=== PATIENT | female | born 1960 | race African-American/Black ===

== ENCOUNTER 2016-09-12 14:33 | Inpatient (IN) | payer MEDICAID ==
[~2016-09-12] VITALS: Ht 157.5 cm; Wt 127.5 kg
[~2016-09-12 14:33] MED LIST: ABILIFY30 MG ORAL; ASPIR 8181 MG ORAL; ATORVASTATIN CA20 MG ORAL; BP MEDS; CARVEDILOL12.5 MG ORAL; CARVEDILOL3.125 MG ORAL; COLCRYS0.6 M1 PO; COUMADIN1 MG ORAL; FERROUS SULFAT325 M2 ORAL; FUROSEMIDE40 MG ORAL; FUROSEMIDE40 MG PO; GABAPENTIN600 MG ORAL; HYDRALAZINE HCL25 M1 ORAL; IRON325 M2 PO; LANTUS SOL100 UNIT/1 SUBQ; LASIX40 MG ORAL; LEVETIRACETAM500 MG ORAL; LEVOTHYROXINE100 MCG ORAL; LISINOPRIL10 MG ORAL; LOSARTAN POTASS25 MG ORAL; NORCO 10-325 T1 EACH ORAL; NOVOLOG100 UNIT/3 SUBQ; NOVOLOG100 UNITS1 SUBQ; POTASSIUM CHLO10 ME3 ORAL; POTASSIUM CHLO20 ME3 PO; POTASSIUM CHLOR8 ME3 PO; RANEXA500 MG ORAL; SOMA350 MG PO; SPIRONOLACTONE100 MG ORAL; TEMAZEPAM7.5 MG ORAL; ULTRAM50 MG ORAL; VICODIN 5-5001 EACH PO; ZANTAC150 MG ORAL; ZAROXOLYN5 MG ORAL
[2016-09-12 14:51] VITALS: BP 119/83
--- NOTE | 2016-09-12 14:53 | Emergency Room Report ---
History of Present Illness General Chief Complaint: Chest Pain Source: Patient, Medical Record Present Illness HPI Patient presents with complaints of chest pain midsternal Complains of a sharp heaviness The pain came on about 2 hours ago Patient was given nitroglycerin in the field has not helped the pain very much Describes the pain as 6/10 at this time patient appeared diaphoretic however was given nitroglycerin by paramedics Denies any fevers or chills denies any cough She states that she has a very low EF denies any recent travel or pleurisy Allergies: Coded Allergies: CODEINE (Verified Allergy, Unknown, Itching, 08/21/14) SULFA (SULFONAMIDE ANTIBIOTICS) (Unverified Allergy, Unknown, 12/29/15) Uncoded Allergies: CODEIN (Allergy, Unknown, 09/12/16) Patient History Past Medical History: see triage record Pertinent Family History: none Reviewed Nursing Documentation: PMH: Agreed, PSxH: Agreed Nursing Documentation-PMH Hx Cardiac Problems: Yes - stroke Hx Hypertension: Yes Hx Pacemaker: Yes Hx Asthma: Yes Hx COPD: Yes Hx Diabetes: Yes Hx Cancer: No Hx Gastrointestinal Problems: No Hx Neurological Problems: No Hx Cerebrovascular Accident: Yes - In 2011, 2013 Hx Seizures: Yes Hx Headaches: Yes Review of Systems All Other Systems: negative except mentioned in HPI Physical Exam Vital Signs Date Time Temp Pulse Resp B/P Pulse Ox O2 Delivery O2 Flow Rate FiO2 09/12/16 14:27 77 16 145/85 100 Nasal Cannula 3.0 Sp02 EP Interpretation: reviewed, normal General Appearance: mild distress - Appears in acute pain and mildly diaphoretic Head: normocephalic, atraumatic Eyes: bilateral eye EOMI, bilateral eye PERRL ENT: hearing grossly normal, normal pharynx, TMs + canals normal, uvula midline Neck: full range of motion, supple, no meningismus, no bony tend Respiratory: lungs clear, normal breath sounds, no rhonchi, no respiratory distress, no retraction, no accessory muscle use Cardiovascular #1: normal peripheral pulses, regular rate, rhythm, no edema, no gallop, no JVD, no murmur Gastrointestinal: normal bowel sounds, non tender, soft, no mass, no organomegaly, non-distended, no guarding, no hernia, no pulsatile mass, no rebound Genitourinary: no CVA tenderness Musculoskeletal: normal inspection Neurologic: oriented x3, responsive, 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 as tested, motor strength/ tone normal, sensory intact Psychiatric: mood/affect normal Skin: normal color, no rash, warm/dry, palpation normal Lymphatic: normal inspection, no adenopathy Medical Decision Making Diagnostic Impression: Primary Impression: ACS (acute coronary syndrome) ER Course Patient is a fairly complex patient with multiple differential to consideration including but not limited to cardiac cardiopulmonary and vascular emergencies Patient does have a pacemaker in place At this time blood work and EKG did not show any obvious acute disease Patient remained symptomatic and require stronger pain medication On review patient has had several ablations for similar complaint However given the risk factors and the patient's discomfort patient was admitted for further inpatient care Labs Test 09/12/16 14:47 White Blood Count 7.7 K/UL (4.8-10.8) Red Blood Count 4.23 M/UL (4.20-5.40) Hemoglobin 12.3 G/DL (12.0-16.0) Hematocrit 37.9 % (37.0-47.0) Mean Corpuscular Volume 90 FL (80-99) Mean Corpuscular Hemoglobin 29.0 PG (27.0-31.0) Mean Corpuscular Hemoglobin Concent 32.4 G/DL (32.0-36.0) Red Cell Distribution Width 12.5 % (11.6-14.8) Platelet Count 179 K/UL (150-450) Mean Platelet Volume 8.5 FL (6.5-10.1) Neutrophils (%) (Auto) 67.8 % (45.0-75.0) Lymphocytes (%) (Auto) 24.6 % (20.0-45.0) Monocytes (%) (Auto) 4.9 % (1.0-10.0) Eosinophils (%) (Auto) 1.9 % (0.0-3.0) Basophils (%) (Auto) 0.8 % (0.0-2.0) Prothrombin Time 10.4 SEC (9.30-11.50) Prothromb Time International Ratio 1.0 (0.9-1.1) Activated Partial Thromboplast Time 25 SEC (23-33) Sodium Level 141 mEQ/L (135-145) Potassium Level 4.0 mEQ/L (3.4-4.9) Chloride Level 98 mEQ/L (98-107) Carbon Dioxide Level 27 mEQ/L (20-30) Anion Gap 16 (5-15) Blood Urea Nitrogen 8 mg/dL (7-23) Creatinine 0.8 mg/dL (0.5-0.9) Estimat Glomerular Filtration Rate > 60 mL/min (>60) Glucose Level 129 mg/dL (74-106) Calcium Level 9.1 mg/dL (8.6-10.2) Total Bilirubin 0.8 mg/dL (0.0-1.2) Aspartate Amino Transf (AST/SGOT) 24 U/L (5-40) Alanine Aminotransferase (ALT/SGPT) 18 U/L (3-33) Alkaline Phosphatase 49 U/L (35-104) Total Creatine Kinase 137 U/L (26-140) Creatine Kinase MB < 1.5 ng/mL (< 3.8) Creatine Kinase MB Relative Index Troponin I < 0.30 ng/mL (<=0.30) Pro-B-Type Natriuretic Peptide 218 pg/mL (0-125) Total Protein 6.7 g/dL (6.6-8.7) Albumin 4.1 g/dL (3.5-5.2) Globulin 2.6 g/dL Albumin/Globulin Ratio 1.5 (1.0-2.7) Lipase 16 U/L (< 60) EKG Diagnostic Results Rate: normal Rhythm: NSR ST Segments: other - Nonspecific ST and T-wave changes Rhythm Strip Diag. Results EP Interpretation: yes Rate: 67 Rhythm: NSR, no PVC's, no ectopy Chest X-Ray Diagnostic Results EP Interpretation: Yes Findings: no consolidation, no effusion, no pneumothorax, other - Cardiomegaly Number of Views: 1 Last Vital Signs Date Time Temp Pulse Resp B/P Pulse Ox O2 Delivery O2 Flow Rate FiO2 09/12/16 14:27 77 16 145/85 100 Nasal Cannula 3.0 Status: improved Disposition: ADMITTED INPATIENT Condition: Serious LEANA YAO D.O. Sep 12, 2016 14:53
[2016-09-12] MEDS ORDERED: Morphine Sulfate 4mg/ml Inj IVP ONE ×2 (15:00→15:45)
[2016-09-12 15:01] LABS: BASOPHILS % (AUTO) 0.8 % (0.0-2.0); EOSINOPHILS % (AUTO) 1.9 % (0.0-3.0); LYMPHOCYTES % (AUTO) 24.6 % (20.0-45.0); MEAN CORPUSCULAR HGB CONC 32.4 G/DL (32.0-36.0); MEAN CORPUSCULAR VOLUME 90 FL (80-99); MEAN PLATELET VOLUME 8.5 FL (6.5-10.1); MONOCYTES % (AUTO) 4.9 % (1.0-10.0); NEUTROPHILS % (AUTO) 67.8 % (45.0-75.0); PLATELET COUNT 179 K/UL (150-450); RED BLOOD COUNT 4.23 M/UL (4.20-5.40); RED CELL DISTRIBUTION WIDTH 12.5 % (11.6-14.8); WHITE BLOOD COUNT 7.7 K/UL (4.8-10.8)
[2016-09-12 15:14] LABS: PROTHROMBIN TIME 10.4 SEC (9.30-11.50)
[2016-09-12 15:18] LABS: ALANINE AMINOTRANSFERASE 18 U/L (3-33); ALBUMIN/GLOBULIN RATIO 1.5 (1.0-2.7); ANION GAP 16 (5-15); ASPARTATE AMINO TRANSFERASE 24 U/L (5-40); CALCIUM 9.1 mg/dL (8.6-10.2); CARBON DIOXIDE 27 mEQ/L (20-30); CHLORIDE 98 mEQ/L (98-107); CREATININE 0.8 mg/dL (0.5-0.9); GLOMERULAR FILTRATION RATE > 60 mL/min (>60); HEMOLYSIS 40; LIPASE 16 U/L (< 60); SODIUM 141 mEQ/L (135-145); TOTAL PROTEIN 6.7 g/dL (6.6-8.7); TROPONIN I < 0.30 ng/mL (<=0.30)
[2016-09-12 15:29] LABS: CKMB < 1.5 ng/mL (< 3.8)
[2016-09-12] MEDS ORDERED: DIPHENHYDRAMINE IVPB ONE (16:30)
[2016-09-12] MEDS ORDERED: HYDROMORPHONE IVPB ONE (16:30)
[2016-09-12] MEDS ORDERED: NS IVPB ONE (16:30)
[2016-09-12] MEDS ORDERED: DiphenhydrAMINE 50mg/ml Inj ONE (16:37)
[2016-09-12 17:11] VITALS: BP 129/65
--- NOTE | 2016-09-12 17:53 | History and Physical ---
History of Present Illness General Date patient seen: Sep 12, 2016 Reason for Hospitalization: Chest Pain Present Illness HPI 56 year old female with hx of cardiomyopathy and ICD presented to ER with complaints of chest pain midsternal The pain came on about 2 hours prior to admission Patient was given nitroglycerin in the field has not helped the pain. Because of her extensive cardiac history she was admitted to [facility] Allergies: Coded Allergies: CODEINE (Verified Allergy, Unknown, Itching, 08/21/14) SULFA (SULFONAMIDE ANTIBIOTICS) (Unverified Allergy, Unknown, 12/29/15) Uncoded Allergies: CODEIN (Allergy, Unknown, 09/12/16) Medication History Scheduled Aripiprazole* (Abilify*), 30 MG ORAL BEDTIME, (Reported) Aspirin* (Aspir 81*), 81 MG ORAL DAILY, (Reported) Atorvastatin Calcium* (Atorvastatin Calcium*), 20 MG ORAL BEDTIME, (Reported) Carvedilol* (Carvedilol*), 12.5 MG ORAL EVERY 12 HOURS, (Reported) Colchicine (Colcrys), 0.6 MG PO DAILY Furosemide* (Lasix*), 40 MG ORAL DAILY Gabapentin* (Gabapentin*), 600 MG ORAL THREE TIMES A DAY, (Reported) Insulin Aspart (Novolog Flexpen), 0 UNITS SUBQ BEFORE MEALS AND HS Insulin Aspart* (Novolog*), 25 UNITS SUBQ TID, (Reported) Insulin Glargine (Lantus), 25 SUBQ TID, (Reported) Levetiracetam* (Levetiracetam*), 500 MG ORAL TWICE A DAY, (Reported) Levothyroxine Sodium* (Levothyroxine Sodium*), 100 MCG ORAL DAILY, (Reported) Losartan Potassium* (Losartan Potassium*), 25 MG ORAL DAILY, (Reported) Potassium Chloride (Potassium Chloride), 40 MEQ PO BID, (Reported) Potassium Chloride (Potassium Chloride), 10 MEQ ORAL DAILY Spironolactone* (Spironolactone*), 25 MG ORAL DAILY, (Reported) Scheduled PRN Carisoprodol* (Soma*), 350 MG PO BID PRN Hydrocodone Bit/Acetaminophen 10-325* ([place] 10-325*), 1 TAB ORAL BID PRN for For Pain, (Reported) Patient History Healthcare decision maker Resuscitation status Advanced Directive on File Past Medical/Surgical History Past Medical/Surgical History: (1) Morbid obesity (2) GERD (gastroesophageal reflux disease) (3) HTN (hypertension) (4) Diabetes mellitus (5) Hypothyroidism Review of Systems Cardiovascular: Reports: chest pain All Other Systems: negative except mentioned in HPI Physical Exam General Appearance: overweight, obese Lines, tubes and drains: peripheral, central line HEENT: normocephalic Neck: non-tender, normal alignment Respiratory/Chest: chest wall non-tender, lungs clear Breasts: no masses Cardiovascular/Chest: normal peripheral pulses Abdomen: normal bowel sounds, non tender Genitourinary/Rectal: normal genital exam Extremities: normal range of motion 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 normal Lymphatic: anterior cervical Last 24 Hour Vital Signs Date Time Temp Pulse Resp B/P Pulse Ox O2 Delivery O2 Flow Rate FiO2 09/12/16 17:13 98.7 09/12/16 17:12 98.7 87 16 119/83 100 Nasal Cannula 3.0 09/12/16 17:11 98.8 87 15 129/65 100 Nasal Cannula 3.0 09/12/16 17:08 98.7 09/12/16 15:22 98.7 09/12/16 14:52 77 16 Nasal Cannula 3.0 09/12/16 14:51 98.7 87 18 119/83 100 Nasal Cannula 3.0 09/12/16 14:27 77 16 145/85 100 Nasal Cannula 3.0 Laboratory Tests Test 09/12/16 14:47 White Blood Count 7.7 K/UL (4.8-10.8) Red Blood Count 4.23 M/UL (4.20-5.40) Hemoglobin 12.3 G/DL (12.0-16.0) Hematocrit 37.9 % (37.0-47.0) Mean Corpuscular Volume 90 FL (80-99) Mean Corpuscular Hemoglobin 29.0 PG (27.0-31.0) Mean Corpuscular Hemoglobin Concent 32.4 G/DL (32.0-36.0) Red Cell Distribution Width 12.5 % (11.6-14.8) Platelet Count 179 K/UL (150-450) Mean Platelet Volume 8.5 FL (6.5-10.1) Neutrophils (%) (Auto) 67.8 % (45.0-75.0) Lymphocytes (%) (Auto) 24.6 % (20.0-45.0) Monocytes (%) (Auto) 4.9 % (1.0-10.0) Eosinophils (%) (Auto) 1.9 % (0.0-3.0) Basophils (%) (Auto) 0.8 % (0.0-2.0) Prothrombin Time 10.4 SEC (9.30-11.50) Prothromb Time International Ratio 1.0 (0.9-1.1) Activated Partial Thromboplast Time 25 SEC (23-33) Sodium Level 141 mEQ/L (135-145) Potassium Level 4.0 mEQ/L (3.4-4.9) Chloride Level 98 mEQ/L (98-107) Carbon Dioxide Level 27 mEQ/L (20-30) Anion Gap 16 (5-15) H Blood Urea Nitrogen 8 mg/dL (7-23) Creatinine 0.8 mg/dL (0.5-0.9) Estimat Glomerular Filtration Rate > 60 mL/min (>60) Glucose Level 129 mg/dL (74-106) H Calcium Level 9.1 mg/dL (8.6-10.2) Total Bilirubin 0.8 mg/dL (0.0-1.2) Aspartate Amino Transf (AST/SGOT) 24 U/L (5-40) Alanine Aminotransferase (ALT/SGPT) 18 U/L (3-33) Alkaline Phosphatase 49 U/L (35-104) Total Creatine Kinase 137 U/L (26-140) Creatine Kinase MB < 1.5 ng/mL (< 3.8) Creatine Kinase MB Relative Index Troponin I < 0.30 ng/mL (<=0.30) Pro-B-Type Natriuretic Peptide 218 pg/mL (0-125) H Total Protein 6.7 g/dL (6.6-8.7) Albumin 4.1 g/dL (3.5-5.2) Globulin 2.6 g/dL Albumin/Globulin Ratio 1.5 (1.0-2.7) Lipase 16 U/L (< 60) Height (Feet): 5 Height (Inches): 2.00 Weight (Pounds): 268 Assessment/Plan Problem List: (1) ACS (acute coronary syndrome) ICD Codes: I24.9 - Acute coronary syndrome SNOMED: 723309830 (2) AICD (automatic cardioverter/defibrillator) present ICD Codes: Z95.810 - Presence of automatic (implantable) cardiac defibrillator SNOMED: 14805127, 610592780 (3) HTN (hypertension) ICD Codes: I10 - Essential (primary) hypertension SNOMED: 36099315 Qualifiers: Qualified Codes: I10 - Essential (primary) hypertension (4) GERD (gastroesophageal reflux disease) ICD Codes: K21.9 - Gastro-esophageal reflux disease without esophagitis SNOMED: 592132289 Qualifiers: Qualified Codes: K21.9 - Gastro-esophageal reflux disease without esophagitis (5) Diabetes mellitus ICD Codes: E11.9 - Type 2 diabetes mellitus without complications SNOMED: 29532230 Qualifiers: (6) Cardiomyopathy ICD Codes: I42.9 - Cardiomyopathy, unspecified SNOMED: 68287921 (7) Seizure disorder ICD Codes: G40.909 - Epilepsy, unspecified, not intractable, without status epilepticus SNOMED: 972094742 (8) Morbid obesity ICD Codes: E66.01 - Morbid (severe) obesity due to excess calories SNOMED: 736975546 Qualifiers: Qualified Codes: E66.01 - Morbid (severe) obesity due to excess calories Assessment/Plan serial ekg, troponin, echo symptomatic treatment sliding scale diabetic diet cardiology evaluation keep in teli for now BEKA MASON Sep 12, 2016 17:53
[2016-09-12] MEDS ORDERED: DuoNeb 0.5-3(2.5)mg/3ml neb HHN PRN (18:00)
[2016-09-12] MEDS ORDERED: Diltiazem 25mg/5ml IV PRN (18:00)
[2016-09-12] MEDS ORDERED: Enalaprilat 2.5mg/2ml Inj IV PRN (18:00)
[2016-09-12] MEDS ORDERED: Miralax 17gm pkt ORAL PRN (18:00)
[2016-09-12] MEDS ORDERED: Nitroglycerin Subl 0.4mg tab (Bottle Of 25) SL PRN (18:00)
[2016-09-12] MEDS ORDERED: Ketorolac 30mg Inj IV PRN (18:00)
[2016-09-12] MEDS: Morphine Sulfate 2mg/ml Inj IVP PRN ×2 (18:27→22:23)
[2016-09-12 20:00] VITALS: BP 106/68
[2016-09-12] MEDS: Carvedilol 12.5mg tab ORAL SCH (21:00)
[2016-09-12] MEDS: Atorvastatin 20mg tab ORAL SCH (22:17)
[2016-09-12] MEDS: NovoLOG Insulin Flexpen SUBQ SCH (22:20)
[2016-09-12] MEDS: Heparin 5000 units/ml inj SUBQ SCH (22:21)
[2016-09-13] VITALS (7 sets, daily range): BP systolic 108–123; BP diastolic 64–85
[2016-09-13] MEDS: Morphine Sulfate 2mg/ml Inj IVP PRN ×3 (02:29→18:50)
[2016-09-13] MEDS: Heparin 5000 units/ml inj SUBQ SCH ×3 (06:38→21:23)
[2016-09-13] MEDS: NovoLOG Insulin Flexpen SUBQ SCH ×4 (06:39→21:24)
[2016-09-13] MEDS ORDERED: Aspirin EC 81mg tab ORAL SCH (09:00)
[2016-09-13 09:20] LABS: CHOLESTEROL 128 mg/dL (< 200); CHOLESTEROL/HDL RATIO 2.8 (3.3-4.4); CRP QUANT < 0.3 mg/dL (< 0.5); HEMOLYSIS 15; LDL CHOLESTEROL (CALC.) 17 mg/dL (60-99)
[2016-09-13 09:21] LABS: TROPONIN I < 0.30 ng/mL (<=0.30)
[2016-09-13 09:30] LABS: THYROID STIMULATING HORMONE 0.838 uIU/mL (0.300-4.500)
[2016-09-13] MEDS: Carvedilol 12.5mg tab ORAL SCH ×2 (10:00→21:00)
[2016-09-13] MEDS: Losartan 25mg tab ORAL SCH (10:00)
[2016-09-13] MEDS: Aspirin Baby 81mg ORAL SCH (10:00)
[2016-09-13] MEDS: Furosemide 40mg tab ORAL SCH (10:45)
--- NOTE | 2016-09-13 13:36 | Pulmonology Progress Note ---
Assessment/Plan Problems: (1) ACS (acute coronary syndrome) (2) AICD (automatic cardioverter/defibrillator) present (3) HTN (hypertension) (4) GERD (gastroesophageal reflux disease) (5) Diabetes mellitus (6) Cardiomyopathy (7) Seizure disorder (8) Morbid obesity Assessment/Plan serial ekg, troponin, echo pending symptomatic treatment sliding scale diabetic diet cardiology evaluation, Dr. Ortega evaluating the pt right now keep in teli for now Subjective ROS Limited/Unobtainable: No Interval Events: still complaining of chest pain Constitutional: Reports: no symptoms HEENT: Repors: no symptoms Allergies: Coded Allergies: CODEINE (Verified Allergy, Unknown, Itching, 08/21/14) SULFA (SULFONAMIDE ANTIBIOTICS) (Unverified Allergy, Unknown, 12/29/15) Uncoded Allergies: CODEIN (Allergy, Unknown, 09/12/16) Objective Last 24 Hour Vital Signs Date Time Temp Pulse Resp B/P Pulse Ox O2 Delivery O2 Flow Rate FiO2 09/13/16 12:06 98.4 82 18 112/64 93 Room Air 09/13/16 08:00 98.1 82 18 112/69 93 Room Air 09/13/16 04:54 97.7 77 22 115/64 100 Room Air 09/13/16 04:00 73 09/13/16 00:49 97.2 69 20 120/70 94 Room Air 09/12/16 21:00 91 106/68 09/12/16 20:00 91 09/12/16 20:00 97.0 66 19 106/68 100 Room Air 09/12/16 17:13 98.7 09/12/16 17:12 98.7 87 16 119/83 100 Nasal Cannula 3.0 09/12/16 17:11 98.8 87 15 129/65 100 Nasal Cannula 3.0 09/12/16 17:08 98.7 09/12/16 15:22 98.7 09/12/16 14:52 77 16 Nasal Cannula 3.0 09/12/16 14:51 98.7 87 18 119/83 100 Nasal Cannula 3.0 09/12/16 14:27 77 16 145/85 100 Nasal Cannula 3.0 Intake and Output 09/12/16 09/13/16 19:00 07:00 Intake Total 51.5 ml 480 ml Balance 51.5 ml 480 ml Intake Oral 480 ml IV Total 51.5 ml # Voids 4 # Bowel Movements 1 General Appearance: WD/WN Respiratory/Chest: chest wall non-tender, lungs clear Cardiovascular: normal peripheral pulses, normal rate Abdomen: normal bowel sounds, soft, non tender Genitourinary: normal external genitalia Extremities: no clubbing 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, no motor/sensory deficits Laboratory Tests 09/12/16 14:47: White Blood Count 7.7, Red Blood Count 4.23, Hemoglobin 12.3, Hematocrit 37.9, Mean Corpuscular Volume 90, Mean Corpuscular Hemoglobin 29.0, Mean Corpuscular Hemoglobin Concent 32.4, Red Cell Distribution Width 12.5, Platelet Count 179, Mean Platelet Volume 8.5, Neutrophils (%) (Auto) 67.8, Lymphocytes (%) (Auto) 24.6, Monocytes (%) (Auto) 4.9, Eosinophils (%) (Auto) 1.9, Basophils (%) (Auto ) 0.8, Prothrombin Time 10.4, Prothromb Time International Ratio 1.0, Activated Partial Thromboplast Time 25, Sodium Level 141, Potassium Level 4.0, Chloride Level 98, Carbon Dioxide Level 27, Anion Gap 16H, Blood Urea Nitrogen 8, Creatinine 0.8, Estimat Glomerular Filtration Rate > 60, Glucose Level 129H, Calcium Level 9.1, Total Bilirubin 0.8, Aspartate Amino Transf (AST/SGOT) 24, Alanine Aminotransferase (ALT/SGPT) 18, Alkaline Phosphatase 49, Total Creatine Kinase 137, Creatine Kinase MB < 1.5, Creatine Kinase MB Relative Index , Troponin I < 0.30, Pro-B-Type Natriuretic Peptide 218H, Total Protein 6.7, Albumin 4.1, Globulin 2.6, Albumin/Globulin Ratio 1.5, Lipase 16 09/13/16 08:40: Prothrombin Time 10.0, Prothromb Time International Ratio 1.0, Activated Partial Thromboplast Time 21L, Troponin I < 0.30, C-Reactive Protein, Quantitative < 0.3, Triglycerides Level 323H, Cholesterol Level 128, LDL Cholesterol 17L, HDL Cholesterol 46, Cholesterol/HDL Ratio 2.8L, Thyroid Stimulating Hormone (TSH) 0.838 Current Medications Medications (Trade) Dose Ordered Sig/Demarcus Route PRN Reason Start Time Stop Time Status Last Admin Dose Admin Acetaminophen (Tylenol) 650 mg Q4H PRN ORAL T>100.5 09/12/16 18:00 10/12/16 17:59 Acetaminophen/ Hydrocodone Bitart ([place] 10/325) 1 ea BID PRN ORAL Moderate Pain (Pain Scale 4-6) 09/12/16 18:00 09/19/16 17:59 Albuterol/ Ipratropium (DuoNeb 0.5-3(2.5)mg/3ml) 3 ml Q4H PRN HHN Shortness of Breath 09/12/16 18:00 09/17/16 17:59 Aripiprazole (Abilify) 30 mg BEDTIME ORAL 09/12/16 21:00 10/12/16 20:59 09/12/16 22:36 Aspirin (ASA) 162 mg DAILY ORAL 09/13/16 09:00 10/13/16 08:59 Atorvastatin Calcium (Lipitor) 20 mg BEDTIME ORAL 09/12/16 21:00 10/12/16 20:59 09/12/16 22:17 Carisoprodol (Soma) 350 mg BIDPRN PRN ORAL Muscle Spasms 09/12/16 18:00 10/12/16 17:59 09/13/16 02:29 Carvedilol (Coreg) 12.5 mg EVERY 12 HOURS ORAL 09/12/16 21:00 10/12/16 20:59 Dextrose (Dextrose 50%) STAT PRN IV Hypoglycemia 09/12/16 18:00 10/12/16 17:59 Diltiazem HCl (Cardizem) 10 mg Q1H PRN IV heart rate more than 120 BPM 09/12/16 18:00 10/12/16 17:59 Enalaprilat (Vasotec) 2.5 mg Q6H PRN IV sbp more than 160 09/12/16 18:00 10/12/16 17:59 Furosemide (Lasix) 40 mg DAILY ORAL 09/13/16 09:00 10/13/16 08:59 Gabapentin (Neurontin) 600 mg THREE TIMES A DAY ORAL 09/12/16 18:00 10/12/16 17:59 09/12/16 18:27 Heparin Sodium (Porcine) (Heparin 5000 units/ml) 5,000 units EVERY 8 HOURS SUBQ 12/28/16 22:00 10/12/16 21:59 09/13/16 06:38 Insulin Aspart (NovoLOG) BEFORE MEALS AND HS SUBQ 09/12/16 21:00 10/12/16 20:59 09/13/16 06:39 Levothyroxine Sodium (Synthroid) 100 mcg ACBREAKFAST ORAL 09/13/16 06:30 10/13/16 06:29 09/13/16 06:36 Losartan Potassium (Cozaar) 25 mg DAILY ORAL 09/13/16 09:00 10/13/16 08:59 Morphine Sulfate (Morphine Sulfate) 2 mg Q4H PRN IVP Severe Pain (Pain Scale 7-10) 09/12/16 18:00 09/19/16 17:59 09/13/16 06:36 Nitroglycerin (Ntg) 0.4 mg Q5MIN X 3 DOSES PRN SL Prn Chest Pain 09/12/16 18:00 10/12/16 17:59 Ondansetron HCl (Zofran) 4 mg Q6H PRN IVP Nausea & Vomiting 09/12/16 18:00 10/12/16 17:59 Pantoprazole (Protonix) 40 mg DAILY ORAL 09/13/16 09:00 10/13/16 08:59 Polyethylene Glycol (Miralax) 17 gm DAILYPRN PRN ORAL Constipation 09/12/16 18:00 10/12/16 17:59 Potassium Chloride (K-Dur) 10 meq DAILY ORAL 09/13/16 09:00 10/13/16 08:59 Temazepam (Restoril) 15 mg HSPRN PRN ORAL Insomnia 09/12/16 21:00 09/19/16 20:59 BEKA MASON Sep 13, 2016 13:36
--- NOTE | 2016-09-13 14:46 | Consultation ---
Consult Note Consult Note Cardiology for Dr. Levine full consult dictated #[id number] LONA HENSON Sep 13, 2016 14:46
[2016-09-13] MEDS ORDERED: NS 55ml IV ONE (17:45)
--- NOTE | 2016-09-13 19:48 | Consultation ---
DATE OF CONSULTATION: 09/13/2016 CARDIOLOGY CONSULTATION REQUESTING PHYSICIAN: Fernando Aquino M.D. REASON FOR CONSULT: Chest pain. HISTORY OF PRESENT ILLNESS: The patient is a 56-year-old, woman with a history of hypertension, morbid obesity, and congestive heart failure status post dual-chamber ICD placement in 2011, who was admitted with chest pain. She reports that on the evening of admission, she was lying down and developed severe left-sided sharp chest pain radiating to her left arm. She became dyspneic. She was brought to the emergency room where she reported chest pain over the preceding 2 hours. Her blood pressure was 145/85 and pulse 77 beats per minute. She had received nitroglycerin by the paramedics, which did not improve her symptoms. She was admitted for further treatment. She reports that she has had continued left chest discomfort. PAST MEDICAL HISTORY: As noted above. MEDICATIONS: Lasix 40 mg daily, Cozaar 25 mg daily, potassium 10 mEq daily, Protonix 40 mg daily, subcutaneous heparin 5000 units twice daily, atorvastatin 20 mg daily, Restoril 15 mg q.h.s. p.r.n., insulin sliding scale, Soma 350 mg b.i.d. p.r.n., gabapentin 600 mg t.i.d., [place] p.r.n., and nitroglycerin sublingual p.r.n. ALLERGIES: Codeine and sulfa caused a rash. SOCIAL HISTORY: The patient denies tobacco, alcohol, or drug use. PHYSICAL EXAMINATION: VITAL SIGNS: Blood pressure is 112/64, pulse 82 regular, respirations 18, and afebrile. GENERAL: The patient is a morbidly obese, woman, in no acute distress. HEENT: Normocephalic and atraumatic. Pupils are equal, round, and reactive to light. Sclerae anicteric. Oral mucosa are moist. NECK: Supple. There is no jugular venous distention. No thyromegaly. LUNGS: There are few right basilar crackles. Left is clear. HEART: Regular. S1 and S2 with no murmurs, rubs, S3, or S4. ABDOMEN: Obese, soft, and nontender. Exam is limited by obesity. EXTREMITIES: There is no peripheral edema, 2+ dorsalis pedis and posterior tibial pulses bilaterally. NEUROLOGIC: No focal motor deficits. LABORATORY AND DIAGNOSTIC DATA: EKG shows sinus rhythm at a rate of 81 beats per minute, axis -30 degrees, poor R-wave progression V1 to V4, no ST-segment changes, left ventricular hypertrophy by voltage. Hemoglobin 12.3, white blood count 7700, and platelets 179,000. Sodium 141, potassium 4.0, chloride 98, bicarbonate 27, BUN 8, and creatinine 0.8. Troponin is less than 0.3 x3. Natriuretic peptide is 218. Chest x-ray is pending. Venous duplex of the legs show no DVT. ASSESSMENT AND RECOMMENDATIONS: The patient is a 56-year-old woman with morbid obesity, hypertension, and cardiomyopathy likely nonischemic and status post dual-chamber implantable cardioverter defibrillator placement in 2011 at an outside hospital. She was admitted with chest pain radiating to her left arm, which appeared consistent with angina, however, did not resolve with nitroglycerin and has subsequently ruled out with negative troponin levels. Her chest pain may have been of noncardiac origin or could have been due to small vessel disease. We will obtain an echo to evaluate left ventricular function. The elevated troponin may also have been a demand ischemia in the setting of congestive heart failure. I would favor continued medical therapy with diuretics, angiotensin converting enzyme inhibitors, beta-blockers, as well as statins. We will attempt to obtain old records to determine her previous cardiac evaluation to help guide further therapy. Kelly Holly M.D. DR: ELVIRA JOB#: [id number] CC: Fernando Aquino M.D.; Fax#: [phone]
[2016-09-13] MEDS: Atorvastatin 20mg tab ORAL SCH (21:20)
[2016-09-14] MEDS: Morphine Sulfate 2mg/ml Inj IVP PRN ×5 (00:15→20:46)
[2016-09-14 04:20] VITALS: BP 110/73
[2016-09-14] MEDS: NovoLOG Insulin Flexpen SUBQ SCH ×4 (06:09→21:05)
[2016-09-14] MEDS: Heparin 5000 units/ml inj SUBQ SCH ×3 (06:10→22:02)
[2016-09-14 08:00] VITALS: BP 108/65
[2016-09-14] MEDS: Aspirin Baby 81mg ORAL SCH (09:00)
[2016-09-14 09:23] VITALS: BP 133/72
[2016-09-14] MEDS: Losartan 25mg tab ORAL SCH (09:26)
[2016-09-14] MEDS: Carvedilol 12.5mg tab ORAL SCH ×2 (09:26→20:47)
[2016-09-14] MEDS: Furosemide 40mg tab ORAL SCH (09:27)
[2016-09-14] MEDS ORDERED: Heparin 2000 units/Ns 1000ml INJ ONE (10:00)
[2016-09-14] MEDS ORDERED: Lidocaine 1% Plain 30 ml INJ ONE (10:00)
[2016-09-14] MEDS ORDERED: Sodium Bicarbonate 8.4% 50ml Inj IV ONE (10:00)
[2016-09-14 10:24] LABS: TROPONIN I < 0.30 ng/mL (<=0.30)
[2016-09-14 12:00] VITALS: BP 109/68
--- NOTE | 2016-09-14 14:02 | Cardiology Report ---
APPROVED REPORT EKG Measurement Heart [id number] ID [id number] Normal sinus rhythm Possible Left atrial enlargement Left axis deviation Left ventricular hypertrophy Abnormal ECG
--- NOTE | 2016-09-14 14:23 | Cardiology Report ---
APPROVED REPORT EXAM: Two-dimensional and M-mode echocardiogram with Doppler and color Doppler. M-Mode DIMENSIONS IVSd1.0 (0.7-1.1cm)Left Atrium (MM)4.2 (1.6-4.0cm) LVDd5.8 (3.5-5.6cm)Aortic Root3.0 (2.0-3.7cm) PWd1.2 (0.7-1.1cm)Aortic Cusp Exc.2.0 (1.5-2.0cm) LVDs3.7 (2.5-4.0cm) PWs1.6 cm Technically difficult study due to poor acoustic windows and weight. THERE IS AKINESIS AND THINNING OF THE ANTERIOR SEPTAL WALL. THERE IS SEVERE HYPOKINESIS TO AKINESIS OF THE ANTERIOR WALL. THERE IS HYPOKINESIS OF THE ISAIAS-LATERAL WALL. APICAL VIEWS DO NOT ALLOW FOR ADEQUATE ENDOCARDIAL DEFINITION TO DESCRIBE THE EXTENT OF THESE WALL MOTION ABNORMALITIES. PATTERN CONSISTENT WITH ISCHEMIC CARDIOMYOPATHY. Left ventricular ejection fraction estimated to be 30%. No left ventricular hypertrophy. Mild left atrial enlargment. Mild left ventricular enlargment. Focal aortic valve sclerosis with adequate cusp excursion Thickened mitral valve leaflets with normal excursion. Mitral annulus and aortic root calcification. Pulmonic valve not well visualized. Normal tricuspid valve structure. IVC dilated at 2.3cm with physiologic collapse. A color flow and spectral Doppler study was performed and revealed: No aortic regurgitation. Trace mitral regurgitation. Mitral inflow velocities indicates reduced left ventricular relaxation diastolic dysfunction. Grade one. Mild tricuspid regurgitation. Tricuspid systolic velocities suggests peak right ventricular systolic pressure of 33 mmHg. Trace pulmonic regurgitation present.
--- NOTE | 2016-09-14 15:46 | Pulmonology Progress Note ---
Assessment/Plan Problems: (1) ACS (acute coronary syndrome) (2) AICD (automatic cardioverter/defibrillator) present (3) HTN (hypertension) (4) GERD (gastroesophageal reflux disease) (5) Diabetes mellitus (6) Cardiomyopathy (7) Seizure disorder (8) Morbid obesity Assessment/Plan serial ekg, troponin, echo pending symptomatic treatment sliding scale diabetic diet cardiology evaluation, Dr. Ortega evaluating the pt right now keep in teli for now will wait for cardio recommendation Subjective ROS Limited/Unobtainable: No Interval Events: patient eating chips from the vending machine Allergies: Coded Allergies: CODEINE (Verified Allergy, Unknown, Itching, 08/21/14) SULFA (SULFONAMIDE ANTIBIOTICS) (Unverified Allergy, Unknown, 12/29/15) Uncoded Allergies: CODEIN (Allergy, Unknown, 09/12/16) Objective Last 24 Hour Vital Signs Date Time Temp Pulse Resp B/P Pulse Ox O2 Delivery O2 Flow Rate FiO2 09/14/16 12:42 98.1 09/14/16 12:42 98.1 09/14/16 12:00 97.9 87 20 109/68 98 Room Air 09/14/16 10:26 98.1 09/14/16 09:26 133/72 09/14/16 09:26 94 133/72 09/14/16 09:23 94 133/72 09/14/16 08:00 97.9 85 20 108/65 100 Room Air 96 09/14/16 07:46 99 09/14/16 04:20 98.1 85 19 110/73 97 Room Air 09/14/16 04:00 84 09/14/16 00:00 79 09/13/16 23:55 97.9 89 20 123/85 94 Room Air 09/13/16 21:00 81 108/72 09/13/16 20:00 98.1 81 20 108/72 Nasal Cannula 2.0 100 09/13/16 20:00 79 09/13/16 18:57 82 20 Nasal Cannula 3.0 32 09/13/16 16:00 79 09/13/16 16:00 99.3 77 19 118/67 Nasal Cannula 2.0 97 Intake and Output 09/13/16 09/14/16 19:00 07:00 Intake Total 600 ml 400 ml Balance 600 ml 400 ml Intake Oral 600 ml 400 ml # Voids 1 1 # Bowel Movements 1 General Appearance: WD/WN HEENT: normocephalic, atraumatic Respiratory/Chest: chest wall non-tender, lungs clear Cardiovascular: normal peripheral pulses, normal rate Abdomen: normal bowel sounds, soft, non tender Extremities: no cyanosis Skin: no ulcers Neurologic/Psychiatric: no motor/sensory deficits Lymphatic: no neck adenopathy Laboratory Tests 09/14/16 09:40: Troponin I < 0.30 Current Medications Medications (Trade) Dose Ordered Sig/Demarcus Route PRN Reason Start Time Stop Time Status Last Admin Dose Admin Acetaminophen (Tylenol) 650 mg Q4H PRN ORAL T>100.5 09/12/16 18:00 10/12/16 17:59 Acetaminophen/ Hydrocodone Bitart ([place] 10/325) 1 ea BID PRN ORAL Moderate Pain (Pain Scale 4-6) 09/12/16 18:00 09/19/16 17:59 Albuterol/ Ipratropium (DuoNeb 0.5-3(2.5)mg/3ml) 3 ml Q4H PRN HHN Shortness of Breath 09/12/16 18:00 09/17/16 17:59 Aripiprazole (Abilify) 30 mg BEDTIME ORAL 09/12/16 21:00 10/12/16 20:59 09/13/16 21:20 Aspirin (ASA) 162 mg DAILY ORAL 09/13/16 09:00 10/13/16 08:59 09/13/16 10:00 Atorvastatin Calcium (Lipitor) 20 mg BEDTIME ORAL 09/12/16 21:00 10/12/16 20:59 09/13/16 21:20 Carisoprodol (Soma) 350 mg BIDPRN PRN ORAL Muscle Spasms 09/12/16 18:00 10/12/16 17:59 09/14/16 09:38 Carvedilol (Coreg) 12.5 mg EVERY 12 HOURS ORAL 09/12/16 21:00 10/12/16 20:59 09/14/16 09:26 Dextrose (Dextrose 50%) STAT PRN IV Hypoglycemia 09/12/16 18:00 10/12/16 17:59 Diltiazem HCl (Cardizem) 10 mg Q1H PRN IV heart rate more than 120 BPM 09/12/16 18:00 1/27/17 17:59 Enalaprilat (Vasotec) 2.5 mg Q6H PRN IV sbp more than 160 09/12/16 18:00 10/12/16 17:59 Furosemide (Lasix) 40 mg DAILY ORAL 09/13/16 09:00 10/13/16 08:59 09/14/16 09:27 Gabapentin (Neurontin) 600 mg THREE TIMES A DAY ORAL 09/12/16 18:00 10/12/16 17:59 09/14/16 12:11 Heparin Sodium (Porcine) (Heparin 5000 units/ml) 5,000 units EVERY 8 HOURS SUBQ 09/12/16 22:00 10/12/16 21:59 09/14/16 13:31 Insulin Aspart (NovoLOG) BEFORE MEALS AND HS SUBQ 09/12/16 21:00 10/12/16 20:59 09/14/16 11:25 Levothyroxine Sodium (Synthroid) 100 mcg ACBREAKFAST ORAL 09/13/16 06:30 10/13/16 06:29 09/14/16 06:06 Losartan Potassium (Cozaar) 25 mg DAILY ORAL 09/13/16 09:00 10/13/16 08:59 09/14/16 09:26 Morphine Sulfate (Morphine Sulfate) 2 mg Q4H PRN IVP Severe Pain (Pain Scale 7-10) 09/12/16 18:00 09/19/16 17:59 09/14/16 12:12 Nitroglycerin (Ntg) 0.4 mg Q5MIN X 3 DOSES PRN SL Prn Chest Pain 09/12/16 18:00 10/12/16 17:59 Ondansetron HCl (Zofran) 4 mg Q6H PRN IVP Nausea & Vomiting 09/12/16 18:00 10/12/16 17:59 Pantoprazole (Protonix) 40 mg DAILY ORAL 09/13/16 09:00 10/13/16 08:59 09/14/16 09:26 Polyethylene Glycol (Miralax) 17 gm DAILYPRN PRN ORAL Constipation 09/12/16 18:00 10/12/16 17:59 Potassium Chloride (K-Dur) 10 meq DAILY ORAL 09/13/16 09:00 10/13/16 08:59 09/14/16 09:27 Temazepam (Restoril) 15 mg HSPRN PRN ORAL Insomnia 09/12/16 21:00 09/19/16 20:59 BEKA MASON Sep 14, 2016 15:46
[2016-09-14 16:00] VITALS: BP 109/59
--- NOTE | 2016-09-14 17:14 | Cardiology Progress Note ---
Assessment/Plan Status Narrative Mrs. Chavarria has ruled out for myocardial infarction w/ negative troponin levels. She has chronic systolic chf. EF currently 30% by ECHO, though technically difficult study. Hemodynamically stable. Does not appear w/ severe vol overload. Assessment/Plan Would continue cozaar, lasix, and carvedilol. BP is controlled. She reports previous cor angiogram (uncertain result) at [facility] - will review records. CP appears unlikely due to epicardial CAD, given negative troponin levels and duration of sx. Subjective ROS Limited/Unobtainable: No Subjective Pt c/o chest pain, fairly constant , and exertional dyspnea. Objective Last 24 Hour Vital Signs Date Time Temp Pulse Resp B/P Pulse Ox O2 Delivery O2 Flow Rate FiO2 09/14/16 16:25 98.1 09/14/16 16:00 99.0 86 18 109/59 95 Room Air 09/14/16 12:42 98.1 09/14/16 12:00 97.9 87 20 109/68 98 Room Air 09/14/16 10:26 98.1 09/14/16 09:26 133/72 09/14/16 09:26 94 133/72 09/14/16 09:23 94 133/72 09/14/16 08:00 97.9 85 20 108/65 100 Room Air 96 09/14/16 07:46 99 09/14/16 07:30 91 20 Nasal Cannula 2.0 28 09/14/16 04:20 98.1 85 19 110/73 97 Room Air 09/14/16 04:00 84 09/14/16 00:00 79 09/13/16 23:55 97.9 89 20 123/85 94 Room Air 09/13/16 21:00 81 108/72 09/13/16 20:00 98.1 81 20 108/72 Nasal Cannula 2.0 100 09/13/16 20:00 79 09/13/16 18:57 82 20 Nasal Cannula 3.0 32 General Appearance: no apparent distress, alert, obese EENT: PERRL/EOMI Neck: non-tender, no JVD Rhythm: NSR Cardiovascular: normal rate, regular rhythm Respiratory/Chest: lungs clear, other - dec BS bilat Abdomen: non tender, soft Extremities: non-tender, trace edema Intake and Output 09/13/16 09/14/16 19:00 07:00 Intake Total 600 ml 400 ml Balance 600 ml 400 ml Intake Oral 600 ml 400 ml # Voids 1 1 # Bowel Movements 1 Laboratory Tests Test 09/14/16 09:40 Troponin I < 0.30 ng/mL (<=0.30) LONA HENSON Sep 14, 2016 17:14
[2016-09-14 20:00] VITALS: BP 109/42
[2016-09-14] MEDS: Atorvastatin 20mg tab ORAL SCH (20:47)
--- NOTE | 2016-09-14 21:07 | Consultation ---
DATE OF CONSULTATION: 09/14/2016 CONSULTING PHYSICIAN: Fernando Aquino M.D. REASON FOR CONSULTATION: The patient complains of rash and sweating underneath the breast and also in the groin creases. HISTORY OF PRESENT ILLNESS: This is a 56-year-old woman. She has a significant medical history of cardiomyopathy and she was admitted on 09/12/2016 for chest pain and numbness of her left hand. The patient stated that she normally is ambulatory and active at home and prior to this illness, she was able to move around, however, she stated that she does have chronic back pain because of the heaviness of her bilateral breasts and she has sweatiness and has recurrent rashes in this area. She would like to know what her options are for treatment. MEDICATIONS: Lasix, Cozaar, K-Dur, aspirin, Protonix, Synthroid, Abilify, Lipitor, Coreg, Restoril, NovoLog, Soma, Neurontin, Stanton, nitroglycerin p.r.n., albuterol p.r.n., Tylenol p.r.n., morphine p.r.n., MiraLax p.r.n., Zofran p.r.n., Vasotec, and Cardizem. ALLERGIES: Codeine and Sulfa. REVIEW OF SYSTEMS: All negative except for what is listed above. PHYSICAL EXAMINATION: GENERAL: The patient is alert and oriented. She is overweight. HEENT: Normocephalic. No oral lesion. NECK: No lymphadenopathy. EXTREMITIES: Bilateral upper and lower extremities, no C/C/E. The patient has no open wounds or sores. I checked the area of her skin and the inframammary fold, she did have sweating. She does have large breasts with significant ptosis that does overlap. There are no active rashes as far as I could see. From her groin crease, she did have sweating. I do not see any active rashes in this area as either. ASSESSMENT: The patient with bilateral macromastia and also . The patient is overweight. The patient complains of history of rashes and sweating in the inframammary fold and also in the groin creases. RECOMMENDATIONS: the patient that she could put zinc oxide in the inframammary fold and also in the creases as well as antifungal powders in these area to protect against any rashes. The patient does have significant underlying cardiac issues, if she ever is a candidate for an elective surgery. She could have bilateral breast reduction, which reduced the volume of her breast tissue and would improve her back pain and also her rashes. Mis Quiroz M.D. DR: NATHAN JOB#: [id number] CC:
[2016-09-14] MEDS: Norco 10mg/325mg tab ORAL PRN (21:55)
[2016-09-15] VITALS: BP 124/75
[2016-09-15] MEDS: Morphine Sulfate 2mg/ml Inj IVP PRN ×5 (01:23→21:33)
[2016-09-15 04:00] VITALS: BP 102/54
[2016-09-15] MEDS: Heparin 5000 units/ml inj SUBQ SCH ×3 (06:20→21:28)
[2016-09-15] MEDS: NovoLOG Insulin Flexpen SUBQ SCH ×4 (06:21→21:28)
[2016-09-15 08:00] VITALS: BP 114/76
[2016-09-15] MEDS: Carvedilol 12.5mg tab ORAL SCH ×2 (08:40→21:25)
[2016-09-15] MEDS: Furosemide 40mg tab ORAL SCH (08:40)
[2016-09-15] MEDS: Aspirin Baby 81mg ORAL SCH (08:40)
[2016-09-15] MEDS: Losartan 25mg tab ORAL SCH (08:41)
[2016-09-15] MEDS: Norco 10mg/325mg tab ORAL PRN (09:23)
--- NOTE | 2016-09-15 11:10 | Cardiology Progress Note ---
Assessment/Plan Status: stable, unchanged Status Narrative Mrs. Chavarria has ruled out for myocardial infarction w/ negative troponin levels. She has chronic systolic chf. EF currently 30% by ECHO, though technically difficult study. she is s/p icd placement (Biotronik) and has not had any recent therapies from her device Assessment/Plan Would continue cozaar, lasix, and carvedilol. BP is controlled. Follow i/os, wts, renal function Obtain records from previous cardiac evaluation at [facility] If not recently done, further w/u for ischemia w/ stress nuclear study can be done as outpt can dc telemetry , as rhythm has been stable since adm Subjective ROS Limited/Unobtainable: No Subjective Pt c/o intermittent CP, dyspnea. Also c/o back pain w/ movement Objective Last 24 Hour Vital Signs Date Time Temp Pulse Resp B/P Pulse Ox O2 Delivery O2 Flow Rate FiO2 09/15/16 09:40 97.2 09/15/16 09:40 97.2 09/15/16 08:41 114/76 09/15/16 08:40 86 114/76 09/15/16 08:15 99 09/15/16 08:00 97.2 86 20 114/76 95 Nasal Cannula 2.0 09/15/16 07:53 97.7 09/15/16 07:47 87 18 Room Air 09/15/16 06:50 97.7 09/15/16 04:00 85 09/15/16 04:00 97.7 87 18 102/54 97 Nasal Cannula 2.0 09/15/16 00:00 97 09/15/16 00:00 99.7 97 20 124/75 100 Room Air 09/14/16 20:47 96 109/42 09/14/16 20:00 98.1 96 18 109/42 Nasal Cannula 2.0 09/14/16 20:00 91 09/14/16 19:44 88 20 Room Air 09/14/16 16:00 99.0 86 18 109/59 95 Room Air 09/14/16 16:00 88 09/14/16 12:00 97.9 87 20 109/68 98 Room Air General Appearance: WD/WN, no apparent distress, alert, obese Neck: no JVD Rhythm: NSR Cardiovascular: normal peripheral pulses, normal rate, regular rhythm, no gallop/murmur - distant heart sounds Respiratory/Chest: lungs clear Abdomen: non tender, soft, other - obese Intake and Output 09/14/16 09/15/16 19:00 07:00 Intake Total 400 ml 240 ml Balance 400 ml 240 ml Intake Oral 400 ml 240 ml # Voids 2 3 LONA HENSON Sep 15, 2016 11:10
[2016-09-15 11:49] VITALS: BP 124/65
--- NOTE | 2016-09-15 13:20 | Pulmonology Progress Note ---
Assessment/Plan Problems: (1) ACS (acute coronary syndrome) (2) AICD (automatic cardioverter/defibrillator) present (3) HTN (hypertension) (4) GERD (gastroesophageal reflux disease) (5) Diabetes mellitus (6) Cardiomyopathy (7) Seizure disorder (8) Morbid obesity Assessment/Plan serial ekg, troponin, echo done, result reviewed symptomatic treatment sliding scale diabetic diet cardiology evaluation, Dr. Ortega cleared for med/surg pain consult Subjective ROS Limited/Unobtainable: No Interval Events: still c/o back pain and epigastric pain Allergies: Coded Allergies: CODEINE (Verified Allergy, Unknown, Itching, 08/21/14) SULFA (SULFONAMIDE ANTIBIOTICS) (Unverified Allergy, Unknown, 12/29/15) Uncoded Allergies: CODEIN (Allergy, Unknown, 09/12/16) Objective Last 24 Hour Vital Signs Date Time Temp Pulse Resp B/P Pulse Ox O2 Delivery O2 Flow Rate FiO2 09/15/16 11:49 97.0 88 18 124/65 97 Nasal Cannula 2.0 09/15/16 09:40 97.2 09/15/16 09:40 97.2 09/15/16 08:41 114/76 09/15/16 08:40 86 114/76 09/15/16 08:15 99 09/15/16 08:00 97.2 86 20 114/76 95 Nasal Cannula 2.0 09/15/16 07:53 97.7 09/15/16 07:47 87 18 Room Air 09/15/16 06:50 97.7 09/15/16 04:00 85 09/15/16 04:00 97.7 87 18 102/54 97 Nasal Cannula 2.0 09/15/16 00:00 97 09/15/16 00:00 99.7 97 20 124/75 100 Room Air 09/14/16 20:47 96 109/42 09/14/16 20:00 98.1 96 18 109/42 Nasal Cannula 2.0 09/14/16 20:00 91 09/14/16 19:44 88 20 Room Air 09/14/16 16:00 99.0 86 18 109/59 95 Room Air 09/14/16 16:00 88 Intake and Output 09/14/16 09/15/16 19:00 07:00 Intake Total 400 ml 240 ml Balance 400 ml 240 ml Intake Oral 400 ml 240 ml # Voids 2 3 General Appearance: WD/WN HEENT: normocephalic, atraumatic Respiratory/Chest: chest wall non-tender, lungs clear Cardiovascular: normal peripheral pulses, normal rate Abdomen: normal bowel sounds, soft, non tender Extremities: no cyanosis 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 Current Medications Medications (Trade) Dose Ordered Sig/Demarcus Route PRN Reason Start Time Stop Time Status Last Admin Dose Admin Acetaminophen (Tylenol) 650 mg Q4H PRN ORAL T>100.5 09/12/16 18:00 10/12/16 17:59 Acetaminophen/ Hydrocodone Bitart ([place] 10/325) 1 ea BID PRN ORAL Moderate Pain (Pain Scale 4-6) 09/12/16 18:00 09/19/16 17:59 09/15/16 09:23 Albuterol/ Ipratropium (DuoNeb 0.5-3(2.5)mg/3ml) 3 ml Q4H PRN HHN Shortness of Breath 09/12/16 18:00 09/17/16 17:59 Aripiprazole (Abilify) 30 mg BEDTIME ORAL 09/12/16 21:00 10/12/16 20:59 09/14/16 20:47 Aspirin (ASA) 162 mg DAILY ORAL 09/13/16 09:00 10/13/16 08:59 09/15/16 08:40 Atorvastatin Calcium (Lipitor) 20 mg BEDTIME ORAL 09/12/16 21:00 10/12/16 20:59 09/14/16 20:47 Carisoprodol (Soma) 350 mg BIDPRN PRN ORAL Muscle Spasms 09/12/16 18:00 10/12/16 17:59 09/15/16 06:54 Carvedilol (Coreg) 12.5 mg EVERY 12 HOURS ORAL 09/12/16 21:00 10/12/16 20:59 09/15/16 08:40 Dextrose (Dextrose 50%) STAT PRN IV Hypoglycemia 09/12/16 18:00 10/12/16 17:59 Diltiazem HCl (Cardizem) 10 mg Q1H PRN IV heart rate more than 120 BPM 09/12/16 18:00 10/12/16 17:59 Enalaprilat (Vasotec) 2.5 mg Q6H PRN IV sbp more than 160 09/12/16 18:00 10/12/16 17:59 Furosemide (Lasix) 40 mg DAILY ORAL 09/13/16 09:00 10/13/16 08:59 09/15/16 08:40 Gabapentin (Neurontin) 600 mg THREE TIMES A DAY ORAL 09/12/16 18:00 10/12/16 17:59 09/15/16 12:14 Heparin Sodium (Porcine) (Heparin 5000 units/ml) 5,000 units EVERY 8 HOURS SUBQ 09/12/16 22:00 10/12/16 21:59 09/15/16 06:20 Insulin Aspart (NovoLOG) BEFORE MEALS AND HS SUBQ 09/12/16 21:00 10/12/16 20:59 09/15/16 11:17 Levothyroxine Sodium (Synthroid) 100 mcg ACBREAKFAST ORAL 09/13/16 06:30 10/13/16 06:29 09/15/16 06:20 Losartan Potassium (Cozaar) 25 mg DAILY ORAL 09/13/16 09:00 10/13/16 08:59 09/15/16 08:41 Morphine Sulfate (Morphine Sulfate) 2 mg Q4H PRN IVP Severe Pain (Pain Scale 7-10) 09/12/16 18:00 09/19/16 17:59 09/15/16 06:20 Nitroglycerin (Ntg) 0.4 mg Q5MIN X 3 DOSES PRN SL Prn Chest Pain 09/12/16 18:00 10/12/16 17:59 Ondansetron HCl (Zofran) 4 mg Q6H PRN IVP Nausea & Vomiting 09/12/16 18:00 10/12/16 17:59 Pantoprazole (Protonix) 40 mg DAILY ORAL 09/13/16 09:00 10/13/16 08:59 09/15/16 08:40 Polyethylene Glycol (Miralax) 17 gm DAILYPRN PRN ORAL Constipation 09/12/16 18:00 10/12/16 17:59 Potassium Chloride (K-Dur) 10 meq DAILY ORAL 09/13/16 09:00 10/13/16 08:59 09/15/16 08:40 Temazepam (Restoril) 15 mg HSPRN PRN ORAL Insomnia 09/12/16 21:00 09/19/16 20:59 09/14/16 21:55 BEKA MASON Sep 15, 2016 13:20
[2016-09-15] MEDS: Cyclobenzaprine 10mg Tab ORAL SCH ×2 (13:41→17:14)
[2016-09-15] MEDS: Sucralfate 1gm tab ORAL SCH ×3 (13:41→21:24)
--- NOTE | 2016-09-15 14:36 | Diagnostic Imaging Report ---
Indications: Chest pain Technique: Portable AP chest Findings: Comparison: 05/28/2016 [place] silhouette remains enlarged. Pulmonary vascular redistribution, bilateral interstitial prominence have resolved. Lungs and pleura currently clear. PICC removed. Left chest wall pacemaker remains in place. IMPRESSION: No current evidence of acute cardiopulmonary disease Cardiomegaly, pacemaker PICC removal
--- NOTE | 2016-09-15 14:37 | Diagnostic Imaging Report ---
Indications: Needs long-term IV access Technique: Ultrasound confirms patent compressible right basilic vein. Total sterile technique, including sterile probe cover and sterile gel, hat, mask,, sterile gown, large sterile drape, and preparation with 2% chlorhexidine utilized. Local anesthesia with 1% lidocaine. Under real-time ultrasound guidance, puncture basilic vein using 21-gauge needle, documented and archived, passage 0.018 guidewire under direct fluoroscopy, which was used to determine appropriate catheter length, exchange for 5 [place] peel-away sheath. 5 [place] Bard dual-lumen power PICC cut to 45 cm. It was inserted through the peel-away sheath. Peel-away sheath and guidewire removed. Catheter fixed to the skin. Both catheter ports aspirated and flushed. Patient tolerated procedure well, without immediate complication. Digital radiograph documents satisfactory catheter tip position, at the cavoatrial junction. Total fluoroscopy time 0.4 minutes. Total dose area product 12 dGycm2 Impression: Successful placement of right arm PICC under sonographic and fluoroscopic guidance, as described above.
[2016-09-15 16:00] VITALS: BP 116/76
[2016-09-15 20:00] VITALS: BP 122/78
[2016-09-15] MEDS: Atorvastatin 20mg tab ORAL SCH (21:32)
[2016-09-15] MEDS ORDERED: Nitroglycerin Subl 0.4mg tab (Bottle Of 25) SL PRN (23:45)
[2016-09-16] VITALS: BP 114/69
[2016-09-16] MEDS ORDERED: Enalaprilat 2.5mg/2ml Inj IV PRN
[2016-09-16] MEDS ORDERED: Diltiazem 25mg/5ml IV PRN
[2016-09-16] MEDS: Morphine Sulfate 2mg/ml Inj IVP PRN ×4 (01:49→20:04)
[2016-09-16] MEDS ORDERED: DuoNeb 0.5-3(2.5)mg/3ml neb HHN PRN (03:30)
[2016-09-16 04:00] VITALS: BP 154/63
[2016-09-16] MEDS: Heparin 5000 units/ml inj SUBQ SCH ×3 (06:01→22:17)
[2016-09-16] MEDS: NovoLOG Insulin Flexpen SUBQ SCH ×4 (06:24→22:16)
[2016-09-16 08:00] VITALS: BP 114/74
[2016-09-16] MEDS: Carvedilol 12.5mg tab ORAL SCH ×2 (08:13→22:12)
[2016-09-16] MEDS: Aspirin Baby 81mg ORAL SCH (08:14)
[2016-09-16] MEDS: Cyclobenzaprine 10mg Tab ORAL SCH ×3 (08:16→17:07)
[2016-09-16] MEDS: Furosemide 40mg tab ORAL SCH (08:17)
[2016-09-16] MEDS: Losartan 25mg tab ORAL SCH (08:21)
[2016-09-16] MEDS: Sucralfate 1gm tab ORAL SCH ×4 (08:34→22:13)
--- NOTE | 2016-09-16 10:19 | Consultation ---
History of Present Illness General Date patient seen: Sep 16, 2016 Chief Complaint: Chest Pain Present Illness Allergies: Coded Allergies: CODEINE (Verified Allergy, Unknown, Itching, 08/21/14) SULFA (SULFONAMIDE ANTIBIOTICS) (Unverified Allergy, Unknown, 12/29/15) Uncoded Allergies: CODEIN (Allergy, Unknown, 09/12/16) Medication History Scheduled Aripiprazole* (Abilify*), 30 MG ORAL BEDTIME, (Reported) Aspirin* (Aspir 81*), 81 MG ORAL DAILY, (Reported) Atorvastatin Calcium* (Atorvastatin Calcium*), 20 MG ORAL BEDTIME, (Reported) Carvedilol* (Carvedilol*), 12.5 MG ORAL EVERY 12 HOURS, (Reported) Colchicine (Colcrys), 0.6 MG PO DAILY Furosemide* (Lasix*), 40 MG ORAL DAILY Gabapentin* (Gabapentin*), 600 MG ORAL THREE TIMES A DAY, (Reported) Insulin Aspart (Novolog Flexpen), 0 UNITS SUBQ BEFORE MEALS AND HS Insulin Aspart* (Novolog*), 25 UNITS SUBQ TID, (Reported) Insulin Glargine (Lantus), 25 SUBQ TID, (Reported) Levetiracetam* (Levetiracetam*), 500 MG ORAL TWICE A DAY, (Reported) Levothyroxine Sodium* (Levothyroxine Sodium*), 100 MCG ORAL DAILY, (Reported) Losartan Potassium* (Losartan Potassium*), 25 MG ORAL DAILY, (Reported) Potassium Chloride (Potassium Chloride), 40 MEQ PO BID, (Reported) Potassium Chloride (Potassium Chloride), 10 MEQ ORAL DAILY Spironolactone* (Spironolactone*), 25 MG ORAL DAILY, (Reported) Scheduled PRN Carisoprodol* (Soma*), 350 MG PO BID PRN Hydrocodone Bit/Acetaminophen 10-325* ([place] 10-325*), 1 TAB ORAL BID PRN for For Pain, (Reported) Patient History Healthcare decision maker Resuscitation status Advanced Directive on File Physical Exam Last 24 Hour Vital Signs Date Time Temp Pulse Resp B/P Pulse Ox O2 Delivery O2 Flow Rate FiO2 09/16/16 09:14 98.1 09/16/16 09:14 98.1 09/16/16 09:14 98.1 09/16/16 08:21 114/74 1/1/17 08:13 91 114/74 09/16/16 08:00 98.1 91 20 114/74 100 Nasal Cannula 2.0 91 09/16/16 07:29 90 18 Room Air 09/16/16 04:00 98.2 99 20 154/63 99 Nasal Cannula 9.0 09/16/16 00:00 98.2 99 19 114/69 95 Nasal Cannula 2.0 09/15/16 23:51 87 22 98 Nasal Cannula 2.0 09/15/16 23:40 85 22 95 Nasal Cannula 2.0 28 09/15/16 21:25 91 122/78 09/15/16 20:00 92 09/15/16 20:00 98.0 91 20 122/78 94 Nasal Cannula 2.0 09/15/16 19:07 90 18 Room Air 09/15/16 16:00 81 09/15/16 16:00 97.5 80 18 116/76 100 Nasal Cannula 2.0 09/15/16 13:49 97.0 09/15/16 13:49 97.0 09/15/16 13:13 97.0 09/15/16 11:49 97.0 88 18 124/65 97 Nasal Cannula 2.0 Intake and Output 09/15/16 09/16/16 19:00 07:00 Intake Total 240 ml 240 ml Balance 240 ml 240 ml Intake Oral 240 ml 240 ml # Voids 1 Height (Feet): 5 Height (Inches): 2.00 Weight (Pounds): 283 Medications Current Medications Medications (Trade) Dose Ordered Sig/Demarcus Route PRN Reason Start Time Stop Time Status Last Admin Dose Admin Acetaminophen (Tylenol) 650 mg Q4H PRN ORAL T>100.5 09/16/16 00:21 10/16/16 00:20 Acetaminophen/ Hydrocodone Bitart ([place] 10/325) 1 ea BID PRN ORAL Moderate Pain (Pain Scale 4-6) 09/16/16 00:26 09/23/16 00:25 Albuterol/ Ipratropium (DuoNeb 0.5-3(2.5)mg/3ml) 3 ml Q4H PRN HHN Shortness of Breath 09/16/16 03:30 09/21/16 03:29 Aripiprazole (Abilify) 30 mg BEDTIME ORAL 09/16/16 21:00 10/16/16 20:59 Aspirin (ASA) 162 mg DAILY ORAL 09/16/16 09:00 10/16/16 08:59 09/16/16 08:14 Atorvastatin Calcium (Lipitor) 20 mg BEDTIME ORAL 09/16/16 21:00 10/16/16 20:59 Carisoprodol (Soma) 350 mg BIDPRN PRN ORAL Muscle Spasms 09/16/16 06:00 10/16/16 05:59 09/16/16 08:15 Carvedilol (Coreg) 12.5 mg EVERY 12 HOURS ORAL 09/16/16 09:00 10/16/16 08:59 Cyclobenzaprine HCl (Flexeril) 10 mg THREE TIMES A DAY ORAL 09/16/16 09:00 10/16/16 08:59 09/16/16 08:16 Dextrose (Dextrose 50%) STAT PRN IV Hypoglycemia 09/16/16 00:25 10/16/16 00:24 Enalaprilat (Vasotec) 2.5 mg Q6H PRN IV sbp more than 160 09/16/16 00:00 10/16/16 00:00 Furosemide (Lasix) 40 mg DAILY ORAL 09/16/16 09:00 10/16/16 08:59 09/16/16 08:17 Gabapentin (Neurontin) 600 mg THREE TIMES A DAY ORAL 09/16/16 09:00 10/16/16 08:59 09/16/16 08:18 Heparin Sodium (Porcine) (Heparin 5000 units/ml) 5,000 units EVERY 8 HOURS SUBQ 09/16/16 06:00 10/16/16 05:59 09/16/16 06:01 Insulin Aspart (NovoLOG) BEFORE MEALS AND HS SUBQ 09/16/16 06:30 10/16/16 06:29 09/16/16 06:24 Levothyroxine Sodium (Synthroid) 100 mcg ACBREAKFAST ORAL 09/16/16 06:30 10/16/16 06:29 09/16/16 05:58 Losartan Potassium (Cozaar) 25 mg DAILY ORAL 09/16/16 09:00 10/16/16 08:59 Morphine Sulfate (Morphine Sulfate) 2 mg Q4H PRN IVP Severe Pain (Pain Scale 7-10) 09/16/16 01:30 09/23/16 01:29 09/16/16 06:02 Nitroglycerin (Ntg) 0.4 mg Q5MIN X 3 DOSES PRN SL Prn Chest Pain 09/15/16 23:45 10/15/16 23:44 Ondansetron HCl (Zofran) 4 mg Q6H PRN IVP Nausea & Vomiting 09/16/16 00:00 10/16/16 00:00 Pantoprazole (Protonix) 40 mg EVERY 12 HOURS ORAL 09/16/16 09:00 10/16/16 08:59 09/16/16 08:17 Polyethylene Glycol (Miralax) 17 gm DAILYPRN PRN ORAL Constipation 09/16/16 00:30 10/16/16 00:29 Potassium Chloride (K-Dur) 10 meq DAILY ORAL 09/16/16 09:00 10/16/16 08:59 09/16/16 08:14 Sucralfate (Carafate) 1 gm FOUR TIMES A DAY ORAL 09/16/16 09:00 10/16/16 08:59 09/16/16 08:34 Temazepam (Restoril) 15 mg HSPRN PRN ORAL Insomnia 09/16/16 00:20 09/23/16 00:19 09/16/16 02:02 Assessment/Plan Assessment/Plan (1) Morbid obesity (2) Lumbar DDD (3) Lumbar Spondylosis (4) Lumbar Radiculopathy Seen Dictated CARLOS STOLL Sep 16, 2016 10:19
--- NOTE | 2016-09-16 11:45 | Diagnostic Imaging Report ---
Indications: PAIN Technique: Spiral acquisitions obtained through the lumbar spine. Multiplanar reconstructions were generated. No IV contrast utilized. Total dose length product 942 mGycm. CTDIvol(s) 33 mGy Comparison: None Findings: No evidence of acute fracture. No dislocations. Vertebral body heights are preserved. There is degenerative disc narrowing at L5-S1. The remaining disc spaces are preserved. There is mild degenerative narrowing of the bilateral sacroiliac joints. There is mild bilateral neural foraminal stenosis at L5-S1. No significant disc bulge or protrusion or spinal stenosis. At the remaining levels, no significant disc bulge or protrusion, spinal stenosis, or neural foraminal stenosis. The included extraspinal soft tissues are unremarkable. 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
[2016-09-16 12:00] VITALS: BP 125/78
[2016-09-16] MEDS: Miralax 17gm pkt ORAL PRN (13:50)
--- NOTE | 2016-09-16 15:55 | Cardiology Progress Note ---
Assessment/Plan Status: stable, unchanged Status Narrative Mrs. Chavarria has ruled out for myocardial infarction w/ negative troponin levels. She has chronic systolic chf - ? ischemic vs dilated cm. EF currently 30% by ECHO, though technically difficult study. she is s/p icd placement (Biotronik) . Assessment/Plan continue coreg, lasix, losartan for CHF./ systolic dysfunction. Records pending from [facility] re: previous cardiac w/u. ICD interrogation to be arranged. Spine CT noted - mild foraminal stenosis at L5-S1 - management per primary MD Subjective ROS Limited/Unobtainable: No Subjective Pt c/o severe back pain, R leg weakness. no current c/o dyspnea Objective Last 24 Hour Vital Signs Date Time Temp Pulse Resp B/P Pulse Ox O2 Delivery O2 Flow Rate FiO2 09/16/16 13:33 98.1 09/16/16 13:33 98.1 09/16/16 12:00 98.8 92 20 125/78 100 Nasal Cannula 2.0 92 09/16/16 10:51 98.1 09/16/16 09:14 98.1 09/16/16 08:21 114/74 09/16/16 08:13 91 114/74 09/16/16 08:00 98.1 91 20 114/74 100 Nasal Cannula 2.0 91 09/16/16 07:29 90 18 Room Air 09/16/16 04:00 98.2 99 20 154/63 99 Nasal Cannula 9.0 09/16/16 00:00 98.2 99 19 114/69 95 Nasal Cannula 2.0 09/15/16 23:51 87 22 98 Nasal Cannula 2.0 09/15/16 23:40 85 22 95 Nasal Cannula 2.0 28 09/15/16 21:25 91 122/78 09/15/16 20:00 92 09/15/16 20:00 98.0 91 20 122/78 94 Nasal Cannula 2.0 09/15/16 19:07 90 18 Room Air 09/15/16 16:00 81 09/15/16 16:00 97.5 80 18 116/76 100 Nasal Cannula 2.0 General Appearance: WD/WN, mild distress, obese EENT: PERRL/EOMI Neck: supple, no JVD Rhythm: NSR Cardiovascular: normal rate, regular rhythm, other - distant ht sounds Respiratory/Chest: lungs clear - clear anteriorly Abdomen: non tender, soft, other - obese Extremities: no swelling Intake and Output 09/15/16 09/16/16 19:00 07:00 Intake Total 240 ml 240 ml Balance 240 ml 240 ml Intake Oral 240 ml 240 ml # Voids 1 LONA HENSON Sep 16, 2016 15:55
[2016-09-16 16:00] VITALS: BP 142/82
--- NOTE | 2016-09-16 17:36 | Internal Med Progress Note ---
Subjective Date of Service: Sep 16, 2016 Physician Name LeeJus juan Attending Physician Fernando Aquino Current Medications Medications (Trade) Dose Ordered Sig/Demarcus Route PRN Reason Start Time Stop Time Status Last Admin Dose Admin Acetaminophen (Tylenol) 650 mg Q4H PRN ORAL T>100.5 09/16/16 00:21 10/16/16 00:20 Acetaminophen/ Hydrocodone Bitart ([place] 10/325) 1 ea BID PRN ORAL Moderate Pain (Pain Scale 4-6) 09/16/16 00:26 09/23/16 00:25 Albuterol/ Ipratropium (DuoNeb 0.5-3(2.5)mg/3ml) 3 ml Q4H PRN HHN Shortness of Breath 09/16/16 03:30 09/21/16 03:29 Aripiprazole (Abilify) 30 mg BEDTIME ORAL 09/16/16 21:00 10/16/16 20:59 Aspirin (ASA) 162 mg DAILY ORAL 09/16/16 09:00 10/16/16 08:59 09/16/16 08:14 Atorvastatin Calcium (Lipitor) 20 mg BEDTIME ORAL 09/16/16 21:00 10/16/16 20:59 Carisoprodol (Soma) 350 mg BIDPRN PRN ORAL Muscle Spasms 09/16/16 06:00 10/16/16 05:59 09/16/16 08:15 Carvedilol (Coreg) 12.5 mg EVERY 12 HOURS ORAL 09/16/16 09:00 10/16/16 08:59 Cyclobenzaprine HCl (Flexeril) 10 mg THREE TIMES A DAY ORAL 09/16/16 09:00 10/16/16 08:59 09/16/16 17:07 Dextrose (Dextrose 50%) STAT PRN IV Hypoglycemia 09/16/16 00:25 10/16/16 00:24 Enalaprilat (Vasotec) 2.5 mg Q6H PRN IV sbp more than 160 09/16/16 00:00 10/16/16 00:00 Furosemide (Lasix) 40 mg DAILY ORAL 09/16/16 09:00 10/16/16 08:59 09/16/16 08:17 Gabapentin (Neurontin) 600 mg THREE TIMES A DAY ORAL 09/16/16 09:00 10/16/16 08:59 09/16/16 17:07 Heparin Sodium (Porcine) (Heparin 5000 units/ml) 5,000 units EVERY 8 HOURS SUBQ 09/16/16 06:00 10/16/16 05:59 09/16/16 13:15 Insulin Aspart (NovoLOG) BEFORE MEALS AND HS SUBQ 09/16/16 06:30 10/16/16 06:29 09/16/16 13:06 Levothyroxine Sodium (Synthroid) 100 mcg ACBREAKFAST ORAL 09/16/16 06:30 10/16/16 06:29 09/16/16 05:58 Losartan Potassium (Cozaar) 25 mg DAILY ORAL 09/16/16 09:00 10/16/16 08:59 Morphine Sulfate (Morphine Sulfate) 2 mg Q4H PRN IVP Severe Pain (Pain Scale 7-10) 09/16/16 01:30 09/23/16 01:29 09/16/16 10:21 Nitroglycerin (Ntg) 0.4 mg Q5MIN X 3 DOSES PRN SL Prn Chest Pain 09/15/16 23:45 10/15/16 23:44 Ondansetron HCl (Zofran) 4 mg Q6H PRN IVP Nausea & Vomiting 09/16/16 00:00 10/16/16 00:00 Pantoprazole (Protonix) 40 mg EVERY 12 HOURS ORAL 09/16/16 09:00 10/16/16 08:59 09/16/16 08:17 Polyethylene Glycol (Miralax) 17 gm DAILYPRN PRN ORAL Constipation 09/16/16 00:30 10/16/16 00:29 09/16/16 13:50 Potassium Chloride (K-Dur) 10 meq DAILY ORAL 09/16/16 09:00 10/16/16 08:59 09/16/16 08:14 Sucralfate (Carafate) 1 gm FOUR TIMES A DAY ORAL 09/16/16 09:00 10/16/16 08:59 09/16/16 17:07 Temazepam (Restoril) 15 mg HSPRN PRN ORAL Insomnia 09/16/16 00:20 09/23/16 00:19 09/16/16 02:02 Allergies: Coded Allergies: CODEINE (Verified Allergy, Unknown, Itching, 08/21/14) SULFA (SULFONAMIDE ANTIBIOTICS) (Unverified Allergy, Unknown, 12/29/15) Uncoded Allergies: CODEIN (Allergy, Unknown, 09/12/16) ROS Limited/Unobtainable: No Constitutional: Reports: no symptoms HEENT: Reports: no symptoms Cardiovascular: Reports: chest pain Respiratory: Reports: no symptoms Gastrointestinal/Abdominal: Reports: no symptoms Genitourinary: Reports: no symptoms Neurologic/Psychiatric: Reports: no symptoms Subjective Cover for Int Med-Dr Aquino Objective Last Vital Signs Date Time Temp Pulse Resp B/P Pulse Ox O2 Delivery O2 Flow Rate FiO2 09/16/16 13:33 98.1 09/16/16 12:00 92 20 125/78 100 Nasal Cannula 2.0 92 09/15/16 23:40 28 General Appearance: WD/WN, no apparent distress, alert, moderate distress EENT: normal ENT inspection Neck: non-tender, normal alignment, supple Cardiovascular: normal peripheral pulses, normal rate, regular rhythm, no gallop/murmur, no JVD Respiratory/Chest: chest wall non-tender, lungs clear, normal breath sounds, no respiratory distress, no accessory muscle use Abdomen: normal bowel sounds, non tender, soft, no organomegaly, no mass Extremities: normal range of motion 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 (3) HTN (hypertension) Assessment & Plan: Cont cozaar (4) Diabetes mellitus Assessment & Plan: cont novolog (5) GERD (gastroesophageal reflux disease) (6) Seizure disorder (7) Hypothyroidism Assessment & Plan: Cont synthroid Status: JUS Murray Sep 16, 2016 17:36
[2016-09-16 20:00] VITALS: BP 127/70
[2016-09-16] MEDS: Atorvastatin 20mg tab ORAL SCH (22:13)
[2016-09-16] MEDS: Norco 10mg/325mg tab ORAL PRN (22:14)
[2016-09-17] VITALS: BP 120/61
[2016-09-17] MEDS: Morphine Sulfate 2mg/ml Inj IVP PRN ×5 (03:59→20:32)
[2016-09-17 04:00] VITALS: BP 119/42
[2016-09-17] MEDS: Heparin 5000 units/ml inj SUBQ SCH ×3 (06:26→21:23)
[2016-09-17] MEDS: NovoLOG Insulin Flexpen SUBQ SCH ×4 (06:48→21:22)
[2016-09-17 07:18] LABS: ANION GAP 12 (5-15); CARBON DIOXIDE 30 mEQ/L (20-30); CHLORIDE 94 mEQ/L (98-107); GLOMERULAR FILTRATION RATE > 60 mL/min (>60); HEMOLYSIS 0; POTASSIUM 3.9 mEQ/L (3.4-4.9); SODIUM 136 mEQ/L (135-145)
[2016-09-17 07:29] LABS: BASOPHILS % (AUTO) 0.6 % (0.0-2.0); EOSINOPHILS % (AUTO) 1.5 % (0.0-3.0); LYMPHOCYTES % (AUTO) 16.8 % (20.0-45.0); MEAN CORPUSCULAR HEMOGLOBIN 28.2 PG (27.0-31.0); MEAN CORPUSCULAR VOLUME 91 FL (80-99); MEAN PLATELET VOLUME 8.1 FL (6.5-10.1); MONOCYTES % (AUTO) 8.8 % (1.0-10.0); NEUTROPHILS % (AUTO) 72.3 % (45.0-75.0); PLATELET COUNT 120 K/UL (150-450); RED BLOOD COUNT 3.54 M/UL (4.20-5.40); RED CELL DISTRIBUTION WIDTH 12.6 % (11.6-14.8); WHITE BLOOD COUNT 8.3 K/UL (4.8-10.8)
[2016-09-17 08:00] VITALS: BP 120/65
[2016-09-17] MEDS: Sucralfate 1gm tab ORAL SCH ×4 (08:15→21:26)
[2016-09-17] MEDS: Aspirin Baby 81mg ORAL SCH (08:15)
[2016-09-17] MEDS: Furosemide 40mg tab ORAL SCH (08:16)
[2016-09-17] MEDS: Cyclobenzaprine 10mg Tab ORAL SCH ×3 (08:17→17:00)
[2016-09-17] MEDS: Losartan 25mg tab ORAL SCH (09:21)
[2016-09-17] MEDS: Carvedilol 12.5mg tab ORAL SCH ×2 (09:21→21:24)
[2016-09-17] MEDS: Miralax 17gm pkt ORAL PRN (09:30)
--- NOTE | 2016-09-17 09:58 | General Progress Note ---
Assessment/Plan Assessment/Plan (1) Morbid obesity (2) Lumbar DDD (3) Lumbar Spondylosis (4) Lumbar Radiculopathy Pt will be continued on Morphine and [place] as needed. Pt was d/w Dr. Parada and he concurred. Subjective Date patient seen: Sep 17, 2016 Time patient seen: 07:00 - am Constitutional: Reports: weakness, Denies: chills, diaphoresis, fever, malaise , no symptoms, other HEENT: Denies: blurred vision, double vision, ear discharge, ear pain, eye pain , mouth pain, mouth swelling, no symptoms, nose congestion, nose pain, other, tearing, throat pain, throat swelling Cardiovascular: Denies: chest pain, edema, irregular heart rate, lightheadedness, no symptoms, other, palpitations, syncope Respiratory: Reports: shortness of breath, Denies: SOB at rest, SOB with excertion, cough, no symptoms, orthopnea, other, sputum, stridor, wheezing Gastrointestinal/Abdominal: Denies: abdomen distended, abdominal pain, black stools, blood in stool, constipated, diarrhea, difficulty swallowing, nausea, no symptoms, other, poor appetite, poor fluid intake, rectal bleeding, tarry stools, vomiting Genitourinary: Denies: burning, discharge, flank pain, frequency, hematuria, incontinence, no symptoms, other, pain, urgency Neurologic/Psychiatric: Reports: weakness, Denies: anxiety, depressed, emotional problems, headache, no symptoms, numbness, other, paresthesia, pre- existing deficit, seizure, tingling, tremors Endocrine: Denies: excessive sweating, flushing, increased hunger, increased thirst, increased urine, intolerance to cold, intolerance to heat, no symptoms, other, unexplained weight gain, unexplained weight loss Hematologic/Lymphatic: Denies: anemia, easy bleeding, easy bruising, no symptoms, other Allergies: Coded Allergies: CODEINE (Verified Allergy, Unknown, Itching, 08/21/14) SULFA (SULFONAMIDE ANTIBIOTICS) (Unverified Allergy, Unknown, 12/29/15) Uncoded Allergies: CODEIN (Allergy, Unknown, 09/12/16) Subjective Pt is in bed in no acute distress continues to c/o back pain and weakness. CT scan was reviewed with the patient. She is tolerating the pain well on the morphine and [place]. Objective Last 24 Hour Vital Signs Date Time Temp Pulse Resp B/P Pulse Ox O2 Delivery O2 Flow Rate FiO2 09/17/16 09:21 120/65 09/17/16 09:21 91 120/65 09/17/16 08:48 97.7 09/17/16 08:48 97.7 09/17/16 08:48 97.7 09/17/16 08:16 96 20 Nasal Cannula 2.0 28 09/17/16 08:00 99.0 91 20 120/65 97 Room Air 09/17/16 04:00 97.7 74 16 119/42 96 Room Air 09/17/16 00:00 97.0 96 16 120/61 94 Room Air 09/16/16 23:18 99.5 09/16/16 22:12 98 127/70 09/16/16 20:00 101.7 98 19 127/70 96 Room Air 09/16/16 19:30 98 22 Nasal Cannula 2.0 28 09/16/16 18:32 95 20 99 Nasal Cannula 2.0 09/16/16 18:22 98 22 99 Nasal Cannula 2.0 28 09/16/16 16:00 99.9 100 20 142/82 99 Nasal Cannula 2.0 09/16/16 12:00 98.8 92 20 125/78 100 Nasal Cannula 2.0 92 Intake and Output 09/16/16 09/17/16 19:00 07:00 Intake Total 240 ml Balance 240 ml Intake Oral 240 ml # Voids 1 4 Laboratory Tests 09/17/16 06:30: White Blood Count 8.3, Red Blood Count 3.54L, Hemoglobin 10.0L, Hematocrit 32.2L , Mean Corpuscular Volume 91, Mean Corpuscular Hemoglobin 28.2, Mean Corpuscular Hemoglobin Concent 31.0L, Red Cell Distribution Width 12.6, Platelet Count 120L, Mean Platelet Volume 8.1, Neutrophils (%) (Auto) 72.3, Lymphocytes (%) (Auto) 16.8L, Monocytes (%) (Auto) 8.8, Eosinophils (%) (Auto) 1.5, Basophils (%) (Auto) 0.6, Sodium Level 136, Potassium Level 3.9, Chloride Level 94L, Carbon Dioxide Level 30, Anion Gap 12, Blood Urea Nitrogen 13, Creatinine 1.0H, Estimat Glomerular Filtration Rate > 60, Glucose Level 178H, Calcium Level 9.0 Height (Feet): 5 Height (Inches): 2.00 Weight (Pounds): 282 General Appearance: no apparent distress, alert EENT: PERRL/EOMI, normal ENT inspection Neck: non-tender, normal alignment Cardiovascular: pacemaker/AICD Respiratory/Chest: decreased breath sounds Abdomen: non tender, soft Extremities: non-tender Edema: moderate edema Neurologic: alert, oriented x 3 Skin: warm/dry Objective Procedure: CT L Spine no Contrast Indications: PAIN Technique: Spiral acquisitions obtained through the lumbar spine. Multiplanar reconstructions were generated. No IV contrast utilized. Total dose length product 942 mGycm. CTDIvol(s) 33 mGy Comparison: None Findings: No evidence of acute fracture. No dislocations. Vertebral body heights are preserved. There is degenerative disc narrowing at L5-S1. The remaining disc spaces are preserved. There is mild degenerative narrowing of the bilateral sacroiliac joints. There is mild bilateral neural foraminal stenosis at L5-S1. No significant disc bulge or protrusion or spinal stenosis. At the remaining levels, no significant disc bulge or protrusion, spinal stenosis, or neural foraminal stenosis. The included extraspinal soft tissues are unremarkable. Impression: Degenerative changes, as described, including mild neural foraminal stenosis at L5-S1 bilaterally CARLOS STOLL Sep 17, 2016 09:58
[2016-09-17 12:00] VITALS: BP_SYST 120; BP_SYST 89; BP_DIAS 39; BP_DIAS 65
[2016-09-17 15:38] VITALS: BP 120/78
--- NOTE | 2016-09-17 17:00 | Pulmonology Progress Note ---
Assessment/Plan Problems: (1) ACS (acute coronary syndrome) (2) AICD (automatic cardioverter/defibrillator) present (3) HTN (hypertension) (4) GERD (gastroesophageal reflux disease) (5) Diabetes mellitus (6) Cardiomyopathy (7) Seizure disorder (8) Morbid obesity Assessment/Plan pt /ot evaluation dc planning for placement symptomatic treatment sliding scale diabetic diet pain consult recommendation appreciated Subjective ROS Limited/Unobtainable: No Interval Events: feeling week, stating can't go home, wants to be placed. Constitutional: Reports: no symptoms HEENT: Repors: no symptoms Allergies: Coded Allergies: CODEINE (Verified Allergy, Unknown, Itching, 08/21/14) SULFA (SULFONAMIDE ANTIBIOTICS) (Unverified Allergy, Unknown, 12/29/15) Uncoded Allergies: CODEIN (Allergy, Unknown, 09/12/16) Objective Last 24 Hour Vital Signs Date Time Temp Pulse Resp B/P Pulse Ox O2 Delivery O2 Flow Rate FiO2 09/17/16 15:38 96.8 97 17 120/78 98 Room Air 09/17/16 12:37 97.7 09/17/16 12:37 97.7 09/17/16 12:37 97.7 09/17/16 12:00 98.4 88 20 120/65 97 Room Air 09/17/16 12:00 98.4 88 20 89/39 97 Room Air 09/17/16 09:21 120/65 09/17/16 09:21 91 120/65 09/17/16 08:16 96 20 Nasal Cannula 2.0 28 09/17/16 08:00 99.0 91 20 120/65 97 Room Air 09/17/16 08:00 99.0 91 20 120/65 97 Room Air 09/17/16 04:00 97.7 74 16 119/42 96 Room Air 09/17/16 00:00 97.0 96 16 120/61 94 Room Air 09/16/16 23:18 99.5 09/16/16 22:12 98 127/70 09/16/16 20:00 101.7 98 19 127/70 96 Room Air 09/16/16 19:30 98 22 Nasal Cannula 2.0 28 09/16/16 18:32 95 20 99 Nasal Cannula 2.0 09/16/16 18:22 98 22 99 Nasal Cannula 2.0 28 Intake and Output 09/16/16 09/17/16 18:59 06:59 Intake Total 240 ml Balance 240 ml Intake Oral 240 ml # Voids 1 4 General Appearance: WD/WN HEENT: normocephalic Respiratory/Chest: chest wall non-tender, lungs clear Cardiovascular: normal peripheral pulses, normal rate Abdomen: normal bowel sounds, soft, non tender Extremities: no cyanosis 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 Laboratory Tests 09/17/16 06:30: White Blood Count 8.3, Red Blood Count 3.54L, Hemoglobin 10.0L, Hematocrit 32.2L , Mean Corpuscular Volume 91, Mean Corpuscular Hemoglobin 28.2, Mean Corpuscular Hemoglobin Concent 31.0L, Red Cell Distribution Width 12.6, Platelet Count 120L, Mean Platelet Volume 8.1, Neutrophils (%) (Auto) 72.3, Lymphocytes (%) (Auto) 16.8L, Monocytes (%) (Auto) 8.8, Eosinophils (%) (Auto) 1.5, Basophils (%) (Auto) 0.6, Sodium Level 136, Potassium Level 3.9, Chloride Level 94L, Carbon Dioxide Level 30, Anion Gap 12, Blood Urea Nitrogen 13, Creatinine 1.0H, Estimat Glomerular Filtration Rate > 60, Glucose Level 178H, Calcium Level 9.0 Current Medications Medications (Trade) Dose Ordered Sig/Demarcus Route PRN Reason Start Time Stop Time Status Last Admin Dose Admin Acetaminophen (Tylenol) 650 mg Q4H PRN ORAL T>100.5 09/16/16 00:21 10/16/16 00:20 09/16/16 22:14 Acetaminophen/ Hydrocodone Bitart ([place] 10/325) 1 ea BID PRN ORAL Moderate Pain (Pain Scale 4-6) 09/16/16 00:26 09/23/16 00:25 09/16/16 22:14 Albuterol/ Ipratropium (DuoNeb 0.5-3(2.5)mg/3ml) 3 ml Q4H PRN HHN Shortness of Breath 09/16/16 03:30 09/21/16 03:29 09/16/16 18:22 Aripiprazole (Abilify) 30 mg BEDTIME ORAL 09/16/16 21:00 10/16/16 20:59 09/16/16 22:12 Aspirin (ASA) 162 mg DAILY ORAL 09/16/16 09:00 10/16/16 08:59 09/17/16 08:15 Atorvastatin Calcium (Lipitor) 20 mg BEDTIME ORAL 09/16/16 21:00 10/16/16 20:59 09/16/16 22:13 Carisoprodol (Soma) 350 mg BIDPRN PRN ORAL Muscle Spasms 09/16/16 06:00 10/16/16 05:59 09/16/16 08:15 Carvedilol (Coreg) 12.5 mg EVERY 12 HOURS ORAL 09/16/16 09:00 10/16/16 08:59 09/17/16 09:21 Cyclobenzaprine HCl (Flexeril) 10 mg THREE TIMES A DAY ORAL 09/16/16 09:00 10/16/16 08:59 09/17/16 12:08 Dextrose (Dextrose 50%) STAT PRN IV Hypoglycemia 09/16/16 00:25 10/16/16 00:24 Enalaprilat (Vasotec) 2.5 mg Q6H PRN IV sbp more than 160 09/16/16 00:00 10/16/16 00:00 Furosemide (Lasix) 40 mg DAILY ORAL 09/16/16 09:00 10/16/16 08:59 09/17/16 08:16 Gabapentin (Neurontin) 600 mg THREE TIMES A DAY ORAL 09/16/16 09:00 10/16/16 08:59 09/17/16 12:07 Heparin Sodium (Porcine) (Heparin 5000 units/ml) 5,000 units EVERY 8 HOURS SUBQ 09/16/16 06:00 10/16/16 05:59 09/17/16 06:26 Insulin Aspart (NovoLOG) BEFORE MEALS AND HS SUBQ 09/16/16 06:30 10/16/16 06:29 09/17/16 16:31 Levothyroxine Sodium (Synthroid) 100 mcg ACBREAKFAST ORAL 09/16/16 06:30 10/16/16 06:29 09/17/16 06:25 Losartan Potassium (Cozaar) 25 mg DAILY ORAL 09/16/16 09:00 10/16/16 08:59 09/17/16 09:21 Morphine Sulfate (Morphine Sulfate) 2 mg Q4H PRN IVP Severe Pain (Pain Scale 7-10) 09/16/16 01:30 09/23/16 01:29 09/17/16 16:32 Nitroglycerin (Ntg) 0.4 mg Q5MIN X 3 DOSES PRN SL Prn Chest Pain 09/15/16 23:45 10/15/16 23:44 Ondansetron HCl (Zofran) 4 mg Q6H PRN IVP Nausea & Vomiting 09/16/16 00:00 10/16/16 00:00 Pantoprazole (Protonix) 40 mg EVERY 12 HOURS ORAL 09/16/16 09:00 10/16/16 08:59 09/17/16 08:15 Polyethylene Glycol (Miralax) 17 gm DAILYPRN PRN ORAL Constipation 09/16/16 00:30 10/16/16 00:29 09/17/16 09:30 Potassium Chloride (K-Dur) 10 meq DAILY ORAL 09/16/16 09:00 10/16/16 08:59 09/17/16 08:16 Sucralfate (Carafate) 1 gm FOUR TIMES A DAY ORAL 09/16/16 09:00 10/16/16 08:59 09/17/16 12:07 Temazepam (Restoril) 15 mg HSPRN PRN ORAL Insomnia 09/16/16 00:20 09/23/16 00:19 09/16/16 22:32 BEKA MASON Sep 17, 2016 17:00
--- NOTE | 2016-09-17 17:02 | Cardiology Progress Note ---
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 district manager whose name she does nto know who is aware and has been evaluating her chest pains fuw with retail district manager as out pt Subjective Cardiovascular: Reports: chest pain, Denies: lightheadedness Respiratory: Denies: orthopnea, shortness of breath Gastrointestinal/Abdominal: Denies: abdominal pain Genitourinary: Denies: burning Objective Last 24 Hour Vital Signs Date Time Temp Pulse Resp B/P Pulse Ox O2 Delivery O2 Flow Rate FiO2 09/17/16 15:38 96.8 97 17 120/78 98 Room Air 09/17/16 12:37 97.7 09/17/16 12:37 97.7 09/17/16 12:37 97.7 09/17/16 12:00 98.4 88 20 120/65 97 Room Air 09/17/16 12:00 98.4 88 20 89/39 97 Room Air 09/17/16 09:21 120/65 09/17/16 09:21 91 120/65 09/17/16 08:16 96 20 Nasal Cannula 2.0 28 09/17/16 08:00 99.0 91 20 120/65 97 Room Air 09/17/16 08:00 99.0 91 20 120/65 97 Room Air 09/17/16 04:00 97.7 74 16 119/42 96 Room Air 09/17/16 00:00 97.0 96 16 120/61 94 Room Air 09/16/16 23:18 99.5 09/16/16 22:12 98 127/70 09/16/16 20:00 101.7 98 19 127/70 96 Room Air 09/16/16 19:30 98 22 Nasal Cannula 2.0 28 09/16/16 18:32 95 20 99 Nasal Cannula 2.0 09/16/16 18:22 98 22 99 Nasal Cannula 2.0 28 General Appearance: no apparent distress, alert, obese, patient on isolation Neck: supple Cardiovascular: normal rate, regular rhythm Respiratory/Chest: lungs clear, normal breath sounds Abdomen: normal bowel sounds, non tender, soft Extremities: trace edema Intake and Output 09/16/16 09/17/16 19:00 07:00 Intake Total 240 ml Balance 240 ml Intake Oral 240 ml # Voids 1 4 Laboratory Tests Test 09/17/16 06:30 White Blood Count 8.3 K/UL (4.8-10.8) Red Blood Count 3.54 M/UL (4.20-5.40) L Hemoglobin 10.0 G/DL (12.0-16.0) L Hematocrit 32.2 % (37.0-47.0) L Mean Corpuscular Volume 91 FL (80-99) Mean Corpuscular Hemoglobin 28.2 PG (27.0-31.0) Mean Corpuscular Hemoglobin Concent 31.0 G/DL (32.0-36.0) L Red Cell Distribution Width 12.6 % (11.6-14.8) Platelet Count 120 K/UL (150-450) L Mean Platelet Volume 8.1 FL (6.5-10.1) Neutrophils (%) (Auto) 72.3 % (45.0-75.0) Lymphocytes (%) (Auto) 16.8 % (20.0-45.0) L Monocytes (%) (Auto) 8.8 % (1.0-10.0) Eosinophils (%) (Auto) 1.5 % (0.0-3.0) Basophils (%) (Auto) 0.6 % (0.0-2.0) Sodium Level 136 mEQ/L (135-145) Potassium Level 3.9 mEQ/L (3.4-4.9) Chloride Level 94 mEQ/L (98-107) L Carbon Dioxide Level 30 mEQ/L (20-30) Anion Gap 12 (5-15) Blood Urea Nitrogen 13 mg/dL (7-23) Creatinine 1.0 mg/dL (0.5-0.9) H Estimat Glomerular Filtration Rate > 60 mL/min (>60) Glucose Level 178 mg/dL (74-106) H Calcium Level 9.0 mg/dL (8.6-10.2) JOSE ANGEL HICKMAN Sep 17, 2016 17:02
[2016-09-17 20:00] VITALS: BP 116/74
[2016-09-17] MEDS: Atorvastatin 20mg tab ORAL SCH (21:24)
[2016-09-18] VITALS: BP 120/76
[2016-09-18] MEDS: Morphine Sulfate 2mg/ml Inj IVP PRN ×5 (00:47→21:13)
[2016-09-18 04:00] VITALS: BP 141/84
[2016-09-18] MEDS: Heparin 5000 units/ml inj SUBQ SCH ×3 (06:00→21:05)
[2016-09-18 06:21] LABS: BASOPHILS % (AUTO) 0.4 % (0.0-2.0); LYMPHOCYTES % (AUTO) 17.3 % (20.0-45.0); MEAN CORPUSCULAR HEMOGLOBIN 29.3 PG (27.0-31.0); MEAN CORPUSCULAR VOLUME 91 FL (80-99); MEAN PLATELET VOLUME 8.2 FL (6.5-10.1); MONOCYTES % (AUTO) 8.3 % (1.0-10.0); PLATELET COUNT 114 K/UL (150-450); RED BLOOD COUNT 3.24 M/UL (4.20-5.40); RED CELL DISTRIBUTION WIDTH 12.5 % (11.6-14.8); WHITE BLOOD COUNT 8.7 K/UL (4.8-10.8)
[2016-09-18 06:57] LABS: ALANINE AMINOTRANSFERASE 7 U/L (3-33); ANION GAP 15 (5-15); ASPARTATE AMINO TRANSFERASE 10 U/L (5-40); CALCIUM 9.3 mg/dL (8.6-10.2); CARBON DIOXIDE 31 mEQ/L (20-30); CHLORIDE 93 mEQ/L (98-107); CRP QUANT 16.7 mg/dL (< 0.5); GLOMERULAR FILTRATION RATE > 60 mL/min (>60); HEMOLYSIS 0; MAGNESIUM 1.6 mg/dL (1.7-2.5); PHOSPHORUS 3.6 mg/dL (2.5-4.8); POTASSIUM 3.9 mEQ/L (3.4-4.9); SODIUM 139 mEQ/L (135-145); TOTAL PROTEIN 6.9 g/dL (6.6-8.7)
[2016-09-18] MEDS: NovoLOG Insulin Flexpen SUBQ SCH ×4 (07:04→20:40)
[2016-09-18 08:03] LABS: ERYTHROCYTE SEDIMENTATION RATE 117 MM/HR (0-30)
--- NOTE | 2016-09-18 08:14 | General Progress Note ---
Assessment/Plan Assessment/Plan (1) Morbid obesity (2) Lumbar DDD (3) Lumbar Spondylosis (4) Lumbar Radiculopathy Pt will be continued on Morphine and [place] as needed. Pt was d/w Dr. Parada and he concurred. Subjective Date patient seen: Sep 18, 2016 Time patient seen: 07:00 - am Allergies: Coded Allergies: CODEINE (Verified Allergy, Unknown, Itching, 08/21/14) SULFA (SULFONAMIDE ANTIBIOTICS) (Unverified Allergy, Unknown, 12/29/15) Uncoded Allergies: CODEIN (Allergy, Unknown, 09/12/16) Subjective Constitutional: Reports: weakness, Denies: chills, diaphoresis, fever, malaise , no symptoms, other HEENT: Denies: blurred vision, double vision, ear discharge, ear pain, eye pain , mouth pain, mouth swelling, no symptoms, nose congestion, nose pain, other, tearing, throat pain, throat swelling Cardiovascular: Denies: chest pain, edema, irregular heart rate, lightheadedness, no symptoms, other, palpitations, syncope Respiratory: Reports: shortness of breath, Denies: SOB at rest, SOB with excertion, cough, no symptoms, orthopnea, other, sputum, stridor, wheezing Gastrointestinal/Abdominal: Denies: abdomen distended, abdominal pain, black stools, blood in stool, constipated, diarrhea, difficulty swallowing, nausea, no symptoms, other, poor appetite, poor fluid intake, rectal bleeding, tarry stools, vomiting Genitourinary: Denies: burning, discharge, flank pain, frequency, hematuria, incontinence, no symptoms, other, pain, urgency Neurologic/Psychiatric: Reports: weakness, Denies: anxiety, depressed, emotional problems, headache, no symptoms, numbness, other, paresthesia, pre- existing deficit, seizure, tingling, tremors Endocrine: Denies: excessive sweating, flushing, increased hunger, increased thirst, increased urine, intolerance to cold, intolerance to heat, no symptoms, other, unexplained weight gain, unexplained weight loss Hematologic/Lymphatic: Denies: anemia, easy bleeding, easy bruising, no symptoms, other Subjective: She reports that the pain has been unchanged and reduced on the Morphine and [place]. Pt continues to c/o weakness and decreased ROM in her LE due to swelling caused by CHF. She has requested 6 morphine and 1 norco in the last 24hrs. Objective Last 24 Hour Vital Signs Date Time Temp Pulse Resp B/P Pulse Ox O2 Delivery O2 Flow Rate FiO2 09/18/16 05:42 98.2 09/18/16 04:00 98.2 87 22 141/84 97 Nasal Cannula 09/18/16 00:00 98.2 88 20 120/76 96 Nasal Cannula 09/17/16 22:45 99.0 09/17/16 21:24 80 116/74 09/17/16 20:00 100.9 80 18 116/74 96 Room Air 09/17/16 19:03 82 20 Room Air 09/17/16 15:38 96.8 97 17 120/78 98 Room Air 09/17/16 12:37 97.7 09/17/16 12:37 97.7 09/17/16 12:00 98.4 88 20 120/65 97 Room Air 09/17/16 12:00 98.4 88 20 89/39 97 Room Air 09/17/16 09:21 120/65 09/17/16 09:21 91 120/65 09/17/16 08:16 96 20 Nasal Cannula 2.0 28 Intake and Output 09/17/16 09/18/16 18:59 06:59 Intake Total 1000 ml 560 ml Balance 1000 ml 560 ml Intake Oral 1000 ml 560 ml # Voids 2 4 Laboratory Tests 09/18/16 02:00: White Blood Count 8.7, Red Blood Count 3.24L, Hemoglobin 9.5L, Hematocrit 29.6L , Mean Corpuscular Volume 91, Mean Corpuscular Hemoglobin 29.3, Mean Corpuscular Hemoglobin Concent 32.0, Red Cell Distribution Width 12.5, Platelet Count 114L, Mean Platelet Volume 8.2, Neutrophils (%) (Auto) 73.0, Lymphocytes ( %) (Auto) 17.3L, Monocytes (%) (Auto) 8.3, Eosinophils (%) (Auto) 1.0, Basophils (%) (Auto) 0.4, Erythrocyte Sedimentation Rate 117H, Sodium Level 139 , Potassium Level 3.9, Chloride Level 93L, Carbon Dioxide Level 31H, Anion Gap 15, Blood Urea Nitrogen 14, Creatinine 1.0H, Estimat Glomerular Filtration Rate > 60, Glucose Level 130H, Calcium Level 9.3, Phosphorus Level 3.6, Magnesium Level 1.6L, Total Bilirubin 1.0, Aspartate Amino Transf (AST/SGOT) 10, Alanine Aminotransferase (ALT/SGPT) 7, Alkaline Phosphatase 56, C-Reactive Protein, Quantitative 16.7H, Total Protein 6.9, Albumin 3.6, Globulin 3.3, Albumin/ Globulin Ratio 1.0 Height (Feet): 5 Height (Inches): 2.00 Weight (Pounds): 285 Objective General Appearance: no apparent distress, alert EENT: PERRL/EOMI, normal ENT inspection Neck: non-tender, normal alignment Cardiovascular: pacemaker/AICD Respiratory/Chest: decreased breath sounds Abdomen: non tender, soft Extremities: non-tender Edema: severe edema Neurologic: alert, oriented x 3 Skin: warm/dry CARLOS STOLL PBryanna Sep 18, 2016 08:14
[2016-09-18 08:17] VITALS: BP 140/80
[2016-09-18] MEDS: Furosemide 40mg tab ORAL SCH (09:25)
[2016-09-18] MEDS: Sucralfate 1gm tab ORAL SCH ×4 (09:25→20:40)
[2016-09-18] MEDS: Losartan 25mg tab ORAL SCH (09:25)
[2016-09-18] MEDS: Cyclobenzaprine 10mg Tab ORAL SCH ×3 (09:25→17:19)
[2016-09-18] MEDS: Aspirin Baby 81mg ORAL SCH (09:26)
[2016-09-18] MEDS: Carvedilol 12.5mg tab ORAL SCH ×2 (09:26→20:41)
[2016-09-18 11:40] VITALS: BP 141/81
--- NOTE | 2016-09-18 11:54 | Consultation ---
Consult Note Consult Note ID Dic # [id number] EDNA ALTAMIRANO M.D. Sep 18, 2016 11:54
[2016-09-18] MEDS: cefTRIAXone 1 GM in D5W 50 ML IVPB SCH (12:47)
[2016-09-18] MEDS: Miralax 17gm pkt ORAL PRN (12:58)
--- NOTE | 2016-09-18 13:36 | Diagnostic Imaging Report ---
APPROVED REPORT CPT Code: 63472 Present Symptoms Comments: R/O DVT BILATERAL: Imaging reveals a patent deep venous system bilaterally. There is no evidence of thrombus within the femoral, popliteal or tibial segments. The greater saphenous veins are also within normal limits. Doppler indicates normal spontaneous flow within these segments.
--- NOTE | 2016-09-18 15:18 | Consultation ---
DATE OF CONSULTATION: INFECTIOUS DISEASE CONSULTATION REFERRING PHYSICIAN: Fernando Aquino M.D. REASON FOR CONSULTATION: Evaluation of the patient for fever. HISTORY OF PRESENT ILLNESS: The patient is a 56-year-old female, who has multiple medical problems, came to the hospital with chest pain and also low back pain. The patient was found to have low-grade fever and Infectious Disease consultation has been requested for further evaluation of the patient and antibiotic management. PAST MEDICAL HISTORY: 1. History of cardiomyopathy. 2. History of CVA. 3. History of seizure disorder. 4. CHF. 5. History of post pacemaker placement. 6. Hypertension. 7. COPD. 8. Back pain. 9. Diabetes. 10. Hyperthyroidism. 11. Schizophrenia. 12. Anxiety. ALLERGIES: Codeine and sulfa. FAMILY HISTORY: Noncontributory. REVIEW OF SYSTEMS: HEENT: No recent change in vision or hearing. No sore throat. Pulmonary: No cough or shortness of breath. Cardiovascular: As mentioned. Gastrointestinal/Abdomen: No nausea or vomiting. Musculoskeletal: The patient has pain in the mid upper and mid lower back. Neurologic: The patient is awake and alert. PHYSICAL EXAMINATION: VITAL SIGNS: Temperature 98.2 degrees, blood pressure 141/80, pulse 86, respiratory rate 18, and T-max a 100.9 degrees. The patient had a fever of 101.7 degrees on 09/16/2016. LABORATORY AND DIAGNOSTIC DATA: WBC was 8.7, hemoglobin 9.5, and platelet 114,000. BUN 14 and creatinine 1. ALT, AST and alkaline phosphatase within normal range. Troponin I less than 0.3. CRP 16.7. CT of the C-spine showed DJD changes. No acute bony trauma. Echo, no vegetation. Chest x-ray on 09/12/2016, no evidence of acute cardiopulmonary disease. ASSESSMENT: The patient is a 56-year-old female, who has been admitted to this medical center for chest pain. The patient has history of cocaine, tobacco and alcohol abuse. The patient has been followed by Cardiology. During hospitalization, the patient has developed fever. Based on the exam and history, there is no obvious source for that however the patient would benefit from ratliff culture and empiric antibiotics. We will get further information from workup. PLAN: 1. We will start the patient on IV Rocephin. 2. Blood culture. 3. Urine culture. 4. Chest x-ray. 5. Monitor CBC and BMP and liver function tests. 6. Based on patient's clinical course and labs, we will do further recommendation. Thank you, Dr. Aquino, for allowing me to participate in the care of this patient. I will follow the patient with you during this hospitalization. Danilo Bolaños M.D. DR: LACEY JOB#: [id number] CC:
[2016-09-18 15:58] VITALS: BP 118/67
--- NOTE | 2016-09-18 17:50 | Pulmonology Progress Note ---
Assessment/Plan Problems: (1) ACS (acute coronary syndrome) (2) AICD (automatic cardioverter/defibrillator) present (3) HTN (hypertension) (4) GERD (gastroesophageal reflux disease) (5) Diabetes mellitus (6) Cardiomyopathy (7) Seizure disorder (8) Morbid obesity Assessment/Plan pt /ot evaluation ID consult for fever appreciated, started on symptomatic treatment sliding scale diabetic diet Subjective ROS Limited/Unobtainable: No Constitutional: Reports: no symptoms Allergies: Coded Allergies: CODEINE (Verified Allergy, Unknown, Itching, 08/21/14) SULFA (SULFONAMIDE ANTIBIOTICS) (Unverified Allergy, Unknown, 12/29/15) Uncoded Allergies: CODEIN (Allergy, Unknown, 09/12/16) Objective Last 24 Hour Vital Signs Date Time Temp Pulse Resp B/P Pulse Ox O2 Delivery O2 Flow Rate FiO2 09/18/16 17:26 97 Nasal Cannula 2.0 28 09/18/16 17:26 Nasal Cannula 2.0 28 09/18/16 17:24 101.8 09/18/16 15:58 101.8 91 16 118/67 98 Room Air 09/18/16 13:07 98.2 09/18/16 13:07 98.2 09/18/16 11:40 98.2 109 20 141/81 Nasal Cannula 2.0 09/18/16 11:22 99.3 09/18/16 09:54 99.3 09/18/16 09:26 98 140/80 09/18/16 09:25 140/80 09/18/16 08:17 99.3 98 20 140/80 98 Nasal Cannula 2.0 09/18/16 08:15 98 20 Room Air 09/18/16 04:00 98.2 87 22 141/84 97 Nasal Cannula 09/18/16 00:00 98.2 88 20 120/76 96 Nasal Cannula 09/17/16 21:24 80 116/74 09/17/16 20:00 100.9 80 18 116/74 96 Room Air 09/17/16 19:03 82 20 Room Air Intake and Output 09/17/16 09/18/16 19:00 07:00 Intake Total 1000 ml 560 ml Balance 1000 ml 560 ml Intake Oral 1000 ml 560 ml # Voids 2 4 General Appearance: WD/WN HEENT: normocephalic, atraumatic Respiratory/Chest: chest wall non-tender, lungs clear Cardiovascular: normal peripheral pulses, normal rate Abdomen: normal bowel sounds, soft, non tender Extremities: no cyanosis, no clubbing Skin: no lesions Laboratory Tests 09/18/16 02:00: White Blood Count 8.7, Red Blood Count 3.24L, Hemoglobin 9.5L, Hematocrit 29.6L , Mean Corpuscular Volume 91, Mean Corpuscular Hemoglobin 29.3, Mean Corpuscular Hemoglobin Concent 32.0, Red Cell Distribution Width 12.5, Platelet Count 114L, Mean Platelet Volume 8.2, Neutrophils (%) (Auto) 73.0, Lymphocytes ( %) (Auto) 17.3L, Monocytes (%) (Auto) 8.3, Eosinophils (%) (Auto) 1.0, Basophils (%) (Auto) 0.4, Erythrocyte Sedimentation Rate 117H, Sodium Level 139 , Potassium Level 3.9, Chloride Level 93L, Carbon Dioxide Level 31H, Anion Gap 15, Blood Urea Nitrogen 14, Creatinine 1.0H, Estimat Glomerular Filtration Rate > 60, Glucose Level 130H, Calcium Level 9.3, Phosphorus Level 3.6, Magnesium Level 1.6L, Total Bilirubin 1.0, Aspartate Amino Transf (AST/SGOT) 10, Alanine Aminotransferase (ALT/SGPT) 7, Alkaline Phosphatase 56, C-Reactive Protein, Quantitative 16.7H, Total Protein 6.9, Albumin 3.6, Globulin 3.3, Albumin/ Globulin Ratio 1.0 Current Medications Medications (Trade) Dose Ordered Sig/Demarcus Route PRN Reason Start Time Stop Time Status Last Admin Dose Admin Acetaminophen (Tylenol) 650 mg Q4H PRN ORAL T>100.5 09/16/16 00:21 10/16/16 00:20 09/18/16 16:02 Acetaminophen/ Hydrocodone Bitart ([place] 10/325) 1 ea BID PRN ORAL Moderate Pain (Pain Scale 4-6) 09/16/16 00:26 09/23/16 00:25 09/16/16 22:14 Albuterol/ Ipratropium (DuoNeb 0.5-3(2.5)mg/3ml) 3 ml Q4H PRN HHN Shortness of Breath 09/16/16 03:30 09/21/16 03:29 09/16/16 18:22 Aripiprazole (Abilify) 30 mg BEDTIME ORAL 09/16/16 21:00 10/16/16 20:59 09/17/16 21:24 Aspirin (ASA) 162 mg DAILY ORAL 09/16/16 09:00 10/16/16 08:59 09/18/16 09:26 Atorvastatin Calcium (Lipitor) 20 mg BEDTIME ORAL 09/16/16 21:00 10/16/16 20:59 09/17/16 21:24 Carisoprodol (Soma) 350 mg BIDPRN PRN ORAL Muscle Spasms 09/16/16 06:00 10/16/16 05:59 09/18/16 10:23 Carvedilol (Coreg) 12.5 mg EVERY 12 HOURS ORAL 09/16/16 09:00 10/16/16 08:59 09/18/16 09:26 Ceftriaxone Sodium/Dextrose (Rocephin/D5W 50ml) 50 ml @ 100 mls/hr Q24H IVPB 09/18/16 13:00 09/25/16 12:59 09/18/16 12:47 Cyclobenzaprine HCl (Flexeril) 10 mg THREE TIMES A DAY ORAL 09/16/16 09:00 10/16/16 08:59 09/18/16 17:19 Dextrose (Dextrose 50%) STAT PRN IV Hypoglycemia 09/16/16 00:25 10/16/16 00:24 Enalaprilat (Vasotec) 2.5 mg Q6H PRN IV sbp more than 160 09/16/16 00:00 10/16/16 00:00 Furosemide (Lasix) 40 mg DAILY ORAL 09/16/16 09:00 10/16/16 08:59 09/18/16 09:25 Gabapentin (Neurontin) 600 mg THREE TIMES A DAY ORAL 09/16/16 09:00 10/16/16 08:59 09/18/16 17:20 Heparin Sodium (Porcine) (Heparin 5000 units/ml) 5,000 units EVERY 8 HOURS SUBQ 09/16/16 06:00 10/16/16 05:59 09/17/16 06:26 Insulin Aspart (NovoLOG) BEFORE MEALS AND HS SUBQ 09/16/16 06:30 10/16/16 06:29 09/18/16 17:21 Levothyroxine Sodium (Synthroid) 100 mcg ACBREAKFAST ORAL 09/16/16 06:30 10/16/16 06:29 09/18/16 06:44 Losartan Potassium (Cozaar) 25 mg DAILY ORAL 09/16/16 09:00 10/16/16 08:59 09/18/16 09:25 Morphine Sulfate (Morphine Sulfate) 2 mg Q4H PRN IVP Severe Pain (Pain Scale 7-10) 09/16/16 01:30 09/23/16 01:29 09/18/16 16:01 Nitroglycerin (Ntg) 0.4 mg Q5MIN X 3 DOSES PRN SL Prn Chest Pain 09/15/16 23:45 10/15/16 23:44 Ondansetron HCl (Zofran) 4 mg Q6H PRN IVP Nausea & Vomiting 09/16/16 00:00 10/16/16 00:00 Pantoprazole (Protonix) 40 mg EVERY 12 HOURS ORAL 09/16/16 09:00 10/16/16 08:59 09/18/16 09:26 Polyethylene Glycol (Miralax) 17 gm DAILYPRN PRN ORAL Constipation 09/16/16 00:30 10/16/16 00:29 09/18/16 12:58 Potassium Chloride (K-Dur) 10 meq DAILY ORAL 09/16/16 09:00 10/16/16 08:59 09/18/16 09:26 Sucralfate (Carafate) 1 gm FOUR TIMES A DAY ORAL 09/16/16 09:00 10/16/16 08:59 09/18/16 17:19 Temazepam 15 mg 15 mg HSPRN PRN ORAL Insomnia 09/16/16 00:20 09/23/16 00:19 09/17/16 21:58 BEKA MASON Sep 18, 2016 17:50
[2016-09-18 19:46] VITALS: BP 151/61
[2016-09-18] MEDS: Atorvastatin 20mg tab ORAL SCH (20:41)
[2016-09-19] VITALS: BP 140/79
[2016-09-19] MEDS: Morphine Sulfate 2mg/ml Inj IVP PRN ×4 (03:07→21:00)
[2016-09-19 04:00] VITALS: BP 124/76
[2016-09-19] MEDS: Heparin 5000 units/ml inj SUBQ SCH ×3 (05:52→22:00)
[2016-09-19] MEDS: NovoLOG Insulin Flexpen SUBQ SCH ×4 (06:00→21:06)
[2016-09-19 07:53] VITALS: BP 123/71
--- NOTE | 2016-09-19 08:05 | General Progress Note ---
Assessment/Plan Assessment/Plan (1) Morbid obesity (2) Lumbar DDD (3) Lumbar Spondylosis (4) Lumbar Radiculopathy Pt will be continued on Morphine and [place] as needed. Pt was d/w Dr. Parada and he concurred. Subjective Date patient seen: Sep 19, 2016 Time patient seen: 07:00 - am Allergies: Coded Allergies: CODEINE (Verified Allergy, Unknown, Itching, 08/21/14) SULFA (SULFONAMIDE ANTIBIOTICS) (Unverified Allergy, Unknown, 12/29/15) Uncoded Allergies: CODEIN (Allergy, Unknown, 09/12/16) Subjective Constitutional: Reports: weakness, Denies: chills, diaphoresis, fever, malaise , no symptoms, other HEENT: Denies: blurred vision, double vision, ear discharge, ear pain, eye pain , mouth pain, mouth swelling, no symptoms, nose congestion, nose pain, other, tearing, throat pain, throat swelling Cardiovascular: Denies: chest pain, edema, irregular heart rate, lightheadedness, no symptoms, other, palpitations, syncope Respiratory: Reports: shortness of breath, Denies: SOB at rest, SOB with excertion, cough, no symptoms, orthopnea, other, sputum, stridor, wheezing Gastrointestinal/Abdominal: Denies: abdomen distended, abdominal pain, black stools, blood in stool, constipated, diarrhea, difficulty swallowing, nausea, no symptoms, other, poor appetite, poor fluid intake, rectal bleeding, tarry stools, vomiting Genitourinary: Denies: burning, discharge, flank pain, frequency, hematuria, incontinence, no symptoms, other, pain, urgency Neurologic/Psychiatric: Reports: weakness, Denies: anxiety, depressed, emotional problems, headache, no symptoms, numbness, other, paresthesia, pre- existing deficit, seizure, tingling, tremors Endocrine: Denies: excessive sweating, flushing, increased hunger, increased thirst, increased urine, intolerance to cold, intolerance to heat, no symptoms, other, unexplained weight gain, unexplained weight loss Hematologic/Lymphatic: Denies: anemia, easy bleeding, easy bruising, no symptoms, other Subjective: Pt continues to c/o SOB and swelling in her legs. The pain has been stable and tolerated on the Morphine and [place] rating at this time a 5/10. Objective Last 24 Hour Vital Signs Date Time Temp Pulse Resp B/P Pulse Ox O2 Delivery O2 Flow Rate FiO2 09/19/16 07:53 99.0 94 18 123/71 98 Room Air 09/19/16 04:00 98.6 98 20 124/76 94 Nasal Cannula 2.0 09/19/16 00:00 99.0 92 20 140/79 92 Nasal Cannula 2.0 09/18/16 20:41 75 151/61 09/18/16 19:46 99.5 75 19 151/61 99 Room Air 09/18/16 19:32 98 18 Nasal Cannula 2.0 09/18/16 17:26 97 Nasal Cannula 2.0 28 09/18/16 17:26 Nasal Cannula 2.0 28 09/18/16 17:24 101.8 09/18/16 15:58 101.8 91 16 118/67 98 Room Air 09/18/16 13:07 98.2 09/18/16 13:07 98.2 09/18/16 11:40 98.2 109 20 141/81 Nasal Cannula 2.0 09/18/16 11:22 99.3 09/18/16 09:54 99.3 09/18/16 09:26 98 140/80 09/18/16 09:25 140/80 09/18/16 08:17 99.3 98 20 140/80 98 Nasal Cannula 2.0 09/18/16 08:15 98 20 Room Air Intake and Output 09/18/16 09/19/16 19:00 07:00 Intake Total 550 ml 860 ml Output Total 400 ml Balance 150 ml 860 ml Intake Oral 500 ml 860 ml IV Total 50 ml Output Urine Total 400 ml # Voids 1 3 Laboratory Tests 09/19/16 06:05: Sodium Level [Pending], Potassium Level [Pending], Chloride Level [Pending], Carbon Dioxide Level [Pending], Blood Urea Nitrogen [Pending], Creatinine [ Pending], Estimat Glomerular Filtration Rate [Pending], Glucose Level [Pending] , Calcium Level [Pending], Total Bilirubin [Pending], Aspartate Amino Transf ( AST/SGOT) [Pending], Alanine Aminotransferase (ALT/SGPT) [Pending], Alkaline Phosphatase [Pending], Total Protein [Pending], Albumin [Pending], Globulin [ Pending] Height (Feet): 5 Height (Inches): 2.00 Weight (Pounds): 282 Objective General Appearance: no apparent distress, alert EENT: PERRL/EOMI, normal ENT inspection Neck: non-tender, normal alignment Cardiovascular: pacemaker/AICD Respiratory/Chest: decreased breath sounds Abdomen: non tender, soft Extremities: non-tender Edema: severe edema Neurologic: alert, oriented x 3 Skin: warm/dry CARLOS STOLL N. P.Jonathan Sep 19, 2016 08:05
[2016-09-19] MEDS: Carvedilol 12.5mg tab ORAL SCH ×2 (09:08→20:59)
[2016-09-19] MEDS: Aspirin Baby 81mg ORAL SCH (09:08)
[2016-09-19] MEDS: Sucralfate 1gm tab ORAL SCH ×4 (09:09→20:59)
[2016-09-19] MEDS: Furosemide 40mg tab ORAL SCH (09:09)
[2016-09-19] MEDS: Losartan 25mg tab ORAL SCH (09:09)
[2016-09-19] MEDS: Cyclobenzaprine 10mg Tab ORAL SCH ×3 (09:10→18:02)
[2016-09-19] MEDS: Norco 10mg/325mg tab ORAL PRN (09:20)
--- NOTE | 2016-09-19 09:25 | Infectious Diseases Prog Note ---
Assessment/Plan Assessment/Plan A: The patient is a 56-year-old female Fever History of cardiomyopathy History of CVA History of seizure disorder CHF SP pacemaker placement HTN COPD Back pain . L Spine DJD DM Schizophrenia. Anxiety History of cocaine, tobacco and alcohol abuse PLAN: Cont pt on IV Rocephin d# 2 Blood culture Urine culture. Chest x-ray. Monitor CBC and BMP and liver function tests ( Pending today ) Subjective Constitutional: Reports: fever Allergies: Coded Allergies: CODEINE (Verified Allergy, Unknown, Itching, 08/21/14) SULFA (SULFONAMIDE ANTIBIOTICS) (Unverified Allergy, Unknown, 12/29/15) Uncoded Allergies: CODEIN (Allergy, Unknown, 09/12/16) Objective Vital Signs Last 24 Hour Vital Signs Date Time Temp Pulse Resp B/P Pulse Ox O2 Delivery O2 Flow Rate FiO2 09/19/16 07:53 99.0 94 18 123/71 98 Room Air 09/19/16 04:00 98.6 98 20 124/76 94 Nasal Cannula 2.0 09/19/16 00:00 99.0 92 20 140/79 92 Nasal Cannula 2.0 09/18/16 20:41 75 151/61 09/18/16 19:46 99.5 75 19 151/61 99 Room Air 09/18/16 19:32 98 18 Nasal Cannula 2.0 09/18/16 17:26 97 Nasal Cannula 2.0 28 09/18/16 17:26 Nasal Cannula 2.0 28 09/18/16 17:24 101.8 09/18/16 15:58 101.8 91 16 118/67 98 Room Air 09/18/16 13:07 98.2 09/18/16 13:07 98.2 09/18/16 11:40 98.2 109 20 141/81 Nasal Cannula 2.0 09/18/16 11:22 99.3 09/18/16 09:54 99.3 09/18/16 09:26 98 140/80 09/18/16 09:25 140/80 Height (Feet): 5 Height (Inches): 2.00 Weight (Pounds): 282 HEENT: anicteric Respiratory/Chest: no respiratory distress Cardiovascular: regular rhythm Abdomen: soft, non tender Laboratory Tests Test 09/19/16 06:05 Sodium Level Pending Potassium Level Pending Chloride Level Pending Carbon Dioxide Level Pending Blood Urea Nitrogen Pending Creatinine Pending Estimat Glomerular Filtration Rate Pending Glucose Level Pending Calcium Level Pending Total Bilirubin Pending Aspartate Amino Transf (AST/SGOT) Pending Alanine Aminotransferase (ALT/SGPT) Pending Alkaline Phosphatase Pending Total Protein Pending Albumin Pending Globulin Pending Current Medications Medications (Trade) Dose Ordered Sig/Demarcus Route PRN Reason Start Time Stop Time Status Last Admin Dose Admin Acetaminophen (Tylenol) 650 mg Q4H PRN ORAL T>100.5 09/16/16 00:21 10/16/16 00:20 09/18/16 16:02 Acetaminophen/ Hydrocodone Bitart ([place] 10/325) 1 ea BID PRN ORAL Moderate Pain (Pain Scale 4-6) 09/16/16 00:26 09/23/16 00:25 09/16/16 22:14 Albuterol/ Ipratropium (DuoNeb 0.5-3(2.5)mg/3ml) 3 ml Q4H PRN HHN Shortness of Breath 09/16/16 03:30 09/21/16 03:29 09/16/16 18:22 Aripiprazole (Abilify) 30 mg BEDTIME ORAL 09/16/16 21:00 10/16/16 20:59 09/18/16 20:41 Aspirin (ASA) 162 mg DAILY ORAL 09/16/16 09:00 10/16/16 08:59 09/18/16 09:26 Atorvastatin Calcium (Lipitor) 20 mg BEDTIME ORAL 09/16/16 21:00 10/16/16 20:59 09/18/16 20:41 Carisoprodol (Soma) 350 mg BIDPRN PRN ORAL Muscle Spasms 09/16/16 06:00 10/16/16 05:59 09/19/16 00:38 Carvedilol (Coreg) 12.5 mg EVERY 12 HOURS ORAL 09/16/16 09:00 10/16/16 08:59 09/18/16 20:41 Ceftriaxone Sodium/Dextrose (Rocephin/D5W 50ml) 50 ml @ 100 mls/hr Q24H IVPB 09/18/16 13:00 09/25/16 12:59 09/18/16 12:47 Cyclobenzaprine HCl (Flexeril) 10 mg THREE TIMES A DAY ORAL 09/16/16 09:00 10/16/16 08:59 09/18/16 17:19 Dextrose (Dextrose 50%) STAT PRN IV Hypoglycemia 09/16/16 00:25 10/16/16 00:24 Enalaprilat (Vasotec) 2.5 mg Q6H PRN IV sbp more than 160 09/16/16 00:00 10/16/16 00:00 Furosemide (Lasix) 40 mg DAILY ORAL 09/16/16 09:00 10/16/16 08:59 09/18/16 09:25 Gabapentin (Neurontin) 600 mg THREE TIMES A DAY ORAL 09/16/16 09:00 10/16/16 08:59 09/18/16 17:20 Heparin Sodium (Porcine) (Heparin 5000 units/ml) 5,000 units EVERY 8 HOURS SUBQ 09/16/16 06:00 10/16/16 05:59 09/17/16 06:26 Insulin Aspart (NovoLOG) BEFORE MEALS AND HS SUBQ 09/16/16 06:30 10/16/16 06:29 09/19/16 06:00 Levothyroxine Sodium (Synthroid) 100 mcg ACBREAKFAST ORAL 09/16/16 06:30 10/16/16 06:29 09/19/16 05:37 Losartan Potassium (Cozaar) 25 mg DAILY ORAL 09/16/16 09:00 10/16/16 08:59 09/18/16 09:25 Morphine Sulfate (Morphine Sulfate) 2 mg Q4H PRN IVP Severe Pain (Pain Scale 7-10) 09/16/16 01:30 09/23/16 01:29 09/19/16 03:07 Nitroglycerin (Ntg) 0.4 mg Q5MIN X 3 DOSES PRN SL Prn Chest Pain 09/15/16 23:45 10/15/16 23:44 Ondansetron HCl (Zofran) 4 mg Q6H PRN IVP Nausea & Vomiting 09/16/16 00:00 10/16/16 00:00 Pantoprazole (Protonix) 40 mg EVERY 12 HOURS ORAL 09/16/16 09:00 10/16/16 08:59 09/18/16 20:41 Polyethylene Glycol (Miralax) 17 gm DAILYPRN PRN ORAL Constipation 09/16/16 00:30 10/16/16 00:29 09/18/16 12:58 Potassium Chloride (K-Dur) 10 meq DAILY ORAL 09/16/16 09:00 10/16/16 08:59 09/18/16 09:26 Sucralfate (Carafate) 1 gm FOUR TIMES A DAY ORAL 09/16/16 09:00 10/16/16 08:59 09/18/16 20:40 Temazepam 15 mg 15 mg HSPRN PRN ORAL Insomnia 09/16/16 00:20 09/23/16 00:19 09/17/16 21:58 EDNA ALTAMIRANO M.D. Sep 19, 2016 09:25
[2016-09-19] MEDS ORDERED: Lidocaine 1% Plain 30 ml INJ ONE (09:30)
[2016-09-19] MEDS ORDERED: Sodium Bicarbonate 8.4% 50ml Inj IV ONE (09:30)
[2016-09-19] MEDS ORDERED: Heparin 2000 units/Ns 1000ml INJ ONE (09:30)
[2016-09-19 11:49] VITALS: BP 129/85
[2016-09-19] MEDS: cefTRIAXone 1 GM in D5W 50 ML IVPB SCH (12:57)
[2016-09-19 16:00] VITALS: BP 114/58
[2016-09-19 16:35] LABS: BASOPHILS % (AUTO) 0.9 % (0.0-2.0); EOSINOPHILS % (AUTO) 1.1 % (0.0-3.0); LYMPHOCYTES % (AUTO) 16.4 % (20.0-45.0); MEAN CORPUSCULAR HEMOGLOBIN 28.9 PG (27.0-31.0); MEAN CORPUSCULAR HGB CONC 31.8 G/DL (32.0-36.0); MEAN CORPUSCULAR VOLUME 91 FL (80-99); MONOCYTES % (AUTO) 10.7 % (1.0-10.0); NEUTROPHILS % (AUTO) 70.9 % (45.0-75.0); PLATELET COUNT 138 K/UL (150-450); RED BLOOD COUNT 3.12 M/UL (4.20-5.40); RED CELL DISTRIBUTION WIDTH 12.8 % (11.6-14.8); WHITE BLOOD COUNT 7.4 K/UL (4.8-10.8)
--- NOTE | 2016-09-19 16:51 | Diagnostic Imaging Report ---
Indications: Malfunctioning PICC Technique: Total sterile technique, including sterile probe cover and sterile gel, hat, mask,, sterile gown, large sterile drape, and preparation with 2% chlorhexidine utilized. Local anesthesia with 1% lidocaine. 0.018 guidewire was passed into the pre-existing PICC, and the old PICC was removed; exchange for 5 Bengali peel-away sheath. 5 Bengali Bard dual-lumen power PICC cut to 45 cm. It was inserted through the peel-away sheath. Peel-away sheath and guidewire removed. Catheter fixed to the skin. Both catheter ports aspirated and flushed. Patient tolerated procedure well, without immediate complication. Digital radiograph documents satisfactory catheter tip position, at the cavoatrial junction. Total fluoroscopy time 0.3 minutes. Total dose area product 45 dGycm2 Impression: Successful exchange of right arm PICC under fluoroscopic guidance, as described above.
[2016-09-19 17:00] LABS: ALANINE AMINOTRANSFERASE 24 U/L (3-33); ANION GAP 13 (5-15); ASPARTATE AMINO TRANSFERASE 42 U/L (5-40); CARBON DIOXIDE 32 mEQ/L (20-30); CHLORIDE 94 mEQ/L (98-107); CREATININE 0.9 mg/dL (0.5-0.9); GLOMERULAR FILTRATION RATE > 60 mL/min (>60); HEMOLYSIS 2; POTASSIUM 3.8 mEQ/L (3.4-4.9); SODIUM 139 mEQ/L (135-145); TOTAL PROTEIN 6.8 g/dL (6.6-8.7)
[2016-09-19] MEDS ORDERED: Tubing IV Secondary IV ONE (17:25)
[2016-09-19] MEDS ORDERED: NS 275ml ONE (17:25)
--- NOTE | 2016-09-19 17:49 | Pulmonology Progress Note ---
Assessment/Plan Problems: (1) ACS (acute coronary syndrome) (2) AICD (automatic cardioverter/defibrillator) present (3) HTN (hypertension) (4) GERD (gastroesophageal reflux disease) (5) Diabetes mellitus (6) Cardiomyopathy (7) Seizure disorder (8) Morbid obesity Assessment/Plan pt /ot evaluation ID consult for fever appreciated, started on symptomatic treatment sliding scale diabetic diet Subjective Respiratory: Reports: dry cough, shortness of breath Allergies: Coded Allergies: CODEINE (Verified Allergy, Unknown, Itching, 08/21/14) SULFA (SULFONAMIDE ANTIBIOTICS) (Unverified Allergy, Unknown, 12/29/15) Objective Last 24 Hour Vital Signs Date Time Temp Pulse Resp B/P Pulse Ox O2 Delivery O2 Flow Rate FiO2 09/19/16 16:00 96.5 81 20 114/58 100 Nasal Cannula 2.0 09/19/16 13:26 97.7 09/19/16 13:26 97.7 09/19/16 13:26 97.7 09/19/16 11:49 97.7 92 20 129/85 99 Room Air 09/19/16 10:08 97.7 09/19/16 10:00 Nasal Cannula 2.0 28 09/19/16 10:00 85 18 Nasal Cannula 2.0 09/19/16 10:00 98 Nasal Cannula 2.0 28 09/19/16 09:09 123/71 09/19/16 09:08 94 123/71 09/19/16 07:53 99.0 94 18 123/71 98 Room Air 09/19/16 04:00 98.6 98 20 124/76 94 Nasal Cannula 2.0 09/19/16 00:00 99.0 92 20 140/79 92 Nasal Cannula 2.0 09/18/16 20:41 75 151/61 09/18/16 19:46 99.5 75 19 151/61 99 Room Air 09/18/16 19:32 98 18 Nasal Cannula 2.0 Intake and Output 09/18/16 09/19/16 19:00 07:00 Intake Total 550 ml 860 ml Output Total 400 ml Balance 150 ml 860 ml Intake Oral 500 ml 860 ml IV Total 50 ml Output Urine Total 400 ml # Voids 1 3 General Appearance: no acute distress HEENT: normocephalic, atraumatic, PERRL Respiratory/Chest: chest wall non-tender, lungs clear, normal breath sounds Breasts: no masses Cardiovascular: normal peripheral pulses, normal rate, regular rhythm, no JVD Abdomen: normal bowel sounds, soft, non tender, no organomegaly Genitourinary: normal external genitalia Extremities: no cyanosis, no clubbing Skin: no rash, no lesions 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, no motor/sensory deficits Laboratory Tests 09/19/16 16:00: White Blood Count 7.4, Red Blood Count 3.12L, Hemoglobin 9.0L, Hematocrit 28.3L , Mean Corpuscular Volume 91, Mean Corpuscular Hemoglobin 28.9, Mean Corpuscular Hemoglobin Concent 31.8L, Red Cell Distribution Width 12.8, Platelet Count 138L, Mean Platelet Volume 8.0, Neutrophils (%) (Auto) 70.9, Lymphocytes (%) (Auto) 16.4L, Monocytes (%) (Auto) 10.7H, Eosinophils (%) (Auto ) 1.1, Basophils (%) (Auto) 0.9, Sodium Level 139, Potassium Level 3.8, Chloride Level 94L, Carbon Dioxide Level 32H, Anion Gap 13, Blood Urea Nitrogen 15, Creatinine 0.9, Estimat Glomerular Filtration Rate > 60, Glucose Level 154H , Calcium Level 9.0, Total Bilirubin 0.7, Aspartate Amino Transf (AST/SGOT) 42H , Alanine Aminotransferase (ALT/SGPT) 24, Alkaline Phosphatase 115H, Total Protein 6.8, Albumin 3.4L, Globulin 3.4, Albumin/Globulin Ratio 1.0 Current Medications Medications (Trade) Dose Ordered Sig/Demarcus Route PRN Reason Start Time Stop Time Status Last Admin Dose Admin Acetaminophen (Tylenol) 650 mg Q4H PRN ORAL T>100.5 09/16/16 00:21 10/16/16 00:20 09/18/16 16:02 Acetaminophen/ Hydrocodone Bitart ([place] 10/325) 1 ea BID PRN ORAL Moderate Pain (Pain Scale 4-6) 09/16/16 00:26 09/23/16 00:25 09/19/16 09:20 Albuterol/ Ipratropium (DuoNeb 0.5-3(2.5)mg/3ml) 3 ml Q4H PRN HHN Shortness of Breath 1/1/17 03:30 09/21/16 03:29 09/16/16 18:22 Aripiprazole (Abilify) 30 mg BEDTIME ORAL 09/16/16 21:00 10/16/16 20:59 09/18/16 20:41 Aspirin (ASA) 162 mg DAILY ORAL 09/16/16 09:00 10/16/16 08:59 09/19/16 09:08 Atorvastatin Calcium (Lipitor) 20 mg BEDTIME ORAL 09/16/16 21:00 10/16/16 20:59 09/18/16 20:41 Carisoprodol (Soma) 350 mg BIDPRN PRN ORAL Muscle Spasms 09/16/16 06:00 10/16/16 05:59 09/19/16 00:38 Carvedilol (Coreg) 12.5 mg EVERY 12 HOURS ORAL 09/16/16 09:00 10/16/16 08:59 09/19/16 09:08 Ceftriaxone Sodium/Dextrose (Rocephin/D5W 50ml) 50 ml @ 100 mls/hr Q24H IVPB 09/18/16 13:00 09/25/16 12:59 09/19/16 12:57 Cyclobenzaprine HCl (Flexeril) 10 mg THREE TIMES A DAY ORAL 09/16/16 09:00 10/16/16 08:59 09/19/16 13:08 Dextrose (Dextrose 50%) STAT PRN IV Hypoglycemia 09/16/16 00:25 10/16/16 00:24 Furosemide (Lasix) 40 mg DAILY ORAL 09/16/16 09:00 10/16/16 08:59 09/19/16 09:09 Gabapentin (Neurontin) 600 mg THREE TIMES A DAY ORAL 09/16/16 09:00 10/16/16 08:59 09/19/16 13:09 Heparin Sodium (Porcine) (Heparin 5000 units/ml) 5,000 units EVERY 8 HOURS SUBQ 09/16/16 06:00 10/16/16 05:59 09/17/16 06:26 Insulin Aspart (NovoLOG) BEFORE MEALS AND HS SUBQ 09/16/16 06:30 10/16/16 06:29 09/19/16 16:30 Levothyroxine Sodium (Synthroid) 100 mcg ACBREAKFAST ORAL 09/16/16 06:30 10/16/16 06:29 09/19/16 05:37 Losartan Potassium (Cozaar) 25 mg DAILY ORAL 09/16/16 09:00 10/16/16 08:59 09/19/16 09:09 Morphine Sulfate (Morphine Sulfate) 2 mg Q4H PRN IVP Severe Pain (Pain Scale 7-10) 09/16/16 01:30 09/23/16 01:29 09/19/16 17:02 Nitroglycerin (Ntg) 0.4 mg Q5MIN X 3 DOSES PRN SL Prn Chest Pain 09/15/16 23:45 10/15/16 23:44 Ondansetron HCl (Zofran) 4 mg Q6H PRN IVP Nausea & Vomiting 09/16/16 00:00 10/16/16 00:00 Pantoprazole (Protonix) 40 mg EVERY 12 HOURS ORAL 09/16/16 09:00 10/16/16 08:59 09/19/16 09:08 Polyethylene Glycol (Miralax) 17 gm DAILYPRN PRN ORAL Constipation 09/16/16 00:30 10/16/16 00:29 09/18/16 12:58 Potassium Chloride (K-Dur) 10 meq DAILY ORAL 09/16/16 09:00 10/16/16 08:59 09/19/16 09:21 Sucralfate (Carafate) 1 gm FOUR TIMES A DAY ORAL 09/16/16 09:00 10/16/16 08:59 09/19/16 13:08 Temazepam 15 mg 15 mg HSPRN PRN ORAL Insomnia 09/16/16 00:20 09/23/16 00:19 09/17/16 21:58 BEKA MASON Sep 19, 2016 17:49
[2016-09-19 20:00] VITALS: BP 115/72
[2016-09-19] MEDS: Atorvastatin 20mg tab ORAL SCH (20:59)
[2016-09-20] VITALS: BP 101/76
[2016-09-20] MEDS: Morphine Sulfate 2mg/ml Inj IVP PRN ×6 (02:45→21:27)
[2016-09-20 04:00] VITALS: BP 109/65
[2016-09-20] MEDS: Heparin 5000 units/ml inj SUBQ SCH ×3 (06:14→21:37)
[2016-09-20] MEDS: NovoLOG Insulin Flexpen SUBQ SCH ×4 (06:18→21:35)
[2016-09-20 08:01] VITALS: BP 124/75
--- NOTE | 2016-09-20 08:10 | General Progress Note ---
Assessment/Plan Assessment/Plan (1) Morbid obesity (2) Lumbar DDD (3) Lumbar Spondylosis (4) Lumbar Radiculopathy Pt will be continued on Morphine and [place] will be changed to Q6h as needed. we will order venous and arterial duplex of LLE. Pt was d/w Dr. Parada and he concurred. Subjective Date patient seen: Sep 20, 2016 Time patient seen: 07:00 - am Allergies: Coded Allergies: CODEINE (Verified Allergy, Unknown, Itching, 08/21/14) SULFA (SULFONAMIDE ANTIBIOTICS) (Unverified Allergy, Unknown, 12/29/15) Uncoded Allergies: CODEIN (Allergy, Unknown, 09/12/16) Subjective Constitutional: Reports: weakness, Denies: chills, diaphoresis, malaise, no symptoms, other HEENT: Denies: blurred vision, double vision, ear discharge, ear pain, eye pain , mouth pain, mouth swelling, no symptoms, nose congestion, nose pain, other, tearing, throat pain, throat swelling Cardiovascular: Denies: chest pain, edema, irregular heart rate, lightheadedness, no symptoms, other, palpitations, syncope Respiratory: Reports: shortness of breath, Denies: SOB at rest, SOB with excertion, cough, no symptoms, orthopnea, other, sputum, stridor, wheezing Gastrointestinal/Abdominal: Denies: abdomen distended, abdominal pain, black stools, blood in stool, constipated, diarrhea, difficulty swallowing, nausea, no symptoms, other, poor appetite, poor fluid intake, rectal bleeding, tarry stools, vomiting Genitourinary: Denies: burning, discharge, flank pain, frequency, hematuria, incontinence, no symptoms, other, pain, urgency Neurologic/Psychiatric: Reports: weakness, Denies: anxiety, depressed, emotional problems, headache, no symptoms, numbness, other, paresthesia, pre- existing deficit, seizure, tingling, tremors Endocrine: Denies: excessive sweating, flushing, increased hunger, increased thirst, increased urine, intolerance to cold, intolerance to heat, no symptoms, other, unexplained weight gain, unexplained weight loss Hematologic/Lymphatic: Denies: anemia, easy bleeding, easy bruising, no symptoms, other Subjective: Her pain has been unchanged and continues to have swelling and edema in the left leg. However continues to be tolerated on the medications. She uses the Morphine and [place] as needed. She continues to c/o SOB and weakness. Objective Last 24 Hour Vital Signs Date Time Temp Pulse Resp B/P Pulse Ox O2 Delivery O2 Flow Rate FiO2 09/20/16 08:01 98.2 91 20 124/75 100 Room Air 09/20/16 06:31 99.8 09/20/16 04:00 98.1 87 20 109/65 96 Room Air 09/20/16 03:15 99.8 09/20/16 00:00 98.2 92 18 101/76 94 Room Air 09/19/16 22:03 99.3 09/19/16 20:59 92 115/65 09/19/16 20:34 Nasal Cannula 2.0 28 09/19/16 20:34 78 18 Nasal Cannula 2.0 28 09/19/16 20:34 97 Nasal Cannula 2.0 28 09/19/16 20:00 100.0 92 20 115/72 95 Room Air 09/19/16 18:56 96.5 09/19/16 18:56 96.5 09/19/16 16:00 96.5 81 20 114/58 100 Nasal Cannula 2.0 09/19/16 11:49 97.7 92 20 129/85 99 Room Air 09/19/16 10:08 97.7 09/19/16 10:00 Nasal Cannula 2.0 28 09/19/16 10:00 85 18 Nasal Cannula 2.0 09/19/16 10:00 98 Nasal Cannula 2.0 28 09/19/16 09:09 123/71 09/19/16 09:08 94 123/71 Intake and Output 09/19/16 09/20/16 19:00 07:00 Intake Total 480 ml 480 ml Output Total 500 ml Balance -20 ml 480 ml Intake Oral 480 ml 480 ml Output Urine Total 500 ml # Voids 1 2 # Bowel Movements 2 1 Laboratory Tests 09/19/16 16:00: White Blood Count 7.4, Red Blood Count 3.12L, Hemoglobin 9.0L, Hematocrit 28.3L , Mean Corpuscular Volume 91, Mean Corpuscular Hemoglobin 28.9, Mean Corpuscular Hemoglobin Concent 31.8L, Red Cell Distribution Width 12.8, Platelet Count 138L, Mean Platelet Volume 8.0, Neutrophils (%) (Auto) 70.9, Lymphocytes (%) (Auto) 16.4L, Monocytes (%) (Auto) 10.7H, Eosinophils (%) (Auto ) 1.1, Basophils (%) (Auto) 0.9, Sodium Level 139, Potassium Level 3.8, Chloride Level 94L, Carbon Dioxide Level 32H, Anion Gap 13, Blood Urea Nitrogen 15, Creatinine 0.9, Estimat Glomerular Filtration Rate > 60, Glucose Level 154H , Calcium Level 9.0, Total Bilirubin 0.7, Aspartate Amino Transf (AST/SGOT) 42H , Alanine Aminotransferase (ALT/SGPT) 24, Alkaline Phosphatase 115H, Total Protein 6.8, Albumin 3.4L, Globulin 3.4, Albumin/Globulin Ratio 1.0 Height (Feet): 5 Height (Inches): 2.00 Weight (Pounds): 276 Objective General Appearance: no apparent distress, alert EENT: PERRL/EOMI, normal ENT inspection Neck: non-tender, normal alignment Cardiovascular: pacemaker/AICD Respiratory/Chest: decreased breath sounds Abdomen: non tender, soft, obese Extremities: tenderness to palpation of left LE Edema: severe edema Neurologic: alert, oriented x 3 Skin: warm/dry CARLOS STOLL Sep 20, 2016 08:10
[2016-09-20] MEDS: Sucralfate 1gm tab ORAL SCH ×4 (08:30→21:26)
[2016-09-20] MEDS: Cyclobenzaprine 10mg Tab ORAL SCH ×3 (08:31→17:07)
[2016-09-20] MEDS: Aspirin Baby 81mg ORAL SCH (08:31)
[2016-09-20] MEDS: Furosemide 40mg tab ORAL SCH (08:31)
[2016-09-20] MEDS: Carvedilol 12.5mg tab ORAL SCH ×2 (08:31→21:36)
[2016-09-20] MEDS: Losartan 25mg tab ORAL SCH (08:32)
[2016-09-20 11:33] VITALS: BP 123/76
[2016-09-20] MEDS: Norco 10mg/325mg tab ORAL PRN (12:07)
[2016-09-20] MEDS ORDERED: Lidocaine 1% Plain 30 ml INJ ONE (14:45)
[2016-09-20] MEDS ORDERED: Sodium Bicarbonate 8.4% 50ml Inj IV ONE (14:45)
[2016-09-20] MEDS ORDERED: Heparin 2000 units/Ns 1000ml IV ONE (14:45)
[2016-09-20 16:00] VITALS: BP 117/66
[2016-09-20] MEDS: cefTRIAXone 1 GM in D5W 50 ML IVPB SCH (17:07)
--- NOTE | 2016-09-20 17:16 | Infectious Diseases Prog Note ---
Assessment/Plan Assessment/Plan A: The patient is a 56-year-old female Fever improving History of cardiomyopathy History of CVA History of seizure disorder CHF SP pacemaker placement HTN COPD Back pain . L Spine DJD DM Schizophrenia. Anxiety History of cocaine, tobacco and alcohol abuse PLAN: Cont pt on IV Rocephin d# 3 / 7 , upon DC Change to PO Levaquin Blood culture Urine culture. Chest x-ray. Monitor CBC and BMP and liver function tests ( Pending today ) Subjective Constitutional: Denies: anorexia, chills, drenching sweats, fatigue, fever, no symptoms, other Allergies: Coded Allergies: CODEINE (Verified Allergy, Unknown, Itching, 08/21/14) SULFA (SULFONAMIDE ANTIBIOTICS) (Unverified Allergy, Unknown, 12/29/15) Objective Vital Signs Last 24 Hour Vital Signs Date Time Temp Pulse Resp B/P Pulse Ox O2 Delivery O2 Flow Rate FiO2 09/20/16 13:06 99.0 09/20/16 11:33 99.0 83 21 123/76 100 Nasal Cannula 2.0 09/20/16 10:15 89 18 Nasal Cannula 2.0 28 09/20/16 10:15 97 Nasal Cannula 2.0 28 09/20/16 10:15 Nasal Cannula 2.0 28 09/20/16 09:29 98.2 09/20/16 09:29 98.2 09/20/16 08:32 124/75 09/20/16 08:31 91 124/75 09/20/16 08:01 98.2 91 20 124/75 100 Room Air 09/20/16 06:31 99.8 09/20/16 04:00 98.1 87 20 109/65 96 Room Air 09/20/16 03:15 99.8 09/20/16 00:00 98.2 92 18 101/76 94 Room Air 09/19/16 22:03 99.3 09/19/16 20:59 92 115/65 09/19/16 20:34 Nasal Cannula 2.0 28 09/19/16 20:34 78 18 Nasal Cannula 2.0 28 09/19/16 20:34 97 Nasal Cannula 2.0 28 09/19/16 20:00 100.0 92 20 115/72 95 Room Air Height (Feet): 5 Height (Inches): 2.00 Weight (Pounds): 276 HEENT: anicteric Respiratory/Chest: normal breath sounds Cardiovascular: normal rate Abdomen: no organomegaly Microbiology Date/Time Source Procedure Growth Status 09/19/16 04:00 Urine,Clean Catch Urine Culture - Preliminary Resulted Current Medications Medications (Trade) Dose Ordered Sig/Demarcus Route PRN Reason Start Time Stop Time Status Last Admin Dose Admin Acetaminophen (Tylenol) 650 mg Q4H PRN ORAL T>100.5 09/16/16 00:21 10/16/16 00:20 09/19/16 20:59 Acetaminophen/ Hydrocodone Bitart ([place] 10/325) 1 ea Q6H PRN ORAL Moderate Pain (Pain Scale 4-6) 09/20/16 12:00 09/27/16 11:59 09/20/16 12:07 Albuterol/ Ipratropium (DuoNeb 0.5-3(2.5)mg/3ml) 3 ml Q4H PRN HHN Shortness of Breath 09/16/16 03:30 09/21/16 03:29 09/16/16 18:22 Aripiprazole (Abilify) 30 mg BEDTIME ORAL 09/16/16 21:00 10/16/16 20:59 09/19/16 21:07 Aspirin (ASA) 162 mg DAILY ORAL 09/16/16 09:00 10/16/16 08:59 09/20/16 08:31 Atorvastatin Calcium (Lipitor) 20 mg BEDTIME ORAL 09/16/16 21:00 10/16/16 20:59 09/19/16 20:59 Carisoprodol (Soma) 350 mg BIDPRN PRN ORAL Muscle Spasms 09/16/16 06:00 10/16/16 05:59 09/20/16 02:48 Carvedilol (Coreg) 12.5 mg EVERY 12 HOURS ORAL 09/16/16 09:00 10/16/16 08:59 09/20/16 08:31 Ceftriaxone Sodium/Dextrose (Rocephin/D5W 50ml) 50 ml @ 100 mls/hr Q24H IVPB 09/18/16 13:00 09/25/16 12:59 09/20/16 17:07 Cyclobenzaprine HCl (Flexeril) 10 mg THREE TIMES A DAY ORAL 09/16/16 09:00 10/16/16 08:59 09/20/16 17:07 Dextrose (Dextrose 50%) STAT PRN IV Hypoglycemia 09/16/16 00:25 10/16/16 00:24 Furosemide (Lasix) 40 mg DAILY ORAL 09/16/16 09:00 10/16/16 08:59 09/20/16 08:31 Gabapentin (Neurontin) 600 mg THREE TIMES A DAY ORAL 09/16/16 09:00 10/16/16 08:59 09/20/16 17:08 Heparin Sodium (Porcine) (Heparin 5000 units/ml) 5,000 units EVERY 8 HOURS SUBQ 09/16/16 06:00 10/16/16 05:59 09/20/16 06:14 Insulin Aspart (NovoLOG) BEFORE MEALS AND HS SUBQ 09/16/16 06:30 10/16/16 06:29 09/20/16 12:08 Levothyroxine Sodium (Synthroid) 100 mcg ACBREAKFAST ORAL 09/16/16 06:30 10/16/16 06:29 09/20/16 06:19 Losartan Potassium (Cozaar) 25 mg DAILY ORAL 09/16/16 09:00 10/16/16 08:59 09/20/16 08:32 Morphine Sulfate (Morphine Sulfate) 2 mg Q4H PRN IVP Severe Pain (Pain Scale 7-10) 09/16/16 01:30 09/23/16 01:29 09/20/16 17:07 Nitroglycerin (Ntg) 0.4 mg Q5MIN X 3 DOSES PRN SL Prn Chest Pain 09/15/16 23:45 10/15/16 23:44 Ondansetron HCl (Zofran) 4 mg Q6H PRN IVP Nausea & Vomiting 09/16/16 00:00 10/16/16 00:00 Pantoprazole (Protonix) 40 mg EVERY 12 HOURS ORAL 09/16/16 09:00 10/16/16 08:59 09/20/16 08:31 Polyethylene Glycol (Miralax) 17 gm DAILYPRN PRN ORAL Constipation 09/16/16 00:30 10/16/16 00:29 09/18/16 12:58 Potassium Chloride (K-Dur) 10 meq DAILY ORAL 09/16/16 09:00 10/16/16 08:59 09/20/16 08:32 Sucralfate (Carafate) 1 gm FOUR TIMES A DAY ORAL 09/16/16 09:00 10/16/16 08:59 09/20/16 17:08 Temazepam 15 mg 15 mg HSPRN PRN ORAL Insomnia 09/16/16 00:20 09/23/16 00:19 09/19/16 20:59 EDNA ALTAMIRANO M.D. Sep 20, 2016 17:16
--- NOTE | 2016-09-20 17:39 | Pulmonology Progress Note ---
Assessment/Plan Problems: (1) ACS (acute coronary syndrome) (2) AICD (automatic cardioverter/defibrillator) present (3) HTN (hypertension) (4) GERD (gastroesophageal reflux disease) (5) Diabetes mellitus (6) Cardiomyopathy (7) Seizure disorder (8) Morbid obesity Assessment/Plan afebrile now dc planning symptomatic treatment sliding scale diabetic diet Subjective ROS Limited/Unobtainable: No Interval Events: afebrile, c/o pain as usuall all over Constitutional: Reports: no symptoms Respiratory: Reports: no symptoms Allergies: Coded Allergies: CODEINE (Verified Allergy, Unknown, Itching, 08/21/14) SULFA (SULFONAMIDE ANTIBIOTICS) (Unverified Allergy, Unknown, 12/29/15) Objective Last 24 Hour Vital Signs Date Time Temp Pulse Resp B/P Pulse Ox O2 Delivery O2 Flow Rate FiO2 09/20/16 13:06 99.0 09/20/16 11:33 99.0 83 21 123/76 100 Nasal Cannula 2.0 09/20/16 10:15 89 18 Nasal Cannula 2.0 28 09/20/16 10:15 97 Nasal Cannula 2.0 28 09/20/16 10:15 Nasal Cannula 2.0 28 09/20/16 09:29 98.2 09/20/16 09:29 98.2 09/20/16 08:32 124/75 09/20/16 08:31 91 124/75 09/20/16 08:01 98.2 91 20 124/75 100 Room Air 09/20/16 06:31 99.8 09/20/16 04:00 98.1 87 20 109/65 96 Room Air 09/20/16 03:15 99.8 09/20/16 00:00 98.2 92 18 101/76 94 Room Air 09/19/16 22:03 99.3 09/19/16 20:59 92 115/65 09/19/16 20:34 Nasal Cannula 2.0 28 09/19/16 20:34 78 18 Nasal Cannula 2.0 28 09/19/16 20:34 97 Nasal Cannula 2.0 28 09/19/16 20:00 100.0 92 20 115/72 95 Room Air Intake and Output 09/19/16 09/20/16 19:00 07:00 Intake Total 480 ml 480 ml Output Total 500 ml Balance -20 ml 480 ml Intake Oral 480 ml 480 ml Output Urine Total 500 ml # Voids 1 2 # Bowel Movements 2 1 General Appearance: WD/WN HEENT: normocephalic Respiratory/Chest: chest wall non-tender, lungs clear Cardiovascular: normal peripheral pulses, normal rate Abdomen: normal bowel sounds 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 Microbiology Date/Time Source Procedure Growth Status 09/19/16 04:00 Urine,Clean Catch Urine Culture - Preliminary Resulted Current Medications Medications (Trade) Dose Ordered Sig/Demarcus Route PRN Reason Start Time Stop Time Status Last Admin Dose Admin Acetaminophen (Tylenol) 650 mg Q4H PRN ORAL T>100.5 09/16/16 00:21 10/16/16 00:20 09/19/16 20:59 Acetaminophen/ Hydrocodone Bitart ([place] 10/325) 1 ea Q6H PRN ORAL Moderate Pain (Pain Scale 4-6) 09/20/16 12:00 09/27/16 11:59 09/20/16 12:07 Albuterol/ Ipratropium (DuoNeb 0.5-3(2.5)mg/3ml) 3 ml Q4H PRN HHN Shortness of Breath 09/16/16 03:30 09/21/16 03:29 09/16/16 18:22 Aripiprazole (Abilify) 30 mg BEDTIME ORAL 09/16/16 21:00 10/16/16 20:59 09/19/16 21:07 Aspirin (ASA) 162 mg DAILY ORAL 09/16/16 09:00 10/16/16 08:59 09/20/16 08:31 Atorvastatin Calcium (Lipitor) 20 mg BEDTIME ORAL 09/16/16 21:00 10/16/16 20:59 09/19/16 20:59 Carisoprodol (Soma) 350 mg BIDPRN PRN ORAL Muscle Spasms 09/16/16 06:00 10/16/16 05:59 09/20/16 02:48 Carvedilol (Coreg) 12.5 mg EVERY 12 HOURS ORAL 09/16/16 09:00 10/16/16 08:59 09/20/16 08:31 Ceftriaxone Sodium/Dextrose (Rocephin/D5W 50ml) 50 ml @ 100 mls/hr Q24H IVPB 09/18/16 13:00 09/25/16 12:59 09/20/16 17:07 Cyclobenzaprine HCl (Flexeril) 10 mg THREE TIMES A DAY ORAL 09/16/16 09:00 10/16/16 08:59 09/20/16 17:07 Dextrose (Dextrose 50%) STAT PRN IV Hypoglycemia 09/16/16 00:25 10/16/16 00:24 Furosemide (Lasix) 40 mg DAILY ORAL 09/16/16 09:00 10/16/16 08:59 09/20/16 08:31 Gabapentin (Neurontin) 600 mg THREE TIMES A DAY ORAL 09/16/16 09:00 10/16/16 08:59 09/20/16 17:08 Heparin Sodium (Porcine) (Heparin 5000 units/ml) 5,000 units EVERY 8 HOURS SUBQ 09/16/16 06:00 10/16/16 05:59 09/20/16 06:14 Insulin Aspart (NovoLOG) BEFORE MEALS AND HS SUBQ 09/16/16 06:30 10/16/16 06:29 09/20/16 17:16 Levothyroxine Sodium (Synthroid) 100 mcg ACBREAKFAST ORAL 09/16/16 06:30 10/16/16 06:29 09/20/16 06:19 Losartan Potassium (Cozaar) 25 mg DAILY ORAL 09/16/16 09:00 10/16/16 08:59 09/20/16 08:32 Morphine Sulfate (Morphine Sulfate) 2 mg Q4H PRN IVP Severe Pain (Pain Scale 7-10) 09/16/16 01:30 09/23/16 01:29 09/20/16 17:07 Nitroglycerin (Ntg) 0.4 mg Q5MIN X 3 DOSES PRN SL Prn Chest Pain 09/15/16 23:45 10/15/16 23:44 Ondansetron HCl (Zofran) 4 mg Q6H PRN IVP Nausea & Vomiting 09/16/16 00:00 10/16/16 00:00 Pantoprazole (Protonix) 40 mg EVERY 12 HOURS ORAL 09/16/16 09:00 10/16/16 08:59 09/20/16 08:31 Polyethylene Glycol (Miralax) 17 gm DAILYPRN PRN ORAL Constipation 09/16/16 00:30 10/16/16 00:29 09/18/16 12:58 Potassium Chloride (K-Dur) 10 meq DAILY ORAL 09/16/16 09:00 10/16/16 08:59 09/20/16 08:32 Sucralfate (Carafate) 1 gm FOUR TIMES A DAY ORAL 09/16/16 09:00 10/16/16 08:59 09/20/16 17:08 Temazepam 15 mg 15 mg HSPRN PRN ORAL Insomnia 09/16/16 00:20 09/23/16 00:19 09/19/16 20:59 BEKA MASON Sep 20, 2016 17:39
[2016-09-20 19:00] VITALS: BP 128/76
[2016-09-20] MEDS: Atorvastatin 20mg tab ORAL SCH (21:26)
[2016-09-21] VITALS: BP 142/80
[2016-09-21] MEDS: Morphine Sulfate 2mg/ml Inj IVP PRN ×5 (01:37→18:45)
[2016-09-21 04:00] VITALS: BP 128/84
[2016-09-21] MEDS: Heparin 5000 units/ml inj SUBQ SCH ×4 (05:46→21:05)
[2016-09-21] MEDS: NovoLOG Insulin Flexpen SUBQ SCH ×4 (06:09→20:58)
[2016-09-21 07:46] VITALS: BP 142/81
--- NOTE | 2016-09-21 08:26 | Pulmonology Progress Note ---
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 recommends to fup with cardio as outpt medical management of CHF with BB, ARB, diuretic BP management wit BB and ARB, optimize as needed continue ASA and statin Venous Duplex BLE negative CXR with cardiomegaly , no acute cardiopulmonary dsiease O2 HHN prn abx ID follows, probable UTI, urine cx + mixed gram positive BS management with SS of insulin CT spine + degenerative changes, no acute process pain management, pain specialist follows GI prophylaxis, reinforce abstinence form street drug, ETOH and smoking case discussed and evaluated by supervising physician Subjective Allergies: Coded Allergies: CODEINE (Verified Allergy, Unknown, Itching, 08/21/14) SULFA (SULFONAMIDE ANTIBIOTICS) (Unverified Allergy, Unknown, 12/29/15) Subjective afebrile, no leucocytosis denies chest ratliff, SOB no signs of respiratory distress Objective Last 24 Hour Vital Signs Date Time Temp Pulse Resp B/P Pulse Ox O2 Delivery O2 Flow Rate FiO2 09/21/16 07:46 99.1 87 16 142/81 95 Room Air 09/21/16 04:00 98.1 91 20 128/84 92 Nasal Cannula 2.0 09/21/16 00:00 98.2 96 20 142/80 99 Nasal Cannula 2.0 09/20/16 21:36 89 117/66 09/20/16 19:00 Nasal Cannula 2.0 28 09/20/16 19:00 97.5 85 20 128/76 100 Room Air 09/20/16 19:00 96 Nasal Cannula 2.0 28 09/20/16 19:00 79 16 Nasal Cannula 2.0 28 09/20/16 18:06 99.0 09/20/16 18:06 99.0 09/20/16 18:06 99.0 09/20/16 16:00 97.9 89 20 117/66 100 Room Air 09/20/16 13:06 99.0 09/20/16 11:33 99.0 83 21 123/76 100 Nasal Cannula 2.0 09/20/16 10:15 89 18 Nasal Cannula 2.0 28 09/20/16 10:15 97 Nasal Cannula 2.0 28 09/20/16 10:15 Nasal Cannula 2.0 28 09/20/16 08:32 124/75 09/20/16 08:31 91 124/75 Intake and Output 09/20/16 09/21/16 19:00 07:00 Intake Total 650 ml 360 ml Output Total 920 ml 0 ml Balance -270 ml 360 ml Intake Oral 600 ml 360 ml IV Total 50 ml Output Urine Total 920 ml 0 ml # Voids 3 # Bowel Movements 2 General Appearance: no acute distress, other - morbidly obese, A/A/O x 2 AA female in NAD HEENT: normocephalic, atraumatic, anicteric, mucous membranes moist Respiratory/Chest: chest wall non-tender, lungs clear, no respiratory distress , no accessory muscle use Cardiovascular: normal rate - distant heart sounds , regular rhythm, edema - tarce BLE Abdomen: normal bowel sounds, soft, non tender - obese Neurologic/Psychiatric: second miller II-XII grossly normal, alert, oriented x 3, responsive, normal mood/affect Musculoskeletal: normal muscle bulk Microbiology Date/Time Source Procedure Growth Status 09/19/16 16:00 Blood Blood Culture - Preliminary NO GROWTH AFTER 24 HOURS Resulted 09/19/16 16:00 Blood Blood Culture - Preliminary NO GROWTH AFTER 24 HOURS Resulted 09/19/16 04:00 Urine,Clean Catch Urine Culture - Final Mixed Gram Positive Organism Complete Current Medications Medications (Trade) Dose Ordered Sig/Demarcus Route PRN Reason Start Time Stop Time Status Last Admin Dose Admin Acetaminophen (Tylenol) 650 mg Q4H PRN ORAL T>100.5 09/16/16 00:21 10/16/16 00:20 09/19/16 20:59 Acetaminophen/ Hydrocodone Bitart ([place] 10/325) 1 ea Q6H PRN ORAL Moderate Pain (Pain Scale 4-6) 09/20/16 12:00 09/27/16 11:59 09/20/16 12:07 Aripiprazole (Abilify) 30 mg BEDTIME ORAL 09/16/16 21:00 10/16/16 20:59 09/20/16 21:25 Aspirin (ASA) 162 mg DAILY ORAL 09/16/16 09:00 10/16/16 08:59 09/20/16 08:31 Atorvastatin Calcium (Lipitor) 20 mg BEDTIME ORAL 09/16/16 21:00 10/16/16 20:59 09/20/16 21:26 Carisoprodol (Soma) 350 mg BIDPRN PRN ORAL Muscle Spasms 09/16/16 06:00 10/16/16 05:59 09/20/16 02:48 Carvedilol (Coreg) 12.5 mg EVERY 12 HOURS ORAL 09/16/16 09:00 10/16/16 08:59 09/20/16 21:36 Ceftriaxone Sodium/Dextrose (Rocephin/D5W 50ml) 50 ml @ 100 mls/hr Q24H IVPB 09/18/16 13:00 09/25/16 12:59 09/20/16 17:07 Cyclobenzaprine HCl (Flexeril) 10 mg THREE TIMES A DAY ORAL 09/16/16 09:00 10/16/16 08:59 09/20/16 17:07 Dextrose (Dextrose 50%) STAT PRN IV Hypoglycemia 09/16/16 00:25 10/16/16 00:24 Furosemide (Lasix) 40 mg DAILY ORAL 09/16/16 09:00 10/16/16 08:59 09/20/16 08:31 Gabapentin (Neurontin) 600 mg THREE TIMES A DAY ORAL 09/16/16 09:00 10/16/16 08:59 09/20/16 17:08 Heparin Sodium (Porcine) (Heparin 5000 units/ml) 5,000 units EVERY 8 HOURS SUBQ 09/16/16 06:00 10/16/16 05:59 09/20/16 21:37 Insulin Aspart (NovoLOG) BEFORE MEALS AND HS SUBQ 09/16/16 06:30 10/16/16 06:29 09/21/16 06:09 Levothyroxine Sodium (Synthroid) 100 mcg ACBREAKFAST ORAL 09/16/16 06:30 10/16/16 06:29 09/21/16 05:45 Losartan Potassium (Cozaar) 25 mg DAILY ORAL 09/16/16 09:00 10/16/16 08:59 09/20/16 08:32 Morphine Sulfate (Morphine Sulfate) 2 mg Q4H PRN IVP Severe Pain (Pain Scale 7-10) 09/16/16 01:30 09/23/16 01:29 09/21/16 05:45 Nitroglycerin (Ntg) 0.4 mg Q5MIN X 3 DOSES PRN SL Prn Chest Pain 09/15/16 23:45 10/15/16 23:44 Ondansetron HCl (Zofran) 4 mg Q6H PRN IVP Nausea & Vomiting 09/16/16 00:00 10/16/16 00:00 Pantoprazole (Protonix) 40 mg EVERY 12 HOURS ORAL 09/16/16 09:00 10/16/16 08:59 09/20/16 21:25 Polyethylene Glycol (Miralax) 17 gm DAILYPRN PRN ORAL Constipation 09/16/16 00:30 10/16/16 00:29 09/18/16 12:58 Potassium Chloride (K-Dur) 10 meq DAILY ORAL 09/16/16 09:00 10/16/16 08:59 09/20/16 08:32 Sucralfate (Carafate) 1 gm FOUR TIMES A DAY ORAL 09/16/16 09:00 10/16/16 08:59 09/20/16 21:26 Temazepam 15 mg 15 mg HSPRN PRN ORAL Insomnia 09/16/16 00:20 09/23/16 00:19 09/20/16 21:26 [facility] CenterSobia Gonzalez NP Sep 21, 2016 08:26
[2016-09-21] MEDS: Losartan 25mg tab ORAL SCH (09:26)
[2016-09-21] MEDS: Furosemide 40mg tab ORAL SCH (09:26)
[2016-09-21] MEDS: Aspirin Baby 81mg ORAL SCH (09:26)
[2016-09-21] MEDS: Sucralfate 1gm tab ORAL SCH ×4 (09:27→20:57)
[2016-09-21] MEDS: Cyclobenzaprine 10mg Tab ORAL SCH ×3 (09:28→17:11)
[2016-09-21] MEDS: Carvedilol 12.5mg tab ORAL SCH ×2 (09:29→20:57)
--- NOTE | 2016-09-21 09:56 | General Progress Note ---
Assessment/Plan Assessment/Plan (1) Morbid obesity (2) Lumbar DDD (3) Lumbar Spondylosis (4) Lumbar Radiculopathy Pt will be continued on Morphine and [place]. Pt was d/w Dr. Parada and he concurred. Subjective Date patient seen: Sep 21, 2016 Time patient seen: 08:00 - am Allergies: Coded Allergies: CODEINE (Verified Allergy, Unknown, Itching, 08/21/14) SULFA (SULFONAMIDE ANTIBIOTICS) (Unverified Allergy, Unknown, 12/29/15) Subjective Constitutional: Reports: weakness, Denies: chills, diaphoresis, malaise, no symptoms, other HEENT: Denies: blurred vision, double vision, ear discharge, ear pain, eye pain , mouth pain, mouth swelling, no symptoms, nose congestion, nose pain, other, tearing, throat pain, throat swelling Cardiovascular: Denies: chest pain, edema, irregular heart rate, lightheadedness, no symptoms, other, palpitations, syncope Respiratory: Reports: shortness of breath, Denies: SOB at rest, SOB with excertion, cough, no symptoms, orthopnea, other, sputum, stridor, wheezing Gastrointestinal/Abdominal: Denies: abdomen distended, abdominal pain, black stools, blood in stool, constipated, diarrhea, difficulty swallowing, nausea, no symptoms, other, poor appetite, poor fluid intake, rectal bleeding, tarry stools, vomiting Genitourinary: Denies: burning, discharge, flank pain, frequency, hematuria, incontinence, no symptoms, other, pain, urgency Neurologic/Psychiatric: Reports: weakness, Denies: anxiety, depressed, emotional problems, headache, no symptoms, numbness, other, paresthesia, pre- existing deficit, seizure, tingling, tremors Endocrine: Denies: excessive sweating, flushing, increased hunger, increased thirst, increased urine, intolerance to cold, intolerance to heat, no symptoms, other, unexplained weight gain, unexplained weight loss Hematologic/Lymphatic: Denies: anemia, easy bleeding, easy bruising, no symptoms, other Subjective: Pain has been stable on the [place] and Morphine. At this time she says her pain is a 7/10 reduced to a 0 on the medications. Venous and Arterial duplex of left LE showed no occlusions. Objective Last 24 Hour Vital Signs Date Time Temp Pulse Resp B/P Pulse Ox O2 Delivery O2 Flow Rate FiO2 09/21/16 09:29 87 142/81 09/21/16 09:26 142/81 09/21/16 07:46 99.1 87 16 142/81 95 Room Air 09/21/16 04:00 98.1 91 20 128/84 92 Nasal Cannula 2.0 09/21/16 00:00 98.2 96 20 142/80 99 Nasal Cannula 2.0 09/20/16 21:36 89 117/66 09/20/16 19:00 Nasal Cannula 2.0 28 09/20/16 19:00 97.5 85 20 128/76 100 Room Air 09/20/16 19:00 96 Nasal Cannula 2.0 28 09/20/16 19:00 79 16 Nasal Cannula 2.0 28 09/20/16 18:06 99.0 09/20/16 18:06 99.0 09/20/16 18:06 99.0 09/20/16 16:00 97.9 89 20 117/66 100 Room Air 09/20/16 13:06 99.0 09/20/16 11:33 99.0 83 21 123/76 100 Nasal Cannula 2.0 09/20/16 10:15 89 18 Nasal Cannula 2.0 28 09/20/16 10:15 97 Nasal Cannula 2.0 28 09/20/16 10:15 Nasal Cannula 2.0 28 Intake and Output 09/20/16 09/21/16 19:00 07:00 Intake Total 650 ml 360 ml Output Total 920 ml 0 ml Balance -270 ml 360 ml Intake Oral 600 ml 360 ml IV Total 50 ml Output Urine Total 920 ml 0 ml # Voids 3 # Bowel Movements 2 Height (Feet): 5 Height (Inches): 2.00 Weight (Pounds): 274 Objective General Appearance: no apparent distress, alert EENT: PERRL/EOMI, normal ENT inspection Neck: non-tender, normal alignment Cardiovascular: pacemaker/AICD Respiratory/Chest: decreased breath sounds Abdomen: non tender, soft, obese Extremities: tenderness to palpation of LLE Edema: edema noted at LLE Neurologic: alert, oriented x 3 Skin: warm/dry CARLOS STOLL Sep 21, 2016 09:56
--- NOTE | 2016-09-21 10:55 | Infectious Diseases Prog Note ---
Assessment/Plan Assessment/Plan A: The patient is a 56-year-old female Fever , SP Probable UTI UCX : mixed growth History of cardiomyopathy History of CVA History of seizure disorder CHF SP pacemaker placement HTN COPD Back pain . L Spine DJD DM Schizophrenia. Anxiety History of cocaine, tobacco and alcohol abuse PLAN: Cont pt on IV Rocephin d# 4 / , upon DC Change to PO Levaquin Blood culture Chest x-ray. Monitor CBC and BMP and liver function tests Subjective Constitutional: Denies: anorexia, chills, drenching sweats, fatigue, fever, no symptoms, other Allergies: Coded Allergies: CODEINE (Verified Allergy, Unknown, Itching, 08/21/14) SULFA (SULFONAMIDE ANTIBIOTICS) (Unverified Allergy, Unknown, 12/29/15) Objective Vital Signs Last 24 Hour Vital Signs Date Time Temp Pulse Resp B/P Pulse Ox O2 Delivery O2 Flow Rate FiO2 09/21/16 09:29 87 142/81 09/21/16 09:26 142/81 09/21/16 07:46 99.1 87 16 142/81 95 Room Air 09/21/16 04:00 98.1 91 20 128/84 92 Nasal Cannula 2.0 09/21/16 00:00 98.2 96 20 142/80 99 Nasal Cannula 2.0 09/20/16 21:36 89 117/66 09/20/16 19:00 Nasal Cannula 2.0 28 09/20/16 19:00 97.5 85 20 128/76 100 Room Air 09/20/16 19:00 96 Nasal Cannula 2.0 28 09/20/16 19:00 79 16 Nasal Cannula 2.0 28 09/20/16 18:06 99.0 09/20/16 18:06 99.0 09/20/16 18:06 99.0 09/20/16 16:00 97.9 89 20 117/66 100 Room Air 09/20/16 13:06 99.0 09/20/16 11:33 99.0 83 21 123/76 100 Nasal Cannula 2.0 Height (Feet): 5 Height (Inches): 2.00 Weight (Pounds): 274 HEENT: atraumatic Respiratory/Chest: lungs clear Cardiovascular: regular rhythm Abdomen: soft, non tender, no mass Microbiology Date/Time Source Procedure Growth Status 09/19/16 16:00 Blood Blood Culture - Preliminary NO GROWTH AFTER 24 HOURS Resulted 09/19/16 16:00 Blood Blood Culture - Preliminary NO GROWTH AFTER 24 HOURS Resulted 09/19/16 04:00 Urine,Clean Catch Urine Culture - Final Mixed Gram Positive Organism Complete Current Medications Medications (Trade) Dose Ordered Sig/Demarcus Route PRN Reason Start Time Stop Time Status Last Admin Dose Admin Acetaminophen (Tylenol) 650 mg Q4H PRN ORAL T>100.5 09/16/16 00:21 10/16/16 00:20 09/19/16 20:59 Acetaminophen/ Hydrocodone Bitart ([place] 10/325) 1 ea Q6H PRN ORAL Moderate Pain (Pain Scale 4-6) 09/20/16 12:00 09/27/16 11:59 09/20/16 12:07 Aripiprazole (Abilify) 30 mg BEDTIME ORAL 09/16/16 21:00 10/16/16 20:59 09/20/16 21:25 Aspirin (ASA) 162 mg DAILY ORAL 09/16/16 09:00 10/16/16 08:59 09/21/16 09:26 Atorvastatin Calcium (Lipitor) 20 mg BEDTIME ORAL 09/16/16 21:00 10/16/16 20:59 09/20/16 21:26 Carisoprodol (Soma) 350 mg BIDPRN PRN ORAL Muscle Spasms 09/16/16 06:00 10/16/16 05:59 09/20/16 02:48 Carvedilol (Coreg) 12.5 mg EVERY 12 HOURS ORAL 09/16/16 09:00 10/16/16 08:59 09/21/16 09:29 Ceftriaxone Sodium/Dextrose (Rocephin/D5W 50ml) 50 ml @ 100 mls/hr Q24H IVPB 09/18/16 13:00 09/25/16 12:59 09/20/16 17:07 Cyclobenzaprine HCl (Flexeril) 10 mg THREE TIMES A DAY ORAL 09/16/16 09:00 10/16/16 08:59 09/21/16 09:28 Dextrose (Dextrose 50%) STAT PRN IV Hypoglycemia 09/16/16 00:25 10/16/16 00:24 Furosemide (Lasix) 40 mg DAILY ORAL 09/16/16 09:00 10/16/16 08:59 09/21/16 09:26 Gabapentin (Neurontin) 600 mg THREE TIMES A DAY ORAL 09/16/16 09:00 10/16/16 08:59 09/21/16 09:28 Heparin Sodium (Porcine) (Heparin 5000 units/ml) 5,000 units EVERY 8 HOURS SUBQ 09/16/16 06:00 10/16/16 05:59 09/20/16 21:37 Insulin Aspart (NovoLOG) BEFORE MEALS AND HS SUBQ 09/16/16 06:30 10/16/16 06:29 09/21/16 06:09 Levothyroxine Sodium (Synthroid) 100 mcg ACBREAKFAST ORAL 09/16/16 06:30 10/16/16 06:29 09/21/16 05:45 Losartan Potassium (Cozaar) 25 mg DAILY ORAL 09/16/16 09:00 10/16/16 08:59 09/21/16 09:26 Morphine Sulfate (Morphine Sulfate) 2 mg Q4H PRN IVP Severe Pain (Pain Scale 7-10) 09/16/16 01:30 09/23/16 01:29 09/21/16 09:30 Nitroglycerin (Ntg) 0.4 mg Q5MIN X 3 DOSES PRN SL Prn Chest Pain 09/15/16 23:45 10/15/16 23:44 Ondansetron HCl (Zofran) 4 mg Q6H PRN IVP Nausea & Vomiting 09/16/16 00:00 10/16/16 00:00 Pantoprazole (Protonix) 40 mg EVERY 12 HOURS ORAL 09/16/16 09:00 10/16/16 08:59 09/21/16 09:26 Polyethylene Glycol (Miralax) 17 gm DAILYPRN PRN ORAL Constipation 09/16/16 00:30 10/16/16 00:29 09/18/16 12:58 Potassium Chloride (K-Dur) 10 meq DAILY ORAL 09/16/16 09:00 10/16/16 08:59 09/21/16 09:27 Sucralfate (Carafate) 1 gm FOUR TIMES A DAY ORAL 09/16/16 09:00 10/16/16 08:59 09/21/16 09:27 Temazepam 15 mg 15 mg HSPRN PRN ORAL Insomnia 09/16/16 00:20 09/23/16 00:19 09/20/16 21:26 EDNA ALTAMIRANO M.D. Sep 21, 2016 10:54
[2016-09-21 11:29] VITALS: BP 128/84
[2016-09-21] MEDS: cefTRIAXone 1 GM in D5W 50 ML IVPB SCH (12:18)
[2016-09-21 16:00] VITALS: BP 141/78
[2016-09-21 19:00] VITALS: BP 132/74
[2016-09-21] MEDS: Norco 10mg/325mg tab ORAL PRN (20:57)
[2016-09-21] MEDS: Atorvastatin 20mg tab ORAL SCH (20:57)
[2016-09-22] VITALS: BP 130/72
[2016-09-22] MEDS: Morphine Sulfate 2mg/ml Inj IVP PRN ×5 (03:03→21:03)
[2016-09-22 04:00] VITALS: BP 134/74
[2016-09-22] MEDS: Heparin 5000 units/ml inj SUBQ SCH ×3 (06:00→21:41)
[2016-09-22] MEDS: NovoLOG Insulin Flexpen SUBQ SCH ×4 (06:30→21:44)
[2016-09-22 08:00] VITALS: BP 123/79
[2016-09-22] MEDS: Sucralfate 1gm tab ORAL SCH ×4 (09:00→21:43)
[2016-09-22] MEDS: Losartan 25mg tab ORAL SCH (09:00)
[2016-09-22] MEDS: Carvedilol 12.5mg tab ORAL SCH ×2 (09:00→20:33)
[2016-09-22] MEDS: Furosemide 40mg tab ORAL SCH (09:01)
[2016-09-22] MEDS: Cyclobenzaprine 10mg Tab ORAL SCH ×3 (09:02→17:52)
[2016-09-22] MEDS: Aspirin Baby 81mg ORAL SCH (09:02)
[2016-09-22 12:00] VITALS: BP 132/76
[2016-09-22] MEDS: cefTRIAXone 1 GM in D5W 50 ML IVPB SCH (13:25)
[2016-09-22] MEDS: Norco 10mg/325mg tab ORAL PRN (14:28)
--- NOTE | 2016-09-22 15:44 | Pulmonology Progress Note ---
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 recommends to fup with cardio as outpt medical management of CHF with BB, ARB, diuretic BP management wit BB and ARB, optimize as needed continue ASA and statin Venous Duplex BLE negative CXR with cardiomegaly , no acute cardiopulmonary dsiease O2 HHN prn abx ID follows, probable UTI, urine cx + mixed gram positive BS management with SS of insulin CT spine + degenerative changes, no acute process pain management, pain specialist follows GI prophylaxis, reinforce abstinence form street drug, ETOH and smoking X ray L foot start low dose Neurontin case discussed and evaluated by supervising physician Subjective Allergies: Coded Allergies: CODEINE (Verified Allergy, Unknown, Itching, 08/21/14) SULFA (SULFONAMIDE ANTIBIOTICS) (Unverified Allergy, Unknown, 12/29/15) Subjective afebrile, no leucocytosis denies chest ratliff, SOB no signs of respiratory distress reports pain left foot, discomfit, difficulties with ambulating, denies any trauma, injury Objective Last 24 Hour Vital Signs Date Time Temp Pulse Resp B/P Pulse Ox O2 Delivery O2 Flow Rate FiO2 09/22/16 12:00 97.1 86 20 132/76 94 Room Air 09/22/16 09:00 123/79 09/22/16 09:00 89 123/79 09/22/16 08:00 98.1 89 20 123/79 96 Room Air 09/22/16 07:00 Room Air 21 09/22/16 07:00 96 Room Air 21 09/22/16 07:00 90 18 Room Air 21 09/22/16 04:00 96.6 80 20 134/74 93 Nasal Cannula 2.0 09/22/16 00:00 97.5 85 20 130/72 92 Nasal Cannula 2.0 09/21/16 21:56 98.4 09/21/16 20:59 96 Nasal Cannula 2.0 28 09/21/16 20:59 Nasal Cannula 2.0 28 09/21/16 20:58 96 18 Nasal Cannula 2.0 28 09/21/16 20:57 87 132/74 09/21/16 19:15 98.4 09/21/16 19:00 97.9 87 18 132/74 98 Room Air 09/21/16 18:11 98.4 09/21/16 18:11 98.4 09/21/16 16:00 98.4 86 18 141/78 98 Nasal Cannula 2.0 Intake and Output 09/21/16 09/22/16 19:00 07:00 Intake Total 900 ml 790 ml Output Total 800 ml 0 ml Balance 100 ml 790 ml Intake Oral 900 ml 790 ml Output Urine Total 800 ml 0 ml # Voids 5 # Bowel Movements 2 Objective General Appearance: no acute distress, other - morbidly obese, A/A/O x 2 AA female in NAD HEENT: normocephalic, atraumatic, anicteric, mucous membranes moist Respiratory/Chest: chest wall non-tender, lungs clear, no respiratory distress , no accessory muscle use Cardiovascular: normal rate - distant heart sounds , regular rhythm, edema - trace BLE Abdomen: normal bowel sounds, soft, non tender - obese Neurologic/Psychiatric: powerbuilder II-XII grossly normal, alert, oriented x 3, responsive, normal mood/affect Musculoskeletal: normal muscle bulk Microbiology Date/Time Source Procedure Growth Status 09/19/16 16:00 Blood Blood Culture - Preliminary NO GROWTH AFTER 48 HOURS Resulted 09/19/16 16:00 Blood Blood Culture - Preliminary NO GROWTH AFTER 48 HOURS Resulted Current Medications Medications (Trade) Dose Ordered Sig/Demarcus Route PRN Reason Start Time Stop Time Status Last Admin Dose Admin Acetaminophen (Tylenol) 650 mg Q4H PRN ORAL T>100.5 09/16/16 00:21 10/16/16 00:20 09/19/16 20:59 Acetaminophen/ Hydrocodone Bitart ([place] 10/325) 1 ea Q6H PRN ORAL Moderate Pain (Pain Scale 4-6) 09/20/16 12:00 09/27/16 11:59 09/22/16 14:28 Aripiprazole (Abilify) 30 mg BEDTIME ORAL 09/16/16 21:00 10/16/16 20:59 09/21/16 20:57 Aspirin (ASA) 162 mg DAILY ORAL 09/16/16 09:00 10/16/16 08:59 09/22/16 09:02 Atorvastatin Calcium (Lipitor) 20 mg BEDTIME ORAL 09/16/16 21:00 10/16/16 20:59 09/21/16 20:57 Carisoprodol (Soma) 350 mg BIDPRN PRN ORAL Muscle Spasms 09/16/16 06:00 10/16/16 05:59 09/21/16 12:16 Carvedilol (Coreg) 12.5 mg EVERY 12 HOURS ORAL 09/16/16 09:00 10/16/16 08:59 09/22/16 09:00 Ceftriaxone Sodium/Dextrose (Rocephin/D5W 50ml) 50 ml @ 100 mls/hr Q24H IVPB 09/18/16 13:00 09/25/16 12:59 09/22/16 13:25 Cyclobenzaprine HCl (Flexeril) 10 mg THREE TIMES A DAY ORAL 09/16/16 09:00 10/16/16 08:59 09/22/16 13:27 Dextrose (Dextrose 50%) STAT PRN IV Hypoglycemia 09/16/16 00:25 10/16/16 00:24 Furosemide (Lasix) 40 mg DAILY ORAL 09/16/16 09:00 10/16/16 08:59 09/22/16 09:01 Gabapentin (Neurontin) 600 mg THREE TIMES A DAY ORAL 09/16/16 09:00 10/16/16 08:59 09/22/16 13:26 Heparin Sodium (Porcine) (Heparin 5000 units/ml) 5,000 units EVERY 8 HOURS SUBQ 09/16/16 06:00 10/16/16 05:59 09/21/16 21:05 Insulin Aspart (NovoLOG) BEFORE MEALS AND HS SUBQ 09/16/16 06:30 10/16/16 06:29 09/22/16 12:08 Levothyroxine Sodium (Synthroid) 100 mcg ACBREAKFAST ORAL 09/16/16 06:30 10/16/16 06:29 09/22/16 06:28 Losartan Potassium (Cozaar) 25 mg DAILY ORAL 09/16/16 09:00 10/16/16 08:59 09/22/16 09:00 Morphine Sulfate (Morphine Sulfate) 2 mg Q4H PRN IVP Severe Pain (Pain Scale 7-10) 09/16/16 01:30 09/23/16 01:29 09/22/16 11:17 Nitroglycerin (Ntg) 0.4 mg Q5MIN X 3 DOSES PRN SL Prn Chest Pain 09/15/16 23:45 10/15/16 23:44 Ondansetron HCl (Zofran) 4 mg Q6H PRN IVP Nausea & Vomiting 09/16/16 00:00 10/16/16 00:00 Pantoprazole (Protonix) 40 mg EVERY 12 HOURS ORAL 09/16/16 09:00 10/16/16 08:59 09/22/16 09:00 Polyethylene Glycol (Miralax) 17 gm DAILYPRN PRN ORAL Constipation 09/16/16 00:30 10/16/16 00:29 09/18/16 12:58 Potassium Chloride (K-Dur) 10 meq DAILY ORAL 09/16/16 09:00 10/16/16 08:59 09/22/16 09:01 Ranitidine HCl (Zantac) 150 mg BEDTIME ORAL 09/21/16 21:00 10/21/16 20:59 09/21/16 20:57 Sucralfate (Carafate) 1 gm FOUR TIMES A DAY ORAL 09/16/16 09:00 10/16/16 08:59 09/22/16 13:26 Temazepam 15 mg 15 mg HSPRN PRN ORAL Insomnia 09/16/16 00:20 09/23/16 00:19 09/21/16 20:57 [facility]Moh[facility] CenterSobia Gonzalez NP Sep 22, 2016 15:44
[2016-09-22] MEDS ORDERED: DuoNeb 0.5-3(2.5)mg/3ml neb HHN PRN (15:45)
[2016-09-22 16:00] VITALS: BP 124/77
[2016-09-22 20:00] VITALS: BP 108/57
[2016-09-22] MEDS: Atorvastatin 20mg tab ORAL SCH (20:33)
[2016-09-23] VITALS: BP 134/86
[2016-09-23] MEDS: Morphine Sulfate 2mg/ml Inj IVP PRN ×6 (01:04→22:02)
[2016-09-23 04:00] VITALS: BP 125/87
[2016-09-23] MEDS: NovoLOG Insulin Flexpen SUBQ SCH ×4 (05:35→22:07)
[2016-09-23] MEDS: Heparin 5000 units/ml inj SUBQ SCH ×3 (05:47→20:54)
[2016-09-23 07:52] VITALS: BP 135/76
[2016-09-23] MEDS: Carvedilol 12.5mg tab ORAL SCH ×2 (09:40→20:51)
[2016-09-23] MEDS: Losartan 25mg tab ORAL SCH (09:41)
[2016-09-23] MEDS: Sucralfate 1gm tab ORAL SCH ×4 (09:41→20:54)
[2016-09-23] MEDS: Furosemide 40mg tab ORAL SCH (09:42)
[2016-09-23] MEDS: Cyclobenzaprine 10mg Tab ORAL SCH ×3 (09:43→17:08)
[2016-09-23] MEDS: Aspirin Baby 81mg ORAL SCH (09:45)
--- NOTE | 2016-09-23 10:15 | General Progress Note ---
Assessment/Plan Assessment/Plan (1) Morbid obesity (2) Lumbar DDD (3) Lumbar Spondylosis (4) Lumbar Radiculopathy Pt will be continued on Morphine and [place]. Pt was d/w Dr. Parada and he concurred. Subjective Date patient seen: Sep 23, 2016 Time patient seen: 08:15 - am Allergies: Coded Allergies: CODEINE (Verified Allergy, Unknown, Itching, 08/21/14) SULFA (SULFONAMIDE ANTIBIOTICS) (Unverified Allergy, Unknown, 12/29/15) Subjective Constitutional: Reports: weakness, Denies: chills, diaphoresis, malaise, no symptoms, other HEENT: Denies: blurred vision, double vision, ear discharge, ear pain, eye pain , mouth pain, mouth swelling, no symptoms, nose congestion, nose pain, other, tearing, throat pain, throat swelling Cardiovascular: Denies: chest pain, edema, irregular heart rate, lightheadedness, no symptoms, other, palpitations, syncope Respiratory: Reports: shortness of breath, Denies: SOB at rest, SOB with excertion, cough, no symptoms, orthopnea, other, sputum, stridor, wheezing Gastrointestinal/Abdominal: Denies: abdomen distended, abdominal pain, black stools, blood in stool, constipated, diarrhea, difficulty swallowing, nausea, no symptoms, other, poor appetite, poor fluid intake, rectal bleeding, tarry stools, vomiting Genitourinary: Denies: burning, discharge, flank pain, frequency, hematuria, incontinence, no symptoms, other, pain, urgency Neurologic/Psychiatric: Reports: weakness, Denies: anxiety, depressed, emotional problems, headache, no symptoms, numbness, other, paresthesia, pre- existing deficit, seizure, tingling, tremors Endocrine: Denies: excessive sweating, flushing, increased hunger, increased thirst, increased urine, intolerance to cold, intolerance to heat, no symptoms, other, unexplained weight gain, unexplained weight loss Hematologic/Lymphatic: Denies: anemia, easy bleeding, easy bruising, no symptoms, other Subjective: She says that the pain has been stable on the medications. Her pain is reduced from a 8 to a 5/10. Objective Last 24 Hour Vital Signs Date Time Temp Pulse Resp B/P Pulse Ox O2 Delivery O2 Flow Rate FiO2 09/23/16 09:41 135/76 09/23/16 09:40 91 135/76 09/23/16 08:01 88 18 Nasal Cannula 2.0 28 09/23/16 08:01 97 Room Air 21 09/23/16 08:01 Room Air 21 09/23/16 07:52 97.7 91 15 135/76 96 Room Air 09/23/16 04:00 95.9 82 20 125/87 97 Room Air 09/23/16 00:00 97.9 87 20 134/86 94 Room Air 09/22/16 22:13 95 18 Nasal Cannula 2.0 28 09/22/16 22:12 95 Nasal Cannula 2.0 28 09/22/16 22:12 Nasal Cannula 2.0 28 09/22/16 20:33 85 124/77 09/22/16 20:00 97.9 89 20 108/57 93 Nasal Cannula 2.0 09/22/16 16:00 97.7 85 20 124/77 95 Room Air 09/22/16 12:00 97.1 86 20 132/76 94 Room Air Intake and Output 09/22/16 09/23/16 19:00 07:00 Intake Total 550 ml 730 ml Balance 550 ml 730 ml Intake Oral 550 ml 730 ml # Voids 3 2 # Bowel Movements 2 Height (Feet): 5 Height (Inches): 2.00 Weight (Pounds): 274 Objective General Appearance: no apparent distress, alert EENT: PERRL/EOMI, normal ENT inspection Neck: non-tender, normal alignment Cardiovascular: pacemaker/AICD Respiratory/Chest: decreased breath sounds Abdomen: non tender, soft, obese Extremities: tenderness to palpation of LLE Edema: edema noted at LLE Neurologic: alert, oriented x 3 Skin: warm/dry CARLOS STOLL Sep 23, 2016 10:15
--- NOTE | 2016-09-23 10:32 | Diagnostic Imaging Report ---
Indication: ASTHMA, shortness of breath Technique: One view of the chest Comparison: 09/12/2016 Findings: Body habitus limits evaluation. The heart is enlarged. The lungs are probably clear, but due to the enlarged heart and abundant overlying soft tissue, parenchymal disease at the left lung base cannot be confidently excluded. In addition, there is mild generalized interstitial prominence, probably a function of body habitus but mild interstitial congestion cannot be completely ruled out. There is a left chest unifocal AICD. Interim placement right arm PICC Impression: Limited exam, as described No definite acute process, mild interstitial congestion and retrocardiac parenchymal disease cannot be excluded Cardiomegaly Other findings as noted
--- NOTE | 2016-09-23 11:26 | Infectious Diseases Prog Note ---
Assessment/Plan Assessment/Plan A: The patient is a 56-year-old female Fever , SP Probable UTI UCX : mixed growth History of cardiomyopathy History of CVA History of seizure disorder CHF SP pacemaker placement HTN COPD Back pain . L Spine DJD DM Schizophrenia. Anxiety History of cocaine, tobacco and alcohol abuse PLAN: Cont pt on IV Rocephin d# 6 / 7 , Blood culture Chest x-ray. Monitor CBC and BMP and liver function tests Subjective Constitutional: Denies: anorexia, chills, drenching sweats, fatigue, fever, no symptoms, other Skin: Reports: rash Allergies: Coded Allergies: CODEINE (Verified Allergy, Unknown, Itching, 08/21/14) SULFA (SULFONAMIDE ANTIBIOTICS) (Unverified Allergy, Unknown, 12/29/15) Objective Vital Signs Last 24 Hour Vital Signs Date Time Temp Pulse Resp B/P Pulse Ox O2 Delivery O2 Flow Rate FiO2 09/23/16 09:41 135/76 09/23/16 09:40 91 135/76 09/23/16 08:01 88 18 Nasal Cannula 2.0 28 09/23/16 08:01 97 Room Air 21 09/23/16 08:01 Room Air 21 09/23/16 07:52 97.7 91 15 135/76 96 Room Air 09/23/16 04:00 95.9 82 20 125/87 97 Room Air 09/23/16 00:00 97.9 87 20 134/86 94 Room Air 09/22/16 22:13 95 18 Nasal Cannula 2.0 28 09/22/16 22:12 95 Nasal Cannula 2.0 28 09/22/16 22:12 Nasal Cannula 2.0 28 09/22/16 20:33 85 124/77 09/22/16 20:00 97.9 89 20 108/57 93 Nasal Cannula 2.0 09/22/16 16:00 97.7 85 20 124/77 95 Room Air 09/22/16 12:00 97.1 86 20 132/76 94 Room Air Height (Feet): 5 Height (Inches): 2.00 Weight (Pounds): 274 HEENT: atraumatic Respiratory/Chest: lungs clear Cardiovascular: regular rhythm Abdomen: non distended Current Medications Medications (Trade) Dose Ordered Sig/Demarcus Route PRN Reason Start Time Stop Time Status Last Admin Dose Admin Acetaminophen (Tylenol) 650 mg Q4H PRN ORAL T>100.5 09/16/16 00:21 10/16/16 00:20 09/19/16 20:59 Acetaminophen/ Hydrocodone Bitart ([place] 10/325) 1 ea Q6H PRN ORAL Moderate Pain (Pain Scale 4-6) 09/20/16 12:00 09/27/16 11:59 09/22/16 14:28 Albuterol/ Ipratropium (DuoNeb 0.5-3(2.5)mg/3ml) 3 ml Q4H PRN HHN Shortness of Breath 09/22/16 15:45 09/27/16 15:44 Aripiprazole (Abilify) 30 mg BEDTIME ORAL 09/16/16 21:00 10/16/16 20:59 09/22/16 20:33 Aspirin (ASA) 162 mg DAILY ORAL 09/16/16 09:00 10/16/16 08:59 09/23/16 09:45 Atorvastatin Calcium (Lipitor) 20 mg BEDTIME ORAL 09/16/16 21:00 10/16/16 20:59 09/22/16 20:33 Carisoprodol (Soma) 350 mg BIDPRN PRN ORAL Muscle Spasms 09/16/16 06:00 10/16/16 05:59 09/22/16 17:57 Carvedilol (Coreg) 12.5 mg EVERY 12 HOURS ORAL 09/16/16 09:00 10/16/16 08:59 09/23/16 09:40 Ceftriaxone Sodium/Dextrose (Rocephin/D5W 50ml) 50 ml @ 100 mls/hr Q24H IVPB 09/18/16 13:00 09/25/16 12:59 09/22/16 13:25 Cyclobenzaprine HCl (Flexeril) 10 mg THREE TIMES A DAY ORAL 09/16/16 09:00 10/16/16 08:59 09/23/16 09:43 Dextrose (Dextrose 50%) STAT PRN IV Hypoglycemia 09/16/16 00:25 10/16/16 00:24 Furosemide (Lasix) 40 mg DAILY ORAL 09/16/16 09:00 10/16/16 08:59 09/23/16 09:42 Gabapentin (Neurontin) 600 mg THREE TIMES A DAY ORAL 09/16/16 09:00 10/16/16 08:59 09/23/16 09:44 Heparin Sodium (Porcine) (Heparin 5000 units/ml) 5,000 units EVERY 8 HOURS SUBQ 09/16/16 06:00 10/16/16 05:59 09/21/16 21:05 Insulin Aspart (NovoLOG) BEFORE MEALS AND HS SUBQ 09/16/16 06:30 10/16/16 06:29 09/23/16 05:35 Levothyroxine Sodium (Synthroid) 100 mcg ACBREAKFAST ORAL 09/16/16 06:30 10/16/16 06:29 09/23/16 05:34 Losartan Potassium (Cozaar) 25 mg DAILY ORAL 09/16/16 09:00 10/16/16 08:59 09/23/16 09:41 Morphine Sulfate (Morphine Sulfate) 2 mg Q4H PRN IVP Severe Pain (Pain Scale 7-10) 09/22/16 17:30 09/29/16 23:59 09/23/16 09:45 Nitroglycerin (Ntg) 0.4 mg Q5MIN X 3 DOSES PRN SL Prn Chest Pain 09/15/16 23:45 10/15/16 23:44 Ondansetron HCl (Zofran) 4 mg Q6H PRN IVP Nausea & Vomiting 09/16/16 00:00 10/16/16 00:00 Pantoprazole (Protonix) 40 mg EVERY 12 HOURS ORAL 09/16/16 09:00 10/16/16 08:59 09/23/16 09:45 Polyethylene Glycol (Miralax) 17 gm DAILYPRN PRN ORAL Constipation 09/16/16 00:30 10/16/16 00:29 09/18/16 12:58 Potassium Chloride (K-Dur) 10 meq DAILY ORAL 09/16/16 09:00 10/16/16 08:59 09/23/16 09:43 Ranitidine HCl (Zantac) 150 mg BEDTIME ORAL 09/21/16 21:00 10/21/16 20:59 09/22/16 20:33 Sucralfate 1 gm 1 gm FOUR TIMES A DAY ORAL 09/16/16 09:00 10/16/16 08:59 09/23/16 09:41 Temazepam (Restoril) 15 mg HSPRN PRN ORAL Insomnia 09/22/16 15:45 09/29/16 23:59 09/22/16 20:33 EDNA ALTAMIRANO M.D. Sep 23, 2016 11:26
--- NOTE | 2016-09-23 11:48 | Diagnostic Imaging Report ---
Indication: Pain Comparison: None Findings: 3 views of the left foot were obtained. No acute fractures, malalignment, erosions or periostitis are identified. Bone mineralization is within normal limits. Soft tissues are unremarkable. Impression: No acute findings
[2016-09-23 11:52] VITALS: BP 107/65
--- NOTE | 2016-09-23 13:24 | Pulmonology Progress Note ---
Assessment/Plan Assessment/Plan ASSESSMENT atypical chest pain r/o ACS AICD ischemic CM systolic CHF ( no evidence of exacerbation) HTN DM morbid obesity GERD Hx of cocaine, ETOH and tobacco abuse lumbar DDD L foot pain possible diabetic neuropathy vs plantar fasciitis PLAN OF CARE [facility] floor serial troponin negative ECG no ST changes, thus r/o for ACS cardio follows ECHO with EF 30% and RVSP of 33 had stress test at another facility, has hospital housekeeper she follows as outpt cardio recommends to fup with cardio as outpt medical management of CHF with BB, ARB, diuretic BP management wit BB and ARB, optimize as needed continue ASA and statin Venous Duplex BLE negative CXR with cardiomegaly , no acute cardiopulmonary dsiease O2 HHN prn abx ID follows, probable UTI, urine cx + mixed gram positive BS management with SS of insulin CT spine + degenerative changes, no acute process pain management, pain specialist follows GI prophylaxis, reinforce abstinence form street drug, ETOH and smoking X ray L foot negative PT continue continue Neurontin case discussed and evaluated by supervising physician Subjective Allergies: Coded Allergies: CODEINE (Verified Allergy, Unknown, Itching, 08/21/14) SULFA (SULFONAMIDE ANTIBIOTICS) (Unverified Allergy, Unknown, 12/29/15) Subjective afebrile, no leucocytosis denies chest ratliff, SOB no signs of respiratory distress reports pain left foot, discomfort, difficulties with ambulating, denies any trauma, injury Objective Last 24 Hour Vital Signs Date Time Temp Pulse Resp B/P Pulse Ox O2 Delivery O2 Flow Rate FiO2 09/23/16 11:52 99.0 74 15 107/65 97 Room Air 09/23/16 09:41 135/76 09/23/16 09:40 91 135/76 09/23/16 08:01 88 18 Nasal Cannula 2.0 28 09/23/16 08:01 97 Room Air 21 09/23/16 08:01 Room Air 21 09/23/16 07:52 97.7 91 15 135/76 96 Room Air 09/23/16 04:00 95.9 82 20 125/87 97 Room Air 09/23/16 00:00 97.9 87 20 134/86 94 Room Air 09/22/16 22:13 95 18 Nasal Cannula 2.0 28 09/22/16 22:12 95 Nasal Cannula 2.0 28 09/22/16 22:12 Nasal Cannula 2.0 28 09/22/16 20:33 85 124/77 09/22/16 20:00 97.9 89 20 108/57 93 Nasal Cannula 2.0 09/22/16 16:00 97.7 85 20 124/77 95 Room Air Intake and Output 09/22/16 09/23/16 19:00 07:00 Intake Total 550 ml 730 ml Balance 550 ml 730 ml Intake Oral 550 ml 730 ml # Voids 3 2 # Bowel Movements 2 Objective General Appearance: no acute distress, other - morbidly obese, A/A/O x 2 AA female in NAD HEENT: normocephalic, atraumatic, anicteric, mucous membranes moist Respiratory/Chest: chest wall non-tender, lungs clear, no respiratory distress , no accessory muscle use Cardiovascular: normal rate - distant heart sounds , regular rhythm, edema - trace BLE Abdomen: normal bowel sounds, soft, non tender - obese 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, alert, oriented x 3, responsive, normal mood/affect Musculoskeletal: normal muscle bulk Current Medications Medications (Trade) Dose Ordered Sig/Demarcus Route PRN Reason Start Time Stop Time Status Last Admin Dose Admin Acetaminophen (Tylenol) 650 mg Q4H PRN ORAL T>100.5 09/16/16 00:21 10/16/16 00:20 09/19/16 20:59 Acetaminophen/ Hydrocodone Bitart ([place] 10/325) 1 ea Q6H PRN ORAL Moderate Pain (Pain Scale 4-6) 09/20/16 12:00 09/27/16 11:59 09/22/16 14:28 Albuterol/ Ipratropium (DuoNeb 0.5-3(2.5)mg/3ml) 3 ml Q4H PRN HHN Shortness of Breath 09/22/16 15:45 09/27/16 15:44 Aripiprazole (Abilify) 30 mg BEDTIME ORAL 09/16/16 21:00 10/16/16 20:59 09/22/16 20:33 Aspirin (ASA) 162 mg DAILY ORAL 09/16/16 09:00 10/16/16 08:59 09/23/16 09:45 Atorvastatin Calcium (Lipitor) 20 mg BEDTIME ORAL 09/16/16 21:00 10/16/16 20:59 09/22/16 20:33 Carisoprodol (Soma) 350 mg BIDPRN PRN ORAL Muscle Spasms 09/16/16 06:00 10/16/16 05:59 09/22/16 17:57 Carvedilol (Coreg) 12.5 mg EVERY 12 HOURS ORAL 09/16/16 09:00 10/16/16 08:59 09/23/16 09:40 Ceftriaxone Sodium/Dextrose (Rocephin/D5W 50ml) 50 ml @ 100 mls/hr Q24H IVPB 09/18/16 13:00 09/25/16 12:59 09/22/16 13:25 Cyclobenzaprine HCl (Flexeril) 10 mg THREE TIMES A DAY ORAL 09/16/16 09:00 10/16/16 08:59 09/23/16 09:43 Dextrose (Dextrose 50%) STAT PRN IV Hypoglycemia 09/16/16 00:25 10/16/16 00:24 Furosemide (Lasix) 40 mg DAILY ORAL 09/16/16 09:00 10/16/16 08:59 09/23/16 09:42 Gabapentin (Neurontin) 600 mg THREE TIMES A DAY ORAL 09/16/16 09:00 10/16/16 08:59 09/23/16 09:44 Heparin Sodium (Porcine) (Heparin 5000 units/ml) 5,000 units EVERY 8 HOURS SUBQ 09/16/16 06:00 10/16/16 05:59 09/21/16 21:05 Insulin Aspart (NovoLOG) BEFORE MEALS AND HS SUBQ 09/16/16 06:30 10/16/16 06:29 09/23/16 05:35 Levothyroxine Sodium (Synthroid) 100 mcg ACBREAKFAST ORAL 09/16/16 06:30 10/16/16 06:29 09/23/16 05:34 Losartan Potassium (Cozaar) 25 mg DAILY ORAL 09/16/16 09:00 10/16/16 08:59 09/23/16 09:41 Morphine Sulfate (Morphine Sulfate) 2 mg Q4H PRN IVP Severe Pain (Pain Scale 7-10) 09/22/16 17:30 09/29/16 23:59 09/23/16 09:45 Nitroglycerin (Ntg) 0.4 mg Q5MIN X 3 DOSES PRN SL Prn Chest Pain 09/15/16 23:45 10/15/16 23:44 Ondansetron HCl (Zofran) 4 mg Q6H PRN IVP Nausea & Vomiting 09/16/16 00:00 10/16/16 00:00 Pantoprazole (Protonix) 40 mg EVERY 12 HOURS ORAL 09/16/16 09:00 10/16/16 08:59 09/23/16 09:45 Polyethylene Glycol (Miralax) 17 gm DAILYPRN PRN ORAL Constipation 09/16/16 00:30 10/16/16 00:29 09/18/16 12:58 Potassium Chloride (K-Dur) 10 meq DAILY ORAL 09/16/16 09:00 10/16/16 08:59 09/23/16 09:43 Ranitidine HCl (Zantac) 150 mg BEDTIME ORAL 09/21/16 21:00 10/21/16 20:59 09/22/16 20:33 Sucralfate 1 gm 1 gm FOUR TIMES A DAY ORAL 09/16/16 09:00 10/16/16 08:59 09/23/16 09:41 Temazepam (Restoril) 15 mg HSPRN PRN ORAL Insomnia 09/22/16 15:45 09/29/16 23:59 09/22/16 20:33 [facility] NP Sep 23, 2016 13:24
[2016-09-23] MEDS: cefTRIAXone 1 GM in D5W 50 ML IVPB SCH (13:56)
[2016-09-23 16:00] VITALS: BP 145/99
[2016-09-23 20:00] VITALS: BP 137/87
[2016-09-23] MEDS: Atorvastatin 20mg tab ORAL SCH (20:51)
[2016-09-24 00:58] VITALS: BP 121/78
[2016-09-24 04:00] VITALS: BP 136/71
[2016-09-24] MEDS: Morphine Sulfate 2mg/ml Inj IVP PRN ×5 (05:26→21:34)
[2016-09-24] MEDS: Heparin 5000 units/ml inj SUBQ SCH ×3 (06:00→21:55)
[2016-09-24] MEDS: NovoLOG Insulin Flexpen SUBQ SCH ×4 (06:19→21:54)
[2016-09-24 08:10] LABS: BASOPHILS % (AUTO) 0.6 % (0.0-2.0); EOSINOPHILS % (AUTO) 2.9 % (0.0-3.0); LYMPHOCYTES % (AUTO) 14.4 % (20.0-45.0); MEAN CORPUSCULAR HGB CONC 30.3 G/DL (32.0-36.0); MEAN CORPUSCULAR VOLUME 92 FL (80-99); MEAN PLATELET VOLUME 7.4 FL (6.5-10.1); MONOCYTES % (AUTO) 5.6 % (1.0-10.0); NEUTROPHILS % (AUTO) 76.5 % (45.0-75.0); PLATELET COUNT 225 K/UL (150-450); RED BLOOD COUNT 3.39 M/UL (4.20-5.40); RED CELL DISTRIBUTION WIDTH 13.2 % (11.6-14.8); WHITE BLOOD COUNT 9.5 K/UL (4.8-10.8)
--- NOTE | 2016-09-24 08:32 | General Progress Note ---
Assessment/Plan Assessment/Plan (1) Morbid obesity (2) Lumbar DDD (3) Lumbar Spondylosis (4) Lumbar Radiculopathy Pt will be continued on Morphine and Roby. Pt was d/w Dr. Parada and he concurred. Subjective Date patient seen: Sep 24, 2016 Time patient seen: 07:15 - am Allergies: Coded Allergies: CODEINE (Verified Allergy, Unknown, Itching, 08/21/14) SULFA (SULFONAMIDE ANTIBIOTICS) (Unverified Allergy, Unknown, 12/29/15) Subjective Constitutional: Reports: weakness, Denies: chills, diaphoresis, malaise, no symptoms, other HEENT: Denies: blurred vision, double vision, ear discharge, ear pain, eye pain , mouth pain, mouth swelling, no symptoms, nose congestion, nose pain, other, tearing, throat pain, throat swelling Cardiovascular: Denies: chest pain, edema, irregular heart rate, lightheadedness, no symptoms, other, palpitations, syncope Respiratory: Reports: shortness of breath, Denies: SOB at rest, SOB with excertion, cough, no symptoms, orthopnea, other, sputum, stridor, wheezing Gastrointestinal/Abdominal: Denies: abdomen distended, abdominal pain, black stools, blood in stool, constipated, diarrhea, difficulty swallowing, nausea, no symptoms, other, poor appetite, poor fluid intake, rectal bleeding, tarry stools, vomiting Genitourinary: Denies: burning, discharge, flank pain, frequency, hematuria, incontinence, no symptoms, other, pain, urgency Neurologic/Psychiatric: Reports: weakness, Denies: anxiety, depressed, emotional problems, headache, no symptoms, numbness, other, paresthesia, pre- existing deficit, seizure, tingling, tremors Endocrine: Denies: excessive sweating, flushing, increased hunger, increased thirst, increased urine, intolerance to cold, intolerance to heat, no symptoms, other, unexplained weight gain, unexplained weight loss Hematologic/Lymphatic: Denies: anemia, easy bleeding, easy bruising, no symptoms, other Subjective: The pain has been tolerated on the medications, she has no new complaints. 01/23 at this time. Objective Last 24 Hour Vital Signs Date Time Temp Pulse Resp B/P Pulse Ox O2 Delivery O2 Flow Rate FiO2 09/24/16 04:00 98.6 91 19 136/71 96 Nasal Cannula 3.0 09/24/16 00:58 97.9 93 18 121/78 95 Nasal Cannula 3.0 09/23/16 20:51 79 137/87 09/23/16 20:00 98.9 79 20 137/87 98 Nasal Cannula 2.0 09/23/16 19:18 Nasal Cannula 2.0 28 09/23/16 19:15 97 Nasal Cannula 2.0 28 09/23/16 19:15 87 18 Nasal Cannula 2.0 28 09/23/16 16:00 98.7 82 20 145/99 97 Room Air 09/23/16 11:52 99.0 74 15 107/65 97 Room Air 09/23/16 09:41 135/76 09/23/16 09:40 91 135/76 Intake and Output 09/23/16 09/24/16 19:00 07:00 Intake Total 1000 ml 480 ml Output Total 500 ml 0 ml Balance 500 ml 480 ml Intake Oral 1000 ml 480 ml Output Urine Total 500 ml 0 ml # Voids 2 # Bowel Movements 1 Laboratory Tests 09/24/16 06:15: White Blood Count 9.5, Red Blood Count 3.39L, Hemoglobin 9.5L, Hematocrit 31.2L , Mean Corpuscular Volume 92, Mean Corpuscular Hemoglobin 28.0, Mean Corpuscular Hemoglobin Concent 30.3L, Red Cell Distribution Width 13.2, Platelet Count 225, Mean Platelet Volume 7.4, Neutrophils (%) (Auto) 76.5H, Lymphocytes (%) (Auto) 14.4L, Monocytes (%) (Auto) 5.6, Eosinophils (%) (Auto) 2.9, Basophils (%) (Auto) 0.6, Sodium Level [Pending], Potassium Level [Pending] , Chloride Level [Pending], Carbon Dioxide Level [Pending], Blood Urea Nitrogen [Pending], Creatinine [Pending], Estimat Glomerular Filtration Rate [Pending], Glucose Level [Pending], Calcium Level [Pending], Magnesium Level [Pending] Height (Feet): 5 Height (Inches): 2.00 Weight (Pounds): 267 Objective General Appearance: no apparent distress, alert EENT: PERRL/EOMI, normal ENT inspection Neck: non-tender, normal alignment Cardiovascular: pacemaker/AICD Respiratory/Chest: decreased breath sounds Abdomen: non tender, soft, obese Extremities: tenderness to palpation of LLE Edema: edema noted at LLE Neurologic: alert, oriented x 3 Skin: warm/dry CARLOS STOLL Sep 24, 2016 08:32
[2016-09-24 08:37] VITALS: BP 141/82
[2016-09-24 08:38] LABS: ANION GAP 12 (5-15); CALCIUM 9.4 mg/dL (8.6-10.2); CARBON DIOXIDE 32 mEQ/L (20-30); CHLORIDE 94 mEQ/L (98-107); CREATININE 0.4 mg/dL (0.5-0.9); GLOMERULAR FILTRATION RATE > 60 mL/min (>60); HEMOLYSIS 3; MAGNESIUM 1.7 mg/dL (1.7-2.5); POTASSIUM 3.5 mEQ/L (3.4-4.9); SODIUM 138 mEQ/L (135-145)
[2016-09-24] MEDS: Sucralfate 1gm tab ORAL SCH ×4 (09:59→21:34)
[2016-09-24] MEDS: Furosemide 40mg tab ORAL SCH (09:59)
[2016-09-24] MEDS: Losartan 25mg tab ORAL SCH (10:00)
[2016-09-24] MEDS: Carvedilol 12.5mg tab ORAL SCH ×2 (10:00→21:33)
[2016-09-24] MEDS: Aspirin Baby 81mg ORAL SCH (10:01)
[2016-09-24] MEDS: Cyclobenzaprine 10mg Tab ORAL SCH ×3 (10:03→17:26)
[2016-09-24 11:38] VITALS: BP 124/80
[2016-09-24] MEDS: cefTRIAXone 1 GM in D5W 50 ML IVPB SCH (13:38)
--- NOTE | 2016-09-24 14:40 | Pulmonology Progress Note ---
Assessment/Plan Problems: (1) ACS (acute coronary syndrome) (2) AICD (automatic cardioverter/defibrillator) present (3) HTN (hypertension) (4) GERD (gastroesophageal reflux disease) (5) Diabetes mellitus (6) Cardiomyopathy (7) Seizure disorder (8) Morbid obesity Assessment/Plan afebrile now dc planning symptomatic treatment sliding scale diabetic diet awaiting for IPA to find a half-way Pt might qualify for ALW and go to an assisted living Subjective ROS Limited/Unobtainable: No Interval Events: c/o not being able to walk, too much tingling of the feet Allergies: Coded Allergies: CODEINE (Verified Allergy, Unknown, Itching, 08/21/14) SULFA (SULFONAMIDE ANTIBIOTICS) (Unverified Allergy, Unknown, 12/29/15) Objective Last 24 Hour Vital Signs Date Time Temp Pulse Resp B/P Pulse Ox O2 Delivery O2 Flow Rate FiO2 09/24/16 11:38 97.9 88 19 124/80 97 Room Air 09/24/16 10:00 141/82 09/24/16 10:00 98 141/82 09/24/16 08:37 98.1 98 18 141/82 97 Room Air 09/24/16 07:57 Nasal Cannula 3.0 32 09/24/16 07:56 96 Nasal Cannula 3.0 32 09/24/16 07:55 91 18 Nasal Cannula 3.0 32 09/24/16 04:00 98.6 91 19 136/71 96 Nasal Cannula 3.0 09/24/16 00:58 97.9 93 18 121/78 95 Nasal Cannula 3.0 09/23/16 20:51 79 137/87 09/23/16 20:00 98.9 79 20 137/87 98 Nasal Cannula 2.0 09/23/16 19:18 Nasal Cannula 2.0 28 09/23/16 19:15 97 Nasal Cannula 2.0 28 09/23/16 19:15 87 18 Nasal Cannula 2.0 28 09/23/16 16:00 98.7 82 20 145/99 97 Room Air Intake and Output 09/23/16 09/24/16 18:59 06:59 Intake Total 1000 ml 480 ml Output Total 500 ml 0 ml Balance 500 ml 480 ml Intake Oral 1000 ml 480 ml Output Urine Total 500 ml 0 ml # Voids 2 # Bowel Movements 1 General Appearance: WD/WN, no acute distress HEENT: normocephalic, atraumatic Respiratory/Chest: chest wall non-tender, lungs clear Breasts: no masses Cardiovascular: normal peripheral pulses Abdomen: normal bowel sounds Genitourinary: normal external genitalia 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 Lymphatic: no neck adenopathy Laboratory Tests 09/24/16 06:15: White Blood Count 9.5, Red Blood Count 3.39L, Hemoglobin 9.5L, Hematocrit 31.2L , Mean Corpuscular Volume 92, Mean Corpuscular Hemoglobin 28.0, Mean Corpuscular Hemoglobin Concent 30.3L, Red Cell Distribution Width 13.2, Platelet Count 225, Mean Platelet Volume 7.4, Neutrophils (%) (Auto) 76.5H, Lymphocytes (%) (Auto) 14.4L, Monocytes (%) (Auto) 5.6, Eosinophils (%) (Auto) 2.9, Basophils (%) (Auto) 0.6, Sodium Level 138, Potassium Level 3.5, Chloride Level 94L, Carbon Dioxide Level 32H, Anion Gap 12, Blood Urea Nitrogen 11, Creatinine 0.4L, Estimat Glomerular Filtration Rate > 60, Glucose Level 215H, Calcium Level 9.4, Magnesium Level 1.7 Current Medications Medications (Trade) Dose Ordered Sig/Demarcus Route PRN Reason Start Time Stop Time Status Last Admin Dose Admin Acetaminophen (Tylenol) 650 mg Q4H PRN ORAL T>100.5 09/16/16 00:21 10/16/16 00:20 09/19/16 20:59 Acetaminophen/ Hydrocodone Bitart ([place] 10/325) 1 ea Q6H PRN ORAL Moderate Pain (Pain Scale 4-6) 09/20/16 12:00 09/27/16 11:59 09/22/16 14:28 Albuterol/ Ipratropium (DuoNeb 0.5-3(2.5)mg/3ml) 3 ml Q4H PRN HHN Shortness of Breath 09/22/16 15:45 09/27/16 15:44 Aripiprazole (Abilify) 30 mg BEDTIME ORAL 09/16/16 21:00 10/16/16 20:59 09/23/16 20:51 Aspirin (ASA) 162 mg DAILY ORAL 09/16/16 09:00 10/16/16 08:59 09/24/16 10:01 Atorvastatin Calcium (Lipitor) 20 mg BEDTIME ORAL 09/16/16 21:00 10/16/16 20:59 09/23/16 20:51 Carisoprodol (Soma) 350 mg BIDPRN PRN ORAL Muscle Spasms 09/16/16 06:00 10/16/16 05:59 09/23/16 15:47 Carvedilol (Coreg) 12.5 mg EVERY 12 HOURS ORAL 09/16/16 09:00 10/16/16 08:59 09/24/16 10:00 Ceftriaxone Sodium/Dextrose (Rocephin/D5W 50ml) 50 ml @ 100 mls/hr Q24H IVPB 09/18/16 13:00 09/25/16 12:59 09/24/16 13:38 Cyclobenzaprine HCl (Flexeril) 10 mg THREE TIMES A DAY ORAL 09/16/16 09:00 10/16/16 08:59 09/24/16 13:32 Dextrose (Dextrose 50%) STAT PRN IV Hypoglycemia 09/16/16 00:25 10/16/16 00:24 Furosemide (Lasix) 40 mg DAILY ORAL 09/16/16 09:00 10/16/16 08:59 09/24/16 09:59 Gabapentin (Neurontin) 600 mg THREE TIMES A DAY ORAL 09/16/16 09:00 10/16/16 08:59 09/24/16 13:33 Heparin Sodium (Porcine) (Heparin 5000 units/ml) 5,000 units EVERY 8 HOURS SUBQ 09/16/16 06:00 10/16/16 05:59 09/24/16 13:38 Insulin Aspart (NovoLOG) BEFORE MEALS AND HS SUBQ 09/16/16 06:30 10/16/16 06:29 09/24/16 06:19 Levothyroxine Sodium (Synthroid) 100 mcg ACBREAKFAST ORAL 09/16/16 06:30 10/16/16 06:29 09/24/16 06:21 Losartan Potassium (Cozaar) 25 mg DAILY ORAL 09/16/16 09:00 10/16/16 08:59 09/24/16 10:00 Morphine Sulfate (Morphine Sulfate) 2 mg Q4H PRN IVP Severe Pain (Pain Scale 7-10) 09/22/16 17:30 09/29/16 23:59 09/24/16 13:33 Nitroglycerin (Ntg) 0.4 mg Q5MIN X 3 DOSES PRN SL Prn Chest Pain 09/15/16 23:45 10/15/16 23:44 Ondansetron HCl (Zofran) 4 mg Q6H PRN IVP Nausea & Vomiting 09/16/16 00:00 10/16/16 00:00 Pantoprazole (Protonix) 40 mg EVERY 12 HOURS ORAL 09/16/16 09:00 10/16/16 08:59 09/24/16 09:59 Polyethylene Glycol (Miralax) 17 gm DAILYPRN PRN ORAL Constipation 09/16/16 00:30 10/16/16 00:29 09/18/16 12:58 Potassium Chloride (K-Dur) 10 meq DAILY ORAL 09/16/16 09:00 10/16/16 08:59 09/24/16 09:59 Ranitidine HCl (Zantac) 150 mg BEDTIME ORAL 09/21/16 21:00 10/21/16 20:59 09/23/16 20:51 Sucralfate 1 gm 1 gm FOUR TIMES A DAY ORAL 09/16/16 09:00 10/16/16 08:59 09/24/16 13:33 Temazepam (Restoril) 15 mg HSPRN PRN ORAL Insomnia 09/22/16 15:45 09/29/16 23:59 09/23/16 20:51 BEKA MASON Sep 24, 2016 14:40
--- NOTE | 2016-09-24 15:46 | Diagnostic Imaging Report ---
Indication: Dyspnea Comparison: 09/19/16 A single view chest radiograph was obtained. Findings: No definite infiltrate or pulmonary vascular congestion identified. The heart is enlarged. The aorta is mildly enlarged consistent with atherosclerotic vascular disease. The bones are osteopenic. Pacemaker noted. Impression: No acute disease
[2016-09-24 16:20] VITALS: BP 137/28
--- NOTE | 2016-09-24 16:40 | Infectious Diseases Prog Note ---
Assessment/Plan Assessment/Plan ASSESSMENT: 56-year-old female with: Probable UTI UCX : mixed growth Fever - resolved, no leukocytosis Elevated ESR, CRP History of cardiomyopathy SP PPM History of CVA History of seizure disorder COPD Back pain . L Spine DJD DM Schizophrenia. Anxiety History of cocaine, tobacco and alcohol abuse Sulfa allergy Full Code PLAN: finishes IV Rocephin d# 7 / today. Monitor pt off of ABX f/u final cultures Monitor CBC, temperatures Monitor BMP Monitor CXR Subjective Allergies: Coded Allergies: CODEINE (Verified Allergy, Unknown, Itching, 08/21/14) SULFA (SULFONAMIDE ANTIBIOTICS) (Unverified Allergy, Unknown, 12/29/15) Subjective remains afebrile. Objective Vital Signs Last 24 Hour Vital Signs Date Time Temp Pulse Resp B/P Pulse Ox O2 Delivery O2 Flow Rate FiO2 09/24/16 11:38 97.9 88 19 124/80 97 Room Air 09/24/16 10:00 141/82 09/24/16 10:00 98 141/82 09/24/16 08:37 98.1 98 18 141/82 97 Room Air 09/24/16 07:57 Nasal Cannula 3.0 32 09/24/16 07:56 96 Nasal Cannula 3.0 32 09/24/16 07:55 91 18 Nasal Cannula 3.0 32 09/24/16 04:00 98.6 91 19 136/71 96 Nasal Cannula 3.0 09/24/16 00:58 97.9 93 18 121/78 95 Nasal Cannula 3.0 09/23/16 20:51 79 137/87 09/23/16 20:00 98.9 79 20 137/87 98 Nasal Cannula 2.0 09/23/16 19:18 Nasal Cannula 2.0 28 09/23/16 19:15 97 Nasal Cannula 2.0 28 09/23/16 19:15 87 18 Nasal Cannula 2.0 28 Height (Feet): 5 Height (Inches): 2.00 Weight (Pounds): 267 General Appearance: no acute distress Respiratory/Chest: no respiratory distress Cardiovascular: normal rate, regular rhythm Abdomen: normal bowel sounds, soft, non tender, non distended Laboratory Tests Test 09/24/16 06:15 White Blood Count 9.5 K/UL (4.8-10.8) Red Blood Count 3.39 M/UL (4.20-5.40) L Hemoglobin 9.5 G/DL (12.0-16.0) L Hematocrit 31.2 % (37.0-47.0) L Mean Corpuscular Volume 92 FL (80-99) Mean Corpuscular Hemoglobin 28.0 PG (27.0-31.0) Mean Corpuscular Hemoglobin Concent 30.3 G/DL (32.0-36.0) L Red Cell Distribution Width 13.2 % (11.6-14.8) Platelet Count 225 K/UL (150-450) Mean Platelet Volume 7.4 FL (6.5-10.1) Neutrophils (%) (Auto) 76.5 % (45.0-75.0) H Lymphocytes (%) (Auto) 14.4 % (20.0-45.0) L Monocytes (%) (Auto) 5.6 % (1.0-10.0) Eosinophils (%) (Auto) 2.9 % (0.0-3.0) Basophils (%) (Auto) 0.6 % (0.0-2.0) Sodium Level 138 mEQ/L (135-145) Potassium Level 3.5 mEQ/L (3.4-4.9) Chloride Level 94 mEQ/L (98-107) L Carbon Dioxide Level 32 mEQ/L (20-30) H Anion Gap 12 (5-15) Blood Urea Nitrogen 11 mg/dL (7-23) Creatinine 0.4 mg/dL (0.5-0.9) L Estimat Glomerular Filtration Rate > 60 mL/min (>60) Glucose Level 215 mg/dL (74-106) H Calcium Level 9.4 mg/dL (8.6-10.2) Magnesium Level 1.7 mg/dL (1.7-2.5) Current Medications Medications (Trade) Dose Ordered Sig/Demarcus Route PRN Reason Start Time Stop Time Status Last Admin Dose Admin Acetaminophen (Tylenol) 650 mg Q4H PRN ORAL T>100.5 09/16/16 00:21 10/16/16 00:20 09/19/16 20:59 Acetaminophen/ Hydrocodone Bitart ([place] 10/325) 1 ea Q6H PRN ORAL Moderate Pain (Pain Scale 4-6) 09/20/16 12:00 09/27/16 11:59 09/22/16 14:28 Albuterol/ Ipratropium (DuoNeb 0.5-3(2.5)mg/3ml) 3 ml Q4H PRN HHN Shortness of Breath 09/22/16 15:45 09/27/16 15:44 Aripiprazole (Abilify) 30 mg BEDTIME ORAL 09/16/16 21:00 10/16/16 20:59 09/23/16 20:51 Aspirin (ASA) 162 mg DAILY ORAL 09/16/16 09:00 10/16/16 08:59 09/24/16 10:01 Atorvastatin Calcium (Lipitor) 20 mg BEDTIME ORAL 09/16/16 21:00 10/16/16 20:59 09/23/16 20:51 Carisoprodol (Soma) 350 mg BIDPRN PRN ORAL Muscle Spasms 09/16/16 06:00 10/16/16 05:59 09/23/16 15:47 Carvedilol (Coreg) 12.5 mg EVERY 12 HOURS ORAL 09/16/16 09:00 10/16/16 08:59 09/24/16 10:00 Ceftriaxone Sodium/Dextrose (Rocephin/D5W 50ml) 50 ml @ 100 mls/hr Q24H IVPB 09/18/16 13:00 09/25/16 12:59 09/24/16 13:38 Cyclobenzaprine HCl (Flexeril) 10 mg THREE TIMES A DAY ORAL 09/16/16 09:00 10/16/16 08:59 09/24/16 13:32 Dextrose (Dextrose 50%) STAT PRN IV Hypoglycemia 09/16/16 00:25 10/16/16 00:24 Furosemide (Lasix) 40 mg DAILY ORAL 09/16/16 09:00 10/16/16 08:59 09/24/16 09:59 Gabapentin (Neurontin) 600 mg THREE TIMES A DAY ORAL 09/16/16 09:00 10/16/16 08:59 09/24/16 13:33 Heparin Sodium (Porcine) (Heparin 5000 units/ml) 5,000 units EVERY 8 HOURS SUBQ 09/16/16 06:00 10/16/16 05:59 09/24/16 13:38 Insulin Aspart (NovoLOG) BEFORE MEALS AND HS SUBQ 09/16/16 06:30 10/16/16 06:29 09/24/16 06:19 Levothyroxine Sodium (Synthroid) 100 mcg ACBREAKFAST ORAL 09/16/16 06:30 10/16/16 06:29 09/24/16 06:21 Losartan Potassium (Cozaar) 25 mg DAILY ORAL 09/16/16 09:00 10/16/16 08:59 09/24/16 10:00 Morphine Sulfate (Morphine Sulfate) 2 mg Q4H PRN IVP Severe Pain (Pain Scale 7-10) 09/22/16 17:30 09/29/16 23:59 09/24/16 13:33 Nitroglycerin (Ntg) 0.4 mg Q5MIN X 3 DOSES PRN SL Prn Chest Pain 09/15/16 23:45 10/15/16 23:44 Ondansetron HCl (Zofran) 4 mg Q6H PRN IVP Nausea & Vomiting 09/16/16 00:00 10/16/16 00:00 Pantoprazole (Protonix) 40 mg EVERY 12 HOURS ORAL 09/16/16 09:00 10/16/16 08:59 09/24/16 09:59 Polyethylene Glycol (Miralax) 17 gm DAILYPRN PRN ORAL Constipation 09/16/16 00:30 10/16/16 00:29 09/18/16 12:58 Potassium Chloride (K-Dur) 10 meq DAILY ORAL 09/16/16 09:00 10/16/16 08:59 09/24/16 09:59 Ranitidine HCl (Zantac) 150 mg BEDTIME ORAL 09/21/16 21:00 10/21/16 20:59 09/23/16 20:51 Sucralfate 1 gm 1 gm FOUR TIMES A DAY ORAL 09/16/16 09:00 10/16/16 08:59 09/24/16 13:33 Temazepam (Restoril) 15 mg HSPRN PRN ORAL Insomnia 09/22/16 15:45 09/29/16 23:59 09/23/16 20:51 JASPER JARVIS Sep 24, 2016 16:40
[2016-09-24 20:15] VITALS: BP 119/74
[2016-09-24] MEDS: Atorvastatin 20mg tab ORAL SCH (21:33)
[2016-09-25] VITALS (7 sets, daily range): BP systolic 93–153; BP diastolic 75–90
[2016-09-25] MEDS: Morphine Sulfate 2mg/ml Inj IVP PRN ×6 (01:47→22:45)
[2016-09-25] MEDS: Heparin 5000 units/ml inj SUBQ SCH ×3 (06:43→21:10)
[2016-09-25] MEDS: NovoLOG Insulin Flexpen SUBQ SCH ×4 (07:11→22:46)
--- NOTE | 2016-09-25 08:25 | General Progress Note ---
Assessment/Plan Assessment/Plan (1) Morbid obesity (2) Lumbar DDD (3) Lumbar Spondylosis (4) Lumbar Radiculopathy Pt will be continued on Morphine and [place]. Pt was d/w Dr. Parada and he concurred. Subjective Date patient seen: Sep 25, 2016 Time patient seen: 07:45 - am Allergies: Coded Allergies: CODEINE (Verified Allergy, Unknown, Itching, 08/21/14) SULFA (SULFONAMIDE ANTIBIOTICS) (Unverified Allergy, Unknown, 12/29/15) Subjective Constitutional: Reports: weakness, Denies: chills, diaphoresis, malaise, no symptoms, other HEENT: Denies: blurred vision, double vision, ear discharge, ear pain, eye pain , mouth pain, mouth swelling, no symptoms, nose congestion, nose pain, other, tearing, throat pain, throat swelling Cardiovascular: Denies: chest pain, edema, irregular heart rate, lightheadedness, no symptoms, other, palpitations, syncope Respiratory: Reports: shortness of breath, Denies: SOB at rest, SOB with excertion, cough, no symptoms, orthopnea, other, sputum, stridor, wheezing Gastrointestinal/Abdominal: Denies: abdomen distended, abdominal pain, black stools, blood in stool, constipated, diarrhea, difficulty swallowing, nausea, no symptoms, other, poor appetite, poor fluid intake, rectal bleeding, tarry stools, vomiting Genitourinary: Denies: burning, discharge, flank pain, frequency, hematuria, incontinence, no symptoms, other, pain, urgency Neurologic/Psychiatric: Reports: weakness, Denies: anxiety, depressed, emotional problems, headache, no symptoms, numbness, other, paresthesia, pre- existing deficit, seizure, tingling, tremors Endocrine: Denies: excessive sweating, flushing, increased hunger, increased thirst, increased urine, intolerance to cold, intolerance to heat, no symptoms, other, unexplained weight gain, unexplained weight loss Hematologic/Lymphatic: Denies: anemia, easy bleeding, easy bruising, no symptoms, other Subjective: She continues to c/o pain on the Left LE and lower back with movement reduced on the medications. Objective Last 24 Hour Vital Signs Date Time Temp Pulse Resp B/P Pulse Ox O2 Delivery O2 Flow Rate FiO2 09/25/16 07:47 Room Air 09/25/16 07:46 96 Room Air 21 09/25/16 07:45 92 18 Nasal Cannula 2.0 28 09/25/16 04:00 98.2 90 19 144/85 95 Nasal Cannula 3.0 09/25/16 00:00 98.6 103 18 137/75 92 Nasal Cannula 2.0 09/24/16 21:33 90 137/28 09/24/16 20:15 98.1 87 19 119/74 97 Room Air 09/24/16 19:30 90 20 Nasal Cannula 2.0 28 09/24/16 19:30 95 Nasal Cannula 2.0 28 09/24/16 19:30 Nasal Cannula 2.0 28 09/24/16 16:20 98.4 90 20 137/28 100 Room Air 09/24/16 11:38 97.9 88 19 124/80 97 Room Air 09/24/16 10:00 141/82 09/24/16 10:00 98 141/82 09/24/16 08:37 98.1 98 18 141/82 97 Room Air Intake and Output 09/24/16 09/25/16 19:00 07:00 Intake Total 520 ml 480 ml Output Total 650 ml Balance -130 ml 480 ml Intake Oral 520 ml 480 ml Output Urine Total 650 ml # Voids 3 Height (Feet): 5 Height (Inches): 2.00 Weight (Pounds): 268 Objective General Appearance: no apparent distress, alert EENT: PERRL/EOMI, normal ENT inspection Neck: non-tender, normal alignment Cardiovascular: pacemaker/AICD Respiratory/Chest: decreased breath sounds Abdomen: non tender, soft, obese Extremities: tenderness to palpation of LLE Edema: edema noted at LLE Neurologic: alert, oriented x 3 Skin: warm/dry CARLOS STOLL Sep 25, 2016 08:25
[2016-09-25] MEDS: Losartan 25mg tab ORAL SCH (10:20)
[2016-09-25] MEDS: Carvedilol 12.5mg tab ORAL SCH ×2 (10:20→21:06)
[2016-09-25] MEDS: Sucralfate 1gm tab ORAL SCH ×4 (10:21→21:07)
[2016-09-25] MEDS: Cyclobenzaprine 10mg Tab ORAL SCH ×3 (10:21→21:07)
[2016-09-25] MEDS: Aspirin Baby 81mg ORAL SCH (10:21)
[2016-09-25] MEDS: Furosemide 40mg tab ORAL SCH (10:21)
[2016-09-25] MEDS: Norco 10mg/325mg tab ORAL PRN (12:13)
--- NOTE | 2016-09-25 16:26 | Pulmonology Progress Note ---
Assessment/Plan Problems: (1) ACS (acute coronary syndrome) (2) AICD (automatic cardioverter/defibrillator) present (3) HTN (hypertension) (4) GERD (gastroesophageal reflux disease) (5) Diabetes mellitus (6) Cardiomyopathy (7) Seizure disorder (8) Morbid obesity Assessment/Plan [place] planning symptomatic treatment sliding scale diabetic diet awaiting for [facility] to find a senior living Subjective ROS Limited/Unobtainable: No Interval Events: c/o pain in various parts of her body Allergies: Coded Allergies: CODEINE (Verified Allergy, Unknown, Itching, 08/21/14) SULFA (SULFONAMIDE ANTIBIOTICS) (Unverified Allergy, Unknown, 12/29/15) Objective Last 24 Hour Vital Signs Date Time Temp Pulse Resp B/P Pulse Ox O2 Delivery O2 Flow Rate FiO2 09/25/16 15:15 98.6 09/25/16 13:08 98.6 09/25/16 13:08 98.6 09/25/16 13:08 98.6 09/25/16 12:00 98.2 88 20 138/90 96 Room Air 09/25/16 10:20 153/82 09/25/16 10:20 95 153/82 09/25/16 10:19 95 153/82 09/25/16 08:00 98.6 92 22 93/ 99 Nasal Cannula 2.0 09/25/16 07:47 Room Air 09/25/16 07:46 96 Room Air 21 09/25/16 07:45 92 18 Nasal Cannula 2.0 28 09/25/16 04:00 98.2 90 19 144/85 95 Nasal Cannula 3.0 09/25/16 00:00 98.6 103 18 137/75 92 Nasal Cannula 2.0 09/24/16 21:33 90 137/28 09/24/16 20:15 98.1 87 19 119/74 97 Room Air 09/24/16 19:30 90 20 Nasal Cannula 2.0 28 09/24/16 19:30 95 Nasal Cannula 2.0 28 09/24/16 19:30 Nasal Cannula 2.0 28 Intake and Output 09/24/16 09/25/16 19:00 07:00 Intake Total 520 ml 480 ml Output Total 650 ml Balance -130 ml 480 ml Intake Oral 520 ml 480 ml Output Urine Total 650 ml # Voids 3 General Appearance: WD/WN HEENT: normocephalic, atraumatic Respiratory/Chest: chest wall non-tender, lungs clear Cardiovascular: normal peripheral pulses, normal rate Abdomen: normal bowel sounds, soft, non tender Extremities: no cyanosis Skin: no rash Neurologic/Psychiatric: [employer] II-XII grossly normal, no motor/sensory deficits Current Medications Medications (Trade) Dose Ordered Sig/Demarcus Route PRN Reason Start Time Stop Time Status Last Admin Dose Admin Acetaminophen (Tylenol) 650 mg Q4H PRN ORAL T>100.5 09/16/16 00:21 10/16/16 00:20 09/19/16 20:59 Acetaminophen/ Hydrocodone Bitart ([place] 10/325) 1 ea Q6H PRN ORAL Moderate Pain (Pain Scale 4-6) 09/20/16 12:00 09/27/16 11:59 09/25/16 12:13 Albuterol/ Ipratropium (DuoNeb 0.5-3(2.5)mg/3ml) 3 ml Q4H PRN HHN Shortness of Breath 09/22/16 15:45 09/27/16 15:44 Aripiprazole (Abilify) 30 mg BEDTIME ORAL 09/16/16 21:00 10/16/16 20:59 09/24/16 21:34 Aspirin (ASA) 162 mg DAILY ORAL 09/16/16 09:00 10/16/16 08:59 09/25/16 10:21 Atorvastatin Calcium (Lipitor) 20 mg BEDTIME ORAL 09/16/16 21:00 10/16/16 20:59 09/24/16 21:33 Carisoprodol (Soma) 350 mg BIDPRN PRN ORAL Muscle Spasms 09/16/16 06:00 10/16/16 05:59 09/23/16 15:47 Carvedilol (Coreg) 12.5 mg EVERY 12 HOURS ORAL 09/16/16 09:00 10/16/16 08:59 09/25/16 10:20 Cyclobenzaprine HCl (Flexeril) 10 mg THREE TIMES A DAY ORAL 09/16/16 09:00 10/16/16 08:59 09/25/16 12:10 Dextrose (Dextrose 50%) STAT PRN IV Hypoglycemia 09/16/16 00:25 10/16/16 00:24 Furosemide (Lasix) 40 mg DAILY ORAL 09/16/16 09:00 10/16/16 08:59 09/25/16 10:21 Gabapentin (Neurontin) 600 mg THREE TIMES A DAY ORAL 09/16/16 09:00 10/16/16 08:59 09/25/16 12:09 Heparin Sodium (Porcine) (Heparin 5000 units/ml) 5,000 units EVERY 8 HOURS SUBQ 09/16/16 06:00 10/16/16 05:59 09/25/16 14:50 Insulin Aspart (NovoLOG) BEFORE MEALS AND HS SUBQ 09/16/16 06:30 10/16/16 06:29 09/25/16 12:13 Levothyroxine Sodium (Synthroid) 100 mcg ACBREAKFAST ORAL 09/16/16 06:30 10/16/16 06:29 09/25/16 06:45 Losartan Potassium (Cozaar) 25 mg DAILY ORAL 09/16/16 09:00 10/16/16 08:59 09/25/16 10:20 Morphine Sulfate (Morphine Sulfate) 2 mg Q4H PRN IVP Severe Pain (Pain Scale 7-10) 09/22/16 17:30 09/29/16 23:59 09/25/16 14:45 Nitroglycerin (Ntg) 0.4 mg Q5MIN X 3 DOSES PRN SL Prn Chest Pain 09/15/16 23:45 10/15/16 23:44 Ondansetron HCl (Zofran) 4 mg Q6H PRN IVP Nausea & Vomiting 09/16/16 00:00 10/16/16 00:00 Pantoprazole (Protonix) 40 mg EVERY 12 HOURS ORAL 09/16/16 09:00 10/16/16 08:59 09/25/16 10:21 Polyethylene Glycol (Miralax) 17 gm DAILYPRN PRN ORAL Constipation 09/16/16 00:30 10/16/16 00:29 09/18/16 12:58 Potassium Chloride (K-Dur) 10 meq DAILY ORAL 09/16/16 09:00 10/16/16 08:59 09/25/16 10:21 Ranitidine HCl (Zantac) 150 mg BEDTIME ORAL 09/21/16 21:00 10/21/16 20:59 09/24/16 21:33 Sucralfate (Carafate) 1 gm FOUR TIMES A DAY ORAL 09/16/16 09:00 10/16/16 08:59 09/25/16 12:10 Temazepam (Restoril) 15 mg HSPRN PRN ORAL Insomnia 09/22/16 15:45 09/29/16 23:59 09/24/16 21:53 BEKA MASON Sep 25, 2016 16:26
--- NOTE | 2016-09-25 16:34 | Infectious Diseases Prog Note ---
Assessment/Plan Assessment/Plan ASSESSMENT: 56-year-old female with: Probable UTI SP Rx UCX : mixed growth Fever - resolved, no leukocytosis Elevated ESR, CRP History of cardiomyopathy SP PPM History of CVA History of seizure disorder COPD Back pain . L Spine DJD DM Schizophrenia. Anxiety History of cocaine, tobacco and alcohol abuse Sulfa allergy Full Code PLAN: ok to DC off of ABX from ID standpoint ( 09/24 SP Rocephin d# 7 / ) Monitor CBC, temperatures, re-culture if acute change Monitor BMP Monitor CXR Subjective Allergies: Coded Allergies: CODEINE (Verified Allergy, Unknown, Itching, 08/21/14) SULFA (SULFONAMIDE ANTIBIOTICS) (Unverified Allergy, Unknown, 12/29/15) Subjective remains afebrile. Objective Vital Signs Last 24 Hour Vital Signs Date Time Temp Pulse Resp B/P Pulse Ox O2 Delivery O2 Flow Rate FiO2 09/25/16 15:15 98.6 09/25/16 13:08 98.6 09/25/16 13:08 98.6 09/25/16 13:08 98.6 09/25/16 12:00 98.2 88 20 138/90 96 Room Air 09/25/16 10:20 153/82 09/25/16 10:20 95 153/82 09/25/16 10:19 95 153/82 09/25/16 08:00 98.6 92 22 93/ 99 Nasal Cannula 2.0 09/25/16 07:47 Room Air 09/25/16 07:46 96 Room Air 21 09/25/16 07:45 92 18 Nasal Cannula 2.0 09/25/16 04:00 98.2 90 19 144/85 95 Nasal Cannula 3.0 09/25/16 00:00 98.6 103 18 137/75 92 Nasal Cannula 2.0 09/24/16 21:33 90 137/28 09/24/16 20:15 98.1 87 19 119/74 97 Room Air 09/24/16 19:30 90 20 Nasal Cannula 2.0 28 09/24/16 19:30 95 Nasal Cannula 2.0 28 09/24/16 19:30 Nasal Cannula 2.0 28 Height (Feet): 5 Height (Inches): 2.00 Weight (Pounds): 268 General Appearance: no acute distress Respiratory/Chest: no respiratory distress Cardiovascular: normal rate, regular rhythm Abdomen: normal bowel sounds, soft, non tender, non distended Current Medications Medications (Trade) Dose Ordered Sig/Demarcus Route PRN Reason Start Time Stop Time Status Last Admin Dose Admin Acetaminophen (Tylenol) 650 mg Q4H PRN ORAL T>100.5 09/16/16 00:21 10/16/16 00:20 09/19/16 20:59 Acetaminophen/ Hydrocodone Bitart ([place] 10/325) 1 ea Q6H PRN ORAL Moderate Pain (Pain Scale 4-6) 09/20/16 12:00 09/27/16 11:59 09/25/16 12:13 Albuterol/ Ipratropium (DuoNeb 0.5-3(2.5)mg/3ml) 3 ml Q4H PRN HHN Shortness of Breath 09/22/16 15:45 09/27/16 15:44 Aripiprazole (Abilify) 30 mg BEDTIME ORAL 09/16/16 21:00 10/16/16 20:59 09/24/16 21:34 Aspirin (ASA) 162 mg DAILY ORAL 09/16/16 09:00 10/16/16 08:59 09/25/16 10:21 Atorvastatin Calcium (Lipitor) 20 mg BEDTIME ORAL 09/16/16 21:00 10/16/16 20:59 09/24/16 21:33 Carisoprodol (Soma) 350 mg BIDPRN PRN ORAL Muscle Spasms 09/16/16 06:00 10/16/16 05:59 09/23/16 15:47 Carvedilol (Coreg) 12.5 mg EVERY 12 HOURS ORAL 09/16/16 09:00 10/16/16 08:59 09/25/16 10:20 Cyclobenzaprine HCl (Flexeril) 10 mg THREE TIMES A DAY ORAL 09/16/16 09:00 10/16/16 08:59 09/25/16 12:10 Dextrose (Dextrose 50%) STAT PRN IV Hypoglycemia 09/16/16 00:25 10/16/16 00:24 Furosemide (Lasix) 40 mg DAILY ORAL 09/16/16 09:00 10/16/16 08:59 09/25/16 10:21 Gabapentin (Neurontin) 600 mg THREE TIMES A DAY ORAL 09/16/16 09:00 10/16/16 08:59 09/25/16 12:09 Heparin Sodium (Porcine) (Heparin 5000 units/ml) 5,000 units EVERY 8 HOURS SUBQ 09/16/16 06:00 10/16/16 05:59 09/25/16 14:50 Insulin Aspart (NovoLOG) BEFORE MEALS AND HS SUBQ 09/16/16 06:30 10/16/16 06:29 09/25/16 12:13 Levothyroxine Sodium (Synthroid) 100 mcg ACBREAKFAST ORAL 09/16/16 06:30 10/16/16 06:29 09/25/16 06:45 Losartan Potassium (Cozaar) 25 mg DAILY ORAL 09/16/16 09:00 10/16/16 08:59 09/25/16 10:20 Morphine Sulfate (Morphine Sulfate) 2 mg Q4H PRN IVP Severe Pain (Pain Scale 7-10) 09/22/16 17:30 09/29/16 23:59 09/25/16 14:45 Nitroglycerin (Ntg) 0.4 mg Q5MIN X 3 DOSES PRN SL Prn Chest Pain 09/15/16 23:45 10/15/16 23:44 Ondansetron HCl (Zofran) 4 mg Q6H PRN IVP Nausea & Vomiting 09/16/16 00:00 10/16/16 00:00 Pantoprazole (Protonix) 40 mg EVERY 12 HOURS ORAL 09/16/16 09:00 10/16/16 08:59 09/25/16 10:21 Polyethylene Glycol (Miralax) 17 gm DAILYPRN PRN ORAL Constipation 09/16/16 00:30 10/16/16 00:29 09/18/16 12:58 Potassium Chloride (K-Dur) 10 meq DAILY ORAL 09/16/16 09:00 10/16/16 08:59 09/25/16 10:21 Ranitidine HCl (Zantac) 150 mg BEDTIME ORAL 09/21/16 21:00 10/21/16 20:59 09/24/16 21:33 Sucralfate (Carafate) 1 gm FOUR TIMES A DAY ORAL 09/16/16 09:00 10/16/16 08:59 09/25/16 12:10 Temazepam (Restoril) 15 mg HSPRN PRN ORAL Insomnia 09/22/16 15:45 09/29/16 23:59 09/24/16 21:53 JASPER JARVIS Sep 25, 2016 16:34
[2016-09-25] MEDS: Atorvastatin 20mg tab ORAL SCH (21:06)
--- NOTE | 2016-09-25 23:01 | Diagnostic Imaging Report ---
APPROVED REPORT CPT Code: 90304 Present Symptoms Comments: PICC line not functioning (Right arm) RIGHT UPPER EXTREMITY: Venous imaging reveals patency of the internal jugular, subclavian, axillary and brachial veins. Doppler indicates normal spontaneous flow within these venous segments. SUPERFICIAL VENOUS SYSTEM: Imaging reveals acute non-occlusive thrombosis in the right basilic vein at upper arm level. The mid to distal right basilic vein was patent. Imaging also reveals patency of the right cephalic vein.
--- NOTE | 2016-09-25 23:03 | Diagnostic Imaging Report ---
APPROVED REPORT CPT Code: 69771 Present Symptoms Lower Extremity Pain: Left Risk Factors Obesity LEFT LEG: Venous imaging reveals a patent deep venous system. There is no evidence of thrombus within the femoral, popliteal or tibial segments. The greater saphenous vein is also within normal limits. Doppler indicates normal spontaneous flow within these segments. INCIDENTAL FINDINGS: Imaging of the left popliteal fossa reveals a Bakers cyst measuring approximately 2.2 x 1.0 cm.
[2016-09-26] VITALS: BP 131/87
[2016-09-26] MEDS: Norco 10mg/325mg tab ORAL PRN ×2 (01:58→19:21)
[2016-09-26 04:00] VITALS: BP 131/88
[2016-09-26] MEDS: Morphine Sulfate 2mg/ml Inj IVP PRN ×5 (04:23→20:48)
[2016-09-26] MEDS: Heparin 5000 units/ml inj SUBQ SCH ×3 (06:35→21:41)
[2016-09-26] MEDS: NovoLOG Insulin Flexpen SUBQ SCH ×4 (06:42→21:41)
[2016-09-26 08:00] VITALS: BP 127/62
[2016-09-26] MEDS: Sucralfate 1gm tab ORAL SCH ×4 (08:30→21:39)
[2016-09-26] MEDS: Furosemide 40mg tab ORAL SCH (08:30)
[2016-09-26] MEDS: Losartan 25mg tab ORAL SCH (08:30)
[2016-09-26] MEDS: Aspirin Baby 81mg ORAL SCH (08:30)
[2016-09-26] MEDS: Cyclobenzaprine 10mg Tab ORAL SCH ×3 (08:31→18:15)
[2016-09-26] MEDS: Carvedilol 12.5mg tab ORAL SCH ×2 (08:34→21:38)
--- NOTE | 2016-09-26 09:02 | General Progress Note ---
Assessment/Plan Assessment/Plan (1) Morbid obesity (2) Lumbar DDD (3) Lumbar Spondylosis (4) Lumbar Radiculopathy Pt will be continued on Morphine and [place]. Pt was d/w Dr. Parada and he concurred. Subjective Date patient seen: Sep 26, 2016 Time patient seen: 07:00 - am Allergies: Coded Allergies: CODEINE (Verified Allergy, Unknown, Itching, 08/21/14) SULFA (SULFONAMIDE ANTIBIOTICS) (Unverified Allergy, Unknown, 12/29/15) Subjective Constitutional: Reports: weakness, Denies: chills, diaphoresis, malaise, no symptoms, other HEENT: Denies: blurred vision, double vision, ear discharge, ear pain, eye pain , mouth pain, mouth swelling, no symptoms, nose congestion, nose pain, other, tearing, throat pain, throat swelling Cardiovascular: Denies: chest pain, edema, irregular heart rate, lightheadedness, no symptoms, other, palpitations, syncope Respiratory: Reports: shortness of breath, Denies: SOB at rest, SOB with excertion, cough, no symptoms, orthopnea, other, sputum, stridor, wheezing Gastrointestinal/Abdominal: Denies: abdomen distended, abdominal pain, black stools, blood in stool, constipated, diarrhea, difficulty swallowing, nausea, no symptoms, other, poor appetite, poor fluid intake, rectal bleeding, tarry stools, vomiting Genitourinary: Denies: burning, discharge, flank pain, frequency, hematuria, incontinence, no symptoms, other, pain, urgency Neurologic/Psychiatric: Reports: weakness, Denies: anxiety, depressed, emotional problems, headache, no symptoms, numbness, other, paresthesia, pre- existing deficit, seizure, tingling, tremors Endocrine: Denies: excessive sweating, flushing, increased hunger, increased thirst, increased urine, intolerance to cold, intolerance to heat, no symptoms, other, unexplained weight gain, unexplained weight loss Hematologic/Lymphatic: Denies: anemia, easy bleeding, easy bruising, no symptoms, other Subjective: Her pain has been stable and well controlled on the Morphine and [place] and rates it a 5/10. Objective Last 24 Hour Vital Signs Date Time Temp Pulse Resp B/P Pulse Ox O2 Delivery O2 Flow Rate FiO2 09/26/16 08:34 87 127/62 09/26/16 08:30 127/62 09/26/16 04:00 96.4 83 20 131/88 100 Nasal Cannula 2.0 09/26/16 00:00 98.4 90 20 131/87 100 Nasal Cannula 2.0 09/25/16 22:06 98.2 09/25/16 22:06 98.2 09/25/16 21:06 85 137/88 09/25/16 20:06 Nasal Cannula 2.0 28 09/25/16 20:05 100 Nasal Cannula 2.0 28 09/25/16 20:05 85 18 Nasal Cannula 2.0 28 09/25/16 19:00 98.2 86 20 137/88 98 Room Air 09/25/16 17:46 98.6 09/25/16 17:46 98.6 09/25/16 16:00 96.5 83 18 143/84 97 Room Air 09/25/16 13:08 98.6 09/25/16 12:00 98.2 88 20 138/90 96 Room Air 09/25/16 10:20 153/82 09/25/16 10:20 95 153/82 09/25/16 10:19 95 153/82 Intake and Output 09/25/16 09/26/16 18:59 06:59 Intake Total 960 ml 540 ml Output Total 0 ml Balance 960 ml 540 ml Intake Oral 960 ml 540 ml Output Urine Total 0 ml # Voids 4 Height (Feet): 5 Height (Inches): 2.00 Weight (Pounds): 270 Objective General Appearance: no apparent distress, alert EENT: PERRL/EOMI, normal ENT inspection Neck: non-tender, normal alignment Cardiovascular: pacemaker/AICD Respiratory/Chest: decreased breath sounds Abdomen: non tender, soft, obese Extremities: tenderness to palpation of LLE Edema: edema noted at LLE Neurologic: alert, oriented x 3 Skin: warm/dry CARLOS STOLL PBryanna Sep 26, 2016 09:02
[2016-09-26 12:00] VITALS: BP 119/84
[2016-09-26 15:51] VITALS: BP 129/78
--- NOTE | 2016-09-26 15:53 | Infectious Diseases Prog Note ---
Assessment/Plan Assessment/Plan ASSESSMENT: 56-year-old female with: Probable UTI SP Rx UCX : mixed growth Fever - resolved, no leukocytosis Elevated ESR, CRP History of cardiomyopathy SP PPM History of CVA History of seizure disorder COPD Back pain . L Spine DJD DM Schizophrenia. Anxiety History of cocaine, tobacco and alcohol abuse Sulfa allergy Full Code PLAN: ok to DC off of ABX from ID standpoint ( 09/24 SP Rocephin d# 7 / ) Monitor CBC, temperatures, re-culture if acute change Monitor BMP Monitor CXR Subjective Allergies: Coded Allergies: CODEINE (Verified Allergy, Unknown, Itching, 08/21/14) SULFA (SULFONAMIDE ANTIBIOTICS) (Unverified Allergy, Unknown, 12/29/15) Subjective remains afebrile. Objective Vital Signs Last 24 Hour Vital Signs Date Time Temp Pulse Resp B/P Pulse Ox O2 Delivery O2 Flow Rate FiO2 09/26/16 12:00 98.2 86 16 119/84 100 Room Air 09/26/16 08:34 87 127/62 09/26/16 08:30 127/62 09/26/16 08:00 97.5 87 20 127/62 100 Nasal Cannula 3.0 09/26/16 04:00 96.4 83 20 131/88 100 Nasal Cannula 2.0 09/26/16 00:00 98.4 90 20 131/87 100 Nasal Cannula 2.0 09/25/16 22:06 98.2 09/25/16 22:06 98.2 09/25/16 21:06 85 137/88 09/25/16 20:06 Nasal Cannula 2.0 28 09/25/16 20:05 100 Nasal Cannula 2.0 28 09/25/16 20:05 85 18 Nasal Cannula 2.0 28 09/25/16 19:00 98.2 86 20 137/88 98 Room Air 09/25/16 17:46 98.6 09/25/16 17:46 98.6 09/25/16 16:00 96.5 83 18 143/84 97 Room Air Height (Feet): 5 Height (Inches): 2.00 Weight (Pounds): 270 General Appearance: no acute distress Respiratory/Chest: no respiratory distress Cardiovascular: normal rate, regular rhythm Abdomen: normal bowel sounds, soft, non tender, non distended Current Medications Medications (Trade) Dose Ordered Sig/Demarcus Route PRN Reason Start Time Stop Time Status Last Admin Dose Admin Acetaminophen (Tylenol) 650 mg Q4H PRN ORAL T>100.5 09/16/16 00:21 10/16/16 00:20 09/19/16 20:59 Acetaminophen/ Hydrocodone Bitart ([place] 10/325) 1 ea Q6H PRN ORAL Moderate Pain (Pain Scale 4-6) 09/20/16 12:00 09/27/16 11:59 09/26/16 01:58 Albuterol/ Ipratropium (DuoNeb 0.5-3(2.5)mg/3ml) 3 ml Q4H PRN HHN Shortness of Breath 09/22/16 15:45 09/27/16 15:44 Aripiprazole (Abilify) 30 mg BEDTIME ORAL 09/16/16 21:00 10/16/16 20:59 09/25/16 21:07 Aspirin (ASA) 162 mg DAILY ORAL 09/16/16 09:00 10/16/16 08:59 09/26/16 08:30 Atorvastatin Calcium (Lipitor) 20 mg BEDTIME ORAL 09/16/16 21:00 10/16/16 20:59 09/25/16 21:06 Carisoprodol (Soma) 350 mg BIDPRN PRN ORAL Muscle Spasms 09/16/16 06:00 10/16/16 05:59 09/25/16 16:47 Carvedilol (Coreg) 12.5 mg EVERY 12 HOURS ORAL 09/16/16 09:00 10/16/16 08:59 09/26/16 08:34 Cyclobenzaprine HCl (Flexeril) 10 mg THREE TIMES A DAY ORAL 09/16/16 09:00 10/16/16 08:59 09/26/16 12:41 Dextrose (Dextrose 50%) STAT PRN IV Hypoglycemia 09/16/16 00:25 10/16/16 00:24 Furosemide (Lasix) 40 mg DAILY ORAL 09/16/16 09:00 10/16/16 08:59 09/26/16 08:30 Gabapentin (Neurontin) 600 mg THREE TIMES A DAY ORAL 09/16/16 09:00 10/16/16 08:59 09/26/16 12:41 Heparin Sodium (Porcine) (Heparin 5000 units/ml) 5,000 units EVERY 8 HOURS SUBQ 09/16/16 06:00 10/16/16 05:59 09/26/16 13:53 Insulin Aspart (NovoLOG) BEFORE MEALS AND HS SUBQ 09/16/16 06:30 10/16/16 06:29 09/26/16 11:40 Levothyroxine Sodium (Synthroid) 100 mcg ACBREAKFAST ORAL 09/16/16 06:30 10/16/16 06:29 09/26/16 06:35 Losartan Potassium (Cozaar) 25 mg DAILY ORAL 09/16/16 09:00 10/16/16 08:59 09/26/16 08:30 Morphine Sulfate (Morphine Sulfate) 2 mg Q4H PRN IVP Severe Pain (Pain Scale 7-10) 09/22/16 17:30 09/29/16 23:59 09/26/16 12:41 Nitroglycerin (Ntg) 0.4 mg Q5MIN X 3 DOSES PRN SL Prn Chest Pain 09/15/16 23:45 10/15/16 23:44 Ondansetron HCl (Zofran) 4 mg Q6H PRN IVP Nausea & Vomiting 09/16/16 00:00 10/16/16 00:00 Pantoprazole (Protonix) 40 mg EVERY 12 HOURS ORAL 09/16/16 09:00 10/16/16 08:59 09/26/16 08:31 Polyethylene Glycol (Miralax) 17 gm DAILYPRN PRN ORAL Constipation 09/16/16 00:30 10/16/16 00:29 09/18/16 12:58 Potassium Chloride (K-Dur) 10 meq DAILY ORAL 09/16/16 09:00 10/16/16 08:59 09/26/16 08:31 Ranitidine HCl (Zantac) 150 mg BEDTIME ORAL 09/21/16 21:00 10/21/16 20:59 09/25/16 21:07 Sucralfate (Carafate) 1 gm FOUR TIMES A DAY ORAL 09/16/16 09:00 10/16/16 08:59 09/26/16 12:40 Temazepam (Restoril) 15 mg HSPRN PRN ORAL Insomnia 09/22/16 15:45 09/29/16 23:59 09/25/16 22:44 JASPER JARVIS Sep 26, 2016 15:53
--- NOTE | 2016-09-26 17:27 | Pulmonology Progress Note ---
Assessment/Plan Problems: (1) ACS (acute coronary syndrome) (2) AICD (automatic cardioverter/defibrillator) present (3) HTN (hypertension) (4) GERD (gastroesophageal reflux disease) (5) Diabetes mellitus (6) Cardiomyopathy (7) Seizure disorder (8) Morbid obesity Assessment/Plan [place] planning symptomatic treatment sliding scale diabetic diet awaiting for IPA to find a skilled nursing Subjective ROS Limited/Unobtainable: No Constitutional: Reports: fatigue Cardiovascular: Reports: chest pain, palpitations Allergies: Coded Allergies: CODEINE (Verified Allergy, Unknown, Itching, 08/21/14) SULFA (SULFONAMIDE ANTIBIOTICS) (Unverified Allergy, Unknown, 12/29/15) Objective Last 24 Hour Vital Signs Date Time Temp Pulse Resp B/P Pulse Ox O2 Delivery O2 Flow Rate FiO2 09/26/16 15:51 98.2 91 20 129/78 99 Nasal Cannula 2.0 09/26/16 12:00 98.2 86 16 119/84 100 Room Air 09/26/16 08:34 87 127/62 09/26/16 08:30 127/62 09/26/16 08:00 97.5 87 20 127/62 100 Nasal Cannula 3.0 09/26/16 04:00 96.4 83 20 131/88 100 Nasal Cannula 2.0 09/26/16 00:00 98.4 90 20 131/87 100 Nasal Cannula 2.0 09/25/16 22:06 98.2 09/25/16 22:06 98.2 09/25/16 21:06 85 137/88 09/25/16 20:06 Nasal Cannula 2.0 28 09/25/16 20:05 100 Nasal Cannula 2.0 28 09/25/16 20:05 85 18 Nasal Cannula 2.0 28 09/25/16 19:00 98.2 86 20 137/88 98 Room Air 09/25/16 17:46 98.6 09/25/16 17:46 98.6 Intake and Output 09/25/16 09/26/16 19:00 07:00 Intake Total 960 ml 540 ml Output Total 0 ml Balance 960 ml 540 ml Intake Oral 960 ml 540 ml Output Urine Total 0 ml # Voids 4 General Appearance: no acute distress HEENT: normocephalic, atraumatic, PERRL Respiratory/Chest: chest wall non-tender, decreased breath sounds, accessory muscle use Breasts: no masses Cardiovascular: normal peripheral pulses, normal rate, regular rhythm, no JVD Abdomen: normal bowel sounds, soft, non tender, no organomegaly, non distended Genitourinary: normal external genitalia Extremities: no cyanosis, no clubbing Skin: no rash 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, no motor/sensory deficits Current Medications Medications (Trade) Dose Ordered Sig/Demarcus Route PRN Reason Start Time Stop Time Status Last Admin Dose Admin Acetaminophen (Tylenol) 650 mg Q4H PRN ORAL T>100.5 09/16/16 00:21 10/16/16 00:20 09/19/16 20:59 Acetaminophen/ Hydrocodone Bitart ([place] 10/325) 1 ea Q6H PRN ORAL Moderate Pain (Pain Scale 4-6) 09/20/16 12:00 09/27/16 11:59 09/26/16 01:58 Albuterol/ Ipratropium (DuoNeb 0.5-3(2.5)mg/3ml) 3 ml Q4H PRN HHN Shortness of Breath 09/22/16 15:45 09/27/16 15:44 Aripiprazole (Abilify) 30 mg BEDTIME ORAL 09/16/16 21:00 10/16/16 20:59 09/25/16 21:07 Aspirin (ASA) 162 mg DAILY ORAL 09/16/16 09:00 10/16/16 08:59 09/26/16 08:30 Atorvastatin Calcium (Lipitor) 20 mg BEDTIME ORAL 09/16/16 21:00 10/16/16 20:59 09/25/16 21:06 Carisoprodol (Soma) 350 mg BIDPRN PRN ORAL Muscle Spasms 09/16/16 06:00 10/16/16 05:59 09/25/16 16:47 Carvedilol (Coreg) 12.5 mg EVERY 12 HOURS ORAL 09/16/16 09:00 10/16/16 08:59 09/26/16 08:34 Cyclobenzaprine HCl (Flexeril) 10 mg THREE TIMES A DAY ORAL 09/16/16 09:00 10/16/16 08:59 09/26/16 12:41 Dextrose (Dextrose 50%) STAT PRN IV Hypoglycemia 09/16/16 00:25 10/16/16 00:24 Furosemide (Lasix) 40 mg DAILY ORAL 09/16/16 09:00 10/16/16 08:59 09/26/16 08:30 Gabapentin (Neurontin) 600 mg THREE TIMES A DAY ORAL 09/16/16 09:00 10/16/16 08:59 09/26/16 12:41 Heparin Sodium (Porcine) (Heparin 5000 units/ml) 5,000 units EVERY 8 HOURS SUBQ 09/16/16 06:00 10/16/16 05:59 09/26/16 13:53 Insulin Aspart (NovoLOG) BEFORE MEALS AND HS SUBQ 09/16/16 06:30 10/16/16 06:29 09/26/16 16:31 Levothyroxine Sodium (Synthroid) 100 mcg ACBREAKFAST ORAL 09/16/16 06:30 10/16/16 06:29 09/26/16 06:35 Losartan Potassium (Cozaar) 25 mg DAILY ORAL 09/16/16 09:00 10/16/16 08:59 09/26/16 08:30 Morphine Sulfate (Morphine Sulfate) 2 mg Q4H PRN IVP Severe Pain (Pain Scale 7-10) 09/22/16 17:30 09/29/16 23:59 09/26/16 16:47 Nitroglycerin (Ntg) 0.4 mg Q5MIN X 3 DOSES PRN SL Prn Chest Pain 09/15/16 23:45 10/15/16 23:44 Ondansetron HCl (Zofran) 4 mg Q6H PRN IVP Nausea & Vomiting 09/16/16 00:00 10/16/16 00:00 Pantoprazole (Protonix) 40 mg EVERY 12 HOURS ORAL 09/16/16 09:00 10/16/16 08:59 09/26/16 08:31 Polyethylene Glycol (Miralax) 17 gm DAILYPRN PRN ORAL Constipation 09/16/16 00:30 10/16/16 00:29 09/18/16 12:58 Potassium Chloride (K-Dur) 10 meq DAILY ORAL 09/16/16 09:00 10/16/16 08:59 09/26/16 08:31 Ranitidine HCl (Zantac) 150 mg BEDTIME ORAL 09/21/16 21:00 10/21/16 20:59 09/25/16 21:07 Sucralfate (Carafate) 1 gm FOUR TIMES A DAY ORAL 09/16/16 09:00 10/16/16 08:59 09/26/16 12:40 Temazepam (Restoril) 15 mg HSPRN PRN ORAL Insomnia 09/22/16 15:45 09/29/16 23:59 09/25/16 22:44 BEKA MASON Sep 26, 2016 17:27
[2016-09-26 19:00] VITALS: BP 129/86
[2016-09-26] MEDS: Atorvastatin 20mg tab ORAL SCH (21:39)
[2016-09-27] VITALS: BP 139/85
[2016-09-27 04:00] VITALS: BP 137/87
[2016-09-27] MEDS: Morphine Sulfate 2mg/ml Inj IVP PRN ×4 (05:02→18:57)
[2016-09-27] MEDS: Heparin 5000 units/ml inj SUBQ SCH ×3 (06:33→20:55)
[2016-09-27] MEDS: NovoLOG Insulin Flexpen SUBQ SCH ×4 (06:34→20:54)
[2016-09-27 08:00] VITALS: BP 99/64
--- NOTE | 2016-09-27 08:59 | General Progress Note ---
Assessment/Plan Assessment/Plan (1) Morbid obesity (2) Lumbar DDD (3) Lumbar Spondylosis (4) Lumbar Radiculopathy (5) Left knee pain Pt will be continued on Morphine and [place]. We will order Xray of left knee. Pt was d/w Dr. Parada and he concurred. Subjective Date patient seen: Sep 27, 2016 Time patient seen: 07:30 - am Allergies: Coded Allergies: CODEINE (Verified Allergy, Unknown, Itching, 08/21/14) SULFA (SULFONAMIDE ANTIBIOTICS) (Unverified Allergy, Unknown, 12/29/15) Subjective Constitutional: Reports: weakness, Denies: chills, diaphoresis, malaise, no symptoms, other HEENT: Denies: blurred vision, double vision, ear discharge, ear pain, eye pain , mouth pain, mouth swelling, no symptoms, nose congestion, nose pain, other, tearing, throat pain, throat swelling Cardiovascular: Denies: chest pain, edema, irregular heart rate, lightheadedness, no symptoms, other, palpitations, syncope Respiratory: Reports: shortness of breath, Denies: SOB at rest, SOB with excertion, cough, no symptoms, orthopnea, other, sputum, stridor, wheezing Gastrointestinal/Abdominal: Denies: abdomen distended, abdominal pain, black stools, blood in stool, constipated, diarrhea, difficulty swallowing, nausea, no symptoms, other, poor appetite, poor fluid intake, rectal bleeding, tarry stools, vomiting Genitourinary: Denies: burning, discharge, flank pain, frequency, hematuria, incontinence, no symptoms, other, pain, urgency Neurologic/Psychiatric: Reports: weakness, Denies: anxiety, depressed, emotional problems, headache, no symptoms, numbness, other, paresthesia, pre- existing deficit, seizure, tingling, tremors Endocrine: Denies: excessive sweating, flushing, increased hunger, increased thirst, increased urine, intolerance to cold, intolerance to heat, no symptoms, other, unexplained weight gain, unexplained weight loss Hematologic/Lymphatic: Denies: anemia, easy bleeding, easy bruising, no symptoms, other Subjective: Pt is c/o left knee pain and swelling over the past few days. The pain has been stable on the medications Objective Last 24 Hour Vital Signs Date Time Temp Pulse Resp B/P Pulse Ox O2 Delivery O2 Flow Rate FiO2 09/27/16 08:00 99.3 88 18 99/64 98 Nasal Cannula 2.0 09/27/16 07:15 93 18 Nasal Cannula 2.0 28 09/27/16 07:15 Nasal Cannula 2.0 28 09/27/16 07:15 95 Nasal Cannula 2.0 28 09/27/16 04:00 96.9 83 20 137/87 99 Room Air 09/27/16 00:00 98.1 86 20 139/85 94 Room Air 09/26/16 21:38 91 129/86 09/26/16 19:59 Nasal Cannula 2.0 28 09/26/16 19:59 91 18 Nasal Cannula 2.0 28 09/26/16 19:59 98 Nasal Cannula 2.0 28 09/26/16 19:00 97.3 98 20 129/86 96 Nasal Cannula 2.0 09/26/16 15:51 98.2 91 20 129/78 99 Nasal Cannula 2.0 09/26/16 12:00 98.2 86 16 119/84 100 Room Air Intake and Output 09/26/16 09/27/16 19:00 07:00 Intake Total 450 ml 850 ml Output Total 0 ml Balance 450 ml 850 ml Intake Oral 450 ml 850 ml Output Urine Total 0 ml # Voids 3 4 Height (Feet): 5 Height (Inches): 2.00 Weight (Pounds): 266 Objective General Appearance: no apparent distress, alert EENT: PERRL/EOMI, normal ENT inspection Neck: non-tender, normal alignment Cardiovascular: pacemaker/AICD Respiratory/Chest: decreased breath sounds Abdomen: non tender, soft, obese Extremities: tenderness to palpation of LLE Edema: edema noted at LLE Neurologic: alert, oriented x 3 Skin: warm/dry CARLOS STOLL Sep 27, 2016 08:59
[2016-09-27] MEDS: Carvedilol 12.5mg tab ORAL SCH ×2 (09:44→20:46)
[2016-09-27] MEDS: Losartan 25mg tab ORAL SCH (09:44)
[2016-09-27] MEDS: Aspirin Baby 81mg ORAL SCH (09:45)
[2016-09-27] MEDS: Sucralfate 1gm tab ORAL SCH ×4 (09:45→20:47)
[2016-09-27] MEDS: Furosemide 40mg tab ORAL SCH (09:45)
[2016-09-27] MEDS: Cyclobenzaprine 10mg Tab ORAL SCH ×3 (09:45→18:57)
[2016-09-27 12:00] VITALS: BP 109/68
[2016-09-27 16:00] VITALS: BP 128/86
--- NOTE | 2016-09-27 18:08 | Pulmonology Progress Note ---
Assessment/Plan Problems: (1) ACS (acute coronary syndrome) (2) AICD (automatic cardioverter/defibrillator) present (3) HTN (hypertension) (4) GERD (gastroesophageal reflux disease) (5) Diabetes mellitus (6) Cardiomyopathy (7) Seizure disorder (8) Morbid obesity Assessment/Plan no [place] planning symptomatic treatment sliding scale diabetic diet awaiting for IPA to find a [facility] Subjective ROS Limited/Unobtainable: No Constitutional: Reports: fatigue Cardiovascular: Reports: chest pain Allergies: Coded Allergies: CODEINE (Verified Allergy, Unknown, Itching, 08/21/14) SULFA (SULFONAMIDE ANTIBIOTICS) (Unverified Allergy, Unknown, 12/29/15) Objective Last 24 Hour Vital Signs Date Time Temp Pulse Resp B/P Pulse Ox O2 Delivery O2 Flow Rate FiO2 09/27/16 12:00 96.8 103 18 109/68 95 Room Air 09/27/16 09:44 136/87 09/27/16 09:44 77 136/86 09/27/16 08:00 99.3 88 18 99/64 98 Nasal Cannula 2.0 09/27/16 07:15 93 18 Nasal Cannula 2.0 28 09/27/16 07:15 Nasal Cannula 2.0 28 09/27/16 07:15 95 Nasal Cannula 2.0 28 09/27/16 04:00 96.9 83 20 137/87 99 Room Air 09/27/16 00:00 98.1 86 20 139/85 94 Room Air 09/26/16 21:38 91 129/86 09/26/16 19:59 Nasal Cannula 2.0 28 09/26/16 19:59 91 18 Nasal Cannula 2.0 28 09/26/16 19:59 98 Nasal Cannula 2.0 28 09/26/16 19:00 97.3 98 20 129/86 96 Nasal Cannula 2.0 Intake and Output 09/26/16 09/27/16 19:00 07:00 Intake Total 450 ml 850 ml Output Total 0 ml Balance 450 ml 850 ml Intake Oral 450 ml 850 ml Output Urine Total 0 ml # Voids 3 4 General Appearance: no acute distress HEENT: normocephalic, atraumatic, PERRL Respiratory/Chest: chest wall non-tender, decreased breath sounds, accessory muscle use Breasts: no masses Cardiovascular: normal peripheral pulses, normal rate, regular rhythm, no JVD Abdomen: normal bowel sounds, soft, non tender, no organomegaly Genitourinary: normal external genitalia Extremities: no cyanosis Skin: no rash, no lesions 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, no motor/sensory deficits Current Medications Medications (Trade) Dose Ordered Sig/Demarcus Route PRN Reason Start Time Stop Time Status Last Admin Dose Admin Acetaminophen (Tylenol) 650 mg Q4H PRN ORAL T>100.5 09/16/16 00:21 10/16/16 00:20 09/19/16 20:59 Aripiprazole (Abilify) 30 mg BEDTIME ORAL 09/16/16 21:00 10/16/16 20:59 09/26/16 21:39 Aspirin (ASA) 162 mg DAILY ORAL 09/16/16 09:00 10/16/16 08:59 09/27/16 09:45 Atorvastatin Calcium (Lipitor) 20 mg BEDTIME ORAL 09/16/16 21:00 10/16/16 20:59 09/26/16 21:39 Carisoprodol (Soma) 350 mg BIDPRN PRN ORAL Muscle Spasms 09/16/16 06:00 10/16/16 05:59 09/25/16 16:47 Carvedilol (Coreg) 12.5 mg EVERY 12 HOURS ORAL 09/16/16 09:00 10/16/16 08:59 09/27/16 09:44 Cyclobenzaprine HCl (Flexeril) 10 mg THREE TIMES A DAY ORAL 09/16/16 09:00 10/16/16 08:59 09/27/16 13:40 Dextrose (Dextrose 50%) STAT PRN IV Hypoglycemia 09/16/16 00:25 10/16/16 00:24 Furosemide (Lasix) 40 mg DAILY ORAL 09/16/16 09:00 10/16/16 08:59 09/27/16 09:45 Gabapentin (Neurontin) 600 mg THREE TIMES A DAY ORAL 09/16/16 09:00 10/16/16 08:59 09/27/16 13:39 Heparin Sodium (Porcine) (Heparin 5000 units/ml) 5,000 units EVERY 8 HOURS SUBQ 09/16/16 06:00 10/16/16 05:59 09/27/16 13:43 Insulin Aspart (NovoLOG) BEFORE MEALS AND HS SUBQ 09/16/16 06:30 10/16/16 06:29 09/27/16 17:16 Levothyroxine Sodium (Synthroid) 100 mcg ACBREAKFAST ORAL 09/16/16 06:30 10/16/16 06:29 09/27/16 06:32 Losartan Potassium (Cozaar) 25 mg DAILY ORAL 09/16/16 09:00 10/16/16 08:59 09/27/16 09:44 Morphine Sulfate (Morphine Sulfate) 2 mg Q4H PRN IVP Severe Pain (Pain Scale 7-10) 09/22/16 17:30 09/29/16 23:59 09/27/16 13:40 Nitroglycerin (Ntg) 0.4 mg Q5MIN X 3 DOSES PRN SL Prn Chest Pain 09/15/16 23:45 10/15/16 23:44 Ondansetron HCl (Zofran) 4 mg Q6H PRN IVP Nausea & Vomiting 09/16/16 00:00 10/16/16 00:00 Pantoprazole (Protonix) 40 mg EVERY 12 HOURS ORAL 09/16/16 09:00 10/16/16 08:59 09/27/16 09:44 Polyethylene Glycol (Miralax) 17 gm DAILYPRN PRN ORAL Constipation 09/16/16 00:30 10/16/16 00:29 09/18/16 12:58 Potassium Chloride (K-Dur) 10 meq DAILY ORAL 09/16/16 09:00 10/16/16 08:59 09/27/16 09:46 Ranitidine HCl (Zantac) 150 mg BEDTIME ORAL 09/21/16 21:00 10/21/16 20:59 09/26/16 21:39 Sucralfate (Carafate) 1 gm FOUR TIMES A DAY ORAL 09/16/16 09:00 10/16/16 08:59 09/27/16 13:39 Temazepam (Restoril) 15 mg HSPRN PRN ORAL Insomnia 09/22/16 15:45 09/29/16 23:59 09/25/16 22:44 BEKA MASON Sep 27, 2016 18:08
[2016-09-27 19:00] VITALS: BP 122/77
[2016-09-27] MEDS: Atorvastatin 20mg tab ORAL SCH (20:47)
[2016-09-28] MEDS: Morphine Sulfate 2mg/ml Inj IVP PRN ×5 (02:09→19:24)
[2016-09-28 04:00] VITALS: BP 126/82
[2016-09-28] MEDS: NovoLOG Insulin Flexpen SUBQ SCH ×4 (06:05→21:47)
[2016-09-28] MEDS: Heparin 5000 units/ml inj SUBQ SCH ×3 (06:08→21:48)
[2016-09-28 07:56] VITALS: BP 121/72
[2016-09-28] MEDS: Losartan 25mg tab ORAL SCH (08:23)
[2016-09-28] MEDS: Carvedilol 12.5mg tab ORAL SCH ×2 (08:24→21:40)
[2016-09-28] MEDS: Sucralfate 1gm tab ORAL SCH ×4 (08:26→21:40)
[2016-09-28] MEDS: Aspirin Baby 81mg ORAL SCH (08:27)
[2016-09-28] MEDS: Cyclobenzaprine 10mg Tab ORAL SCH ×3 (08:27→17:23)
[2016-09-28] MEDS: Furosemide 40mg tab ORAL SCH (08:28)
--- NOTE | 2016-09-28 10:15 | General Progress Note ---
Assessment/Plan Assessment/Plan (1) Morbid obesity (2) Lumbar DDD (3) Lumbar Spondylosis (4) Lumbar Radiculopathy (5) Left knee pain Pt will be continued on Morphine and [place]. Xray of left knee pending results. Pt was d/w Dr. Parada and he concurred. Subjective Date patient seen: Sep 28, 2016 Time patient seen: 09:00 - am Allergies: Coded Allergies: CODEINE (Verified Allergy, Unknown, Itching, 08/21/14) SULFA (SULFONAMIDE ANTIBIOTICS) (Unverified Allergy, Unknown, 12/29/15) Subjective Constitutional: Reports: weakness, Denies: chills, diaphoresis, malaise, no symptoms, other HEENT: Denies: blurred vision, double vision, ear discharge, ear pain, eye pain , mouth pain, mouth swelling, no symptoms, nose congestion, nose pain, other, tearing, throat pain, throat swelling Cardiovascular: Denies: chest pain, edema, irregular heart rate, lightheadedness, no symptoms, other, palpitations, syncope Respiratory: Reports: shortness of breath, Denies: SOB at rest, SOB with excertion, cough, no symptoms, orthopnea, other, sputum, stridor, wheezing Gastrointestinal/Abdominal: Denies: abdomen distended, abdominal pain, black stools, blood in stool, constipated, diarrhea, difficulty swallowing, nausea, no symptoms, other, poor appetite, poor fluid intake, rectal bleeding, tarry stools, vomiting Genitourinary: Denies: burning, discharge, flank pain, frequency, hematuria, incontinence, no symptoms, other, pain, urgency Neurologic/Psychiatric: Reports: weakness, Denies: anxiety, depressed, emotional problems, headache, no symptoms, numbness, other, paresthesia, pre- existing deficit, seizure, tingling, tremors Endocrine: Denies: excessive sweating, flushing, increased hunger, increased thirst, increased urine, intolerance to cold, intolerance to heat, no symptoms, other, unexplained weight gain, unexplained weight loss Hematologic/Lymphatic: Denies: anemia, easy bleeding, easy bruising, no symptoms, other Subjective: She continued to c/o pain and reports it is a 8/10 reduced to a 5/ 10 on the medications. Left knee Xray pending results. Objective Last 24 Hour Vital Signs Date Time Temp Pulse Resp B/P Pulse Ox O2 Delivery O2 Flow Rate FiO2 09/28/16 08:24 94 121/72 09/28/16 08:23 121/72 09/28/16 07:56 98.1 94 16 121/72 99 Room Air 09/28/16 04:00 99.9 86 20 126/82 95 Room Air 09/28/16 00:00 98.2 95 20 100 Nasal Cannula 2.0 09/27/16 21:43 98.1 09/27/16 20:46 101 128/86 09/27/16 20:03 Nasal Cannula 2.0 28 09/27/16 20:03 97 Nasal Cannula 2.0 28 09/27/16 19:56 98.1 09/27/16 19:56 98.1 09/27/16 19:27 98.1 09/27/16 19:00 98.2 100 18 122/77 94 Room Air 09/27/16 16:00 98.1 101 18 128/86 96 Room Air 09/27/16 12:00 96.8 103 18 109/68 95 Room Air Intake and Output 09/27/16 09/28/16 19:00 07:00 Intake Total 660 ml 1190 ml Output Total 1000 ml Balance 660 ml 190 ml Intake Oral 660 ml 1190 ml Output Urine Total 1000 ml # Voids 3 5 Height (Feet): 5 Height (Inches): 2.00 Weight (Pounds): 167 Objective General Appearance: no apparent distress, alert EENT: PERRL/EOMI, normal ENT inspection Neck: non-tender, normal alignment Cardiovascular: pacemaker/AICD Respiratory/Chest: decreased breath sounds Abdomen: non tender, soft, obese Extremities: tenderness to palpation of LLE Edema: edema noted at LLE Neurologic: alert, oriented x 3 Skin: warm/dry CARLOS STOLL Sep 28, 2016 10:15
[2016-09-28 12:11] VITALS: BP 132/65
[2016-09-28] MEDS: Norco 10mg/325mg tab ORAL PRN (12:57)
--- NOTE | 2016-09-28 13:37 | Infectious Diseases Prog Note ---
Assessment/Plan Assessment/Plan ASSESSMENT: 56-year-old female with: Probable UTI SP Rx UCX : mixed growth Fever - resolved, no leukocytosis Elevated ESR, CRP History of cardiomyopathy SP PPM History of CVA History of seizure disorder COPD Back pain . L Spine DJD DM Schizophrenia. Anxiety History of cocaine, tobacco and alcohol abuse Sulfa allergy Full Code PLAN: ok to DC off of ABX from ID standpoint ( 09/24 SP Rocephin d# 7 / ) Monitor CBC, temperatures, re-culture if acute change Monitor BMP Monitor CXR DC planning Subjective Allergies: Coded Allergies: CODEINE (Verified Allergy, Unknown, Itching, 08/21/14) SULFA (SULFONAMIDE ANTIBIOTICS) (Unverified Allergy, Unknown, 12/29/15) Subjective remains afebrile. DC planning ongoing Objective Vital Signs Last 24 Hour Vital Signs Date Time Temp Pulse Resp B/P Pulse Ox O2 Delivery O2 Flow Rate FiO2 09/28/16 12:11 98.1 83 18 132/65 98 Room Air 09/28/16 08:24 94 121/72 09/28/16 08:23 121/72 09/28/16 07:56 98.1 94 16 121/72 99 Room Air 09/28/16 04:00 99.9 86 20 126/82 95 Room Air 09/28/16 00:00 98.2 95 20 100 Nasal Cannula 2.0 09/27/16 21:43 98.1 09/27/16 20:46 101 128/86 09/27/16 20:03 Nasal Cannula 2.0 28 09/27/16 20:03 97 Nasal Cannula 2.0 28 09/27/16 19:56 98.1 09/27/16 19:56 98.1 09/27/16 19:27 98.1 09/27/16 19:00 98.2 100 18 122/77 94 Room Air 09/27/16 16:00 98.1 101 18 128/86 96 Room Air Height (Feet): 5 Height (Inches): 2.00 Weight (Pounds): 167 General Appearance: no acute distress Respiratory/Chest: no respiratory distress Cardiovascular: normal rate, regular rhythm Abdomen: normal bowel sounds, soft, non tender, non distended Current Medications Medications (Trade) Dose Ordered Sig/Demarcus Route PRN Reason Start Time Stop Time Status Last Admin Dose Admin Acetaminophen (Tylenol) 650 mg Q4H PRN ORAL T>100.5 09/16/16 00:21 10/16/16 00:20 09/19/16 20:59 Acetaminophen/ Hydrocodone Bitart ([place] 10/325) 1 ea Q6H PRN ORAL moderate pain 09/28/16 09:30 10/05/16 09:29 09/28/16 12:57 Aripiprazole (Abilify) 30 mg BEDTIME ORAL 09/16/16 21:00 10/16/16 20:59 09/27/16 20:46 Aspirin (ASA) 162 mg DAILY ORAL 09/16/16 09:00 10/16/16 08:59 09/28/16 08:27 Atorvastatin Calcium (Lipitor) 20 mg BEDTIME ORAL 09/16/16 21:00 10/16/16 20:59 09/27/16 20:47 Carisoprodol (Soma) 350 mg BIDPRN PRN ORAL Muscle Spasms 09/16/16 06:00 10/16/16 05:59 09/27/16 20:47 Carvedilol (Coreg) 12.5 mg EVERY 12 HOURS ORAL 09/16/16 09:00 10/16/16 08:59 09/28/16 08:24 Cyclobenzaprine HCl (Flexeril) 10 mg THREE TIMES A DAY ORAL 09/16/16 09:00 10/16/16 08:59 09/28/16 12:58 Dextrose (Dextrose 50%) STAT PRN IV Hypoglycemia 09/16/16 00:25 10/16/16 00:24 Furosemide (Lasix) 40 mg DAILY ORAL 09/16/16 09:00 10/16/16 08:59 09/28/16 08:28 Gabapentin (Neurontin) 600 mg THREE TIMES A DAY ORAL 09/16/16 09:00 10/16/16 08:59 09/28/16 12:58 Heparin Sodium (Porcine) (Heparin 5000 units/ml) 5,000 units EVERY 8 HOURS SUBQ 09/16/16 06:00 10/16/16 05:59 09/28/16 06:08 Insulin Aspart (NovoLOG) BEFORE MEALS AND HS SUBQ 09/16/16 06:30 10/16/16 06:29 09/28/16 12:13 Levothyroxine Sodium (Synthroid) 100 mcg ACBREAKFAST ORAL 09/16/16 06:30 10/16/16 06:29 09/28/16 06:02 Losartan Potassium (Cozaar) 25 mg DAILY ORAL 09/16/16 09:00 10/16/16 08:59 09/28/16 08:23 Morphine Sulfate (Morphine Sulfate) 2 mg Q4H PRN IVP Severe Pain (Pain Scale 7-10) 09/28/16 09:45 10/16/16 09:44 09/28/16 10:37 Nitroglycerin (Ntg) 0.4 mg Q5MIN X 3 DOSES PRN SL Prn Chest Pain 09/15/16 23:45 10/15/16 23:44 Ondansetron HCl (Zofran) 4 mg Q6H PRN IVP Nausea & Vomiting 09/16/16 00:00 10/16/16 00:00 Pantoprazole (Protonix) 40 mg EVERY 12 HOURS ORAL 09/16/16 09:00 10/16/16 08:59 09/28/16 08:23 Polyethylene Glycol (Miralax) 17 gm DAILYPRN PRN ORAL Constipation 09/16/16 00:30 10/16/16 00:29 09/18/16 12:58 Potassium Chloride (K-Dur) 10 meq DAILY ORAL 09/16/16 09:00 10/16/16 08:59 09/28/16 08:27 Ranitidine HCl (Zantac) 150 mg BEDTIME ORAL 09/21/16 21:00 10/21/16 20:59 09/27/16 20:47 Sucralfate (Carafate) 1 gm FOUR TIMES A DAY ORAL 09/16/16 09:00 10/16/16 08:59 09/28/16 12:58 Temazepam (Restoril) 15 mg HSPRN PRN ORAL Insomnia 09/22/16 15:45 09/29/16 23:59 09/27/16 20:47 JASPER JARVIS Sep 28, 2016 13:37
--- NOTE | 2016-09-28 15:55 | Pulmonology Progress Note ---
Assessment/Plan Problems: (1) ACS (acute coronary syndrome) (2) AICD (automatic cardioverter/defibrillator) present (3) HTN (hypertension) (4) GERD (gastroesophageal reflux disease) (5) Diabetes mellitus (6) Cardiomyopathy (7) Seizure disorder (8) Morbid obesity Assessment/Plan no new complains dc planning symptomatic treatment sliding scale diabetic diet awaiting for IPA to find a detention Subjective ROS Limited/Unobtainable: No Constitutional: Reports: no symptoms HEENT: Repors: no symptoms Respiratory: Reports: no symptoms Allergies: Coded Allergies: CODEINE (Verified Allergy, Unknown, Itching, 08/21/14) SULFA (SULFONAMIDE ANTIBIOTICS) (Unverified Allergy, Unknown, 12/29/15) Objective Last 24 Hour Vital Signs Date Time Temp Pulse Resp B/P Pulse Ox O2 Delivery O2 Flow Rate FiO2 09/28/16 12:11 98.1 83 18 132/65 98 Room Air 09/28/16 08:24 94 121/72 09/28/16 08:23 121/72 09/28/16 07:56 98.1 94 16 121/72 99 Room Air 09/28/16 04:00 99.9 86 20 126/82 95 Room Air 09/28/16 00:00 98.2 95 20 100 Nasal Cannula 2.0 09/27/16 21:43 98.1 09/27/16 20:46 101 128/86 09/27/16 20:03 Nasal Cannula 2.0 28 09/27/16 20:03 97 Nasal Cannula 2.0 28 09/27/16 19:56 98.1 09/27/16 19:56 98.1 09/27/16 19:27 98.1 09/27/16 19:00 98.2 100 18 122/77 94 Room Air 09/27/16 16:00 98.1 101 18 128/86 96 Room Air Intake and Output 09/27/16 09/28/16 19:00 07:00 Intake Total 660 ml 1190 ml Output Total 1000 ml Balance 660 ml 190 ml Intake Oral 660 ml 1190 ml Output Urine Total 1000 ml # Voids 3 5 HEENT: atraumatic Respiratory/Chest: chest wall non-tender Breasts: no masses Cardiovascular: normal rate Abdomen: normal bowel sounds, no organomegaly Genitourinary: normal external genitalia Skin: no rash Current Medications Medications (Trade) Dose Ordered Sig/Demarcus Route PRN Reason Start Time Stop Time Status Last Admin Dose Admin Acetaminophen (Tylenol) 650 mg Q4H PRN ORAL T>100.5 09/16/16 00:21 10/16/16 00:20 09/19/16 20:59 Acetaminophen/ Hydrocodone Bitart ([place] 10/325) 1 ea Q6H PRN ORAL moderate pain 09/28/16 09:30 10/05/16 09:29 09/28/16 12:57 Aripiprazole (Abilify) 30 mg BEDTIME ORAL 09/16/16 21:00 10/16/16 20:59 09/27/16 20:46 Aspirin (ASA) 162 mg DAILY ORAL 09/16/16 09:00 10/16/16 08:59 09/28/16 08:27 Atorvastatin Calcium (Lipitor) 20 mg BEDTIME ORAL 09/16/16 21:00 10/16/16 20:59 09/27/16 20:47 Carisoprodol (Soma) 350 mg BIDPRN PRN ORAL Muscle Spasms 09/16/16 06:00 10/16/16 05:59 09/27/16 20:47 Carvedilol (Coreg) 12.5 mg EVERY 12 HOURS ORAL 09/16/16 09:00 10/16/16 08:59 09/28/16 08:24 Cyclobenzaprine HCl (Flexeril) 10 mg THREE TIMES A DAY ORAL 09/16/16 09:00 10/16/16 08:59 09/28/16 12:58 Dextrose (Dextrose 50%) STAT PRN IV Hypoglycemia 09/16/16 00:25 10/16/16 00:24 Furosemide (Lasix) 40 mg DAILY ORAL 09/16/16 09:00 10/16/16 08:59 09/28/16 08:28 Gabapentin (Neurontin) 600 mg THREE TIMES A DAY ORAL 09/16/16 09:00 10/16/16 08:59 09/28/16 12:58 Heparin Sodium (Porcine) (Heparin 5000 units/ml) 5,000 units EVERY 8 HOURS SUBQ 09/16/16 06:00 10/16/16 05:59 09/28/16 06:08 Insulin Aspart (NovoLOG) BEFORE MEALS AND HS SUBQ 09/16/16 06:30 10/16/16 06:29 09/28/16 12:13 Levothyroxine Sodium (Synthroid) 100 mcg ACBREAKFAST ORAL 09/16/16 06:30 10/16/16 06:29 09/28/16 06:02 Losartan Potassium (Cozaar) 25 mg DAILY ORAL 09/16/16 09:00 10/16/16 08:59 09/28/16 08:23 Morphine Sulfate (Morphine Sulfate) 2 mg Q4H PRN IVP Severe Pain (Pain Scale 7-10) 09/28/16 09:45 10/16/16 09:44 09/28/16 14:45 Nitroglycerin (Ntg) 0.4 mg Q5MIN X 3 DOSES PRN SL Prn Chest Pain 09/15/16 23:45 10/15/16 23:44 Ondansetron HCl (Zofran) 4 mg Q6H PRN IVP Nausea & Vomiting 09/16/16 00:00 10/16/16 00:00 Pantoprazole (Protonix) 40 mg EVERY 12 HOURS ORAL 09/16/16 09:00 10/16/16 08:59 09/28/16 08:23 Polyethylene Glycol (Miralax) 17 gm DAILYPRN PRN ORAL Constipation 09/16/16 00:30 10/16/16 00:29 09/18/16 12:58 Potassium Chloride (K-Dur) 10 meq DAILY ORAL 09/16/16 09:00 10/16/16 08:59 09/28/16 08:27 Ranitidine HCl (Zantac) 150 mg BEDTIME ORAL 09/21/16 21:00 10/21/16 20:59 09/27/16 20:47 Sucralfate (Carafate) 1 gm FOUR TIMES A DAY ORAL 09/16/16 09:00 10/16/16 08:59 09/28/16 12:58 Temazepam (Restoril) 15 mg HSPRN PRN ORAL Insomnia 09/22/16 15:45 09/29/16 23:59 09/27/16 20:47 BEKA MASON Sep 28, 2016 15:55
[2016-09-28 16:00] VITALS: BP 154/88
[2016-09-28 19:00] VITALS: BP 133/89
[2016-09-28] MEDS: Atorvastatin 20mg tab ORAL SCH (21:40)
[2016-09-29] VITALS: BP 131/79
[2016-09-29] MEDS: Morphine Sulfate 2mg/ml Inj IVP PRN ×5 (00:27→19:43)
[2016-09-29 04:00] VITALS: BP 150/97
[2016-09-29] MEDS: Heparin 5000 units/ml inj SUBQ SCH ×3 (06:09→23:17)
[2016-09-29] MEDS: NovoLOG Insulin Flexpen SUBQ SCH ×4 (06:11→23:12)
[2016-09-29 08:05] VITALS: BP 114/58
--- NOTE | 2016-09-29 08:30 | Diagnostic Imaging Report ---
Indications: Left knee pain Technique: 3 views of the left knee Findings: Comparison: None No fracture, dislocation, lytic destruction, periosteal reaction, joint space widening or effusion, surrounding soft tissue abnormality, or other acute changes demonstrated. Small well-corticated osseous density projects over the femoral intercondylar notch. Medial compartment of knee joint space narrowed with marginal osteophyte formation. No additional chronic changes demonstrated. IMPRESSION: No evidence of acute abnormalities of the left knee Osteoarthritis Tibial spine osteophyte versus intra-articular loose body
[2016-09-29] MEDS: Carvedilol 12.5mg tab ORAL SCH ×2 (09:00→23:05)
[2016-09-29] MEDS: Losartan 25mg tab ORAL SCH (09:00)
[2016-09-29] MEDS: Aspirin Baby 81mg ORAL SCH (09:44)
[2016-09-29] MEDS: Furosemide 40mg tab ORAL SCH (09:47)
[2016-09-29] MEDS: Sucralfate 1gm tab ORAL SCH ×4 (09:49→23:04)
[2016-09-29] MEDS: Cyclobenzaprine 10mg Tab ORAL SCH ×3 (09:50→18:47)
--- NOTE | 2016-09-29 11:46 | Pulmonology Progress Note ---
Assessment/Plan Problems: (1) ACS (acute coronary syndrome) (2) AICD (automatic cardioverter/defibrillator) present (3) HTN (hypertension) (4) GERD (gastroesophageal reflux disease) (5) Diabetes mellitus (6) Cardiomyopathy (7) Seizure disorder (8) Morbid obesity Assessment/Plan no new complains dc planning symptomatic treatment sliding scale diabetic diet awaiting for IPA to find a detention Subjective Respiratory: Reports: dry cough, dyspnea at rest, shortness of breath Cardiovascular: Reports: chest pain, palpitations Allergies: Coded Allergies: CODEINE (Verified Allergy, Unknown, Itching, 08/21/14) SULFA (SULFONAMIDE ANTIBIOTICS) (Unverified Allergy, Unknown, 12/29/15) Objective Last 24 Hour Vital Signs Date Time Temp Pulse Resp B/P Pulse Ox O2 Delivery O2 Flow Rate FiO2 09/29/16 10:02 Nasal Cannula 2.0 28 09/29/16 10:02 96 Nasal Cannula 2.0 28 09/29/16 09:00 114/58 09/29/16 09:00 93 114/58 09/29/16 08:05 98.1 93 16 114/58 96 Room Air 09/29/16 04:00 98.4 85 20 150/97 96 Room Air 09/29/16 00:00 97.7 80 20 131/79 96 Room Air 09/28/16 21:40 86 133/89 09/28/16 19:54 97.5 09/28/16 19:00 97.2 86 20 133/89 100 Room Air 09/28/16 18:22 97.5 09/28/16 18:22 97.5 09/28/16 16:00 97.5 83 20 154/88 97 Room Air 09/28/16 12:11 98.1 83 18 132/65 98 Room Air Intake and Output 09/28/16 09/29/16 19:00 07:00 Intake Total 1000 ml 570 ml Output Total 300 ml Balance 700 ml 570 ml Intake Oral 1000 ml 570 ml Output Urine Total 300 ml # Voids 7 General Appearance: no acute distress HEENT: normocephalic, atraumatic, PERRL Respiratory/Chest: chest wall non-tender, decreased breath sounds, accessory muscle use Breasts: no masses Cardiovascular: normal peripheral pulses, normal rate, regular rhythm, no JVD Abdomen: normal bowel sounds, soft, non tender, no organomegaly Genitourinary: normal external genitalia Extremities: no cyanosis Skin: no rash, no lesions 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, no motor/sensory deficits Current Medications Medications (Trade) Dose Ordered Sig/Demarcus Route PRN Reason Start Time Stop Time Status Last Admin Dose Admin Acetaminophen (Tylenol) 650 mg Q4H PRN ORAL T>100.5 09/16/16 00:21 10/16/16 00:20 09/19/16 20:59 Acetaminophen/ Hydrocodone Bitart ([place] 10/325) 1 ea Q6H PRN ORAL moderate pain 09/28/16 09:30 10/05/16 09:29 09/28/16 12:57 Aripiprazole (Abilify) 30 mg BEDTIME ORAL 09/16/16 21:00 10/16/16 20:59 09/28/16 21:40 Aspirin (ASA) 162 mg DAILY ORAL 09/16/16 09:00 10/16/16 08:59 09/29/16 09:44 Atorvastatin Calcium (Lipitor) 20 mg BEDTIME ORAL 09/16/16 21:00 10/16/16 20:59 09/28/16 21:40 Carisoprodol (Soma) 350 mg BIDPRN PRN ORAL Muscle Spasms 09/16/16 06:00 10/16/16 05:59 09/29/16 10:12 Carvedilol (Coreg) 12.5 mg EVERY 12 HOURS ORAL 09/16/16 09:00 10/16/16 08:59 09/28/16 21:40 Cyclobenzaprine HCl (Flexeril) 10 mg THREE TIMES A DAY ORAL 09/16/16 09:00 10/16/16 08:59 09/29/16 09:50 Dextrose (Dextrose 50%) STAT PRN IV Hypoglycemia 09/16/16 00:25 10/16/16 00:24 Furosemide (Lasix) 40 mg DAILY ORAL 09/16/16 09:00 10/16/16 08:59 09/29/16 09:47 Gabapentin (Neurontin) 600 mg THREE TIMES A DAY ORAL 09/16/16 09:00 10/16/16 08:59 09/29/16 09:46 Heparin Sodium (Porcine) (Heparin 5000 units/ml) 5,000 units EVERY 8 HOURS SUBQ 09/16/16 06:00 10/16/16 05:59 09/29/16 06:09 Insulin Aspart (NovoLOG) BEFORE MEALS AND HS SUBQ 09/16/16 06:30 10/16/16 06:29 09/29/16 06:11 Levothyroxine Sodium (Synthroid) 100 mcg ACBREAKFAST ORAL 09/16/16 06:30 10/16/16 06:29 09/29/16 06:07 Losartan Potassium (Cozaar) 25 mg DAILY ORAL 09/16/16 09:00 10/16/16 08:59 09/28/16 08:23 Morphine Sulfate (Morphine Sulfate) 2 mg Q4H PRN IVP Severe Pain (Pain Scale 7-10) 09/28/16 09:45 10/16/16 09:44 09/29/16 09:51 Nitroglycerin (Ntg) 0.4 mg Q5MIN X 3 DOSES PRN SL Prn Chest Pain 09/15/16 23:45 10/15/16 23:44 Ondansetron HCl (Zofran) 4 mg Q6H PRN IVP Nausea & Vomiting 09/16/16 00:00 10/16/16 00:00 Pantoprazole (Protonix) 40 mg EVERY 12 HOURS ORAL 09/16/16 09:00 10/16/16 08:59 09/29/16 09:50 Polyethylene Glycol (Miralax) 17 gm DAILYPRN PRN ORAL Constipation 09/16/16 00:30 10/16/16 00:29 09/18/16 12:58 Potassium Chloride (K-Dur) 10 meq DAILY ORAL 09/16/16 09:00 10/16/16 08:59 09/29/16 09:47 Ranitidine HCl (Zantac) 150 mg BEDTIME ORAL 09/21/16 21:00 10/21/16 20:59 09/28/16 21:40 Sucralfate (Carafate) 1 gm FOUR TIMES A DAY ORAL 09/16/16 09:00 10/16/16 08:59 09/29/16 09:49 Temazepam (Restoril) 15 mg HSPRN PRN ORAL Insomnia 09/22/16 15:45 09/29/16 23:59 09/28/16 21:40 BEKA MASON Sep 29, 2016 11:46
[2016-09-29 11:51] VITALS: BP 136/84
[2016-09-29] MEDS ORDERED: Heplock Flush 100 units/ml 3 ml syr INJ PRN (14:30)
[2016-09-29 16:36] VITALS: BP 117/74
[2016-09-29 20:00] VITALS: BP 121/77
[2016-09-29 20:02] LABS: BASOPHILS % (AUTO) 0.5 % (0.0-2.0); EOSINOPHILS % (AUTO) 3.3 % (0.0-3.0); LYMPHOCYTES % (AUTO) 21.5 % (20.0-45.0); MEAN CORPUSCULAR HEMOGLOBIN 28.4 PG (27.0-31.0); MEAN CORPUSCULAR VOLUME 89 FL (80-99); MEAN PLATELET VOLUME 6.6 FL (6.5-10.1); MONOCYTES % (AUTO) 4.4 % (1.0-10.0); NEUTROPHILS % (AUTO) 70.3 % (45.0-75.0); PLATELET COUNT 222 K/UL (150-450); RED BLOOD COUNT 3.42 M/UL (4.20-5.40); RED CELL DISTRIBUTION WIDTH 13.2 % (11.6-14.8); WHITE BLOOD COUNT 8.7 K/UL (4.8-10.8)
[2016-09-29 20:21] LABS: ANION GAP 13 (5-15); CARBON DIOXIDE 32 mEQ/L (20-30); CHLORIDE 95 mEQ/L (98-107); CREATININE 0.8 mg/dL (0.5-0.9); GLOMERULAR FILTRATION RATE > 60 mL/min (>60); HEMOLYSIS 0; POTASSIUM 3.6 mEQ/L (3.4-4.9); SODIUM 140 mEQ/L (135-145)
[2016-09-29] MEDS: Atorvastatin 20mg tab ORAL SCH (23:04)
[2016-09-30] VITALS: BP 141/90
[2016-09-30] MEDS: Morphine Sulfate 2mg/ml Inj IVP PRN ×6 (00:05→21:00)
[2016-09-30 04:00] VITALS: BP 129/86
[2016-09-30] MEDS: Heparin 5000 units/ml inj SUBQ SCH ×3 (06:36→23:11)
[2016-09-30] MEDS: NovoLOG Insulin Flexpen SUBQ SCH ×4 (06:36→21:03)
[2016-09-30 07:43] VITALS: BP 158/94
[2016-09-30] MEDS: Losartan 25mg tab ORAL SCH (07:58)
[2016-09-30] MEDS: Aspirin Baby 81mg ORAL SCH (07:58)
[2016-09-30] MEDS: Carvedilol 12.5mg tab ORAL SCH ×2 (07:58→20:58)
[2016-09-30] MEDS: Furosemide 40mg tab ORAL SCH (07:58)
[2016-09-30] MEDS: Sucralfate 1gm tab ORAL SCH ×4 (08:00→20:58)
[2016-09-30] MEDS: Cyclobenzaprine 10mg Tab ORAL SCH ×3 (08:00→16:50)
--- NOTE | 2016-09-30 10:04 | General Progress Note ---
Assessment/Plan Assessment/Plan (1) Morbid obesity (2) Lumbar DDD (3) Lumbar Spondylosis (4) Lumbar Radiculopathy (5) Left knee pain/ OA Pt will be continued on Morphine and [place].Pt was d/w Dr. Parada and he concurred. Subjective Date patient seen: Sep 30, 2016 Time patient seen: 07:30 - am Allergies: Coded Allergies: CODEINE (Verified Allergy, Unknown, Itching, 08/21/14) SULFA (SULFONAMIDE ANTIBIOTICS) (Unverified Allergy, Unknown, 12/29/15) Subjective Constitutional: Reports: weakness, Denies: chills, diaphoresis, malaise, no symptoms, other HEENT: Denies: blurred vision, double vision, ear discharge, ear pain, eye pain , mouth pain, mouth swelling, no symptoms, nose congestion, nose pain, other, tearing, throat pain, throat swelling Cardiovascular: Denies: chest pain, edema, irregular heart rate, lightheadedness, no symptoms, other, palpitations, syncope Respiratory: Reports: shortness of breath, Denies: SOB at rest, SOB with excertion, cough, no symptoms, orthopnea, other, sputum, stridor, wheezing Gastrointestinal/Abdominal: Denies: abdomen distended, abdominal pain, black stools, blood in stool, constipated, diarrhea, difficulty swallowing, nausea, no symptoms, other, poor appetite, poor fluid intake, rectal bleeding, tarry stools, vomiting Genitourinary: Denies: burning, discharge, flank pain, frequency, hematuria, incontinence, no symptoms, other, pain, urgency Neurologic/Psychiatric: Reports: weakness, Denies: anxiety, depressed, emotional problems, headache, no symptoms, numbness, other, paresthesia, pre- existing deficit, seizure, tingling, tremors Endocrine: Denies: excessive sweating, flushing, increased hunger, increased thirst, increased urine, intolerance to cold, intolerance to heat, no symptoms, other, unexplained weight gain, unexplained weight loss Hematologic/Lymphatic: Denies: anemia, easy bleeding, easy bruising, no symptoms, other Subjective: Pain has been tolerated and stable on the medications. Xray of left knee results d/w pt. Objective Last 24 Hour Vital Signs Date Time Temp Pulse Resp B/P Pulse Ox O2 Delivery O2 Flow Rate FiO2 09/30/16 07:58 158/94 09/30/16 07:58 96 158/94 09/30/16 07:43 98.1 96 20 158/94 97 Room Air 09/30/16 04:00 98.1 85 20 129/86 98 Room Air 09/30/16 00:00 98.2 98 20 141/90 99 Nasal Cannula 2.0 09/29/16 23:05 90 121/77 09/29/16 20:13 98.6 09/29/16 20:00 98.6 90 16 121/77 93 Room Air 09/29/16 19:46 97.0 09/29/16 19:46 97.0 09/29/16 19:07 97 Nasal Cannula 2.0 28 09/29/16 19:07 Nasal Cannula 2.0 28 09/29/16 16:36 97.0 88 117/74 09/29/16 11:51 97.7 89 16 136/84 97 Room Air 09/29/16 10:21 97.7 Intake and Output 09/29/16 09/30/16 19:00 07:00 Intake Total 1400 ml 530 ml Output Total 750 ml Balance 650 ml 530 ml Intake Oral 1400 ml 530 ml Output Urine Total 750 ml # Voids 5 Laboratory Tests 09/29/16 19:50: White Blood Count 8.7, Red Blood Count 3.42L, Hemoglobin 9.7L, Hematocrit 30.3L , Mean Corpuscular Volume 89, Mean Corpuscular Hemoglobin 28.4, Mean Corpuscular Hemoglobin Concent 32.0, Red Cell Distribution Width 13.2, Platelet Count 222, Mean Platelet Volume 6.6, Neutrophils (%) (Auto) 70.3, Lymphocytes (% ) (Auto) 21.5, Monocytes (%) (Auto) 4.4, Eosinophils (%) (Auto) 3.3H, Basophils (%) (Auto) 0.5, Sodium Level 140, Potassium Level 3.6, Chloride Level 95L, Carbon Dioxide Level 32H, Anion Gap 13, Blood Urea Nitrogen 11, Creatinine 0.8, Estimat Glomerular Filtration Rate > 60, Glucose Level 127H, Calcium Level 9.0 Height (Feet): 5 Height (Inches): 2.00 Weight (Pounds): 272 Objective General Appearance: no apparent distress, alert EENT: PERRL/EOMI, normal ENT inspection Neck: non-tender, normal alignment Cardiovascular: pacemaker/AICD Respiratory/Chest: decreased breath sounds Abdomen: non tender, soft, obese Extremities: tenderness to palpation of LLE Edema: edema noted at LLE Neurologic: alert, oriented x 3 Skin: warm/dry Procedure: XRAY Knee Compl 4v+ L Indications: Left knee pain Technique: 3 views of the left knee Findings: Comparison: None No fracture, dislocation, lytic destruction, periosteal reaction, joint space widening or effusion, surrounding soft tissue abnormality, or other acute changes demonstrated. Small well-corticated osseous density projects over the femoral intercondylar notch. Medial compartment of knee joint space narrowed with marginal osteophyte formation. No additional chronic changes demonstrated. IMPRESSION: No evidence of acute abnormalities of the left knee Osteoarthritis Tibial spine osteophyte versus intra-articular loose body CARLOS STOLL Sep 30, 2016 10:04
--- NOTE | 2016-09-30 10:07 | Infectious Diseases Prog Note ---
Assessment/Plan Assessment/Plan ASSESSMENT: 56-year-old female with: Probable UTI SP Rx UCX : mixed growth Fever - resolved, no leukocytosis Elevated ESR, CRP History of cardiomyopathy SP PPM History of CVA History of seizure disorder COPD Back pain . L Spine DJD DM Schizophrenia. Anxiety History of cocaine, tobacco and alcohol abuse Sulfa allergy Full Code PLAN: ok to DC off of ABX from ID standpoint ( 09/24 SP Rocephin d# 7 / ) Monitor CBC, temperatures, re-culture if acute change Monitor BMP Monitor CXR DC planning Subjective Allergies: Coded Allergies: CODEINE (Verified Allergy, Unknown, Itching, 08/21/14) SULFA (SULFONAMIDE ANTIBIOTICS) (Unverified Allergy, Unknown, 12/29/15) Subjective remains afebrile. DC planning ongoing Objective Vital Signs Last 24 Hour Vital Signs Date Time Temp Pulse Resp B/P Pulse Ox O2 Delivery O2 Flow Rate FiO2 09/30/16 07:58 158/94 09/30/16 07:58 96 158/94 09/30/16 07:50 97 Nasal Cannula 2.0 28 09/30/16 07:43 98.1 96 20 158/94 97 Room Air 09/30/16 04:00 98.1 85 20 129/86 98 Room Air 09/30/16 00:00 98.2 98 20 141/90 99 Nasal Cannula 2.0 09/29/16 23:05 90 121/77 09/29/16 20:13 98.6 09/29/16 20:00 98.6 90 16 121/77 93 Room Air 09/29/16 19:46 97.0 09/29/16 19:46 97.0 09/29/16 19:07 97 Nasal Cannula 2.0 28 09/29/16 19:07 Nasal Cannula 2.0 28 09/29/16 16:36 97.0 88 117/74 09/29/16 11:51 97.7 89 16 136/84 97 Room Air 09/29/16 10:21 97.7 Height (Feet): 5 Height (Inches): 2.00 Weight (Pounds): 272 General Appearance: no acute distress Respiratory/Chest: no respiratory distress Cardiovascular: normal rate, regular rhythm Abdomen: normal bowel sounds, soft, non tender, non distended Laboratory Tests Test 09/29/16 19:50 White Blood Count 8.7 K/UL (4.8-10.8) Red Blood Count 3.42 M/UL (4.20-5.40) L Hemoglobin 9.7 G/DL (12.0-16.0) L Hematocrit 30.3 % (37.0-47.0) L Mean Corpuscular Volume 89 FL (80-99) Mean Corpuscular Hemoglobin 28.4 PG (27.0-31.0) Mean Corpuscular Hemoglobin Concent 32.0 G/DL (32.0-36.0) Red Cell Distribution Width 13.2 % (11.6-14.8) Platelet Count 222 K/UL (150-450) Mean Platelet Volume 6.6 FL (6.5-10.1) Neutrophils (%) (Auto) 70.3 % (45.0-75.0) Lymphocytes (%) (Auto) 21.5 % (20.0-45.0) Monocytes (%) (Auto) 4.4 % (1.0-10.0) Eosinophils (%) (Auto) 3.3 % (0.0-3.0) H Basophils (%) (Auto) 0.5 % (0.0-2.0) Sodium Level 140 mEQ/L (135-145) Potassium Level 3.6 mEQ/L (3.4-4.9) Chloride Level 95 mEQ/L (98-107) L Carbon Dioxide Level 32 mEQ/L (20-30) H Anion Gap 13 (5-15) Blood Urea Nitrogen 11 mg/dL (7-23) Creatinine 0.8 mg/dL (0.5-0.9) Estimat Glomerular Filtration Rate > 60 mL/min (>60) Glucose Level 127 mg/dL (74-106) H Calcium Level 9.0 mg/dL (8.6-10.2) Current Medications Medications (Trade) Dose Ordered Sig/Demarcus Route PRN Reason Start Time Stop Time Status Last Admin Dose Admin Acetaminophen (Tylenol) 650 mg Q4H PRN ORAL T>100.5 09/16/16 00:21 10/16/16 00:20 09/19/16 20:59 Acetaminophen/ Hydrocodone Bitart ([place] 10/325) 1 ea Q6H PRN ORAL moderate pain 09/28/16 09:30 10/05/16 09:29 09/28/16 12:57 Aripiprazole (Abilify) 30 mg BEDTIME ORAL 09/16/16 21:00 10/16/16 20:59 09/29/16 23:04 Aspirin (ASA) 162 mg DAILY ORAL 09/16/16 09:00 10/16/16 08:59 09/30/16 07:58 Atorvastatin Calcium (Lipitor) 20 mg BEDTIME ORAL 09/16/16 21:00 10/16/16 20:59 09/29/16 23:04 Carisoprodol (Soma) 350 mg BIDPRN PRN ORAL Muscle Spasms 09/16/16 06:00 10/16/16 05:59 09/29/16 10:12 Carvedilol (Coreg) 12.5 mg EVERY 12 HOURS ORAL 09/16/16 09:00 10/16/16 08:59 09/30/16 07:58 Cyclobenzaprine HCl (Flexeril) 10 mg THREE TIMES A DAY ORAL 09/16/16 09:00 10/16/16 08:59 09/30/16 08:00 Dextrose (Dextrose 50%) STAT PRN IV Hypoglycemia 09/16/16 00:25 10/16/16 00:24 Furosemide (Lasix) 40 mg DAILY ORAL 09/16/16 09:00 10/16/16 08:59 09/30/16 07:58 Gabapentin (Neurontin) 600 mg THREE TIMES A DAY ORAL 09/16/16 09:00 10/16/16 08:59 09/30/16 08:01 Heparin Sodium (Beef Lung) (Hep-Lock) 200 unit Q8HR PRN INJ for line flush 09/29/16 14:30 10/04/16 14:29 09/29/16 15:31 Heparin Sodium (Porcine) (Heparin 5000 units/ml) 5,000 units EVERY 8 HOURS SUBQ 09/16/16 06:00 10/16/16 05:59 09/30/16 06:36 Insulin Aspart (NovoLOG) BEFORE MEALS AND HS SUBQ 09/16/16 06:30 10/16/16 06:29 09/30/16 06:36 Levothyroxine Sodium (Synthroid) 100 mcg ACBREAKFAST ORAL 09/16/16 06:30 10/16/16 06:29 09/30/16 06:32 Losartan Potassium (Cozaar) 25 mg DAILY ORAL 09/16/16 09:00 10/16/16 08:59 09/30/16 07:58 Morphine Sulfate (Morphine Sulfate) 2 mg Q4H PRN IVP Severe Pain (Pain Scale 7-10) 09/28/16 09:45 10/16/16 09:44 09/30/16 08:21 Nitroglycerin (Ntg) 0.4 mg Q5MIN X 3 DOSES PRN SL Prn Chest Pain 09/15/16 23:45 10/15/16 23:44 Ondansetron HCl (Zofran) 4 mg Q6H PRN IVP Nausea & Vomiting 09/16/16 00:00 10/16/16 00:00 Pantoprazole (Protonix) 40 mg EVERY 12 HOURS ORAL 09/16/16 09:00 10/16/16 08:59 09/30/16 08:00 Polyethylene Glycol (Miralax) 17 gm DAILYPRN PRN ORAL Constipation 09/16/16 00:30 10/16/16 00:29 09/18/16 12:58 Potassium Chloride (K-Dur) 10 meq DAILY ORAL 09/16/16 09:00 10/16/16 08:59 09/30/16 08:00 Ranitidine HCl (Zantac) 150 mg BEDTIME ORAL 09/21/16 21:00 10/21/16 20:59 09/29/16 23:04 Sucralfate (Carafate) 1 gm FOUR TIMES A DAY ORAL 09/16/16 09:00 10/16/16 08:59 09/30/16 08:00 Temazepam (Restoril) 15 mg HSPRN PRN ORAL Insomnia 09/22/16 15:45 09/29/16 23:59 09/28/16 21:40 JASPER JARVIS Sep 30, 2016 10:06
[2016-09-30 12:00] VITALS: BP 123/82
[2016-09-30 16:00] VITALS: BP 147/87
--- NOTE | 2016-09-30 19:02 | Pulmonology Progress Note ---
Assessment/Plan Problems: (1) ACS (acute coronary syndrome) (2) AICD (automatic cardioverter/defibrillator) present (3) HTN (hypertension) (4) GERD (gastroesophageal reflux disease) (5) Diabetes mellitus (6) Cardiomyopathy (7) Seizure disorder (8) Morbid obesity Assessment/Plan no new complains dc planning symptomatic treatment sliding scale diabetic diet awaiting for IPA to find a fci Subjective Allergies: Coded Allergies: CODEINE (Verified Allergy, Unknown, Itching, 08/21/14) SULFA (SULFONAMIDE ANTIBIOTICS) (Unverified Allergy, Unknown, 12/29/15) Objective Last 24 Hour Vital Signs Date Time Temp Pulse Resp B/P Pulse Ox O2 Delivery O2 Flow Rate FiO2 09/30/16 17:08 98.0 09/30/16 17:08 98.0 09/30/16 17:08 98.0 09/30/16 12:00 98.0 87 20 123/82 97 Room Air 09/30/16 07:58 158/94 09/30/16 07:58 96 158/94 09/30/16 07:52 Room Air 09/30/16 07:50 97 Room Air 21 09/30/16 07:43 98.1 96 20 158/94 97 Room Air 09/30/16 04:00 98.1 85 20 129/86 98 Room Air 09/30/16 00:00 98.2 98 20 141/90 99 Nasal Cannula 2.0 09/29/16 23:05 90 121/77 09/29/16 20:00 98.6 90 16 121/77 93 Room Air 09/29/16 19:07 97 Nasal Cannula 2.0 28 09/29/16 19:07 Nasal Cannula 2.0 28 Intake and Output 09/29/16 09/30/16 19:00 07:00 Intake Total 1400 ml 530 ml Output Total 750 ml Balance 650 ml 530 ml Intake Oral 1400 ml 530 ml Output Urine Total 750 ml # Voids 5 General Appearance: no acute distress HEENT: normocephalic, atraumatic, PERRL Respiratory/Chest: chest wall non-tender, decreased breath sounds, accessory muscle use Breasts: no masses Cardiovascular: normal peripheral pulses, normal rate, regular rhythm, no JVD Abdomen: normal bowel sounds, soft, non tender, no organomegaly, non distended Genitourinary: normal external genitalia Extremities: no cyanosis Skin: no rash, no lesions 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, no motor/sensory deficits Laboratory Tests 09/29/16 19:50: White Blood Count 8.7, Red Blood Count 3.42L, Hemoglobin 9.7L, Hematocrit 30.3L , Mean Corpuscular Volume 89, Mean Corpuscular Hemoglobin 28.4, Mean Corpuscular Hemoglobin Concent 32.0, Red Cell Distribution Width 13.2, Platelet Count 222, Mean Platelet Volume 6.6, Neutrophils (%) (Auto) 70.3, Lymphocytes (% ) (Auto) 21.5, Monocytes (%) (Auto) 4.4, Eosinophils (%) (Auto) 3.3H, Basophils (%) (Auto) 0.5, Sodium Level 140, Potassium Level 3.6, Chloride Level 95L, Carbon Dioxide Level 32H, Anion Gap 13, Blood Urea Nitrogen 11, Creatinine 0.8, Estimat Glomerular Filtration Rate > 60, Glucose Level 127H, Calcium Level 9.0 Current Medications Medications (Trade) Dose Ordered Sig/Demarcus Route PRN Reason Start Time Stop Time Status Last Admin Dose Admin Acetaminophen (Tylenol) 650 mg Q4H PRN ORAL T>100.5 09/16/16 00:21 10/16/16 00:20 09/19/16 20:59 Acetaminophen/ Hydrocodone Bitart ([place] 10/325) 1 ea Q6H PRN ORAL moderate pain 09/28/16 09:30 10/05/16 09:29 09/28/16 12:57 Aripiprazole (Abilify) 30 mg BEDTIME ORAL 09/16/16 21:00 10/16/16 20:59 09/29/16 23:04 Aspirin (ASA) 162 mg DAILY ORAL 09/16/16 09:00 10/16/16 08:59 09/30/16 07:58 Atorvastatin Calcium (Lipitor) 20 mg BEDTIME ORAL 09/16/16 21:00 10/16/16 20:59 09/29/16 23:04 Carisoprodol (Soma) 350 mg BIDPRN PRN ORAL Muscle Spasms 09/16/16 06:00 10/16/16 05:59 09/29/16 10:12 Carvedilol (Coreg) 12.5 mg EVERY 12 HOURS ORAL 09/16/16 09:00 10/16/16 08:59 09/30/16 07:58 Cyclobenzaprine HCl (Flexeril) 10 mg THREE TIMES A DAY ORAL 09/16/16 09:00 10/16/16 08:59 09/30/16 16:50 Dextrose (Dextrose 50%) STAT PRN IV Hypoglycemia 09/16/16 00:25 10/16/16 00:24 Furosemide (Lasix) 40 mg DAILY ORAL 09/16/16 09:00 10/16/16 08:59 09/30/16 07:58 Gabapentin (Neurontin) 600 mg THREE TIMES A DAY ORAL 09/16/16 09:00 10/16/16 08:59 09/30/16 16:50 Heparin Sodium (Beef Lung) (Hep-Lock) 200 unit Q8HR PRN INJ for line flush 09/29/16 14:30 10/04/16 14:29 09/29/16 15:31 Heparin Sodium (Porcine) (Heparin 5000 units/ml) 5,000 units EVERY 8 HOURS SUBQ 09/16/16 06:00 10/16/16 05:59 09/30/16 13:27 Insulin Aspart (NovoLOG) BEFORE MEALS AND HS SUBQ 09/16/16 06:30 10/16/16 06:29 09/30/16 17:29 Levothyroxine Sodium (Synthroid) 100 mcg ACBREAKFAST ORAL 09/16/16 06:30 10/16/16 06:29 09/30/16 06:32 Losartan Potassium (Cozaar) 25 mg DAILY ORAL 09/16/16 09:00 10/16/16 08:59 09/30/16 07:58 Morphine Sulfate (Morphine Sulfate) 2 mg Q4H PRN IVP Severe Pain (Pain Scale 7-10) 09/28/16 09:45 10/16/16 09:44 09/30/16 16:38 Nitroglycerin (Ntg) 0.4 mg Q5MIN X 3 DOSES PRN SL Prn Chest Pain 09/15/16 23:45 10/15/16 23:44 Ondansetron HCl (Zofran) 4 mg Q6H PRN IVP Nausea & Vomiting 09/16/16 00:00 10/16/16 00:00 Pantoprazole (Protonix) 40 mg EVERY 12 HOURS ORAL 09/16/16 09:00 10/16/16 08:59 09/30/16 08:00 Polyethylene Glycol (Miralax) 17 gm DAILYPRN PRN ORAL Constipation 09/16/16 00:30 10/16/16 00:29 09/18/16 12:58 Potassium Chloride (K-Dur) 10 meq DAILY ORAL 09/16/16 09:00 10/16/16 08:59 09/30/16 08:00 Ranitidine HCl (Zantac) 150 mg BEDTIME ORAL 09/21/16 21:00 10/21/16 20:59 09/29/16 23:04 Sucralfate (Carafate) 1 gm FOUR TIMES A DAY ORAL 09/16/16 09:00 10/16/16 08:59 09/30/16 16:49 Temazepam (Restoril) 15 mg HSPRN PRN ORAL Insomnia 09/30/16 21:00 10/07/16 20:59 BEKA MASON Sep 30, 2016 19:02
[2016-09-30 20:00] VITALS: BP 119/59
[2016-09-30] MEDS: Atorvastatin 20mg tab ORAL SCH (20:59)
[2016-10-01] VITALS: BP 117/73
[2016-10-01] MEDS: Morphine Sulfate 2mg/ml Inj IVP PRN ×6 (01:02→22:14)
[2016-10-01 04:00] VITALS: BP 130/75
[2016-10-01] MEDS: NovoLOG Insulin Flexpen SUBQ SCH ×4 (06:32→22:14)
[2016-10-01] MEDS: Heparin 5000 units/ml inj SUBQ SCH ×3 (06:35→22:13)
--- NOTE | 2016-10-01 07:48 | General Progress Note ---
Assessment/Plan Assessment/Plan (1) Morbid obesity (2) Lumbar DDD (3) Lumbar Spondylosis (4) Lumbar Radiculopathy (5) Left knee pain/ OA Pt will be continued on Morphine and [place].Pt was d/w Dr. Parada and he concurred. Subjective Date patient seen: Oct 01, 2016 Time patient seen: 07:30 - am Allergies: Coded Allergies: CODEINE (Verified Allergy, Unknown, Itching, 08/21/14) SULFA (SULFONAMIDE ANTIBIOTICS) (Unverified Allergy, Unknown, 12/29/15) Subjective Constitutional: Reports: weakness, Denies: chills, diaphoresis, malaise, no symptoms, other HEENT: Denies: blurred vision, double vision, ear discharge, ear pain, eye pain , mouth pain, mouth swelling, no symptoms, nose congestion, nose pain, other, tearing, throat pain, throat swelling Cardiovascular: Denies: chest pain, edema, irregular heart rate, lightheadedness, no symptoms, other, palpitations, syncope Respiratory: Reports: shortness of breath, Denies: SOB at rest, SOB with excertion, cough, no symptoms, orthopnea, other, sputum, stridor, wheezing Gastrointestinal/Abdominal: Denies: abdomen distended, abdominal pain, black stools, blood in stool, constipated, diarrhea, difficulty swallowing, nausea, no symptoms, other, poor appetite, poor fluid intake, rectal bleeding, tarry stools, vomiting Genitourinary: Denies: burning, discharge, flank pain, frequency, hematuria, incontinence, no symptoms, other, pain, urgency Neurologic/Psychiatric: Reports: weakness, Denies: anxiety, depressed, emotional problems, headache, no symptoms, numbness, other, paresthesia, pre- existing deficit, seizure, tingling, tremors Endocrine: Denies: excessive sweating, flushing, increased hunger, increased thirst, increased urine, intolerance to cold, intolerance to heat, no symptoms, other, unexplained weight gain, unexplained weight loss Hematologic/Lymphatic: Denies: anemia, easy bleeding, easy bruising, no symptoms, other Subjective: She says that the pain has been unchanged, continues to have swelling in her left leg with difficulty walking and is doing PT to the best of her abilities on the medications. Objective Last 24 Hour Vital Signs Date Time Temp Pulse Resp B/P Pulse Ox O2 Delivery O2 Flow Rate FiO2 10/01/16 04:00 97.9 93 20 130/75 95 Room Air 10/01/16 00:00 98.4 87 20 117/73 95 Room Air 09/30/16 21:30 98.0 09/30/16 20:58 96 119/59 09/30/16 20:00 98.1 96 20 119/59 94 Room Air 09/30/16 19:30 97 Nasal Cannula 2.0 28 09/30/16 19:30 Nasal Cannula 2.0 28 09/30/16 17:08 98.0 09/30/16 17:08 98.0 09/30/16 16:00 98.1 98 20 147/87 100 Nasal Cannula 2.0 09/30/16 12:00 98.0 87 20 123/82 97 Room Air 09/30/16 07:58 158/94 09/30/16 07:58 96 158/94 09/30/16 07:52 Room Air 09/30/16 07:50 97 Room Air 21 Intake and Output 09/30/16 10/01/16 19:00 07:00 Intake Total 240 ml 120 ml Output Total 1500 ml Balance 240 ml -1380 ml Intake Oral 240 ml 120 ml Output Urine Total 1500 ml # Voids 2 2 # Bowel Movements 1 Height (Feet): 5 Height (Inches): 2.00 Weight (Pounds): 272 Objective General Appearance: no apparent distress, alert EENT: PERRL/EOMI, normal ENT inspection Neck: non-tender, normal alignment Cardiovascular: pacemaker/AICD Respiratory/Chest: decreased breath sounds Abdomen: non tender, soft, obese Extremities: tenderness to palpation of LLE Edema: edema noted at LLE Neurologic: alert, oriented x 3 Skin: warm/dry Procedure: XRAY Knee Compl 4v+ L Indications: Left knee pain Technique: 3 views of the left knee Findings: Comparison: None No fracture, dislocation, lytic destruction, periosteal reaction, joint space widening or effusion, surrounding soft tissue abnormality, or other acute changes demonstrated. Small well-corticated osseous density projects over the femoral intercondylar notch. Medial compartment of knee joint space narrowed with marginal osteophyte formation. No additional chronic changes demonstrated. IMPRESSION: No evidence of acute abnormalities of the left knee Osteoarthritis Tibial spine osteophyte versus intra-articular loose body CARLOS STOLL Oct 01, 2016 07:48
[2016-10-01 07:59] VITALS: BP 112/72
[2016-10-01] MEDS: Aspirin Baby 81mg ORAL SCH (09:44)
[2016-10-01] MEDS: Sucralfate 1gm tab ORAL SCH ×4 (09:45→21:00)
[2016-10-01] MEDS: Carvedilol 12.5mg tab ORAL SCH ×2 (09:45→22:08)
[2016-10-01] MEDS: Furosemide 40mg tab ORAL SCH (09:46)
[2016-10-01] MEDS: Losartan 25mg tab ORAL SCH (09:46)
[2016-10-01] MEDS: Cyclobenzaprine 10mg Tab ORAL SCH ×3 (09:52→18:12)
[2016-10-01 11:47] VITALS: BP 130/89
[2016-10-01] MEDS: Norco 10mg/325mg tab ORAL PRN (12:08)
--- NOTE | 2016-10-01 14:56 | Pulmonology Progress Note ---
Assessment/Plan Problems: (1) ACS (acute coronary syndrome) (2) AICD (automatic cardioverter/defibrillator) present (3) HTN (hypertension) (4) GERD (gastroesophageal reflux disease) (5) Diabetes mellitus (6) Cardiomyopathy (7) Seizure disorder (8) Morbid obesity Assessment/Plan no new complains dc planning symptomatic treatment sliding scale diabetic diet awaiting for IPA to find a usp Subjective Constitutional: Reports: anorexia, fatigue Cardiovascular: Reports: chest pain Allergies: Coded Allergies: CODEINE (Verified Allergy, Unknown, Itching, 08/21/14) SULFA (SULFONAMIDE ANTIBIOTICS) (Unverified Allergy, Unknown, 12/29/15) Objective Last 24 Hour Vital Signs Date Time Temp Pulse Resp B/P Pulse Ox O2 Delivery O2 Flow Rate FiO2 10/01/16 11:47 98.2 97 21 130/89 98 Room Air 10/01/16 09:46 131/86 10/01/16 09:45 102 131/86 10/01/16 07:59 98.2 101 19 112/72 99 Room Air 10/01/16 04:00 97.9 93 20 130/75 95 Room Air 10/01/16 00:00 98.4 87 20 117/73 95 Room Air 09/30/16 21:30 98.0 09/30/16 20:58 96 119/59 09/30/16 20:00 98.1 96 20 119/59 94 Room Air 09/30/16 19:30 97 Nasal Cannula 2.0 28 09/30/16 19:30 Nasal Cannula 2.0 28 09/30/16 17:08 98.0 09/30/16 17:08 98.0 09/30/16 16:00 98.1 98 20 147/87 100 Nasal Cannula 2.0 Intake and Output 09/30/16 10/01/16 19:00 07:00 Intake Total 240 ml 120 ml Output Total 1500 ml Balance 240 ml -1380 ml Intake Oral 240 ml 120 ml Output Urine Total 1500 ml # Voids 2 2 # Bowel Movements 1 General Appearance: no acute distress HEENT: normocephalic, atraumatic, PERRL Respiratory/Chest: chest wall non-tender, lungs clear, normal breath sounds Breasts: no masses Cardiovascular: normal peripheral pulses, normal rate, regular rhythm, no JVD Abdomen: normal bowel sounds, soft, non tender, no organomegaly, non distended Genitourinary: normal external genitalia Extremities: no cyanosis Skin: no rash, no lesions 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, no motor/sensory deficits Current Medications Medications (Trade) Dose Ordered Sig/Demarcus Route PRN Reason Start Time Stop Time Status Last Admin Dose Admin Acetaminophen (Tylenol) 650 mg Q4H PRN ORAL T>100.5 09/16/16 00:21 10/16/16 00:20 09/19/16 20:59 Acetaminophen/ Hydrocodone Bitart ([place] 10/325) 1 ea Q6H PRN ORAL moderate pain 09/28/16 09:30 10/05/16 09:29 10/01/16 12:08 Aripiprazole (Abilify) 30 mg BEDTIME ORAL 09/16/16 21:00 10/16/16 20:59 09/30/16 20:58 Aspirin (ASA) 162 mg DAILY ORAL 09/16/16 09:00 10/16/16 08:59 10/01/16 09:44 Atorvastatin Calcium (Lipitor) 20 mg BEDTIME ORAL 09/16/16 21:00 10/16/16 20:59 09/30/16 20:59 Carisoprodol (Soma) 350 mg BIDPRN PRN ORAL Muscle Spasms 09/16/16 06:00 10/16/16 05:59 10/01/16 09:52 Carvedilol (Coreg) 12.5 mg EVERY 12 HOURS ORAL 09/16/16 09:00 10/16/16 08:59 10/01/16 09:45 Cyclobenzaprine HCl (Flexeril) 10 mg THREE TIMES A DAY ORAL 09/16/16 09:00 10/16/16 08:59 10/01/16 14:09 Dextrose (Dextrose 50%) STAT PRN IV Hypoglycemia 09/16/16 00:25 10/16/16 00:24 Furosemide (Lasix) 40 mg DAILY ORAL 09/16/16 09:00 10/16/16 08:59 10/01/16 09:46 Gabapentin (Neurontin) 600 mg THREE TIMES A DAY ORAL 09/16/16 09:00 10/16/16 08:59 10/01/16 14:08 Heparin Sodium (Beef Lung) (Hep-Lock) 200 unit Q8HR PRN INJ for line flush 09/29/16 14:30 10/04/16 14:29 09/29/16 15:31 Heparin Sodium (Porcine) (Heparin 5000 units/ml) 5,000 units EVERY 8 HOURS SUBQ 09/16/16 06:00 10/16/16 05:59 10/01/16 14:10 Insulin Aspart (NovoLOG) BEFORE MEALS AND HS SUBQ 09/16/16 06:30 10/16/16 06:29 10/01/16 12:10 Levothyroxine Sodium (Synthroid) 100 mcg ACBREAKFAST ORAL 09/16/16 06:30 10/16/16 06:29 10/01/16 06:34 Losartan Potassium (Cozaar) 25 mg DAILY ORAL 09/16/16 09:00 10/16/16 08:59 10/01/16 09:46 Morphine Sulfate (Morphine Sulfate) 2 mg Q4H PRN IVP Severe Pain (Pain Scale 7-10) 09/28/16 09:45 10/16/16 09:44 10/01/16 14:09 Nitroglycerin (Ntg) 0.4 mg Q5MIN X 3 DOSES PRN SL Prn Chest Pain 09/15/16 23:45 10/15/16 23:44 Ondansetron HCl (Zofran) 4 mg Q6H PRN IVP Nausea & Vomiting 09/16/16 00:00 10/16/16 00:00 Pantoprazole (Protonix) 40 mg EVERY 12 HOURS ORAL 09/16/16 09:00 10/16/16 08:59 10/01/16 09:00 Polyethylene Glycol (Miralax) 17 gm DAILYPRN PRN ORAL Constipation 09/16/16 00:30 10/16/16 00:29 09/18/16 12:58 Potassium Chloride (K-Dur) 10 meq DAILY ORAL 09/16/16 09:00 10/16/16 08:59 10/01/16 09:46 Ranitidine HCl (Zantac) 150 mg BEDTIME ORAL 09/21/16 21:00 10/21/16 20:59 09/30/16 20:58 Sucralfate (Carafate) 1 gm FOUR TIMES A DAY ORAL 09/16/16 09:00 10/16/16 08:59 10/01/16 14:09 Temazepam (Restoril) 15 mg HSPRN PRN ORAL Insomnia 09/30/16 21:00 10/07/16 20:59 09/30/16 23:09 BEKA MASON Oct 01, 2016 14:56
[2016-10-01 16:00] VITALS: BP 126/79
--- NOTE | 2016-10-01 16:27 | Infectious Diseases Prog Note ---
Assessment/Plan Assessment/Plan ASSESSMENT: 56-year-old female with: Probable UTI SP Rx UCX : mixed growth Fever - resolved, no leukocytosis Elevated ESR, CRP History of cardiomyopathy SP PPM History of CVA History of seizure disorder COPD Back pain . L Spine DJD DM Schizophrenia. Anxiety History of cocaine, tobacco and alcohol abuse Sulfa allergy Full Code PLAN: ok to DC off of ABX from ID standpoint ( 09/24 SP Rocephin d# / ) Monitor CBC, temperatures, re-culture if acute change Monitor BMP Monitor CXR DC planning Subjective Allergies: Coded Allergies: CODEINE (Verified Allergy, Unknown, Itching, 08/21/14) SULFA (SULFONAMIDE ANTIBIOTICS) (Unverified Allergy, Unknown, 12/29/15) Subjective remains afebrile. DC planning ongoing Objective Vital Signs Last 24 Hour Vital Signs Date Time Temp Pulse Resp B/P Pulse Ox O2 Delivery O2 Flow Rate FiO2 10/01/16 16:00 97.5 82 20 126/79 95 Room Air 10/01/16 11:47 98.2 97 21 130/89 98 Room Air 10/01/16 09:46 131/86 10/01/16 09:45 102 131/86 10/01/16 07:59 98.2 101 19 112/72 99 Room Air 10/01/16 04:00 97.9 93 20 130/75 95 Room Air 10/01/16 00:00 98.4 87 20 117/73 95 Room Air 09/30/16 21:30 98.0 09/30/16 20:58 96 119/59 09/30/16 20:00 98.1 96 20 119/59 94 Room Air 09/30/16 19:30 97 Nasal Cannula 2.0 28 09/30/16 19:30 Nasal Cannula 2.0 28 09/30/16 17:08 98.0 09/30/16 17:08 98.0 Height (Feet): 5 Height (Inches): 2.00 Weight (Pounds): 271 General Appearance: no acute distress Respiratory/Chest: no respiratory distress Cardiovascular: normal rate, regular rhythm Abdomen: normal bowel sounds, soft, non tender, non distended Current Medications Medications (Trade) Dose Ordered Sig/Demarcus Route PRN Reason Start Time Stop Time Status Last Admin Dose Admin Acetaminophen (Tylenol) 650 mg Q4H PRN ORAL T>100.5 1/1/17 00:21 10/16/16 00:20 09/19/16 20:59 Acetaminophen/ Hydrocodone Bitart ([place] 10/325) 1 ea Q6H PRN ORAL moderate pain 09/28/16 09:30 10/05/16 09:29 10/01/16 12:08 Aripiprazole (Abilify) 30 mg BEDTIME ORAL 09/16/16 21:00 10/16/16 20:59 09/30/16 20:58 Aspirin (ASA) 162 mg DAILY ORAL 09/16/16 09:00 10/16/16 08:59 10/01/16 09:44 Atorvastatin Calcium (Lipitor) 20 mg BEDTIME ORAL 09/16/16 21:00 10/16/16 20:59 09/30/16 20:59 Carisoprodol (Soma) 350 mg BIDPRN PRN ORAL Muscle Spasms 09/16/16 06:00 10/16/16 05:59 10/01/16 09:52 Carvedilol (Coreg) 12.5 mg EVERY 12 HOURS ORAL 09/16/16 09:00 10/16/16 08:59 10/01/16 09:45 Cyclobenzaprine HCl (Flexeril) 10 mg THREE TIMES A DAY ORAL 09/16/16 09:00 10/16/16 08:59 10/01/16 14:09 Dextrose (Dextrose 50%) STAT PRN IV Hypoglycemia 09/16/16 00:25 10/16/16 00:24 Furosemide (Lasix) 40 mg DAILY ORAL 09/16/16 09:00 10/16/16 08:59 10/01/16 09:46 Gabapentin (Neurontin) 600 mg THREE TIMES A DAY ORAL 09/16/16 09:00 10/16/16 08:59 10/01/16 14:08 Heparin Sodium (Beef Lung) (Hep-Lock) 200 unit Q8HR PRN INJ for line flush 09/29/16 14:30 10/04/16 14:29 09/29/16 15:31 Heparin Sodium (Porcine) (Heparin 5000 units/ml) 5,000 units EVERY 8 HOURS SUBQ 09/16/16 06:00 10/16/16 05:59 10/01/16 14:10 Insulin Aspart (NovoLOG) BEFORE MEALS AND HS SUBQ 09/16/16 06:30 10/16/16 06:29 10/01/16 12:10 Levothyroxine Sodium (Synthroid) 100 mcg ACBREAKFAST ORAL 09/16/16 06:30 10/16/16 06:29 10/01/16 06:34 Losartan Potassium (Cozaar) 25 mg DAILY ORAL 09/16/16 09:00 10/16/16 08:59 10/01/16 09:46 Morphine Sulfate (Morphine Sulfate) 2 mg Q4H PRN IVP Severe Pain (Pain Scale 7-10) 09/28/16 09:45 10/16/16 09:44 10/01/16 14:09 Nitroglycerin (Ntg) 0.4 mg Q5MIN X 3 DOSES PRN SL Prn Chest Pain 09/15/16 23:45 10/15/16 23:44 Ondansetron HCl (Zofran) 4 mg Q6H PRN IVP Nausea & Vomiting 09/16/16 00:00 10/16/16 00:00 Pantoprazole (Protonix) 40 mg EVERY 12 HOURS ORAL 09/16/16 09:00 10/16/16 08:59 10/01/16 09:00 Polyethylene Glycol (Miralax) 17 gm DAILYPRN PRN ORAL Constipation 09/16/16 00:30 10/16/16 00:29 09/18/16 12:58 Potassium Chloride (K-Dur) 10 meq DAILY ORAL 09/16/16 09:00 10/16/16 08:59 10/01/16 09:46 Ranitidine HCl (Zantac) 150 mg BEDTIME ORAL 09/21/16 21:00 10/21/16 20:59 09/30/16 20:58 Sucralfate (Carafate) 1 gm FOUR TIMES A DAY ORAL 09/16/16 09:00 10/16/16 08:59 10/01/16 14:09 Temazepam (Restoril) 15 mg HSPRN PRN ORAL Insomnia 09/30/16 21:00 10/07/16 20:59 09/30/16 23:09 JASPER JARVIS Oct 01, 2016 16:27
[2016-10-01 19:00] VITALS: BP 131/91
[2016-10-01] MEDS: Atorvastatin 20mg tab ORAL SCH (22:09)
[2016-10-02] VITALS: BP 130/78
[2016-10-02] MEDS: Morphine Sulfate 2mg/ml Inj IVP PRN ×5 (02:41→20:28)
[2016-10-02 04:00] VITALS: BP 128/69
[2016-10-02] MEDS: Heparin 5000 units/ml inj SUBQ SCH ×3 (06:47→21:29)
[2016-10-02] MEDS: NovoLOG Insulin Flexpen SUBQ SCH ×4 (06:48→20:31)
--- NOTE | 2016-10-02 08:07 | General Progress Note ---
Assessment/Plan Assessment/Plan (1) Morbid obesity (2) Lumbar DDD (3) Lumbar Spondylosis (4) Lumbar Radiculopathy (5) Left knee pain/ OA Pt will be continued on Morphine and [place].Pt was d/w Dr. Parada and he concurred. Subjective Date patient seen: Oct 02, 2016 Time patient seen: 07:15 - am Gastrointestinal/Abdominal: Reports: vomiting Allergies: Coded Allergies: CODEINE (Verified Allergy, Unknown, Itching, 08/21/14) SULFA (SULFONAMIDE ANTIBIOTICS) (Unverified Allergy, Unknown, 12/29/15) Subjective Constitutional: Reports: weakness, Denies: chills, diaphoresis, malaise, no symptoms, other HEENT: Denies: blurred vision, double vision, ear discharge, ear pain, eye pain , mouth pain, mouth swelling, no symptoms, nose congestion, nose pain, other, tearing, throat pain, throat swelling Cardiovascular: Denies: chest pain, edema, irregular heart rate, lightheadedness, no symptoms, other, palpitations, syncope Respiratory: Reports: shortness of breath, Denies: SOB at rest, SOB with excertion, cough, no symptoms, orthopnea, other, sputum, stridor, wheezing Gastrointestinal/Abdominal: Denies: abdomen distended, abdominal pain, black stools, blood in stool, constipated, diarrhea, difficulty swallowing, nausea, no symptoms, other, poor appetite, poor fluid intake, rectal bleeding, tarry stools, vomiting Genitourinary: Denies: burning, discharge, flank pain, frequency, hematuria, incontinence, no symptoms, other, pain, urgency Neurologic/Psychiatric: Reports: weakness, Denies: anxiety, depressed, emotional problems, headache, no symptoms, numbness, other, paresthesia, pre- existing deficit, seizure, tingling, tremors Endocrine: Denies: excessive sweating, flushing, increased hunger, increased thirst, increased urine, intolerance to cold, intolerance to heat, no symptoms, other, unexplained weight gain, unexplained weight loss Hematologic/Lymphatic: Denies: anemia, easy bleeding, easy bruising, no symptoms, other Subjective: Pt reports that the pain is worse with movement and is reduced on the morphine and norco. She is c/o spasms and uses the Flexeril. Objective Last 24 Hour Vital Signs Date Time Temp Pulse Resp B/P Pulse Ox O2 Delivery O2 Flow Rate FiO2 10/02/16 04:00 98.2 100 20 128/69 96 Room Air 10/02/16 00:00 97.9 102 20 130/78 95 Room Air 10/01/16 22:44 97.7 10/01/16 22:08 73 131/91 10/01/16 19:20 98 Nasal Cannula 2.0 28 10/01/16 19:15 Nasal Cannula 2.0 28 10/01/16 19:00 97.7 73 20 131/91 99 Room Air 10/01/16 18:42 97.7 10/01/16 18:42 97.7 10/01/16 16:00 97.5 82 20 126/79 95 Room Air 10/01/16 11:47 98.2 97 21 130/89 98 Room Air 10/01/16 09:46 131/86 10/01/16 09:45 102 131/86 Intake and Output 10/01/16 10/02/16 19:00 07:00 Intake Total 720 ml 740 ml Output Total 1500 ml Balance 720 ml -760 ml Intake Oral 720 ml 740 ml Output Urine Total 1500 ml # Voids 6 Height (Feet): 5 Height (Inches): 2.00 Weight (Pounds): 272 Objective General Appearance: no apparent distress, alert EENT: PERRL/EOMI, normal ENT inspection Neck: non-tender, normal alignment Cardiovascular: pacemaker/AICD Respiratory/Chest: decreased breath sounds Abdomen: non tender, soft, obese Extremities: tenderness to palpation of LLE Edema: edema noted at LLE Neurologic: alert, oriented x 3 Skin: warm/dry Procedure: XRAY Knee Compl 4v+ L Indications: Left knee pain Technique: 3 views of the left knee Findings: Comparison: None No fracture, dislocation, lytic destruction, periosteal reaction, joint space widening or effusion, surrounding soft tissue abnormality, or other acute changes demonstrated. Small well-corticated osseous density projects over the femoral intercondylar notch. Medial compartment of knee joint space narrowed with marginal osteophyte formation. No additional chronic changes demonstrated. IMPRESSION: No evidence of acute abnormalities of the left knee Osteoarthritis Tibial spine osteophyte versus intra-articular loose body CARLOS STOLL Oct 02, 2016 08:07
[2016-10-02 08:10] VITALS: BP 135/97
[2016-10-02] MEDS: Carvedilol 12.5mg tab ORAL SCH ×2 (08:54→20:29)
[2016-10-02] MEDS: Furosemide 40mg tab ORAL SCH (08:54)
[2016-10-02] MEDS: Losartan 25mg tab ORAL SCH (08:54)
[2016-10-02] MEDS: Sucralfate 1gm tab ORAL SCH ×4 (08:56→20:29)
[2016-10-02] MEDS: Aspirin Baby 81mg ORAL SCH (08:56)
[2016-10-02] MEDS: Cyclobenzaprine 10mg Tab ORAL SCH ×3 (08:56→17:13)
[2016-10-02 12:09] VITALS: BP 126/92
[2016-10-02 16:00] VITALS: BP 135/89
--- NOTE | 2016-10-02 16:07 | Infectious Diseases Prog Note ---
Assessment/Plan Assessment/Plan ASSESSMENT: 56-year-old female with: Probable UTI SP Rx UCX : mixed growth Fever - resolved, no leukocytosis Elevated ESR, CRP History of cardiomyopathy SP PPM History of CVA History of seizure disorder COPD Back pain . L Spine DJD DM Schizophrenia. Anxiety History of cocaine, tobacco and alcohol abuse Sulfa allergy Full Code PLAN: ok to DC off of ABX from ID standpoint ( 09/24 SP Rocephin d# / ) Monitor CBC, temperatures, re-culture if acute change Monitor BMP Monitor CXR DC planning Subjective Allergies: Coded Allergies: CODEINE (Verified Allergy, Unknown, Itching, 08/21/14) SULFA (SULFONAMIDE ANTIBIOTICS) (Unverified Allergy, Unknown, 12/29/15) Subjective remains afebrile. DC planning ongoing Objective Vital Signs Last 24 Hour Vital Signs Date Time Temp Pulse Resp B/P Pulse Ox O2 Delivery O2 Flow Rate FiO2 10/02/16 12:09 98.1 88 21 126/92 97 Room Air 10/02/16 11:12 98.1 10/02/16 09:54 98.1 10/02/16 09:54 98.1 10/02/16 09:54 98.1 10/02/16 08:54 135/97 10/02/16 08:54 92 135/97 10/02/16 08:10 98.1 92 20 135/97 97 Room Air 10/02/16 07:41 Room Air 10/02/16 07:40 97 Room Air 21 10/02/16 04:00 98.2 100 20 128/69 96 Room Air 10/02/16 00:00 97.9 102 20 130/78 95 Room Air 10/01/16 22:08 73 131/91 10/01/16 19:20 98 Nasal Cannula 2.0 28 10/01/16 19:15 Nasal Cannula 2.0 28 10/01/16 19:00 97.7 73 20 131/91 99 Room Air Height (Feet): 5 Height (Inches): 2.00 Weight (Pounds): 272 General Appearance: no acute distress Respiratory/Chest: no respiratory distress Cardiovascular: normal rate, regular rhythm Abdomen: normal bowel sounds, soft, non tender, non distended Current Medications Medications (Trade) Dose Ordered Sig/Demarcus Route PRN Reason Start Time Stop Time Status Last Admin Dose Admin Acetaminophen (Tylenol) 650 mg Q4H PRN ORAL T>100.5 09/16/16 00:21 10/16/16 00:20 09/19/16 20:59 Acetaminophen/ Hydrocodone Bitart ([place] 10/325) 1 ea Q6H PRN ORAL moderate pain 09/28/16 09:30 10/05/16 09:29 10/01/16 12:08 Aripiprazole (Abilify) 30 mg BEDTIME ORAL 09/16/16 21:00 10/16/16 20:59 10/01/16 22:08 Aspirin (ASA) 162 mg DAILY ORAL 09/16/16 09:00 10/16/16 08:59 10/02/16 08:56 Atorvastatin Calcium (Lipitor) 20 mg BEDTIME ORAL 09/16/16 21:00 10/16/16 20:59 10/01/16 22:09 Carisoprodol (Soma) 350 mg BIDPRN PRN ORAL Muscle Spasms 09/16/16 06:00 10/16/16 05:59 10/02/16 09:16 Carvedilol (Coreg) 12.5 mg EVERY 12 HOURS ORAL 09/16/16 09:00 10/16/16 08:59 10/02/16 08:54 Cyclobenzaprine HCl (Flexeril) 10 mg THREE TIMES A DAY ORAL 09/16/16 09:00 10/16/16 08:59 10/02/16 13:13 Dextrose (Dextrose 50%) STAT PRN IV Hypoglycemia 09/16/16 00:25 10/16/16 00:24 Furosemide (Lasix) 40 mg DAILY ORAL 09/16/16 09:00 10/16/16 08:59 10/02/16 08:54 Gabapentin (Neurontin) 600 mg THREE TIMES A DAY ORAL 09/16/16 09:00 10/16/16 08:59 10/02/16 13:12 Heparin Sodium (Beef Lung) (Hep-Lock) 200 unit Q8HR PRN INJ for line flush 09/29/16 14:30 10/04/16 14:29 09/29/16 15:31 Heparin Sodium (Porcine) (Heparin 5000 units/ml) 5,000 units EVERY 8 HOURS SUBQ 09/16/16 06:00 10/16/16 05:59 10/02/16 13:16 Insulin Aspart (NovoLOG) BEFORE MEALS AND HS SUBQ 09/16/16 06:30 10/16/16 06:29 10/02/16 13:15 Levothyroxine Sodium (Synthroid) 100 mcg ACBREAKFAST ORAL 09/16/16 06:30 10/16/16 06:29 10/02/16 06:39 Losartan Potassium (Cozaar) 25 mg DAILY ORAL 09/16/16 09:00 10/16/16 08:59 10/02/16 08:54 Morphine Sulfate (Morphine Sulfate) 2 mg Q4H PRN IVP Severe Pain (Pain Scale 7-10) 09/28/16 09:45 10/16/16 09:44 10/02/16 10:42 Nitroglycerin (Ntg) 0.4 mg Q5MIN X 3 DOSES PRN SL Prn Chest Pain 09/15/16 23:45 10/15/16 23:44 Ondansetron HCl (Zofran) 4 mg Q6H PRN IVP Nausea & Vomiting 09/16/16 00:00 10/16/16 00:00 Pantoprazole (Protonix) 40 mg EVERY 12 HOURS ORAL 09/16/16 09:00 10/16/16 08:59 10/02/16 08:56 Polyethylene Glycol (Miralax) 17 gm DAILYPRN PRN ORAL Constipation 09/16/16 00:30 10/16/16 00:29 09/18/16 12:58 Potassium Chloride (K-Dur) 10 meq DAILY ORAL 09/16/16 09:00 10/16/16 08:59 10/02/16 08:56 Ranitidine HCl (Zantac) 150 mg BEDTIME ORAL 09/21/16 21:00 10/21/16 20:59 10/01/16 22:09 Sucralfate (Carafate) 1 gm FOUR TIMES A DAY ORAL 09/16/16 09:00 10/16/16 08:59 10/02/16 13:13 Temazepam (Restoril) 15 mg HSPRN PRN ORAL Insomnia 09/30/16 21:00 10/07/16 20:59 10/01/16 22:11 JASPER JARVIS Oct 02, 2016 16:07
--- NOTE | 2016-10-02 16:09 | Diagnostic Imaging Report ---
APPROVED REPORT CPT Code: 77505 Symptoms Comments: Left leg pain Risk Factors Obesity: LEFT LEG: Common femoral artery waveform analysis is within normal limits at rest. Color duplex sonography reveals patency of the superficial femoral, popliteal and tibial arteries. There is no evidence of stenosis or occlusion within these segments. Doppler tibial artery waveform analysis is within normal limits at rest.
[2016-10-02 19:00] VITALS: BP 136/78
[2016-10-02] MEDS: Atorvastatin 20mg tab ORAL SCH (20:29)
[2016-10-03 00:30] VITALS: BP 133/79
[2016-10-03] MEDS: Morphine Sulfate 2mg/ml Inj IVP PRN ×6 (00:39→21:12)
[2016-10-03 04:00] VITALS: BP 129/79
[2016-10-03] MEDS: Heparin 5000 units/ml inj SUBQ SCH ×3 (05:41→21:15)
[2016-10-03] MEDS: NovoLOG Insulin Flexpen SUBQ SCH ×4 (05:46→21:15)
--- NOTE | 2016-10-03 08:01 | General Progress Note ---
Assessment/Plan Assessment/Plan (1) Morbid obesity (2) Lumbar DDD (3) Lumbar Spondylosis (4) Lumbar Radiculopathy (5) Left knee pain/ OA Pt will be continued on Morphine and [place].Pt was d/w Dr. Parada and he concurred. Subjective Date patient seen: Oct 03, 2016 Time patient seen: 07:00 - am Allergies: Coded Allergies: CODEINE (Verified Allergy, Unknown, Itching, 08/21/14) SULFA (SULFONAMIDE ANTIBIOTICS) (Unverified Allergy, Unknown, 12/29/15) Subjective Constitutional: Reports: weakness, Denies: chills, diaphoresis, malaise, no symptoms, other HEENT: Denies: blurred vision, double vision, ear discharge, ear pain, eye pain , mouth pain, mouth swelling, no symptoms, nose congestion, nose pain, other, tearing, throat pain, throat swelling Cardiovascular: Denies: chest pain, edema, irregular heart rate, lightheadedness, no symptoms, other, palpitations, syncope Respiratory: Reports: shortness of breath, Denies: SOB at rest, SOB with excertion, cough, no symptoms, orthopnea, other, sputum, stridor, wheezing Gastrointestinal/Abdominal: Denies: abdomen distended, abdominal pain, black stools, blood in stool, constipated, diarrhea, difficulty swallowing, nausea, no symptoms, other, poor appetite, poor fluid intake, rectal bleeding, tarry stools, vomiting Genitourinary: Denies: burning, discharge, flank pain, frequency, hematuria, incontinence, no symptoms, other, pain, urgency Neurologic/Psychiatric: Reports: weakness, Denies: anxiety, depressed, emotional problems, headache, no symptoms, numbness, other, paresthesia, pre- existing deficit, seizure, tingling, tremors Endocrine: Denies: excessive sweating, flushing, increased hunger, increased thirst, increased urine, intolerance to cold, intolerance to heat, no symptoms, other, unexplained weight gain, unexplained weight loss Hematologic/Lymphatic: Denies: anemia, easy bleeding, easy bruising, no symptoms, other Subjective: Her pain has been stable on the [place] and Morphine and is waiting to be transferred to SNF. Objective Last 24 Hour Vital Signs Date Time Temp Pulse Resp B/P Pulse Ox O2 Delivery O2 Flow Rate FiO2 10/03/16 04:00 97.7 89 18 129/79 98 Nasal Cannula 2.0 10/03/16 00:30 98.1 99 20 133/79 98 Nasal Cannula 2.0 10/02/16 20:30 Room Air 10/02/16 20:30 96 Room Air 21 10/02/16 20:29 91 135/89 10/02/16 19:00 98.1 91 20 136/78 100 Nasal Cannula 2.0 10/02/16 18:12 98.1 10/02/16 18:12 98.1 10/02/16 16:00 97.9 91 20 135/89 100 Nasal Cannula 2.0 10/02/16 14:11 98.1 10/02/16 12:09 98.1 88 21 126/92 97 Room Air 10/02/16 09:54 98.1 10/02/16 08:54 135/97 10/02/16 08:54 92 135/97 10/02/16 08:10 98.1 92 20 135/97 97 Room Air Intake and Output 10/02/16 10/03/16 19:00 07:00 Intake Total 720 ml 920 ml Output Total 1000 ml Balance 720 ml -80 ml Intake Oral 720 ml 920 ml Output Urine Total 1000 ml # Voids 4 Height (Feet): 5 Height (Inches): 2.00 Weight (Pounds): 270 Objective General Appearance: no apparent distress, alert EENT: PERRL/EOMI, normal ENT inspection Neck: non-tender, normal alignment Cardiovascular: pacemaker/AICD Respiratory/Chest: decreased breath sounds Abdomen: non tender, soft, obese Extremities: tenderness to palpation of LLE Edema: edema noted at LLE Neurologic: alert, oriented x 3 Skin: warm/dry Procedure: XRAY Knee Compl 4v+ L Indications: Left knee pain Technique: 3 views of the left knee Findings: Comparison: None No fracture, dislocation, lytic destruction, periosteal reaction, joint space widening or effusion, surrounding soft tissue abnormality, or other acute changes demonstrated. Small well-corticated osseous density projects over the femoral intercondylar notch. Medial compartment of knee joint space narrowed with marginal osteophyte formation. No additional chronic changes demonstrated. IMPRESSION: No evidence of acute abnormalities of the left knee Osteoarthritis Tibial spine osteophyte versus intra-articular loose body CARLOS STOLL 18, 2017 08:01
[2016-10-03 08:15] VITALS: BP 131/82
[2016-10-03] MEDS: Carvedilol 12.5mg tab ORAL SCH ×2 (08:29→21:21)
[2016-10-03] MEDS: Furosemide 40mg tab ORAL SCH (08:29)
[2016-10-03] MEDS: Losartan 25mg tab ORAL SCH (08:30)
[2016-10-03] MEDS: Aspirin Baby 81mg ORAL SCH (08:30)
[2016-10-03] MEDS: Cyclobenzaprine 10mg Tab ORAL SCH ×3 (08:30→17:06)
[2016-10-03] MEDS: Sucralfate 1gm tab ORAL SCH ×4 (08:31→21:25)
[2016-10-03 11:41] VITALS: BP 117/84
[2016-10-03 16:00] VITALS: BP 124/74
--- NOTE | 2016-10-03 17:05 | Pulmonology Progress Note ---
Assessment/Plan Problems: (1) ACS (acute coronary syndrome) (2) AICD (automatic cardioverter/defibrillator) present (3) HTN (hypertension) (4) GERD (gastroesophageal reflux disease) (5) Diabetes mellitus (6) Cardiomyopathy (7) Seizure disorder (8) Morbid obesity Assessment/Plan no new complains dc planning symptomatic treatment sliding scale diabetic diet dc planning in progress Subjective ROS Limited/Unobtainable: No Interval Events: no new complains, doing fair Allergies: Coded Allergies: CODEINE (Verified Allergy, Unknown, Itching, 08/21/14) SULFA (SULFONAMIDE ANTIBIOTICS) (Unverified Allergy, Unknown, 12/29/15) Objective Last 24 Hour Vital Signs Date Time Temp Pulse Resp B/P Pulse Ox O2 Delivery O2 Flow Rate FiO2 10/03/16 16:00 97.7 87 21 124/74 99 Nasal Cannula 2.0 10/03/16 13:42 98.4 10/03/16 13:11 98.4 10/03/16 13:11 98.4 10/03/16 11:41 98.4 97 21 117/84 99 Nasal Cannula 2.0 10/03/16 10:58 98.3 10/03/16 08:30 131/82 10/03/16 08:29 94 131/82 10/03/16 08:15 98.3 94 19 131/82 95 Room Air 10/03/16 04:00 97.7 89 18 129/79 98 Nasal Cannula 2.0 10/03/16 00:30 98.1 99 20 133/79 98 Nasal Cannula 2.0 10/02/16 20:30 Room Air 10/02/16 20:30 96 Room Air 21 10/02/16 20:29 91 135/89 10/02/16 19:00 98.1 91 20 136/78 100 Nasal Cannula 2.0 Intake and Output 10/02/16 10/03/16 19:00 07:00 Intake Total 720 ml 920 ml Output Total 1000 ml Balance 720 ml -80 ml Intake Oral 720 ml 920 ml Output Urine Total 1000 ml # Voids 4 General Appearance: WD/WN HEENT: normocephalic, anicteric Respiratory/Chest: chest wall non-tender, lungs clear Cardiovascular: normal peripheral pulses, normal rate Abdomen: normal bowel sounds, soft, non tender Extremities: no cyanosis 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 Lymphatic: no neck adenopathy Current Medications Medications (Trade) Dose Ordered Sig/Demarcus Route PRN Reason Start Time Stop Time Status Last Admin Dose Admin Acetaminophen (Tylenol) 650 mg Q4H PRN ORAL T>100.5 09/16/16 00:21 10/16/16 00:20 09/19/16 20:59 Acetaminophen/ Hydrocodone Bitart ([place] 10/325) 1 ea Q6H PRN ORAL moderate pain 09/28/16 09:30 10/05/16 09:29 10/01/16 12:08 Aripiprazole (Abilify) 30 mg BEDTIME ORAL 09/16/16 21:00 10/16/16 20:59 10/02/16 20:29 Aspirin (ASA) 162 mg DAILY ORAL 09/16/16 09:00 10/16/16 08:59 10/03/16 08:30 Atorvastatin Calcium (Lipitor) 20 mg BEDTIME ORAL 09/16/16 21:00 10/16/16 20:59 10/02/16 20:29 Carisoprodol (Soma) 350 mg BIDPRN PRN ORAL Muscle Spasms 09/16/16 06:00 10/16/16 05:59 10/03/16 09:59 Carvedilol (Coreg) 12.5 mg EVERY 12 HOURS ORAL 09/16/16 09:00 10/16/16 08:59 10/03/16 08:29 Cyclobenzaprine HCl (Flexeril) 10 mg THREE TIMES A DAY ORAL 09/16/16 09:00 10/16/16 08:59 10/03/16 12:13 Dextrose (Dextrose 50%) STAT PRN IV Hypoglycemia 09/16/16 00:25 10/16/16 00:24 Furosemide (Lasix) 40 mg DAILY ORAL 09/16/16 09:00 10/16/16 08:59 10/03/16 08:29 Gabapentin (Neurontin) 600 mg THREE TIMES A DAY ORAL 09/16/16 09:00 10/16/16 08:59 10/03/16 12:12 Heparin Sodium (Beef Lung) (Hep-Lock) 200 unit Q8HR PRN INJ for line flush 09/29/16 14:30 10/04/16 14:29 09/29/16 15:31 Heparin Sodium (Porcine) (Heparin 5000 units/ml) 5,000 units EVERY 8 HOURS SUBQ 09/16/16 06:00 10/16/16 05:59 10/03/16 13:14 Insulin Aspart (NovoLOG) BEFORE MEALS AND HS SUBQ 09/16/16 06:30 10/16/16 06:29 10/03/16 15:59 Levothyroxine Sodium (Synthroid) 100 mcg ACBREAKFAST ORAL 09/16/16 06:30 10/16/16 06:29 10/03/16 05:39 Losartan Potassium (Cozaar) 25 mg DAILY ORAL 09/16/16 09:00 10/16/16 08:59 10/03/16 08:30 Morphine Sulfate (Morphine Sulfate) 2 mg Q4H PRN IVP Severe Pain (Pain Scale 7-10) 09/28/16 09:45 10/16/16 09:44 10/03/16 13:12 Nitroglycerin (Ntg) 0.4 mg Q5MIN X 3 DOSES PRN SL Prn Chest Pain 09/15/16 23:45 10/15/16 23:44 Ondansetron HCl (Zofran) 4 mg Q6H PRN IVP Nausea & Vomiting 09/16/16 00:00 10/16/16 00:00 Pantoprazole (Protonix) 40 mg EVERY 12 HOURS ORAL 09/16/16 09:00 10/16/16 08:59 10/03/16 08:30 Polyethylene Glycol (Miralax) 17 gm DAILYPRN PRN ORAL Constipation 09/16/16 00:30 10/16/16 00:29 09/18/16 12:58 Potassium Chloride (K-Dur) 10 meq DAILY ORAL 09/16/16 09:00 10/16/16 08:59 10/03/16 08:30 Ranitidine HCl (Zantac) 150 mg BEDTIME ORAL 09/21/16 21:00 10/21/16 20:59 10/02/16 20:29 Sucralfate (Carafate) 1 gm FOUR TIMES A DAY ORAL 09/16/16 09:00 10/16/16 08:59 10/03/16 12:13 Temazepam (Restoril) 15 mg HSPRN PRN ORAL Insomnia 09/30/16 21:00 10/07/16 20:59 10/02/16 20:28 BEKA MASON Oct 03, 2016 17:05
--- NOTE | 2016-10-03 17:26 | Infectious Diseases Prog Note ---
Assessment/Plan Assessment/Plan ASSESSMENT: 56-year-old female with: Probable UTI SP Rx UCX : mixed growth Fever - resolved, no leukocytosis Elevated ESR, CRP History of cardiomyopathy SP PPM History of CVA History of seizure disorder COPD Back pain . L Spine DJD DM Schizophrenia. Anxiety History of cocaine, tobacco and alcohol abuse Sulfa allergy Full Code PLAN: ok to DC off of ABX from ID standpoint ( 09/24 SP Rocephin d# 7 / ) Monitor CBC, temperatures, re-culture if acute change Monitor BMP Monitor CXR DC planning Subjective Allergies: Coded Allergies: CODEINE (Verified Allergy, Unknown, Itching, 08/21/14) SULFA (SULFONAMIDE ANTIBIOTICS) (Unverified Allergy, Unknown, 12/29/15) Subjective remains afebrile. DC planning ongoing Objective Vital Signs Last 24 Hour Vital Signs Date Time Temp Pulse Resp B/P Pulse Ox O2 Delivery O2 Flow Rate FiO2 10/03/16 16:00 97.7 87 21 124/74 99 Nasal Cannula 2.0 10/03/16 13:42 98.4 10/03/16 13:11 98.4 10/03/16 13:11 98.4 10/03/16 11:41 98.4 97 21 117/84 99 Nasal Cannula 2.0 10/03/16 10:58 98.3 10/03/16 08:30 131/82 10/03/16 08:29 94 131/82 10/03/16 08:15 98.3 94 19 131/82 95 Room Air 10/03/16 04:00 97.7 89 18 129/79 98 Nasal Cannula 2.0 10/03/16 00:30 98.1 99 20 133/79 98 Nasal Cannula 2.0 10/02/16 20:30 Room Air 10/02/16 20:30 96 Room Air 21 10/02/16 20:29 91 135/89 10/02/16 19:00 98.1 91 20 136/78 100 Nasal Cannula 2.0 Height (Feet): 5 Height (Inches): 2.00 Weight (Pounds): 270 General Appearance: no acute distress Respiratory/Chest: no respiratory distress Cardiovascular: normal rate, regular rhythm Abdomen: normal bowel sounds, soft, non tender, non distended Current Medications Medications (Trade) Dose Ordered Sig/Demarcus Route PRN Reason Start Time Stop Time Status Last Admin Dose Admin Acetaminophen (Tylenol) 650 mg Q4H PRN ORAL T>100.5 09/16/16 00:21 10/16/16 00:20 09/19/16 20:59 Acetaminophen/ Hydrocodone Bitart ([place] 10/325) 1 ea Q6H PRN ORAL moderate pain 09/28/16 09:30 10/05/16 09:29 10/01/16 12:08 Aripiprazole (Abilify) 30 mg BEDTIME ORAL 09/16/16 21:00 10/16/16 20:59 10/02/16 20:29 Aspirin (ASA) 162 mg DAILY ORAL 09/16/16 09:00 10/16/16 08:59 10/03/16 08:30 Atorvastatin Calcium (Lipitor) 20 mg BEDTIME ORAL 09/16/16 21:00 10/16/16 20:59 10/02/16 20:29 Carisoprodol (Soma) 350 mg BIDPRN PRN ORAL Muscle Spasms 09/16/16 06:00 10/16/16 05:59 10/03/16 09:59 Carvedilol (Coreg) 12.5 mg EVERY 12 HOURS ORAL 09/16/16 09:00 10/16/16 08:59 10/03/16 08:29 Cyclobenzaprine HCl (Flexeril) 10 mg THREE TIMES A DAY ORAL 09/16/16 09:00 10/16/16 08:59 10/03/16 17:06 Dextrose (Dextrose 50%) STAT PRN IV Hypoglycemia 09/16/16 00:25 10/16/16 00:24 Furosemide (Lasix) 40 mg DAILY ORAL 09/16/16 09:00 10/16/16 08:59 10/03/16 08:29 Gabapentin (Neurontin) 600 mg THREE TIMES A DAY ORAL 09/16/16 09:00 10/16/16 08:59 10/03/16 17:05 Heparin Sodium (Beef Lung) (Hep-Lock) 200 unit Q8HR PRN INJ for line flush 09/29/16 14:30 10/04/16 14:29 09/29/16 15:31 Heparin Sodium (Porcine) (Heparin 5000 units/ml) 5,000 units EVERY 8 HOURS SUBQ 09/16/16 06:00 10/16/16 05:59 10/03/16 13:14 Insulin Aspart (NovoLOG) BEFORE MEALS AND HS SUBQ 09/16/16 06:30 10/16/16 06:29 10/03/16 15:59 Levothyroxine Sodium (Synthroid) 100 mcg ACBREAKFAST ORAL 09/16/16 06:30 10/16/16 06:29 10/03/16 05:39 Losartan Potassium (Cozaar) 25 mg DAILY ORAL 09/16/16 09:00 10/16/16 08:59 10/03/16 08:30 Morphine Sulfate (Morphine Sulfate) 2 mg Q4H PRN IVP Severe Pain (Pain Scale 7-10) 09/28/16 09:45 10/16/16 09:44 10/03/16 17:06 Nitroglycerin (Ntg) 0.4 mg Q5MIN X 3 DOSES PRN SL Prn Chest Pain 09/15/16 23:45 10/15/16 23:44 Ondansetron HCl (Zofran) 4 mg Q6H PRN IVP Nausea & Vomiting 09/16/16 00:00 10/16/16 00:00 Pantoprazole (Protonix) 40 mg EVERY 12 HOURS ORAL 09/16/16 09:00 10/16/16 08:59 10/03/16 08:30 Polyethylene Glycol (Miralax) 17 gm DAILYPRN PRN ORAL Constipation 09/16/16 00:30 10/16/16 00:29 09/18/16 12:58 Potassium Chloride (K-Dur) 10 meq DAILY ORAL 09/16/16 09:00 10/16/16 08:59 10/03/16 08:30 Ranitidine HCl (Zantac) 150 mg BEDTIME ORAL 09/21/16 21:00 10/21/16 20:59 10/02/16 20:29 Sucralfate (Carafate) 1 gm FOUR TIMES A DAY ORAL 09/16/16 09:00 10/16/16 08:59 10/03/16 17:05 Temazepam (Restoril) 15 mg HSPRN PRN ORAL Insomnia 09/30/16 21:00 10/07/16 20:59 10/02/16 20:28 JASPER JARVIS Oct 03, 2016 17:26
[2016-10-03 20:00] VITALS: BP 122/74
[2016-10-03] MEDS: Atorvastatin 20mg tab ORAL SCH (21:13)
[2016-10-04] VITALS (7 sets, daily range): BP systolic 115–134; BP diastolic 74–90
[2016-10-04] MEDS: Morphine Sulfate 2mg/ml Inj IVP PRN ×5 (04:37→21:05)
[2016-10-04] MEDS: Heparin 5000 units/ml inj SUBQ SCH ×2 (06:02→14:00)
[2016-10-04] MEDS: NovoLOG Insulin Flexpen SUBQ SCH ×5 (06:30→21:09)
[2016-10-04] MEDS: Norco 10mg/325mg tab ORAL PRN (06:59)
--- NOTE | 2016-10-04 08:29 | General Progress Note ---
Assessment/Plan Assessment/Plan (1) Morbid obesity (2) Lumbar DDD (3) Lumbar Spondylosis (4) Lumbar Radiculopathy (5) Left knee pain/ OA Pt will be continued on Morphine and [place].Pt was d/w Dr. Parada and he concurred. Subjective Date patient seen: Oct 04, 2016 Time patient seen: 07:00 - am Allergies: Coded Allergies: CODEINE (Verified Allergy, Unknown, Itching, 08/21/14) SULFA (SULFONAMIDE ANTIBIOTICS) (Unverified Allergy, Unknown, 12/29/15) Subjective Constitutional: Reports: weakness, Denies: chills, diaphoresis, malaise, no symptoms, other HEENT: Denies: blurred vision, double vision, ear discharge, ear pain, eye pain , mouth pain, mouth swelling, no symptoms, nose congestion, nose pain, other, tearing, throat pain, throat swelling Cardiovascular: Denies: chest pain, edema, irregular heart rate, lightheadedness, no symptoms, other, palpitations, syncope Respiratory: Reports: shortness of breath, Denies: SOB at rest, SOB with excertion, cough, no symptoms, orthopnea, other, sputum, stridor, wheezing Gastrointestinal/Abdominal: Denies: abdomen distended, abdominal pain, black stools, blood in stool, constipated, diarrhea, difficulty swallowing, nausea, no symptoms, other, poor appetite, poor fluid intake, rectal bleeding, tarry stools, vomiting Genitourinary: Denies: burning, discharge, flank pain, frequency, hematuria, incontinence, no symptoms, other, pain, urgency Neurologic/Psychiatric: Reports: weakness, Denies: anxiety, depressed, emotional problems, headache, no symptoms, numbness, other, paresthesia, pre- existing deficit, seizure, tingling, tremors Endocrine: Denies: excessive sweating, flushing, increased hunger, increased thirst, increased urine, intolerance to cold, intolerance to heat, no symptoms, other, unexplained weight gain, unexplained weight loss Hematologic/Lymphatic: Denies: anemia, easy bleeding, easy bruising, no symptoms, other Subjective: Pt reports that she continues to have pain which is tolerated on the [place] and Morphine. She has new complaints. Objective Last 24 Hour Vital Signs Date Time Temp Pulse Resp B/P Pulse Ox O2 Delivery O2 Flow Rate FiO2 10/04/16 03:53 98.8 97 19 130/74 97 Room Air 10/04/16 00:00 98.2 108 20 128/90 97 Nasal Cannula 2.0 10/03/16 21:21 96 122/74 10/03/16 20:00 98.4 96 21 122/74 98 Nasal Cannula 2.0 10/03/16 19:00 95 Room Air 10/03/16 19:00 Room Air 10/03/16 16:00 97.7 87 21 124/74 99 Nasal Cannula 2.0 10/03/16 13:42 98.4 10/03/16 13:11 98.4 10/03/16 13:11 98.4 10/03/16 11:41 98.4 97 21 117/84 99 Nasal Cannula 2.0 10/03/16 10:58 98.3 10/03/16 08:30 131/82 10/03/16 08:29 94 131/82 Intake and Output 10/03/16 10/04/16 19:00 07:00 Intake Total 720 ml 600 ml Balance 720 ml 600 ml Intake Oral 720 ml 600 ml # Voids 1 4 Height (Feet): 5 Height (Inches): 2.00 Weight (Pounds): 281 Objective General Appearance: no apparent distress, alert EENT: PERRL/EOMI, normal ENT inspection Neck: non-tender, normal alignment Cardiovascular: pacemaker/AICD Respiratory/Chest: decreased breath sounds Abdomen: non tender, soft, obese Extremities: tenderness to palpation of LLE Edema: edema noted at LLE Neurologic: alert, oriented x 3 Skin: warm/dry Procedure: XRAY Knee Compl 4v+ L Indications: Left knee pain Technique: 3 views of the left knee Findings: Comparison: None No fracture, dislocation, lytic destruction, periosteal reaction, joint space widening or effusion, surrounding soft tissue abnormality, or other acute changes demonstrated. Small well-corticated osseous density projects over the femoral intercondylar notch. Medial compartment of knee joint space narrowed with marginal osteophyte formation. No additional chronic changes demonstrated. IMPRESSION: No evidence of acute abnormalities of the left knee Osteoarthritis Tibial spine osteophyte versus intra-articular loose body CARLOS STOLL Oct 04, 2016 08:29
[2016-10-04] MEDS: Sucralfate 1gm tab ORAL SCH ×4 (08:44→21:04)
[2016-10-04] MEDS: Aspirin Baby 81mg ORAL SCH (08:45)
[2016-10-04] MEDS: Furosemide 40mg tab ORAL SCH (08:45)
[2016-10-04] MEDS: Cyclobenzaprine 10mg Tab ORAL SCH ×3 (08:46→17:20)
[2016-10-04] MEDS: Carvedilol 12.5mg tab ORAL SCH ×2 (08:56→21:04)
[2016-10-04] MEDS: Losartan 25mg tab ORAL SCH (08:57)
[2016-10-04] MEDS ORDERED: Norco 10mg/325mg tab ORAL PRN (09:30)
--- NOTE | 2016-10-04 16:22 | Infectious Diseases Prog Note ---
Assessment/Plan Assessment/Plan ASSESSMENT: 56-year-old female with: Probable UTI SP Rx UCX : mixed growth Fever - resolved, no leukocytosis Elevated ESR, CRP History of cardiomyopathy SP PPM History of CVA History of seizure disorder COPD Back pain . L Spine DJD DM Schizophrenia. Anxiety History of cocaine, tobacco and alcohol abuse Sulfa allergy Full Code PLAN: ok to DC off of ABX from ID standpoint ( 09/24 SP Rocephin d# 7 / ) Monitor CBC, temperatures, re-culture if acute change Monitor BMP Monitor CXR DC planning Subjective Allergies: Coded Allergies: CODEINE (Verified Allergy, Unknown, Itching, 08/21/14) SULFA (SULFONAMIDE ANTIBIOTICS) (Unverified Allergy, Unknown, 12/29/15) Subjective remains afebrile. DC planning ongoing Objective Vital Signs Last 24 Hour Vital Signs Date Time Temp Pulse Resp B/P Pulse Ox O2 Delivery O2 Flow Rate FiO2 10/04/16 16:00 98.4 94 20 134/83 94 Room Air 10/04/16 13:49 97.9 10/04/16 13:49 97.9 10/04/16 13:49 97.9 10/04/16 12:05 97.9 84 19 128/78 97 Nasal Cannula 2.0 10/04/16 09:25 97.4 10/04/16 08:57 115/78 10/04/16 08:56 89 115/78 10/04/16 08:15 97.4 89 21 115/78 96 Nasal Cannula 2.0 10/04/16 03:53 98.8 97 19 130/74 97 Room Air 10/04/16 00:00 98.2 108 20 128/90 97 Nasal Cannula 2.0 10/03/16 21:21 96 122/74 10/03/16 20:00 98.4 96 21 122/74 98 Nasal Cannula 2.0 10/03/16 19:00 95 Room Air 10/03/16 19:00 Room Air Height (Feet): 5 Height (Inches): 2.00 Weight (Pounds): 281 General Appearance: no acute distress Respiratory/Chest: no respiratory distress Cardiovascular: normal rate, regular rhythm Abdomen: normal bowel sounds, soft, non tender, non distended Current Medications Medications (Trade) Dose Ordered Sig/Demarcus Route PRN Reason Start Time Stop Time Status Last Admin Dose Admin Acetaminophen (Tylenol) 650 mg Q4H PRN ORAL T>100.5 09/16/16 00:21 10/16/16 00:20 09/19/16 20:59 Acetaminophen/ Hydrocodone Bitart ([place] 10/325) 1 ea Q6H PRN ORAL moderate pain 10/04/16 09:30 10/11/16 09:29 Aripiprazole (Abilify) 30 mg BEDTIME ORAL 09/16/16 21:00 10/16/16 20:59 10/03/16 21:12 Aspirin (ASA) 162 mg DAILY ORAL 09/16/16 09:00 10/16/16 08:59 10/04/16 08:45 Atorvastatin Calcium (Lipitor) 20 mg BEDTIME ORAL 09/16/16 21:00 10/16/16 20:59 10/03/16 21:13 Carisoprodol (Soma) 350 mg BIDPRN PRN ORAL Muscle Spasms 09/16/16 06:00 10/16/16 05:59 10/04/16 08:54 Carvedilol (Coreg) 12.5 mg EVERY 12 HOURS ORAL 09/16/16 09:00 10/16/16 08:59 10/03/16 21:21 Cyclobenzaprine HCl (Flexeril) 10 mg THREE TIMES A DAY ORAL 09/16/16 09:00 10/16/16 08:59 10/04/16 13:19 Dextrose (Dextrose 50%) STAT PRN IV Hypoglycemia 09/16/16 00:25 10/16/16 00:24 Furosemide (Lasix) 40 mg DAILY ORAL 09/16/16 09:00 10/16/16 08:59 10/04/16 08:45 Gabapentin (Neurontin) 600 mg THREE TIMES A DAY ORAL 09/16/16 09:00 10/16/16 08:59 10/04/16 13:19 Heparin Sodium (Porcine) (Heparin 5000 units/ml) 5,000 units EVERY 8 HOURS SUBQ 09/16/16 06:00 10/16/16 05:59 10/04/16 06:02 Insulin Aspart (NovoLOG) BEFORE MEALS AND HS SUBQ 09/16/16 06:30 10/16/16 06:29 10/04/16 12:31 Levothyroxine Sodium (Synthroid) 100 mcg ACBREAKFAST ORAL 09/16/16 06:30 10/16/16 06:29 10/04/16 06:01 Losartan Potassium (Cozaar) 25 mg DAILY ORAL 09/16/16 09:00 10/16/16 08:59 10/03/16 08:30 Morphine Sulfate (Morphine Sulfate) 2 mg Q4H PRN IVP Severe Pain (Pain Scale 7-10) 09/28/16 09:45 10/16/16 09:44 10/04/16 13:19 Nitroglycerin (Ntg) 0.4 mg Q5MIN X 3 DOSES PRN SL Prn Chest Pain 09/15/16 23:45 10/15/16 23:44 Ondansetron HCl (Zofran) 4 mg Q6H PRN IVP Nausea & Vomiting 09/16/16 00:00 10/16/16 00:00 Pantoprazole (Protonix) 40 mg EVERY 12 HOURS ORAL 09/16/16 09:00 10/16/16 08:59 10/04/16 08:44 Polyethylene Glycol (Miralax) 17 gm DAILYPRN PRN ORAL Constipation 09/16/16 00:30 10/16/16 00:29 09/18/16 12:58 Potassium Chloride (K-Dur) 10 meq DAILY ORAL 09/16/16 09:00 10/16/16 08:59 10/04/16 08:46 Ranitidine HCl (Zantac) 150 mg BEDTIME ORAL 09/21/16 21:00 10/21/16 20:59 10/03/16 21:12 Sucralfate (Carafate) 1 gm FOUR TIMES A DAY ORAL 09/16/16 09:00 10/16/16 08:59 10/04/16 13:19 Temazepam (Restoril) 15 mg HSPRN PRN ORAL Insomnia 09/30/16 21:00 10/07/16 20:59 10/03/16 21:12 JASPER JARVIS Oct 04, 2016 16:22
--- NOTE | 2016-10-04 17:03 | Pulmonology Progress Note ---
Assessment/Plan Problems: (1) ACS (acute coronary syndrome) (2) AICD (automatic cardioverter/defibrillator) present (3) HTN (hypertension) (4) GERD (gastroesophageal reflux disease) (5) Diabetes mellitus (6) Cardiomyopathy (7) Seizure disorder (8) Morbid obesity Assessment/Plan pt will be discharged to a [facility] symptomatic treatment sliding scale diabetic diet dc planning in progress Subjective ROS Limited/Unobtainable: No Interval Events: no new complains Allergies: Coded Allergies: CODEINE (Verified Allergy, Unknown, Itching, 08/21/14) SULFA (SULFONAMIDE ANTIBIOTICS) (Unverified Allergy, Unknown, 12/29/15) Objective Last 24 Hour Vital Signs Date Time Temp Pulse Resp B/P Pulse Ox O2 Delivery O2 Flow Rate FiO2 10/04/16 16:00 98.4 94 20 134/83 94 Room Air 10/04/16 13:49 97.9 10/04/16 13:49 97.9 10/04/16 13:49 97.9 10/04/16 12:05 97.9 84 19 128/78 97 Nasal Cannula 2.0 10/04/16 09:25 97.4 10/04/16 08:57 115/78 10/04/16 08:56 89 115/78 10/04/16 08:15 97.4 89 21 115/78 96 Nasal Cannula 2.0 10/04/16 03:53 98.8 97 19 130/74 97 Room Air 10/04/16 00:00 98.2 108 20 128/90 97 Nasal Cannula 2.0 10/03/16 21:21 96 122/74 10/03/16 20:00 98.4 96 21 122/74 98 Nasal Cannula 2.0 10/03/16 19:00 95 Room Air 10/03/16 19:00 Room Air Intake and Output 10/03/16 10/04/16 19:00 07:00 Intake Total 720 ml 600 ml Balance 720 ml 600 ml Intake Oral 720 ml 600 ml # Voids 1 4 HEENT: normocephalic Respiratory/Chest: chest wall non-tender, normal breath sounds Cardiovascular: normal peripheral pulses, normal rate Abdomen: normal bowel sounds, soft, non tender 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, no motor/sensory deficits Current Medications Medications (Trade) Dose Ordered Sig/Demarcus Route PRN Reason Start Time Stop Time Status Last Admin Dose Admin Acetaminophen (Tylenol) 650 mg Q4H PRN ORAL T>100.5 09/16/16 00:21 10/16/16 00:20 09/19/16 20:59 Acetaminophen/ Hydrocodone Bitart ([place] 10/325) 1 ea Q6H PRN ORAL moderate pain 10/04/16 09:30 10/11/16 09:29 Aripiprazole (Abilify) 30 mg BEDTIME ORAL 09/16/16 21:00 10/16/16 20:59 10/03/16 21:12 Aspirin (ASA) 162 mg DAILY ORAL 09/16/16 09:00 10/16/16 08:59 10/04/16 08:45 Atorvastatin Calcium (Lipitor) 20 mg BEDTIME ORAL 09/16/16 21:00 10/16/16 20:59 10/03/16 21:13 Carisoprodol (Soma) 350 mg BIDPRN PRN ORAL Muscle Spasms 09/16/16 06:00 10/16/16 05:59 10/04/16 08:54 Carvedilol (Coreg) 12.5 mg EVERY 12 HOURS ORAL 09/16/16 09:00 10/16/16 08:59 10/03/16 21:21 Cyclobenzaprine HCl (Flexeril) 10 mg THREE TIMES A DAY ORAL 09/16/16 09:00 10/16/16 08:59 10/04/16 13:19 Dextrose (Dextrose 50%) STAT PRN IV Hypoglycemia 09/16/16 00:25 10/16/16 00:24 Furosemide (Lasix) 40 mg DAILY ORAL 09/16/16 09:00 10/16/16 08:59 10/04/16 08:45 Gabapentin (Neurontin) 600 mg THREE TIMES A DAY ORAL 09/16/16 09:00 10/16/16 08:59 10/04/16 13:19 Heparin Sodium (Porcine) (Heparin 5000 units/ml) 5,000 units EVERY 8 HOURS SUBQ 09/16/16 06:00 10/16/16 05:59 10/04/16 06:02 Insulin Aspart (NovoLOG) BEFORE MEALS AND HS SUBQ 09/16/16 06:30 10/16/16 06:29 10/04/16 12:31 Levothyroxine Sodium (Synthroid) 100 mcg ACBREAKFAST ORAL 09/16/16 06:30 10/16/16 06:29 10/04/16 06:01 Losartan Potassium (Cozaar) 25 mg DAILY ORAL 09/16/16 09:00 10/16/16 08:59 10/03/16 08:30 Morphine Sulfate (Morphine Sulfate) 2 mg Q4H PRN IVP Severe Pain (Pain Scale 7-10) 09/28/16 09:45 10/16/16 09:44 10/04/16 13:19 Nitroglycerin (Ntg) 0.4 mg Q5MIN X 3 DOSES PRN SL Prn Chest Pain 09/15/16 23:45 10/15/16 23:44 Ondansetron HCl (Zofran) 4 mg Q6H PRN IVP Nausea & Vomiting 09/16/16 00:00 10/16/16 00:00 Pantoprazole (Protonix) 40 mg EVERY 12 HOURS ORAL 09/16/16 09:00 10/16/16 08:59 10/04/16 08:44 Polyethylene Glycol (Miralax) 17 gm DAILYPRN PRN ORAL Constipation 09/16/16 00:30 10/16/16 00:29 09/18/16 12:58 Potassium Chloride (K-Dur) 10 meq DAILY ORAL 09/16/16 09:00 10/16/16 08:59 10/04/16 08:46 Ranitidine HCl (Zantac) 150 mg BEDTIME ORAL 09/21/16 21:00 10/21/16 20:59 10/03/16 21:12 Sucralfate (Carafate) 1 gm FOUR TIMES A DAY ORAL 09/16/16 09:00 10/16/16 08:59 10/04/16 13:19 Temazepam (Restoril) 15 mg HSPRN PRN ORAL Insomnia 09/30/16 21:00 10/07/16 20:59 10/03/16 21:12 BEKA MASON Oct 04, 2016 17:02
[2016-10-04] MEDS: Atorvastatin 20mg tab ORAL SCH (21:04)
--- NOTE | 2016-10-06 06:47 | Discharge Summary 2 SIG ---
DATE OF ADMISSION: 09/12/2016 DATE OF DISCHARGE: 10/04/2016 CONSULTANTS: 1. David Parada M.D. 2. Danilo Bolaños M.D. 3. Fidencio Levine M.D. 4. Mis Price M.D. BRIEF HOSPITAL COURSE: The patient is a 56-year-old female with history of cardiomyopathy and automatic implanted cardioverter defibrillator presented to ED with complaints of chest pain located at midsternal that started two hours prior to admission. She was given nitroglycerin in the field, but did not help. Because of her extensive cardiac history, she was admitted to telemetry. Cardiac evaluation was done. EKG showed sinus rhythm at rate of 81 beats per minute with -30 degree, poor R-wave progression on V1 to V4 with no ST-segment changes, and left ventricular hypertrophy by voltage. Venous duplex of the lower extremity was negative for DVT. She was given diuretics, ONELIA inhibitors, beta-blockers as well as statins. Dr. Sequeira was also consulted for evaluation of rash underneath the breasts and groin area and was recommended zinc oxide as well as antifungal powder to protect against rashes and recommended bilateral breast reduction to reduce the volume of her breast tissue that would improve back pain and also rashes. Pain management was consulted and was given morphine and [place]. Dr. Bolaños was consulted for evaluation of fever. The patient was pancultured and was started on IV Rocephin. Urine culture showed growth of mixed gram-positive organisms. Blood culture did not isolate any growth. The patient had an echocardiogram done, ejection fraction of 30%. Serial troponins has been negative. CT of the spine showed degenerative changes, but no acute process. Left foot x-ray was likewise negative. She was given physical therapy. She was advised abstinence from street drugs, ETOH and smoking. She completed 7-day course of IV Rocephin and was taken off antibiotics. The patient would need to be in the [place] [facility]. SNF authorization was obtained. The patient was then transferred to [facility]. FINAL DIAGNOSES: 1. Acute coronary syndrome. 2. Automatic implanted cardioverter defibrillator. 3. Hypertension. 4. Gastroesophageal reflux disease. 5. Diabetes mellitus. 6. Cardiomyopathy. 7. Seizure disorder. 8. Morbid obesity. 9. Probable urinary tract infection. 10. Cardiomyopathy. 11. Old cerebrovascular accident. 12. Seizure disorder. 13. Chronic obstructive pulmonary disease. 14. Degenerative joint disease. 15. Diabetes mellitus. 16. Schizophrenia. 17. Anxiety disorder. 18. History of cocaine, tobacco, and alcohol abuse. 19. Lumbar radiculopathy. 20. Gastroesophageal reflux disease. 21. Chronic systolic congestive heart failure with no evidence of exacerbation. 22. Left foot pain possible diabetic neuropathy 23, Possible plantar fasciitis. 24. Morbid obesity. Fernando Aquino M.D. I have been assigned to dictate discharge summary on this account and I was not involved in the patient's management. Claudia Dee N.P. DR: IVETT JOB#: [id number] CC: JENA
--- NOTE | 2016-11-02 13:38 | Diagnostic Imaging Report ---
Indications: Needs long-term IV access Technique: Ultrasound confirms patent compressible left arm vein. Total sterile technique, including sterile probe cover and sterile gel, hat, mask,, sterile gown, large sterile drape, and preparation with 2% chlorhexidine utilized. Local anesthesia with 1% lidocaine. Under real-time ultrasound guidance, puncture left arm vein using 21-gauge needle passage 0.018 guidewire under direct fluoroscopy, which was used to determine appropriate catheter length, exchange for 5 [place] peel-away sheath. 5 [place] Bard dual-lumen power PICC cut to cm. It was inserted through the peel-away sheath. Peel-away sheath and guidewire removed. Catheter fixed to the skin. Both catheter ports aspirated and flushed. Patient tolerated procedure well, without immediate complication. Digital radiograph documents satisfactory catheter tip position, at the cavoatrial junction. Previous right arm catheter was removed Total fluoroscopy time 1.1 minutes. Total dose area product 16 dGycm2 Impression: Successful placement of left arm PICC under sonographic and fluoroscopic guidance, as described above.
== END 2016-10-04 22:39 | DRG 198 ==
LOC: ENRESERVTM → ENRESERV → ENRESERVDT → EDBD 14:33 → EMR 15:00 → 2E 16:01 → EDBEDREQ 16:21 → 2E 09-15 07:23 → 4E 09-16 00:11
PROC: 02HV33Z Insertion of Infusion Device into Superior Vena Cava, Percutaneous Approach (ICD-10-PCS; principal; 2016-09-14)
DX: I25.119 Atherosclerotic heart disease of native coronary artery with unspecified angina pectoris (principal); I42.9 Cardiomyopathy, unspecified; I24.9 Acute ischemic heart disease, unspecified; Z68.42 Body mass index [BMI] 45.0-49.9, adult; I50.22 Chronic systolic (congestive) heart failure; E11.40 Type 2 diabetes mellitus with diabetic neuropathy, unspecified; Z95.810 Presence of automatic (implantable) cardiac defibrillator; I10 Essential (primary) hypertension; K21.9 Gastro-esophageal reflux disease without esophagitis; G40.909 Epilepsy, unspecified, not intractable, without status epilepticus; E66.9 Obesity, unspecified; Z88.6 Allergy status to analgesic agent; Z88.0 Allergy status to penicillin; E03.9 Hypothyroidism, unspecified; M51.16 Intervertebral disc disorders with radiculopathy, lumbar region; M47.896 Other spondylosis, lumbar region; J44.9 Chronic obstructive pulmonary disease, unspecified; F20.9 Schizophrenia, unspecified; F41.9 Anxiety disorder, unspecified; Z87.891 Personal history of nicotine dependence; R21 Rash and other nonspecific skin eruption; Z86.73 Personal history of transient ischemic attack (TIA), and cerebral infarction without residual deficits; F14.21 Cocaine dependence, in remission; M72.2 Plantar fascial fibromatosis; N39.0 Urinary tract infection, site not specified; F10.21 Alcohol dependence, in remission; M17.12 Unilateral primary osteoarthritis, left knee
CPT/HCPCS: 36415; 36569; 71010; 72131; 76937; 80048; 80053; 80061; 82550; 82553; 82962; 83690; 83735; 83880; 84100; 84443; 84484; 85025; 85610; 85651; 85730; 86140; 87040; 87086; 93005; 93306; 93926; 93970; 93971; 94640; 94664; 94760; J1815; J2405; J7620

== ENCOUNTER 2016-11-02 22:23 | Emergency (ER) | payer MEDICAID ==
[~2016-11-02] VITALS: Ht 165.1 cm; Wt 113.4 kg
[2016-11-02] MEDS ORDERED: QUETIAPINE FUMA25 MG ORAL (22:29)
[2016-11-02] MEDS ORDERED: CARISOPRODOL350 MG ORAL (22:29)
[2016-11-02] MEDS ORDERED: ADVAIR 100-501 EACH INH (22:29)
[2016-11-02] MEDS ORDERED: LASIX20 M1 ORAL (22:29)
[2016-11-02] MEDS ORDERED: CARBAMAZEPINE200 M3 ORAL (22:29)
[2016-11-02] MEDS ORDERED: WARFARIN SODIUM1 MG ORAL (22:29)
[2016-11-02] MEDS ORDERED: AMLODIPINE BES2.5 MG ORAL (22:29)
--- NOTE | 2016-11-02 22:38 | Emergency Room Report ---
History of Present Illness General Chief Complaint: Chest Pain Source: Patient, EMS Present Illness HPI This is a 56-year-old female with a BMI of 41.6. She has a history of cardiomyopathy probably secondary to drug use. She has an AICD and also is oxygen dependent. She presents with chief complaint of chest pain. She was lying down she had sharp left-sided chest pain. No radiation. No relief with nitroglycerin or aspirin. She received both by EMS. No radiation. No fever or chills. No diaphoresis. She is frequently. She has been hospital every month or less for this. Allergies: Coded Allergies: CODEINE (Verified Allergy, Unknown, Itching, 08/21/14) SULFA (SULFONAMIDE ANTIBIOTICS) (Unverified Allergy, Unknown, 12/29/15) Patient History Past Medical History: see triage record, old chart reviewed, CHF Past Surgical History: pacemaker Pertinent Family History: none Social History: Reports: drug use - History of Last Menstrual Period: Unknown Now: No Immunizations: other Reviewed Nursing Documentation: PMH: Agreed, PSxH: Agreed Nursing Documentation-PMH Past Medical History: No History, Except For Hx Cardiac Problems: Yes - CHF, diffibilator Hx Hypertension: Yes Hx Pacemaker: Yes - Left chest Hx Asthma: Yes Hx COPD: Yes Hx Diabetes: Yes Hx Cancer: No Hx Gastrointestinal Problems: No Hx Neurological Problems: No Hx Cerebrovascular Accident: Yes - Right sided deficit Hx Seizures: Yes Hx Headaches: Yes Review of Systems Eye: Denies: blurred vision, eye pain ENT: Denies: ear pain, nose congestion, throat swelling Respiratory: Denies: cough, shortness of breath Cardiovascular: Reports: chest pain, Denies: palpitations Gastrointestinal: Denies: abdominal pain, diarrhea, nausea, vomiting Musculoskeletal: Denies: back pain, joint pain Skin: Denies: rash Neurological: Denies: headache, numbness Endocrine: Denies: increased thirst, increased urine Hematologic/Lymphatic: Denies: easy bruising All Other Systems: negative except mentioned in HPI Physical Exam Vital Signs Date Time Temp Pulse Resp B/P Pulse Ox O2 Delivery O2 Flow Rate FiO2 11/02/16 22:21 99.3 100 16 130/70 97 Nasal Cannula 3.0 vitals unremarkable Sp02 EP Interpretation: reviewed, normal General Appearance: well appearing, no apparent distress, alert, obese Head: normocephalic, atraumatic Eyes: bilateral eye EOMI, bilateral eye PERRL ENT: hearing grossly normal, normal pharynx Neck: full range of motion, supple, no meningismus Respiratory: chest non-tender, lungs clear, normal breath sounds Cardiovascular #1: regular rate, rhythm, no murmur Gastrointestinal: normal bowel sounds, non tender, no mass, no organomegaly, no bruit, non-distended Musculoskeletal: back normal, gait/station normal, normal range of motion Psychiatric: mood/affect normal Skin: warm/dry Medical Decision Making Diagnostic Impression: Primary Impression: Chest pain Qualified Codes: R07.9 - Chest pain, unspecified Additional Impressions: Cardiomyopathy Qualified Codes: I42.9 - Cardiomyopathy, unspecified Morbid obesity with BMI of 40.0-44.9, adult ER Course Patient presents with chest pain. This is a chronic issue. She does have cardiomyopathy but no evidence of ischemia. Troponin negative. No evidence of fluid overloaded. Pain felt better now. We'll discharge home. Lab Results Impression labs unremarkable EKG Diagnostic Results Rate: normal, tachycardiac Rhythm: NSR ST Segments: no acute changes Rhythm Strip Diag. Results EP Interpretation: yes Rate: 90 Rhythm: NSR, no PVC's, no ectopy Chest X-Ray Diagnostic Results EP Interpretation: Yes Findings: no consolidation, no effusion, no pneumothorax, no acute cardiopulmonary disease, other - Cardiomegaly Number of Views: 1 Last Vital Signs Date Time Temp Pulse Resp B/P Pulse Ox O2 Delivery O2 Flow Rate FiO2 11/02/16 22:21 99.3 100 16 130/70 97 Nasal Cannula 3.0 Status: improved Disposition: HOME, SELF-CARE Condition: Stable Scripts Meloxicam* (MOBIC*) 7.5 Mg Tablet 7.5 MG ORAL BID, #30 TAB 0 Refills Prov: LIANG SERVIN M.D. 11/03/16 Patient Instructions: Nonspecific Chest Pain Additional Instructions: Followup with your Dr. in 2-3 days. Return if symptom worsen. LIANG SERVIN M.D. Nov 02, 2016 22:38
[2016-11-02] MEDS ORDERED: LORazepam Inj 2mg/ml 1ml IV ONE (22:45)
[2016-11-02 23:13] LABS: BASOPHILS % (AUTO) 0.4 % (0.0-2.0); EOSINOPHILS % (AUTO) 0.5 % (0.0-3.0); LYMPHOCYTES % (AUTO) 16.2 % (20.0-45.0); MEAN CORPUSCULAR HEMOGLOBIN 26.9 PG (27.0-31.0); MEAN CORPUSCULAR HGB CONC 31.7 G/DL (32.0-36.0); MEAN CORPUSCULAR VOLUME 85 FL (80-99); MEAN PLATELET VOLUME 7.6 FL (6.5-10.1); MONOCYTES % (AUTO) 7.2 % (1.0-10.0); NEUTROPHILS % (AUTO) 75.7 % (45.0-75.0); PLATELET COUNT 189 K/UL (150-450); RED BLOOD COUNT 4.21 M/UL (4.20-5.40); WHITE BLOOD COUNT 9.9 K/UL (4.8-10.8)
[2016-11-02 23:30] LABS: ALANINE AMINOTRANSFERASE 6 U/L (3-33); ALBUMIN/GLOBULIN RATIO 1.1 (1.0-2.7); ANION GAP 15 (5-15); ASPARTATE AMINO TRANSFERASE 11 U/L (5-40); CALCIUM 9.4 mg/dL (8.6-10.2); CARBON DIOXIDE 28 mEQ/L (20-30); CHLORIDE 98 mEQ/L (98-107); GLOMERULAR FILTRATION RATE > 60 mL/min (>60); HEMOLYSIS 0; POTASSIUM 3.8 mEQ/L (3.4-4.9); SODIUM 141 mEQ/L (135-145); TOTAL PROTEIN 7.6 g/dL (6.6-8.7)
[2016-11-02 23:32] LABS: TROPONIN I < 0.30 ng/mL (<=0.30)
[2016-11-02 23:41] LABS: CKMB < 1.5 ng/mL (< 3.8)
[2016-11-03 00:10] VITALS: BP 107/61
[2016-11-03] MEDS ORDERED: HYDROmorphone 1mg/ml Carpuject IVP ONE (00:15)
[2016-11-03] MEDS ORDERED: MOBIC7.5 MG ORAL (00:29)
[2016-11-03 00:37] VITALS: BP 107/61
--- NOTE | 2016-11-03 10:52 | Diagnostic Imaging Report ---
Indication: Chest Pain Comparison: 09/24/16 A single view chest radiograph was obtained. Findings: Pulmonary vascular prominence demonstrated. Cardiomegaly is present. Bones are osteopenic. Pacemaker noted. Impression: No acute findings
--- NOTE | 2016-11-05 10:07 | Cardiology Report ---
APPROVED REPORT EKG Measurement Heart [id number] Sinus tachycardia Possible Left atrial enlargement Left axis deviation Low voltage QRS Cannot rule out Anterior infarct, age undetermined Abnormal ECG
== END 2016-11-03 00:39 | disposition home or self-care (01) ==
LOC: EDBD 22:23 → EMR 22:45
DX: R07.89 Other chest pain (principal); I42.9 Cardiomyopathy, unspecified; E66.01 Morbid (severe) obesity due to excess calories; Z68.41 Body mass index [BMI] 40.0-44.9, adult; J45.909 Unspecified asthma, uncomplicated; J44.9 Chronic obstructive pulmonary disease, unspecified; E11.9 Type 2 diabetes mellitus without complications; I50.9 Heart failure, unspecified; Z95.810 Presence of automatic (implantable) cardiac defibrillator; Z88.6 Allergy status to analgesic agent; Z88.2 Allergy status to sulfonamides
CPT/HCPCS: 36415; 71010; 80053; 82550; 82553; 83880; 84484; 85025; 93005; 96374; 96375; 99284; J1170